=== PATIENT | female | born 1940 | race Caucasian/White ===

== ENCOUNTER → 2016-07-02 | Outpatient (CLI) | payer BC ==
[~2016-07-02] MED LIST: ACCL20 PO; ANT25 PO; ASPI81TA28 PO; CHOL100010 PO; CITA40TA12 PO; CLX20 PO; CYCL10TA6 PO; FLUT0.15 NAE; FLUT50SP14 NAE; FOLI400T41 PO; LEVO1TAB33 PO; MECL1TAB42 PO; METF1000 PO; METH2.5T PO; NAPR1TAB9 PO; PANT40TA PO; PHEN-876 PO; PRAV20TA PO; PRED10TA PO; RANI150T3 PO; SENN1TAB65 PO; TOPI100T20 PO; TRAM-453 PO; VSC/5 PO
--- NOTE | 2016-07-02 17:13 | MAMMOGRAPHY REPORT ---
BILATERAL DIGITAL SCREENING MAMMOGRAM WITH CAD: 07/02/2016 CLINICAL HISTORY: Routine screening. Patient has no complaints. TECHNIQUE: Bilateral CC and MLO views were obtained. Current study was also evaluated with a Comput er Aided Detection (CAD) system. COMPARISON: Comparison is made to exams dated: 06/28/2015 mammogram, 06/09/2013 mammogram, 06/08/2012 m ammogram, 06/03/2011 mammogram, 05/30/2010 mammogram - [facility], and 12/19/2008. BREAST COMPOSITION: There are scattered areas of fibroglandular density in both breasts. FINDINGS: There are scattered stable benign-appearing punctate microcalcifications in the breasts. No suspicious mass, architectural distortion or cluster of microcalcifications is seen. IMPRESSION: ACR BI-RADS CATEGORY 1: NEGATIVE There is no mammographic evidence of malignancy. A 1 year screening mammogram is recommended. The p atient will receive written notification of the results. Approximately 10% of breast cancers are not detected with mammography. A negative mammographic repor t should not delay biopsy if a clinically suggestive mass is present. Radha Hammond M.D. ay/:07/02/2016 12:30:45 Java Mobile Developer: Ilene TELLEZ(Leah)(M), [facility] letter sent: Normal 1/2 BI-RADS Code: ACR BI-RADS Category 1: Negative
== END | disposition home or self-care (01) ==
LOC: C.MAMM 10:56
PROVIDERS: ATTEND Internal Medicine
DX: Z12.31 Encounter for screening mammogram for malignant neoplasm of breast (principal)

== ENCOUNTER → 2016-07-23 | Outpatient (CLI) | payer BC ==
[2016-07-23 13:13] LABS: ESTIMATED AVERAGE GLUCOSE 123 mg/dl; HA1C FLAG Normal (Normal)
[2016-07-23 17:36] LABS: ALT/SGPT 18 U/L (12-78); AST/SGOT 13 U/L (15-37); BLOOD UREA NITROGEN 19 mg/dl (7-18); CALCIUM 8.8 mg/dl (8.5-10.1); CARBON DIOXIDE 21 mmol/L (21-32); CHLORIDE 113 mmol/L (98-107); CREATININE 0.76 mg/dl (0.60-1.20); GLUCOSE 92 mg/dl (70-99); POTASSIUM 3.8 mmol/L (3.5-5.1); SODIUM 145 mmol/L (136-145); TRIGLYCERIDES 107 mg/dl (0-150); VERY LOW DENSITY LIPOPROT CALC 21 mg/dl
[2016-07-23 17:38] LABS: ALB/GLOB RATIO 0.9 (0.9-2); ALKALINE PHOSPHATASE 65 U/L (45-117); CHOLESTEROL 195 mg/dl (0-200); CHOLESTEROL/HDL RATIO 3.8; HDL CHOLESTEROL 52 mg/dl; LDL CHOLESTEROL CALCULATED 122 mg/dl
== END | disposition home or self-care (01) ==
LOC: C.LABBFT 11:25
PROVIDERS: ATTEND Internal Medicine
DX: E11.9 Type 2 diabetes mellitus without complications (principal); E78.00 Pure hypercholesterolemia, unspecified; I10 Essential (primary) hypertension

== ENCOUNTER 2016-08-03 21:42 | Emergency (ER) | payer BC ==
[~2016-08-03] VITALS: Ht 157.5 cm; Wt 80.0 kg
[~2016-08-03 21:42] MED LIST changes: -CITA40TA12 PO; -CYCL10TA6 PO; -FLUT0.15 NAE; -LEVO1TAB33 PO; -MECL1TAB42 PO; -NAPR1TAB9 PO; -PHEN-876 PO; -PRED10TA PO; -VSC/5 PO
[2016-08-03 21:59] VITALS: TEMP 36.4; Ht 157.5 cm; Wt 80.0 kg
[2016-08-03 22:04] VITALS: O2SAT 94
[2016-08-03] MEDS ORDERED: ACCL20 PO (22:51)
[2016-08-03] MEDS ORDERED: DiphenhydrAMINE HCL 50 MG/ML VIAL IV STA (22:51)
[2016-08-03] MEDS ORDERED: MECL1TAB42 PO (22:51)
[2016-08-03] MEDS ORDERED: PROCHLORPERAZINE 5 MG/ML 2 ML VIAL IV STA (22:51)
[2016-08-03] MEDS ORDERED: FENTANYL CITRATE INJ 50 MCG/1 ML 2 ML VIAL IV STA (22:51)
[2016-08-03] MEDS ORDERED: CITA40TA12 PO (22:51)
[2016-08-03] MEDS ORDERED: SODIUM CHLORIDE 0.9% 1000ML 1,000 ML IV STA (22:51)
[2016-08-03] MEDS ORDERED: FLUT0.15 NAE (22:51)
[2016-08-03] MEDS ORDERED: SODIUM CHLORIDE 0.9% 250ML 250 ML IV STA (22:51)
[2016-08-03] MEDS ORDERED: VSC/5 PO (22:51)
[2016-08-03] MEDS ORDERED: CHOL100010 PO (22:51)
[2016-08-03] MEDS ORDERED: LEVO1TAB33 PO (22:51)
[2016-08-03] MEDS ORDERED: PHEN-876 PO (22:51)
[2016-08-03] MEDS ORDERED: PRED10TA PO (22:51)
--- NOTE | 2016-08-03 22:58 | EMERGENCY ROOM VISIT NOTE ---
History Report prepared by Earl: Rosalia Noel Under the Supervision of: Dr. Ida Macias M.D. 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 The patient states that she had a sudden onset of pain and she describes it as a pressure. She denies any radiation of the pain. The patient states that she had diaphoresis and then had nausea followed by several episodes of vomiting. She states she also has generalized weakness and dizziness. The patient states that upon arriving at the ED she states her chest pain resolved. She states that with her symptoms she also developed a headache spanning her forehead and states she suffers from chronic migraines and takes Topamax daily and it causes her to get migraines less frequently. She states this headache feels like it it turning into a migraine. The patient states that she has been having intermittent fevers due to a chest cold she has and has been taking Levaquin and steroids to treat her cough. The patient denies any shortness of breath or any blood in her vomit. The patient states that she has history of a cholecystectomy. 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 Review of Systems See HPI for pertinent positives & negatives. A total of 10 systems reviewed and were otherwise negative. Past Medical & Surgical Medical Problems: (1) Cholecystectomy (2) Diabetes mellitus type 2 (3) Intractable nausea and vomiting (4) LENS REPLACEMENT NEC (5) MIGRAINE UNSPECIFIED W/O INTRACT MGRN W/O STATUS MIGRAINOSUS (6) Sciatica Family History No pertient family history secondary to age. Social History Smoking Status: Never Smoker Alcohol Use: none Drug Use: none Marital Status: single Occupation Status: retired Current/Historical Medications Scheduled Aspirin (Aspirin Ec), 81 MG PO DAILY Cholecalciferol (Vitamin D), 1,000 UNITS PO DAILY Citalopram Hydrobromide (Celexa), 40 MG PO DAILY Fluticasone Propionate (Nasal) (Flonase Allergy Relief), 2 SPRAYS HECTOR DAILY Folic Acid (Folvite), 1,200 MCG PO DAILY Levofloxacin (Levaquin), 500 MG PO DAILY Metformin Hcl (Glucophage), 1,000 MG PO BID Methotrexate Sodium (Methotrexate), 15 MG PO WK Pantoprazole (Protonix), 40 MG PO DAILY Pravastatin (Pravachol ), 20 MG PO HS Prednisone Tab (Prednisone), 10 MG PO Q2D Ranitidine Hcl (Zantac), 150 MG PO BID Solifenacin (Vesicare), 5 MG PO DAILY Topiramate (Topamax), 100 MG PO BID Zafirlukast (Zafirlukast), 20 MG PO BID Scheduled PRN Meclizine Hcl (Meclizine Hcl), 1 TAB PO TID PRN for Dizziness or Vertigo Phenazopyridine HCl (Pyridium), 200 MG PO TID PRN for Bladder pain Ranitidine Hcl (Zantac), 150 MG PO BID PRN for REFLUX Sennosides-Docusate Sodium (Senna Plus), 1 TAB PO DAILY PRN for Constipation Tramadol Hcl (Ultram), 50 MG PO Q4-6H PRN Allergies Coded Allergies: Acetaminophen (Verified Allergy, Severe, SAME PERCODAN, 08/03/16) Aspirin (Verified Allergy, Severe, DROP IN VITAL SIGNS, TREMORS , VOMITING , 08/03/16) Morphine (Verified Allergy, Severe, DROP IN VITAL SIGNS, TREMORS, VOMITING , 08/03/16) Codeine (Verified Allergy, Unknown, 08/03/16) Oxycodone (Verified Allergy, Unknown, 08/03/16) PATIENT DENIES THIS ALLEGY Meperidine (Verified Adverse Reaction, Intermediate, VOMITING, 08/03/16) Adhesives (Verified Adverse Reaction, Unknown, "PULLS OFF SKIN", 08/03/16) Physical Exam Vital Signs Date Time Temp Pulse Resp B/P Pulse Ox O2 Delivery O2 Flow Rate FiO2 08/04/16 01:31 70 16 127/70 98 08/04/16 00:00 60 16 107/60 95 Room Air 08/03/16 22:04 94 Room Air 08/03/16 21:59 36.4 57 16 163/90 94 Room Air 08/03/16 21:57 61 Physical Exam Vital signs reviewed. General: Well-appearing elderly woman, in no significant distress. HEENT: No scleral icterus, PERRLA, neck supple. Atraumatic. No meningismus signs. Edentulous Cardiovascular: Regular rate and rhythm, no extra sounds. Pulmonary: Clear to auscultation bilaterally, normal work of breathing. Abdomen: Soft, nontender, nondistended, positive bowel sounds. Musculoskeletal: Atraumatic, no peripheral edema. Neurologic: Patient awake alert and oriented x 3, full strength in all 4 extremities. Cranial nerves 2 through 12 grossly intact. No meningeal signs Skin: Warm, dry, no rash Medical Decision & Procedures Laboratory Results 08/03/16 21:50 Red Blood Count 4.60, Mean Corpuscular Volume 89.8, Mean Corpuscular Hemoglobin 29.8, Mean Corpuscular Hemoglobin Concent 33.2, Mean Platelet Volume 10.3, Neutrophils (%) (Auto) 66.4, Lymphocytes (%) (Auto) 26.6, Monocytes (%) (Auto) 5.7, Eosinophils (%) (Auto) 0.3, Basophils (%) (Auto) 0.5, Neutrophils # (Auto) 4.19, Lymphocytes # (Auto) 1.68, Monocytes # (Auto) 0.36, Eosinophils # (Auto) 0.02, Basophils # (Auto) 0.03 08/03/16 21:50 Test 08/03/16 21:50 08/03/16 22:58 White Blood Count 6.31 K/uL (4.8-10.8) Red Blood Count 4.60 M/uL (4.2-5.4) Hemoglobin 13.7 g/dL (12.0-16.0) Hematocrit 41.3 % (37-47) Mean Corpuscular Volume 89.8 fL (80-100) Mean Corpuscular Hemoglobin 29.8 pg (25-34) Mean Corpuscular Hemoglobin Concent 33.2 g/dl (32-36) Platelet Count 350 K/uL (130-400) Mean Platelet Volume 10.3 fL (7.4-10.4) Neutrophils (%) (Auto) 66.4 % Lymphocytes (%) (Auto) 26.6 % Monocytes (%) (Auto) 5.7 % Eosinophils (%) (Auto) 0.3 % Basophils (%) (Auto) 0.5 % Neutrophils # (Auto) 4.19 K/uL (1.4-6.5) Lymphocytes # (Auto) 1.68 K/uL (1.2-3.4) Monocytes # (Auto) 0.36 K/uL (0.11-0.59) Eosinophils # (Auto) 0.02 K/uL (0-0.5) Basophils # (Auto) 0.03 K/uL (0-0.2) RDW Standard Deviation 49.9 fL (36.4-46.3) RDW Coefficient of Variation 15.4 % (11.5-14.5) Immature Granulocyte % (Auto) 0.5 % Immature Granulocyte # (Auto) 0.03 K/uL (0.00-0.02) Anion Gap 10.0 mmol/L (3-11) Est Creatinine Clear Calc Drug Dose 56.9 ml/min Estimated GFR () 78.2 Estimated GFR (Non- 67.5 BUN/Creatinine Ratio 27.6 (10-20) Calcium Level 9.0 mg/dl (8.5-10.1) Magnesium Level 2.4 mg/dl (1.8-2.4) Total Bilirubin 0.4 mg/dl (0.2-1) Direct Bilirubin < 0.1 mg/dl (0-0.2) Aspartate Amino Transf (AST/SGOT) 16 U/L (15-37) Alanine Aminotransferase (ALT/SGPT) 18 U/L (12-78) Alkaline Phosphatase 85 U/L (45-117) Total Creatine Kinase 60 U/L (26-192) Creatine Kinase MB 0.7 ng/ml (0.5-3.6) Creatine Kinase MB Ratio 1.2 (0-3.0) Total Protein 7.7 gm/dl (6.4-8.2) Albumin 3.8 gm/dl (3.4-5.0) Lipase 151 U/L (73-393) Chemistry Specimen Hemolysis Bedside Troponin I 0.000 ng/ml (0-0.045) Laboratory results per my review. Medications Administered Medications (Trade) Dose Ordered Sig/Carmen Route Start Time Stop Time Status Last Admin Dose Admin Sodium Chloride 250 ml @ 999 mls/hr Q16M STAT IV 08/03/16 22:51 08/03/16 23:06 DC 08/03/16 23:18 999 MLS/HR Sodium Chloride (Nss 1000ml) 1,000 ml @ 125 mls/hr Q8H STAT IV 08/03/16 22:51 08/04/16 02:09 DC 08/03/16 23:18 125 MLS/HR Fentanyl Citrate (Fentanyl Inj) 75 mcg NOW STAT IV 08/03/16 22:51 08/03/16 22:54 DC 08/03/16 23:19 75 MCG Prochlorperazine Edisylate (Compazine Inj) 5 mg NOW STAT IV 08/03/16 22:51 08/03/16 22:54 DC 08/03/16 23:18 5 MG Diphenhydramine HCl (Benadryl Inj) 25 mg NOW STAT IV 08/03/16 22:51 08/03/16 22:54 DC 08/03/16 23:18 25 MG ECG Indication: chest pain Rate (beats per minute): 55 Rhythm: sinus bradycardia Findings: no acute ischemic change, no ectopy ED Course 1: At this time the patient was evaluated by the medical student. The student s findings were discussed with me. We discussed a possible treatment plan and differential diagnoses for the patient. 2246: Past medical records reviewed. The patient was evaluated in room C6. A complete history and physical examination was performed. 2251: Ordered Benadryl Inj 25 mg IV, Compazine Inj 5 mg IV, Fentanyl 75 mcg IV, Sodium Chloride 1,000 ml @ 125 mls/hr IV, Sodium Chloride 250 ml @ 999 mls/hr IV. 0105: Upon reevaluation, the patient appeared to have improvement of her symptoms. I discussed findings with her. She verbalized agreement of the treatment plan. The patient was discharged home. Medical Decision DDx: Intracranial hemorrhage, intracranial mass, migraine headache, tension headache , sinusitis, meningitis and viral illness, gastritis, esophageal reflux, ACS. This patient was evaluated and appeared to be in no significant distress. IV access was obtained and laboratory work was drawn. Patient was medicated with IV Compazine 5 mg, IV Benadryl 25 mg and 75 g of IV fentanyl. She was hydrated with normal saline solution. No imaging was performed as the patient states this is similar to her previous and chronic migraine headaches. Patient' s laboratory work was a normal white blood cell count and a mild hyperglycemia. Patient was feeling much improved on reevaluation. She was discharged to the care of her daughter and will follow-up with her primary care physician for reevaluation this week. She will return to the ER for worsening of symptoms or any medical concerns. Impression Primary Impression: Migraine headache Additional Impression: Vomiting Scribe Attestation The scribe's documentation has been prepared under my direction and personally reviewed by me in its entirety. I confirm that the note above accurately reflects all work, treatment, procedures, and medical decision making performed by me. Departure Information Dispostion Home / Self-Care Prescriptions Ranitidine Hcl (ZANTAC) 150 Mg Tab 150 MG PO BID, #30 TAB Prov: Ida Macias M.D. 08/04/16 Referrals Royer Ring M.D. (PCP) Forms HOME CARE DOCUMENTATION FORM, IMPORTANT VISIT INFORMATION, WORK / SCHOOL INSTRUCTIONS Patient Instructions My [facility] Additional Instructions Diagnosis: Migraine headache, vomiting Drink plenty of clear fluids. Continue your medications as prescribed. Zantac 150 mg twice daily as needed. Follow-up with your physician this week for reevaluation. Return to the emergency department for worsening of symptoms or any medical concerns. Problem Qualifiers Primary Impression: Migraine headache Migraine type: periodic headache syndrome Intractability: intractable Qualified Codes: G43.C1 - Periodic headache syndromes in child or adult, intractable Additional Impression: Vomiting Vomiting type: unspecified Vomiting Intractability: non-intractable Nausea presence: with nausea Qualified Codes: R11.2 - Nausea with vomiting, unspecified
[2016-08-03 23:01] LABS: BASO % 0.5 %; BASO ABS # 0.03 K/uL (0-0.2); COMPLETE YES; EOS % 0.3 %; HEMATOCRIT 41.3 % (37-47); IG% 0.5 %; LYMPH % 26.6 %; LYMPH ABS # 1.68 K/uL (1.2-3.4); MEAN CELL VOLUME 89.8 fL (80-100); MEAN CORPUSCULAR HEMOGLOBIN 29.8 pg (25-34); MEAN CORPUSCULAR HGB CONC 33.2 g/dl (32-36); MEAN PLATELET VOLUME 10.3 fL (7.4-10.4); MONO % 5.7 %; NEUT % 66.4 %; PLATELET COUNT 350 K/uL (130-400); WHITE BLOOD COUNT 6.31 K/uL (4.8-10.8)
[2016-08-03 23:16] LABS: ALKALINE PHOSPHATASE 85 U/L (45-117); ALT/SGPT 18 U/L (12-78); AST/SGOT 16 U/L (15-37); BLOOD UREA NITROGEN 24 mg/dl (7-18); BUN/CREATININE RATIO 27.6 (10-20); CARBON DIOXIDE 24 mmol/L (21-32); CHLORIDE 106 mmol/L (98-107); CKMB/CK RATIO 1.2 (0-3.0); CREATININE 0.85 mg/dl (0.60-1.20); GLUCOSE 151 mg/dl (70-99); MAGNESIUM 2.4 mg/dl (1.8-2.4); POTASSIUM 3.8 mmol/L (3.5-5.1); SODIUM 140 mmol/L (136-145)
[2016-08-04] MEDS ORDERED: RANI150T3 PO (01:17)
[2016-08-04 01:31] VITALS: BP 127/70; PULSE 70; O2SAT 98
== END 2016-08-04 01:32 | disposition home or self-care (01) ==
LOC: EDBD 21:42 → C.EDC 21:43
DX: G43.C1 Periodic headache syndromes in child or adult, intractable (principal); R11.2 Nausea with vomiting, unspecified; E11.9 Type 2 diabetes mellitus without complications; M54.30 Sciatica, unspecified side; Z79.82 Long term (current) use of aspirin; Z79.2 Long term (current) use of antibiotics; Z79.899 Other long term (current) drug therapy

== ENCOUNTER → 2016-08-14 | Outpatient (CLI) | payer BC ==
[~2016-08-14] MED LIST changes: -ANT25 PO; +CITA40TA12 PO; -CLX20 PO; +CYCL10TA6 PO; +FLUT0.15 NAE; -FLUT50SP14 NAE; +LEVO1TAB33 PO; +MECL1TAB42 PO; +NAPR1TAB9 PO; +PHEN-876 PO; +PRED10TA PO; +VSC/5 PO
== END | disposition home or self-care (01) ==
LOC: C.MAMM 11:22
PROVIDERS: ATTEND Internal Medicine
DX: M81.0 Age-related osteoporosis without current pathological fracture (principal); M85.851 Other specified disorders of bone density and structure, right thigh; M85.852 Other specified disorders of bone density and structure, left thigh; E04.2 Nontoxic multinodular goiter

== ENCOUNTER → 2016-08-14 | Outpatient (CLI) | payer BC ==
--- NOTE | 2016-08-14 12:40 | DIAGNOSTIC IMAGING REPORT ---
THYROID ULTRASONOGRAPHY CLINICAL HISTORY: E04.2 Nontoxic multinodular [id number] COMPARISON STUDY: No previous studies for comparison. FINDINGS: The right of the thyroid measures 4.1 x 2.1 x 1.5 cm. The left lobe of thyroid measures 5.7 x 2 x 1.4 cm. There are multiple bilateral thyroid nodules. The largest nodules in the right include a 7 mm circumscribed upper pole nodule containing colloid artifact, as well as an 11 mm circumscribed hypoechoic lower pole nodule containing colloid artifact. On the left, the 2 largest nodules include an isoechoic 6 mm lower pole nodule, and 12 mm minimally hypoechoic mid pole nodule versus area of glandular heterogeneity. No single nodule demonstrate suspicious morphologic characteristics. IMPRESSION: Multinodular thyroid goiter. No dominant suspicious nodule is evident Electronically signed by: Bola Walsh M.D. 08/14/2016 12:38 PM Dictated Date/Time: 08/14/2016 12:36 PM
== END | disposition home or self-care (01) ==
LOC: C.ULTR 11:58
PROVIDERS: ATTEND Internal Medicine
DX: E04.2 Nontoxic multinodular goiter (principal)

== ENCOUNTER 2016-08-31 10:29 | Emergency (ER) | payer BC ==
[~2016-08-31] VITALS: Ht 160 cm; Wt 76.6 kg
[~2016-08-31 10:29] MED LIST changes: -CYCL10TA6 PO; -NAPR1TAB9 PO
[2016-08-31 10:52] VITALS: TEMP 36.7; Ht 160 cm; Wt 76.6 kg
[2016-08-31] MEDS ORDERED: KETOROLAC TROMETHAMINE 60 MG/2 ML VIAL IM STA (11:47)
[2016-08-31] MEDS ORDERED: NAPR1TAB9 PO (11:58)
--- NOTE | 2016-08-31 12:37 | DIAGNOSTIC IMAGING REPORT ---
RIGHT RIBS UNILATERAL WITH PA CHEST CLINICAL HISTORY: Right lower rib pain. No recent trauma. COMPARISON STUDY: Chest radiograph August 13, 2013. FINDINGS: Moderate elevation of the left hemidiaphragm is unchanged. There is no pneumothorax or pleural effusion. Cardiomediastinal silhouette is normal. There is no evidence of pulmonary edema. No acute right rib fractures are identified. The anterior right first rib is absent. This is unchanged. IMPRESSION: No pneumothorax. No acute right rib fractures. Electronically signed by: Seth Sandoval M.D. 08/31/2016 12:35 PM Dictated Date/Time: 08/31/2016 12:31 PM
[2016-08-31 13:28] LABS: INR 0.9 (0.9-1.1); PROTHROMBIN TIME (PATIENT) 10.1 SECONDS (9.0-12.0)
[2016-08-31] MEDS ORDERED: CYCL10TA6 PO (14:23)
--- NOTE | 2016-08-31 14:25 | EMERGENCY ROOM VISIT NOTE ---
History First contact with patient: 11:40 Chief Complaint: BACK PAIN Stated Complaint: SEVERE BACK PAIN History of Present Illness The patient is a 76 year old female who presents to the Emergency Room with complaints of right posterior rib pain which started Khalif night. The patient states that it hurts to take in a deep breath or to move in any direction. The patient denies any recent URI symptoms. The patient denies any chest pain or shortness of breath. The patient denies any injury. The patient denies any history of osteoporosis. The patient has been taking tramadol and Aleve without any relief of the pain. Review of Systems 10 system review was performed and was negative unless stated otherwise history of present illness. Past Medical/Surgical History Medical Problems: (1) Cholecystectomy (2) Diabetes mellitus type 2 (3) Intractable nausea and vomiting (4) LENS REPLACEMENT NEC (5) MIGRAINE UNSPECIFIED W/O INTRACT MGRN W/O STATUS MIGRAINOSUS (6) Sciatica Family History No pertient family history secondary to age. Social History Smoking Status: Never Smoker Alcohol Use: none Drug Use: none Marital Status: single Occupation Status: retired Current/Historical Medications Scheduled Aspirin (Aspirin Ec), 81 MG PO DAILY Cholecalciferol (Vitamin D), 1,000 UNITS PO DAILY Citalopram Hydrobromide (Celexa), 40 MG PO BID Fluticasone Propionate (Nasal) (Flonase Allergy Relief), 2 SPRAYS HECTOR DAILY Folic Acid (Folvite), 1,200 MCG PO DAILY Metformin Hcl (Glucophage), 1,000 MG PO BID Methotrexate Sodium (Methotrexate), 15 MG PO WK Pantoprazole (Protonix), 40 MG PO DAILY Pravastatin (Pravachol ), 20 MG PO Q2D Ranitidine Hcl (Zantac), 150 MG PO BID Solifenacin (Vesicare), 5 MG PO DAILY Topiramate (Topamax), 100 MG PO BID Zafirlukast (Zafirlukast), 20 MG PO BID Scheduled PRN Meclizine Hcl (Meclizine Hcl), 1 TAB PO TID PRN for Dizziness or Vertigo Naproxen (Aleve), 220 MG PO UD PRN for Pain Sennosides-Docusate Sodium (Senna Plus), 1 TAB PO DAILY PRN for Constipation Tramadol Hcl (Ultram), 50 MG PO Q4-6H PRN Allergies Coded Allergies: Morphine (Verified Allergy, Severe, DROP IN VITAL SIGNS, TREMORS, VOMITING , 08/31/16) Codeine (Verified Allergy, Unknown, 08/31/16) Oxycodone (Verified Allergy, Unknown, drop in vital signs,tremors,vomiting , 08/31/16) Meperidine (Verified Adverse Reaction, Intermediate, VOMITING, 08/31/16) Adhesives (Verified Adverse Reaction, Unknown, "PULLS OFF SKIN", 08/31/16) Physical Exam Vital Signs Date Time Temp Pulse Resp B/P Pulse Ox O2 Delivery O2 Flow Rate FiO2 08/31/16 13:40 60 15 122/69 94 Room Air 08/31/16 12:40 70 15 112/64 94 Room Air 08/31/16 11:58 75 122/69 94 Room Air 08/31/16 10:52 36.7 92 17 118/83 96 Room Air Physical Exam GENERAL: 76-year-old white female appears uncomfortable with any type of movement. MENTAL Status: Alert and oriented 3. NECK: Supple, no lymphadenopathy noted. No carotid bruits noted. LUNGS: Clear auscultation without wheezes rales or rhonchi. CARDIAC: Regular rate and rhythm without murmur. Pulses is full and equal throughout. CHEST WALL: No gross bony deformity noted. No erythema or edema noted. Tenderness palpation on the posterior mid to lower ribs. ABDOMEN: Positive bowel sounds all 4 quadrants. Soft, nontender to palpation without organomegaly or masses. THORACIC SPINE: Patient is nontender to palpation over the spinous processes. Medical Decision & Procedures ER Provider Diagnostic Interpretation: RIGHT RIBS UNILATERAL WITH PA CHEST CLINICAL HISTORY: Right lower rib pain. No recent trauma. COMPARISON STUDY: Chest radiograph August 13, 2013. FINDINGS: Moderate elevation of the left hemidiaphragm is unchanged. There is no pneumothorax or pleural effusion. Cardiomediastinal silhouette is normal. There is no evidence of pulmonary edema. No acute right rib fractures are identified. The anterior right first rib is absent. This is unchanged. IMPRESSION: No pneumothorax. No acute right rib fractures. Electronically signed by: Seht Sandoval M.D. 08/31/2016 12:35 PM Laboratory Results Test 08/31/16 13:07 08/31/16 13:14 08/31/16 13:44 Prothrombin Time 10.1 SECONDS (9.0-12.0) Prothromb Time International Ratio 0.9 (0.9-1.1) Activated Partial Thromboplast Time 26.1 SECONDS (21.0-31.0) Partial Thromboplastin Ratio 1.0 XX-Vty-J-Type Natriuretic Peptide 101 pg/ml (0-900) Bedside D-Dimer 248 ng/mlFEU (0-450) Medications Administered Medications (Trade) Dose Ordered Sig/Carmen Route Start Time Stop Time Status Last Admin Dose Admin Ketorolac Tromethamine (Toradol Inj) 60 mg NOW STAT IM 08/31/16 11:47 08/31/16 11:49 DC 08/31/16 12:01 60 MG ED Course The patient was evaluated. The patient was given Toradol 60 and independently evaluated by Dr. Macias who agree with treatment plan. Mg IM for pain since she drove herself to the emergency room plus she is allergic to all narcotics as per her history. Aspirin is listed as an allergy but the patient has been taking Aleve without any side effects or allergic reaction. X-ray of the right ribs to include chestwas ordered and interpreted by the radiologist and myself without any acute findings. D-dimer and coags were ordered and were normal. The patient was reevaluated and informed of the findings. The patient was discharged home in stable condition. The patient was independently evaluated by Dr. Macias who agreed with treatment plan. Medical Decision Differential diagnosis include rib fracture, costochondritis, pleuritic chest pain, pneumothorax Impression Primary Impression: Strain of thoracic paraspinal muscles excluding T1 and T2 levels Departure Information Dispostion Home / Self-Care Condition GOOD Prescriptions Cyclobenzaprine Hcl (FLEXERIL) 10 Mg Tab 10 MG PO TID for 7 Days, #21 TAB Prov: Concepcion Rowland PA-C 08/31/16 Referrals Royer Ring M.D. (PCP) Forms HOME CARE DOCUMENTATION FORM, IMPORTANT VISIT INFORMATION Patient Instructions [facility] Additional Instructions May try moist heat intermittently to the affected area to aid in pain relief. Continue Aleve and tramadol for pain. Take Flexeril as directed. Do not drive while taking the Flexeril. Follow-up with your family physician in 2-3 days for recheck.
[2016-08-31 14:35] VITALS: BP 123/73; PULSE 62; O2SAT 94
--- NOTE | 2016-09-02 22:31 | EMERGENCY ROOM VISIT NOTE ---
ED Visit Note First contact with patient: 11:40 I have personally seen and evaluated the patient with the PA. I agree with the diagnosis and management decisions and have been personally involved in the case. Please see Alondra Winston PA-C's notes for further details of the history, physical and visit.
== END 2016-08-31 14:37 | disposition home or self-care (01) ==
LOC: C.EDB 10:30 → C.EDC 14:37
DX: S29.012A Strain of muscle and tendon of back wall of thorax, initial encounter (principal); X58.XXXA Exposure to other specified factors, initial encounter; E11.9 Type 2 diabetes mellitus without complications; Z90.49 Acquired absence of other specified parts of digestive tract; Z98.49 Cataract extraction status, unspecified eye; Z79.82 Long term (current) use of aspirin; Z79.84 Long term (current) use of oral hypoglycemic drugs; Z88.5 Allergy status to narcotic agent; Z88.8 Allergy status to other drugs, medicaments and biological substances; Z91.09 Other allergy status, other than to drugs and biological substances

== ENCOUNTER → 2016-09-05 | Outpatient (CLI) | payer BC ==
[~2016-09-05] MED LIST changes: +CYCL10TA6 PO; -LEVO1TAB33 PO; +NAPR1TAB9 PO; -PHEN-876 PO; -PRED10TA PO
--- NOTE | 2016-09-05 12:10 | DIAGNOSTIC IMAGING REPORT ---
Study: Fusion CT sinuses. HISTORY: Chronic sinusitis. FINDINGS: Prior antral window placement. Antral windows are widely patent. Minimal hyperplastic change nasal turbinates. No significant nasal occlusive change. Frontal sinuses are clear. Minimal mucosal thickening dependent left maxillary sinus. Sphenoid sinuses are clear. Orbital margins are intact. Globes are symmetric. IMPRESSION: 1. Antral window placement bilaterally. These are widely patent. 2. Minimal mucosal thickening left maxillary sinus with sinuses otherwise clear. 3. Operative changes consistent with partial ethmoidectomy. 4. Mild hyperplastic changes the nasal turbinates. No significant nasal occlusive change. Electronically signed by: Lamine Rowland M.D. 09/05/2016 12:08 PM Dictated Date/Time: 09/05/2016 12:05 PM
== END | disposition home or self-care (01) ==
LOC: C.CTS 11:26
DX: J32.9 Chronic sinusitis, unspecified (principal)

== ENCOUNTER → 2017-01-29 | Outpatient (CLI) | payer BC ==
[~2017-01-29] MED LIST changes: -CYCL10TA6 PO
[2017-01-29 12:34] LABS: BASO % 0.7 %; BASO ABS # 0.04 K/uL (0-0.2); COMPLETE YES; EOS % 2.1 %; HEMATOCRIT 41.9 % (37-47); IG% 0.3 %; LYMPH % 20.8 %; LYMPH ABS # 1.28 K/uL (1.2-3.4); MEAN CELL VOLUME 93.3 fL (80-100); MEAN CORPUSCULAR HEMOGLOBIN 29.6 pg (25-34); MEAN CORPUSCULAR HGB CONC 31.7 g/dl (32-36); MEAN PLATELET VOLUME 10.2 fL (7.4-10.4); MONO % 8.6 %; NEUT % 67.5 %; PLATELET COUNT 276 K/uL (130-400); RED BLOOD COUNT 4.49 M/uL (4.2-5.4); WHITE BLOOD COUNT 6.14 K/uL (4.8-10.8)
[2017-01-29 12:42] LABS: URINE APPEARANCE CLEAR (CLEAR); URINE BILIRUBIN NEG (NEG); URINE COLOR YELLOW; URINE EPITHELIAL CELL AUTO 0-5 /lpf (0-5); URINE NITRITE NEG (NEG); URINE SPECIFIC GRAVITY 1.019 (1.000-1.030); UROBILINOGEN NEG (NEG); ZZUR CULT IF INDIC CLEAN CATCH NO
[2017-01-29 12:46] LABS: MANUAL MICROSCOPIC REQUIRED? NO; REVIEW REQ? NO
[2017-01-29 13:20] LABS: ALKALINE PHOSPHATASE 76 U/L (45-117); ALT/SGPT 16 U/L (12-78); BLOOD UREA NITROGEN 19 mg/dl (7-18); BUN/CREATININE RATIO 22.2 (10-20); CALCIUM 8.7 mg/dl (8.5-10.1); CARBON DIOXIDE 26 mmol/L (21-32); CHLORIDE 112 mmol/L (98-107); CHOLESTEROL 196 mg/dl (0-200); CREATININE 0.84 mg/dl (0.60-1.20); GLUCOSE 94 mg/dl (70-99); HDL CHOLESTEROL 65 mg/dl; POTASSIUM 4.3 mmol/L (3.5-5.1); SODIUM 143 mmol/L (136-145)
[2017-01-29 13:26] LABS: ESTIMATED AVERAGE GLUCOSE 123 mg/dl; HA1C FLAG Normal (Normal)
[2017-01-29 13:30] LABS: ALB/GLOB RATIO 1.1 (0.9-2); AST/SGOT 15 U/L (15-37); LDL CHOLESTEROL CALCULATED 113 mg/dl; TRIGLYCERIDES 89 mg/dl (0-150); VERY LOW DENSITY LIPOPROT CALC 18 mg/dl
[2017-01-29 13:38] LABS: RATIO 7.5 mcg/mg (0-30.0)
== END | disposition home or self-care (01) ==
LOC: C.LABBFT 09:57
PROVIDERS: ATTEND Internal Medicine
DX: E11.9 Type 2 diabetes mellitus without complications (principal); E78.00 Pure hypercholesterolemia, unspecified; M85.80 Other specified disorders of bone density and structure, unspecified site

== ENCOUNTER → 2017-03-02 | Outpatient (CLI) | payer BC ==
[~2017-03-02] MED LIST changes: -RANI150T3 PO
--- NOTE | 2017-03-02 12:27 | DIAGNOSTIC IMAGING REPORT ---
MODIFIED BARIUM SWALLOW CLINICAL HISTORY: Cough. COMPARISON STUDY: Modified swallow February 27, 2011. Fluoroscopy time: 1.8 minutes. FINDINGS: No tracheal aspiration was identified with thin liquids, nectar thick liquids, pudding or crackers with paste. Swallowing mechanism was intact. There was mild esophageal dysmotility. IMPRESSION: 1. No tracheal aspiration. Intact swallowing mechanism. 2. Mild esophageal dysmotility. 3. Full recommendations by speech pathology to follow. Electronically signed by: Seth Sandoval M.D. 03/02/2017 12:25 PM Dictated Date/Time: 03/02/2017 12:23 PM
--- NOTE | 2017-03-02 13:00 | SWALLOWING EVALUATION ---
HISTORY: This 76 year old woman was referred for a video swallow study at [facility] in order to rule out aspiration and identify the safest consistencies for optimal oral intake. The patient reports episodes where food will feel "stuck" in her throat and that she has some coughing associated with this. She feels this occurs more so with doughy foods. PMH is significant for DM II, migraines, sciatica, GERD, depression, HTN, arteries, vertigo. She reports that she has been managing her reflux with medications for many years. PROCEDURE: The patient was seen in the Radiology Department of [facility] for the VFSS. Cursory examination of the oral cavity revealed upper and lower dentures in fair condition. Movement of the articulators was wnl. The patient was seated on a stool and was viewed in both the Anterior-Posterior (A-P) and Lateral planes. Volitional phonation exercises completed in the A-P plane revealed bilateral vocal fold movement and vocal intensity within functional limits. In the lateral plane, the patient was given the following boluses: 1 tsp. thin liquid barium x 2, single swallow thin liquid barium self-presented from a cup, sequential swallows of thin liquid barium self-presented from a straw, 1 tsp. nectar-thick liquid barium, single swallow nectar-thick liquid barium self-presented from a cup, 1 tsp. barium pudding, and 1 club cracker coated in barium pudding. The patient was then repositioned into the A-P plane and given the following boluses: 1 tsp. nectar thick barium and 1 tsp. barium pudding. RESULTS: Oral Stage: Lip closure was adequate. The patient was able to maintain a cohesive liquid bolus upon command. Mastication was timely and efficient. Lingual motion for bolus transport was slowed. There was trace retention along the tongue and palate after the initial swallow. The initiation of the pharyngeal swallow was delayed and triggered when the bolus head reached pyriforms. Pharyngeal Stage: Soft palate elevation was complete. Laryngeal elevation revealed complete superior movement of the thyroid cartilage with complete approximation of the arytenoids to the epiglottic base. Anterior hyoid excursion was partially reduced. Epiglottic deflection was complete. Laryngeal vestibular closure was also complete. The pharyngeal stripping wave was present and complete. Pharyngeal contraction was complete. There was partial distention and duration to the opening of the pharyngoesophageal segment (PES). Tongue base retraction was reduced, with a trace column of contrast located between the tongue base and pharyngeal wall during the swallow. There was trace retention located in the valleculae after the swallow. There was no evidence of laryngeal penetration or aspiration for this study. The pharyngeal stage of the swallow was essentially wnl. Esophageal Stage: There was slowed motility of the bolus in the proximal esophagus that would clear independently with time. As the bolus traveled through the esophagus, there was also noted distal retention which also cleared with increased time. SUMMARY/RECOMMENDATIONS: The patient presents with mild sara-pharyngeal dysphagia. She also presents with signs and symptoms of esophageal dysfunction. The following is recommended: 1. Regular diet, "slippery", and thin liquids. Avoid foods that are dry, thick, doughy, and pasty. Use condiments to assist in making food slippery. 2. Aspiration and GERD precautions, Straws OK. Fully upright while eating and 30 minutes after meals. Do not lay flat, elevate head of the bed to at least 30 degrees at all time, to include while sleeping. 3. Safe swallow strategies: Alternate solids and liquids. Rest breaks as needed. 4. Follow up with PCP as needed. Results and recommendations were discussed with the patient immediately following the study with verbal understanding. Both verbal and written education was provided on a "slippery" diet for improved comfort while eating with verbal understanding as well. Thank you for referral of this patient. Please contact me at if any additional information is needed.
== END | disposition home or self-care (01) ==
LOC: C.RAD 11:04
PROVIDERS: ATTEND Internal Medicine
DX: R05 Cough (principal)

== ENCOUNTER → 2017-07-03 | Outpatient (CLI) | payer BC ==
[~2017-07-03] MED LIST changes: +CALC-51 PO; +COEN1CAP7 PO; +MISC1TAB34 PO; -PRAV20TA PO; +RANI150T85 PO; +ROSU5TAB PO; -VSC/5 PO
--- NOTE | 2017-07-03 15:27 | MAMMOGRAPHY REPORT ---
BILATERAL DIGITAL SCREENING MAMMOGRAM TOMOSYNTHESIS WITH CAD: 07/03/2017 CLINICAL HISTORY: Routine screening. Patient has no complaints. TECHNIQUE: Breast tomosynthesis in addition to standard 2D mammography was performed. Current study was also evaluated with a Computer Aided Detection (CAD) system. COMPARISON: Comparison is made to exams dated: 07/02/2016 mammogram, 06/28/2015 mammogram, 06/27/2014 mamm ogram, 06/09/2013 mammogram, 06/08/2012 mammogram, and 06/03/2011 mammogram - [facility]. BREAST COMPOSITION: There are scattered areas of fibroglandular density in both breasts. FINDINGS: No suspicious masses, calcifications, or areas of architectural distortion are noted in ei ther breast. There has been no significant interval change compared to prior exams. IMPRESSION: ACR BI-RADS CATEGORY 1: NEGATIVE There is no mammographic evidence of malignancy. A 1 year screening mammogram is recommended. The pa tient will receive written notification of the results. Approximately 10% of breast cancers are not detected with mammography. A negative mammographic report should not delay biopsy if a clinically suggestive mass is present. Poly Decker M.D. ah/:07/03/2017 12:22:42 Clinical Research Spec: Kelsey TELLEZ(Leah)(M), [facility] letter sent: Normal 1/2 BI-RADS Code: ACR BI-RADS Category 1: Negative
== END | disposition home or self-care (01) ==
LOC: C.MAMM 11:51
PROVIDERS: ATTEND Internal Medicine
DX: Z12.31 Encounter for screening mammogram for malignant neoplasm of breast (principal)

== ENCOUNTER 2017-07-27 16:05 | Observation (INO) | payer BC ==
[~2017-07-27] VITALS: Ht 160 cm; Wt 75.4 kg
[~2017-07-27 16:05] MED LIST changes: -ACCL20 PO; -ASPI81TA28 PO; -CITA40TA12 PO; -MECL1TAB42 PO; -SENN1TAB65 PO; -TRAM-453 PO
[2017-07-27] MEDS ORDERED: ONDANSETRON INJ 2 MG/ML 2 ML VIAL IV STA ×2 (16:17→18:12)
[2017-07-27] MEDS ORDERED: SODIUM CHLORIDE 0.9% 500ML 500 ML IV STA (16:17)
[2017-07-27] MEDS ORDERED: HYDROmorphone INJ 0.5 MG/0.5 ML SYR IV STA (16:17)
[2017-07-27 16:27] LABS: BASO % 0.2 %; BASO ABS # 0.02 K/uL (0-0.2); EOS % 0.1 %; EOS ABS # 0.01 K/uL (0-0.5); HEMATOCRIT 43.6 % (37-47); HEMOGLOBIN 14.3 g/dL (12.0-16.0); IG# 0.02 K/uL (0.00-0.02); LYMPH % 14.9 %; LYMPH ABS # 1.29 K/uL (1.2-3.4); MEAN CELL VOLUME 91.4 fL (80-100); MEAN CORPUSCULAR HGB CONC 32.8 g/dl (32-36); MEAN PLATELET VOLUME 10.2 fL (7.4-10.4); MONO % 4.3 %; MONO ABS # 0.37 K/uL (0.11-0.59); NEUT % 80.3 %; NEUT ABS # 6.93 K/uL (1.4-6.5); PLATELET COUNT 320 K/uL (130-400); RED CELL DISTRIBUTION WIDTH CV 14.6 % (11.5-14.5); RED CELL DISTRIBUTION WIDTH SD 48.6 fL (36.4-46.3); WHITE BLOOD COUNT 8.64 K/uL (4.8-10.8)
--- NOTE | 2017-07-27 16:33 | DIAGNOSTIC IMAGING REPORT ---
SINGLE VIEW CHEST CLINICAL HISTORY: Atypical chest pain. FINDINGS: An AP, portable, upright chest radiograph is compared to study dated 02/01/2015. The examination is degraded by portable technique and patient rotation. The cardiomediastinal silhouette is unremarkable. Chronic elevation of the left hemidiaphragm and interstitial thickening are similar to previous. No airspace consolidation or large pleural effusion is identified. No pneumothorax is seen. The skeletal structures are osteopenic. The bony thorax is grossly intact. IMPRESSION: No acute cardiopulmonary abnormality. Electronically signed by: Saji Kennedy M.D. 07/27/2017 4:32 PM Dictated Date/Time: 07/27/2017 4:31 PM
[2017-07-27 16:41] LABS: BLOOD UREA NITROGEN 15 mg/dl (7-18); CALCIUM 8.5 mg/dl (8.5-10.1); CARBON DIOXIDE 24 mmol/L (21-32); CREATININE 0.67 mg/dl (0.60-1.20); GLUCOSE 129 mg/dl (70-99); POTASSIUM 3.4 mmol/L (3.5-5.1); SODIUM 138 mmol/L (136-145)
[2017-07-27] MEDS ORDERED: OPTIRAY 320 IV PRN (16:45)
[2017-07-27 16:46] LABS: CKMB 1.6 ng/ml (0.5-3.6)
[2017-07-27] MEDS ORDERED: MTH25 PO (17:19)
[2017-07-27] MEDS ORDERED: PANT40TA2 PO (17:19)
[2017-07-27] MEDS ORDERED: TPM100 PO (17:19)
[2017-07-27] MEDS ORDERED: CHOL2000 PO (17:19)
--- NOTE | 2017-07-27 17:19 | DIAGNOSTIC IMAGING REPORT ---
HEAD WITHOUT CONTRAST (CT) CT DOSE: 1504.70 mGy.cm HISTORY: Mental status change RIGGS TECHNIQUE: Multiaxial CT images of the head were performed without the use of intravenous contrast. A dose lowering technique was utilized adhering to the principles of ALARA. Comparison: 05/29/2015 Findings: Mild chronic mucosal thickening of the sinuses. The mastoid air cells are clear. Chronic cerebellar as well as cerebral atrophy. Mild chronic small vessel change throughout both cerebral hemispheres. Impression: 1. Chronic mucosal thickening of the sinuses 2. Generalized cerebellar as well as cerebral atrophy. 3. No acute intracranial abnormality. The above report was generated using voice recognition software. It may contain grammatical, syntax or spelling errors. Electronically signed by: Lamien Rowland M.D. 07/27/2017 5:18 PM Dictated Date/Time: 07/27/2017 5:16 PM
[2017-07-27] MEDS ORDERED: CALC-393 PO (17:23)
[2017-07-27] MEDS ORDERED: MISCCAP52 PO (17:25)
[2017-07-27] MEDS ORDERED: CYCL10TA6 PO (17:25)
--- NOTE | 2017-07-27 17:29 | DIAGNOSTIC IMAGING REPORT ---
CT SCAN OF THE ABDOMEN AND PELVIS WITH IV CONTRAST CLINICAL HISTORY: Generalized abdominal pain. COMPARISON STUDY: Abdominal CT dated 11/28/2008. TECHNIQUE: Following the IV administration of 117 cc of Optiray 320, CT scan of the abdomen and pelvis is performed from the lung bases to the proximal femora. Images are reviewed in the axial, sagittal, and coronal planes. IV contrast was administered without complication. A dose lowering technique was utilized adhering to the principles of ALARA. FINDINGS: Lung bases: The heart is mildly enlarged and without pericardial effusion. There is elevation of the left hemidiaphragm and bibasilar atelectasis. No airspace consolidation or pleural effusion is seen. There is a small hiatal hernia. Liver: The contrast-enhanced liver is normal in size, contour, and attenuation. There is moderate intrahepatic biliary ductal dilatation, similar to the 2009 examination. The hepatic veins and portal veins are patent. Gallbladder: Surgically absent noting clips in the gallbladder fossa. Spleen: Normal in size and attenuation. Pancreas: Unremarkable. Adrenal glands: Unremarkable. Kidneys: The contrast enhanced kidneys demonstrate mild cortical atrophy and are without hydronephrosis. The kidneys enhance symmetrically. A 5.5 cm cyst arises from the upper pole of the left kidney. Additional subcentimeter cortical hypodensities also likely represent cysts but are too small for definitive characterization. There is a 5 mm nonobstructing left renal calculus. Abdominal vasculature: The abdominal aorta is normal in course and caliber noting mild to moderate atherosclerotic calcification. Bowel: There is moderate colonic fecal retention. No bowel obstruction is seen. There is moderate colonic diverticulosis without CT evidence of acute diverticulitis. The appendix is well-visualized and normal. Peritoneum: There is no intraperitoneal free air or abdominal ascites. Lymphadenopathy: None. Pelvic viscera: The bladder is normal as visualized. The uterus is surgically absent. No adnexal lesion is seen. Is trace free fluid in the pelvis. Skeletal structures: The skeletal structures are osteopenic. Mild to moderate lumbosacral spondylosis is observed. No lytic or blastic lesions are seen. IMPRESSION: 1. There is trace nonspecific free fluid in the pelvis, possibly on a reactive basis. 2. Constipation. No bowel obstruction is seen. 3. Moderate colonic diverticulosis without CT evidence of acute diverticulitis. 4. Nonobstructing left renal calculus. 5. Additional findings as above. Electronically signed by: Saji Kennedy M.D. 07/27/2017 5:27 PM Dictated Date/Time: 07/27/2017 5:19 PM
[2017-07-27] MEDS ORDERED: SENN1TAB65 PO (17:41)
[2017-07-27] MEDS ORDERED: ASPI81TA28 PO (17:41)
[2017-07-27] MEDS ORDERED: MECLIZINE HCL 12.5 MG TAB PO PRN (19:00)
[2017-07-27] MEDS ORDERED: RANITIDINE HCL 150 MG TAB PO PRN (19:00)
[2017-07-27] MEDS ORDERED: MAGNESIUM HYDROXIDE SUSP 30 ML UDC PO PRN (19:00)
[2017-07-27] MEDS ORDERED: DOCUSATE SODIUM/SENNA 50/8.6MG TAB PO PRN (19:00)
[2017-07-27] MEDS ORDERED: NITROGLYCERIN 0.4 MG SL PER TAB CHARGE SL PRN (19:00)
[2017-07-27] MEDS ORDERED: ALUMINUM/MAGNESIUM/SIMETH (MAALOX MAX) 30 ML UDC PO PRN (19:00)
[2017-07-27] MEDS ORDERED: ONDANSETRON INJ 2 MG/ML 2 ML VIAL IV PRN (19:00)
[2017-07-27] MEDS ORDERED: CYCLOBENZAPRINE HCL 10 MG TAB PO PRN (19:00)
[2017-07-27] MEDS ORDERED: ACETAMINOPHEN 325 MG TAB PO PRN (19:00)
[2017-07-27] MEDS: POLYETHYLENE (MIRALAX) 17 GM PACK PO SCH (19:00)
[2017-07-27] MEDS ORDERED: IV FLUIDS COMPLETED PRN (19:15)
--- NOTE | 2017-07-27 19:17 | History and Physical ---
History & Physical Date & Time of Service: Jul 27, 2017 at 19:06 Chief Complaint: Chest Heaviness Primary Care Physician: Royer Ring M.D. History of Present Illness Source: patient, clinic records, hospital records Patient is a pleasant 76 y/o female, with PMHx of T2DM, HLD, migraines, depression, RA, and GERD, who presented to the ED because of centralized chest pain. Patient was woken from her sleep around 0300 due to centralized chest pain. Pain does not radiate. She denies any alleviating/aggravating factors. She notes associated N/V and sweats. Currently, she denies any chest pain but complains of nausea and a headache. Patient denies any fever, chills, sweats, lightheadedness, dizziness, vision changes, palpitations, edema, SOB, wheezing, cough, abdominal pain, diarrhea, urinary symptoms, melena, numbness/tingling, weakness, muscle/joint pain, anxiety/depression, active bleeding, or new skin discoloration/changes. Past Medical/Surgical History T2DM HLD migraines RA GERD depression Family History No pertient family history secondary to age. Social History Smoking Status: Never Smoker Drug Use: none Marital Status: single Housing status: lives alone Occupational Status: retired Immunizations History of Influenza Vaccine: Yes History of Tetanus Vaccine?: Yes History of Pneumococcal: Yes History of Hepatitis B Vaccine: No Allergies Coded Allergies: Morphine (Verified Allergy, Severe, DROP IN VITAL SIGNS, TREMORS, VOMITING , 04/30/17) Codeine (Verified Allergy, Unknown, VOMITING DROP IN BP, 04/30/17) Oxycodone (Verified Allergy, Unknown, drop in vital signs,tremors,vomiting , 04/30/17) Meperidine (Verified Adverse Reaction, Intermediate, VOMITING, 04/30/17) Adhesives (Verified Adverse Reaction, Unknown, "PULLS OFF SKIN", 04/30/17) Home Medications Scheduled Aspirin (Aspirin Ec), 81 MG PO HS Calcium Carbonate (Calcium), 600 MG PO DAILY Cholecalciferol (Vitamin D3), 2,000 INTER.UNIT PO DAILY Citalopram Hydrobromide (Celexa), 40 MG PO DAILY Folic Acid (Folvite), 1,200 MCG PO QAM Metformin Hcl (Glucophage), 1,000 MG PO BID Methotrexate (Methotrexate), 15 MG PO WK Misc Natural Products (Turmeric Curcumin), 1 CAP PO DAILY Pantoprazole (Pantoprazole Sodium), 40 MG PO DAILY Rosuvastatin Calcium (Crestor), 5 MG PO HS Sennosides-Docusate Sodium (Senna Plus), 1 TAB PO DAILY Topiramate (Topiramate), 100 MG PO BID Zafirlukast (Zafirlukast), 20 MG PO BID Scheduled PRN Cyclobenzaprine Hcl (Flexeril), 10 MG PO TID PRN for Muscle Spasm Meclizine Hcl (Meclizine Hcl), 25 MG PO TID PRN for Dizziness or Vertigo Naproxen (Aleve), 220 MG PO UD PRN for Pain Ranitidine (Zantac), 150 MG PO BID PRN for Indigestion Tramadol Hcl (Ultram), 50-100 MG PO Q6H PRN for Pain Physical Exam Vital Signs Date Time Temp Pulse Resp B/P (MAP) Pulse Ox O2 Delivery O2 Flow Rate FiO2 07/27/17 17:39 67 131/79 95 Room Air 07/27/17 16:30 79 07/27/17 16:13 97 Room Air 07/27/17 16:13 36.5 79 140/94 97 Room Air 07/27/17 16:09 97 Room Air General Appearance: no apparent distress Head: normocephalic, atraumatic Eyes: normal inspection, PERRL ENT: hearing grossly normal Neck: supple Respiratory/Chest: lungs clear, no respiratory distress, no accessory muscle use Cardiovascular: regular rate, rhythm Abdomen/GI: normal bowel sounds, non tender, soft Back: normal inspection Extremities/Musculoskelatal: no calf tenderness, no pedal edema Neurologic/Psych: alert, normal mood/affect, oriented x 3 Skin: normal color, warm/dry, no rash Diagnostics Laboratory Results Results Past 24 Hours Test 07/27/17 15:48 Range/Units White Blood Count 8.64 4.8-10.8 K/uL Red Blood Count 4.77 4.2-5.4 M/uL Hemoglobin 14.3 12.0-16.0 g/dL Hematocrit 43.6 37-47 % Mean Corpuscular Volume 91.4 80-100 fL Mean Corpuscular Hemoglobin 30.0 25-34 pg Mean Corpuscular Hemoglobin Concent 32.8 32-36 g/dl Platelet Count 320 130-400 K/uL Mean Platelet Volume 10.2 7.4-10.4 fL Neutrophils (%) (Auto) 80.3 % Lymphocytes (%) (Auto) 14.9 % Monocytes (%) (Auto) 4.3 % Eosinophils (%) (Auto) 0.1 % Basophils (%) (Auto) 0.2 % Neutrophils # (Auto) 6.93 1.4-6.5 K/uL Lymphocytes # (Auto) 1.29 1.2-3.4 K/uL Monocytes # (Auto) 0.37 0.11-0.59 K/uL Eosinophils # (Auto) 0.01 0-0.5 K/uL Basophils # (Auto) 0.02 0-0.2 K/uL RDW Standard Deviation 48.6 36.4-46.3 fL RDW Coefficient of Variation 14.6 11.5-14.5 % Immature Granulocyte % (Auto) 0.2 % Immature Granulocyte # (Auto) 0.02 0.00-0.02 K/uL Sodium Level 138 136-145 mmol/L Potassium Level 3.4 3.5-5.1 mmol/L Chloride Level 106 98-107 mmol/L Carbon Dioxide Level 24 21-32 mmol/L Anion Gap 9.0 3-11 mmol/L Blood Urea Nitrogen 15 7-18 mg/dl Creatinine 0.67 0.60-1.20 mg/dl Est Creatinine Clear Calc Drug Dose 72.6 ml/min Estimated GFR () 99.7 Estimated GFR (Non- 86.0 BUN/Creatinine Ratio 23.0 10-20 Random Glucose 129 70-99 mg/dl Calcium Level 8.5 8.5-10.1 mg/dl Total Creatine Kinase 66 26-192 U/L Creatine Kinase MB 1.6 0.5-3.6 ng/ml Creatine Kinase MB Ratio 2.4 0-3.0 Troponin I < 0.015 0-0.045 ng/ml Diagnostic Radiology HEAD WITHOUT CONTRAST (CT) CT DOSE: 1504.70 mGy.cm HISTORY: Mental status change RIGGS TECHNIQUE: Multiaxial CT images of the head were performed without the use of intravenous contrast. A dose lowering technique was utilized adhering to the principles of ALARA. Comparison: 05/29/2015 Findings: Mild chronic mucosal thickening of the sinuses. The mastoid air cells are clear. Chronic cerebellar as well as cerebral atrophy. Mild chronic small vessel change throughout both cerebral hemispheres. Impression: 1. Chronic mucosal thickening of the sinuses 2. Generalized cerebellar as well as cerebral atrophy. 3. No acute intracranial abnormality. The above report was generated using voice recognition software. It may contain grammatical, syntax or spelling errors. Electronically signed by: Lamine Rowland M.D. 07/27/2017 5:18 PM Dictated Date/Time: 07/27/2017 5:16 PM The status of this report is Signed. Draft = Not yet reviewed or approved by Radiologist. Signed = Reviewed and approved by Radiologist. SINGLE VIEW CHEST CLINICAL HISTORY: Atypical chest pain. FINDINGS: An AP, portable, upright chest radiograph is compared to study dated 02/01/2015. The examination is degraded by portable technique and patient rotation. The cardiomediastinal silhouette is unremarkable. Chronic elevation of the left hemidiaphragm and interstitial thickening are similar to previous. No airspace consolidation or large pleural effusion is identified. No pneumothorax is seen. The skeletal structures are osteopenic. The bony thorax is grossly intact. IMPRESSION: No acute cardiopulmonary abnormality. Electronically signed by: Saji Kennedy M.D. 07/27/2017 4:32 PM Dictated Date/Time: 07/27/2017 4:31 PM The status of this report is Signed. Draft = Not yet reviewed or approved by Radiologist. Signed = Reviewed and approved by Radiologist. CT SCAN OF THE ABDOMEN AND PELVIS WITH IV CONTRAST CLINICAL HISTORY: Generalized abdominal pain. COMPARISON STUDY: Abdominal CT dated 11/28/2008. TECHNIQUE: Following the IV administration of 117 cc of Optiray 320, CT scan of the abdomen and pelvis is performed from the lung bases to the proximal femora. Images are reviewed in the axial, sagittal, and coronal planes. IV contrast was administered without complication. A dose lowering technique was utilized adhering to the principles of ALARA. FINDINGS: Lung bases: The heart is mildly enlarged and without pericardial effusion. There is elevation of the left hemidiaphragm and bibasilar atelectasis. No airspace consolidation or pleural effusion is seen. There is a small hiatal hernia. Liver: The contrast-enhanced liver is normal in size, contour, and attenuation. There is moderate intrahepatic biliary ductal dilatation, similar to the 2009 examination. The hepatic veins and portal veins are patent. Gallbladder: Surgically absent noting clips in the gallbladder fossa. Spleen: Normal in size and attenuation. Pancreas: Unremarkable. Adrenal glands: Unremarkable. Kidneys: The contrast enhanced kidneys demonstrate mild cortical atrophy and are without hydronephrosis. The kidneys enhance symmetrically. A 5.5 cm cyst arises from the upper pole of the left kidney. Additional subcentimeter cortical hypodensities also likely represent cysts but are too small for definitive characterization. There is a 5 mm nonobstructing left renal calculus. Abdominal vasculature: The abdominal aorta is normal in course and caliber noting mild to moderate atherosclerotic calcification. Bowel: There is moderate colonic fecal retention. No bowel obstruction is seen. There is moderate colonic diverticulosis without CT evidence of acute diverticulitis. The appendix is well-visualized and normal. Peritoneum: There is no intraperitoneal free air or abdominal ascites. Lymphadenopathy: None. Pelvic viscera: The bladder is normal as visualized. The uterus is surgically absent. No adnexal lesion is seen. Is trace free fluid in the pelvis. Skeletal structures: The skeletal structures are osteopenic. Mild to moderate lumbosacral spondylosis is observed. No lytic or blastic lesions are seen. IMPRESSION: 1. There is trace nonspecific free fluid in the pelvis, possibly on a reactive basis. 2. Constipation. No bowel obstruction is seen. 3. Moderate colonic diverticulosis without CT evidence of acute diverticulitis. 4. Nonobstructing left renal calculus. 5. Additional findings as above. Electronically signed by: Saji Kennedy M.D. 07/27/2017 5:27 PM Dictated Date/Time: 07/27/2017 5:19 PM The status of this report is Signed. Draft = Not yet reviewed or approved by Radiologist. Signed = Reviewed and approved by Radiologist. EKG DADA MCCRAY ID:[id number] 27-JUL-2017 16:14:41 [facility] Normal sinus rhythm Normal ECG When compared with ECG of 03-AUG-2016 21:49, No significant change was found Confirmed by SAGAR AYALA ([id number]) on 07/27/2017 4:22:46 PM 25mm/s 10mm/mV 150Hz 8.0 SP2 12SL 241 HD SARAH: 12 Referred by: MD GRANDE Confirmed By: SAGAR AYALA Vent. rate 70 BPM NJ interval 180 ms QRS duration 74 ms QT/QTc 424/457 ms P-R-T axes 56 31 51 1940 (76 yr) Female 1lb Room:[facility] Loc:15 [employer]ocational [employer] Director:GRACE Carmen ind: Impression Assessment and Plan Patient is a pleasant 76 y/o female, with PMHx of T2DM, HLD, migraines, depression, RA, and GERD, who presented to the ED because of centralized chest pain. Chest pain, N/V- ACS r/o vs GERD vs migraine: - Admit to tele for cardiac monitoring - Trend cardiac enzymes - EKG QAM and PRN for chest pain - IV Morphine + Nitro PRN - O2 protocol - Will make NPO after midnight, if cardiac enzymes negative can consider stress ECHO- negative stress ECHO in 2014 - Check hgbA1c and lipid panel - IV Zofran PRN for nausea GERD: Continue Zantac and Protonix Migraines: - Continue Topamax 100 mg BID, Tramadol PRN - Head CT unremarkable Hypokalemia: Replace w/ 20 mEq KCL x1 and follow PRP/replace PRN Constipation on CT: MiraLAX daily + Senna daily PRN T2DM: - Hold Metformin while inpatient - Chech hgbA1c - BSG ACHS and ISS HLD: - Continue Crestor - Check lipid panel RA: Continue Methotrexate weekly and Folate Depression: Continue Celexa DVT prophylaxis: Heparin SQ TID Code status: LEVEL I, FULL Dispo: From home- PT/OT and CM consulted Supervising Note Dr. Ely I performed a history and physical examination on the patient. I reviewed above note and agree with it. I discussed plan with APC and patient. During my face to face encounter with the patient, I answered all of the patient's questions. will trend troponin. may have stress test in AM. Resuscitation Status VTE Prophylaxis Will order VTE Prophylaxis: Yes
[2017-07-27] MEDS ORDERED: POTASSIUM CHLORIDE 10 MEQ TABCR PO ONE (19:30)
[2017-07-27 20:17] VITALS: BP 155/80; PULSE 73; TEMP 36.8; O2SAT 98; Ht 160 cm; Wt 75.4 kg
[2017-07-27] MEDS: TRAMADOL HCL 50 MG TAB PO PRN (20:47)
[2017-07-27] MEDS: INSULIN ASPART 100 UNITS/ML 3 ML PEN SC SCH (21:00)
[2017-07-27] MEDS ORDERED: ZAFIRLUKAST TAB 20 MG TAB PO SCH (21:00)
[2017-07-27] MEDS: HEPARIN SOD 5000 UNIT/0.5 ML CARP SQ SCH (22:00)
[2017-07-27] MEDS ORDERED: TRAM-453 PO (22:01)
--- NOTE | 2017-07-27 22:33 | EMERGENCY ROOM VISIT NOTE ---
History Report prepared by Earl: Barney Beltran Under the Supervision of: Dr. Juanito Smith D.O. First contact with patient: 16:06 Stated Complaint: CHEST HEAVINESS History of Present Illness The patient is a 76 year old female with a history of hyperlipidemia who presents to the Emergency Room via EMS with complaints of persistent chest heaviness that started around 0300 this morning. She states that she woke up with the heaviness, and has been nauseous with episodes of vomiting and dry heaves. The patient says that the vomiting started an hour after the chest heaviness. She notes that the chest heaviness is all the way across her chest. The patient says that she broke out into cold sweats as well, and got really weak with a headache. She notes abdominal pain from the vomiting and dry heaves. She adds that she had tingling down both arms as well. The patient says that she felt fine yesterday. She denies any shortness of breath. The patient states that currently her headache and nausea are what is bothering her the most. Per the nursing staff, the patient was given 324 mg Aspirin and 2 doses of Nitroglycerin. The patient says that they did not help with her chest heaviness, and it is still unchanged. She notes that she takes a baby Aspirin daily but no other blood thinners. The patient notes no previous heart disease or aorta issues. She is a non-smoker. The patient says that she still has her appendix. She notes that she has a history of migraines, and her headache feels like a typical migraine that came on gradually and worsened. Source of History: patient, EMS, nursing staff Onset: 0300 this morning Position: chest Quality: other (heaviness) Timing: other (persistent) Associated Symptoms: + headache, + diaphoresis, + nausea, + vomiting, + abdominal pain, + weakness, No SOB Note: Associated symptoms: Tingling down both arms. Review of Systems See HPI for pertinent positives & negatives. A total of 10 systems reviewed and were otherwise negative. Past Medical & Surgical Medical Problems: (1) Cholecystectomy (2) Diabetes mellitus type 2 (3) Intractable nausea and vomiting (4) LENS REPLACEMENT NEC (5) MIGRAINE UNSPECIFIED W/O INTRACT MGRN W/O STATUS MIGRAINOSUS (6) Sciatica Family History No pertient family history secondary to age. Social History Smoking Status: Never Smoker Alcohol Use: none Drug Use: none Marital Status: single Occupation Status: retired Current/Historical Medications Scheduled Aspirin (Aspirin Ec), 81 MG PO HS Calcium Carbonate (Calcium), 600 MG PO DAILY Cholecalciferol (Vitamin D3), 2,000 INTER.UNIT PO DAILY Citalopram Hydrobromide (Celexa), 40 MG PO DAILY Folic Acid (Folvite), 1,200 MCG PO QAM Metformin Hcl (Glucophage), 1,000 MG PO BID Methotrexate (Methotrexate), 15 MG PO WK Misc Natural Products (Turmeric Curcumin), 1 CAP PO DAILY Pantoprazole (Pantoprazole Sodium), 40 MG PO DAILY Rosuvastatin Calcium (Crestor), 5 MG PO HS Topiramate (Topiramate), 100 MG PO BID Zafirlukast (Zafirlukast), 20 MG PO BID Scheduled PRN Cyclobenzaprine Hcl (Flexeril), 10 MG PO TID PRN for Muscle Spasm Meclizine Hcl (Meclizine Hcl), 25 MG PO TID PRN for Dizziness or Vertigo Naproxen (Aleve), 220 MG PO UD PRN for Pain Ranitidine (Zantac), 150 MG PO BID PRN for Indigestion Sennosides-Docusate Sodium (Senna Plus), 1 TAB PO DAILY PRN for Constipation Tramadol Hcl (Ultram), 50-100 MG PO Q6H PRN for Pain Allergies Coded Allergies: Morphine (Verified Allergy, Severe, DROP IN VITAL SIGNS, TREMORS, VOMITING , 04/30/17) Codeine (Verified Allergy, Unknown, VOMITING DROP IN BP, 04/30/17) Oxycodone (Verified Allergy, Unknown, drop in vital signs,tremors,vomiting , 04/30/17) Meperidine (Verified Adverse Reaction, Intermediate, VOMITING, 04/30/17) Adhesives (Verified Adverse Reaction, Unknown, "PULLS OFF SKIN", 04/30/17) Physical Exam Vital Signs Date Time Temp Pulse Resp B/P (MAP) Pulse Ox O2 Delivery O2 Flow Rate FiO2 07/27/17 17:39 67 131/79 95 Room Air 07/27/17 16:30 79 07/27/17 16:13 97 Room Air 07/27/17 16:13 36.5 79 140/94 97 Room Air 07/27/17 16:09 97 Room Air Physical Exam GENERAL: Sitting up in bed, diaphoretic, nontoxic, talking in full sentences. EYE EXAM: normal conjunctiva. PERRL and EOM's intact. OROPHARYNX: no exudate, no erythema, lips, buccal mucosa, and tongue normal and mucous membranes are moist NECK: supple, no nuchal rigidity, no adenopathy, non-tender LUNGS: Clear to auscultation. Normal chest wall mechanics HEART: no murmurs, S1 normal and S2 normal ABDOMEN: RUQ scar, abdomen soft, non-tender, normo-active bowel sounds, no masses, no rebound or guarding. BACK: Back is symmetrical on inspection and there is no deformity, no midline tenderness, no CVA tenderness. SKIN: no rashes and no bruising UPPER EXTREMITIES: upper extremities are grossly normal. LOWER EXTREMITIES: No pitting edema. NEURO EXAM: Normal sensorium, cranial nerves II-XII intact, normal speech, no weakness of arms, no weakness of legs. No drift. Finger to nose intact. Gross sensation intact. Medical Decision & Procedures ER Provider Diagnostic Interpretation: Radiology results as stated below per my review and the radiologist's interpretation: HEAD WITHOUT CONTRAST (CT) CT DOSE: 1504.70 mGy.cm HISTORY: Mental status change RIGGS TECHNIQUE: Multiaxial CT images of the head were performed without the use of intravenous contrast. A dose lowering technique was utilized adhering to the principles of ALARA. Comparison: 05/29/2015 Findings: Mild chronic mucosal thickening of the sinuses. The mastoid air cells are clear. Chronic cerebellar as well as cerebral atrophy. Mild chronic small vessel change throughout both cerebral hemispheres. Impression: 1. Chronic mucosal thickening of the sinuses 2. Generalized cerebellar as well as cerebral atrophy. 3. No acute intracranial abnormality. The above report was generated using voice recognition software. It may contain grammatical, syntax or spelling errors. Electronically signed by: Lamine Rowland M.D. 07/27/2017 5:18 PM Dictated Date/Time: 07/27/2017 5:16 PM SINGLE VIEW CHEST CLINICAL HISTORY: Atypical chest pain. FINDINGS: An AP, portable, upright chest radiograph is compared to study dated 02/01/2015. The examination is degraded by portable technique and patient rotation. The cardiomediastinal silhouette is unremarkable. Chronic elevation of the left hemidiaphragm and interstitial thickening are similar to previous. No airspace consolidation or large pleural effusion is identified. No pneumothorax is seen. The skeletal structures are osteopenic. The bony thorax is grossly intact. IMPRESSION: No acute cardiopulmonary abnormality. Electronically signed by: Saji Kennedy M.D. 07/27/2017 4:32 PM Dictated Date/Time: 07/27/2017 4:[address] SCAN OF THE ABDOMEN AND PELVIS WITH IV CONTRAST CLINICAL HISTORY: Generalized abdominal pain. COMPARISON STUDY: Abdominal CT dated 11/28/2008. TECHNIQUE: Following the IV administration of 117 cc of Optiray 320, CT scan of the abdomen and pelvis is performed from the lung bases to the proximal femora. Images are reviewed in the axial, sagittal, and coronal planes. IV contrast was administered without complication. A dose lowering technique was utilized adhering to the principles of ALARA. FINDINGS: Lung bases: The heart is mildly enlarged and without pericardial effusion. There is elevation of the left hemidiaphragm and bibasilar atelectasis. No airspace consolidation or pleural effusion is seen. There is a small hiatal hernia. Liver: The contrast-enhanced liver is normal in size, contour, and attenuation. There is moderate intrahepatic biliary ductal dilatation, similar to the 2009 examination. The hepatic veins and portal veins are patent. Gallbladder: Surgically absent noting clips in the gallbladder fossa. Spleen: Normal in size and attenuation. Pancreas: Unremarkable. Adrenal glands: Unremarkable. Kidneys: The contrast enhanced kidneys demonstrate mild cortical atrophy and are without hydronephrosis. The kidneys enhance symmetrically. A 5.5 cm cyst arises from the upper pole of the left kidney. Additional subcentimeter cortical hypodensities also likely represent cysts but are too small for definitive characterization. There is a 5 mm nonobstructing left renal calculus. Abdominal vasculature: The abdominal aorta is normal in course and caliber noting mild to moderate atherosclerotic calcification. Bowel: There is moderate colonic fecal retention. No bowel obstruction is seen. There is moderate colonic diverticulosis without CT evidence of acute diverticulitis. The appendix is well-visualized and normal. Peritoneum: There is no intraperitoneal free air or abdominal ascites. Lymphadenopathy: None. Pelvic viscera: The bladder is normal as visualized. The uterus is surgically absent. No adnexal lesion is seen. Is trace free fluid in the pelvis. Skeletal structures: The skeletal structures are osteopenic. Mild to moderate lumbosacral spondylosis is observed. No lytic or blastic lesions are seen. IMPRESSION: 1. There is trace nonspecific free fluid in the pelvis, possibly on a reactive basis. 2. Constipation. No bowel obstruction is seen. 3. Moderate colonic diverticulosis without CT evidence of acute diverticulitis. 4. Nonobstructing left renal calculus. 5. Additional findings as above. Electronically signed by: Saji Kennedy M.D. 07/27/2017 5:27 PM Dictated Date/Time: 07/27/2017 5:19 PM Laboratory Results 07/27/17 15:48 Red Blood Count 4.77, Mean Corpuscular Volume 91.4, Mean Corpuscular Hemoglobin 30.0, Mean Corpuscular Hemoglobin Concent 32.8, Mean Platelet Volume 10.2, Neutrophils (%) (Auto) 80.3, Lymphocytes (%) (Auto) 14.9, Monocytes (%) (Auto) 4.3, Eosinophils (%) (Auto) 0.1, Basophils (%) (Auto) 0.2, Neutrophils # (Auto) 6.93, Lymphocytes # (Auto) 1.29, Monocytes # (Auto) 0.37, Eosinophils # (Auto) 0.01, Basophils # (Auto) 0.02 07/27/17 15:48 Test 07/27/17 15:48 White Blood Count 8.64 K/uL (4.8-10.8) Red Blood Count 4.77 M/uL (4.2-5.4) Hemoglobin 14.3 g/dL (12.0-16.0) Hematocrit 43.6 % (37-47) Mean Corpuscular Volume 91.4 fL (80-100) Mean Corpuscular Hemoglobin 30.0 pg (25-34) Mean Corpuscular Hemoglobin Concent 32.8 g/dl (32-36) Platelet Count 320 K/uL (130-400) Mean Platelet Volume 10.2 fL (7.4-10.4) Neutrophils (%) (Auto) 80.3 % Lymphocytes (%) (Auto) 14.9 % Monocytes (%) (Auto) 4.3 % Eosinophils (%) (Auto) 0.1 % Basophils (%) (Auto) 0.2 % Neutrophils # (Auto) 6.93 K/uL (1.4-6.5) Lymphocytes # (Auto) 1.29 K/uL (1.2-3.4) Monocytes # (Auto) 0.37 K/uL (0.11-0.59) Eosinophils # (Auto) 0.01 K/uL (0-0.5) Basophils # (Auto) 0.02 K/uL (0-0.2) RDW Standard Deviation 48.6 fL (36.4-46.3) RDW Coefficient of Variation 14.6 % (11.5-14.5) Immature Granulocyte % (Auto) 0.2 % Immature Granulocyte # (Auto) 0.02 K/uL (0.00-0.02) Prothrombin Time 10.1 SECONDS (9.0-12.0) Prothromb Time International Ratio 1.0 (0.9-1.1) Anion Gap 9.0 mmol/L (3-11) Est Creatinine Clear Calc Drug Dose 72.6 ml/min Estimated GFR () 99.7 Estimated GFR (Non- 86.0 BUN/Creatinine Ratio 23.0 (10-20) Calcium Level 8.5 mg/dl (8.5-10.1) Total Bilirubin 0.7 mg/dl (0.2-1) Direct Bilirubin 0.2 mg/dl (0-0.2) Aspartate Amino Transf (AST/SGOT) 20 U/L (15-37) Alanine Aminotransferase (ALT/SGPT) 18 U/L (12-78) Alkaline Phosphatase 74 U/L (45-117) Total Creatine Kinase 66 U/L (26-192) Creatine Kinase MB 1.6 ng/ml (0.5-3.6) Creatine Kinase MB Ratio 2.4 (0-3.0) Troponin I < 0.015 ng/ml (0-0.045) Total Protein 7.3 gm/dl (6.4-8.2) Albumin 3.8 gm/dl (3.4-5.0) Lipase 192 U/L (73-393) Laboratory results per my review. Medications Administered Medications (Trade) Dose Ordered Sig/Carmen Route Start Time Stop Time Status Last Admin Dose Admin Hydromorphone HCl (Dilaudid Inj) 0.5 mg NOW STAT IV 07/27/17 16:17 07/27/17 16:19 DC 07/27/17 16:36 0.5 MG Sodium Chloride 500 ml @ 999 mls/hr Q31M STAT IV 07/27/17 16:17 07/27/17 16:47 DC 07/27/17 16:17 999 MLS/HR Ondansetron HCl (Zofran Inj) 4 mg NOW STAT IV 07/27/17 16:17 07/27/17 16:19 DC 07/27/17 16:35 4 MG Ondansetron HCl (Zofran Inj) 4 mg NOW STAT IV 07/27/17 18:12 07/27/17 18:13 DC 07/27/17 18:18 4 MG Tramadol HCl (Ultram Tab) 50 mg Q6H PRN PO 07/27/17 19:00 08/26/17 18:59 07/27/17 20:47 50 MG ECG Per My Interpretation Indication: chest pain Rate (beats per minute): 70 Rhythm: normal sinus Findings: other (nonspecific ST T-wave changes in anterior leads, normal axis, no PVCs) Change: no significant change (from August 03 2016) ED Course ED COURSE: Vital signs were reviewed and showed hypertensive situational vitals. The patients medical record was reviewed The above diagnostic studies were performed and reviewed. ED treatments and interventions as stated above. 1606: The patient was evaluated in room B12B. A complete history and physical examination was performed. 1617: Ordered Zofran Inj 4 mg IV, NSS 500 ml @ 999 mls/hr IV, Dilaudid Inj 0.5 mg IV. 1800: Upon reevaluation, the patient is resting comfortably.I discussed my findings with the patient and she understands and agrees with the treatment plan. Based on the patients age, coexisting illnesses, exam and lab findings the decision to treat as an inpatient was made. The patient remained stable while under my care. The patient will be evaluated for further management. 1801: I reviewed the patient's case with Dr. Solis ARMIJO manager beauty. He will evaluate the patient for further management. Medical Decision Differential diagnoses includes but is not limited to acute coronary syndrome, myocardial infarction, pericarditis, pulmonary embolus, aortic dissection, pneumonia, pneumothorax, musculoskeletal, shingles, esophageal, headache, tension headache, cluster headache, migraine, subarachnoid hemorrhage, meningitis, mass, central venous thrombus, concussion, trauma and epidural/ subdural hemorrhage. Patient is a 76-year-old female who presents the ER for chest pain, headache and nausea vomiting. She notes that she woke up this morning was having a chest heaviness. Does have a history of hypertension and notes she is a questionable diabetic. She did receive aspirin nitro. She has tingling in both arms. Headache feels like her typical migraine. No fevers. Abdominal exam is benign. CBC along with BMP was unremarkable. Troponin was neg and EKG was unremarkable. INR was normal. LFTs and lipase were were unremarkable along with bilirubin. CT abdomen pelvis was unremarkable. I did not CT her chest as based on her HPI this was not consistent with a dissection or PE. Patient was given IV morphine. Her chest pain completely resolved. Discussed with internal medicine. She will be observed overnight for possible cardiac rule out. There is no signs of meningitis or encephalitis on my exam. Medication Reconcilliation Current Medication List: was personally reviewed by me Blood Pressure Screening Patient's blood pressure: Elevated blood pressure Blood pressure disposition: Elevated BP felt to be situational Consults Time Called: 1758 Consulting Physician: Dr. Solis ARMIJO manager beauty Returned Call: 1801 I reviewed the patient's case with Dr. Solis ARMIJO manager beauty. He will evaluate the patient for further management. Impression Primary Impression: Precordial chest pain Additional Impression: Hypokalemia Scribe Attestation The scribe's documentation has been prepared under my direction and personally reviewed by me in its entirety. I confirm that the note above accurately reflects all work, treatment, procedures, and medical decision making performed by me. Departure Information Dispostion Being Evaluated By Hospitalist Referrals Royer Ring M.D. (PCP) Problem Qualifiers
[2017-07-27] MEDS: ROSUVASTATIN CALCIUM 5 MG TAB PO SCH (22:36)
[2017-07-27] MEDS: TOPIRAMATE 100 MG TAB PO SCH (22:36)
[2017-07-27] MEDS ORDERED: MECL1TAB42 PO (22:51)
[2017-07-27] MEDS ORDERED: ACCL20 PO (22:51)
[2017-07-27] MEDS ORDERED: CITA40TA12 PO (22:51)
[2017-07-27 23:21] LABS: ALBUMIN 3.8 gm/dl (3.4-5.0); ALKALINE PHOSPHATASE 74 U/L (45-117); ALT/SGPT 18 U/L (12-78); AST/SGOT 20 U/L (15-37); LIPASE 192 U/L (73-393); TOTAL PROTEIN 7.3 gm/dl (6.4-8.2)
[2017-07-27 23:53] VITALS: BP 116/69; PULSE 70; TEMP 36.8; O2SAT 96
[2017-07-28] VITALS (11 sets, daily range): BP systolic 114–134; BP diastolic 70–78; PULSE 57–72; TEMP 36.8–37.3; O2SAT 92–96
[2017-07-28 03:40] LABS: HEMOGLOBIN 13.4 g/dL (12.0-16.0); MEAN CELL VOLUME 91.7 fL (80-100); MEAN CORPUSCULAR HEMOGLOBIN 30.7 pg (25-34); MEAN CORPUSCULAR HGB CONC 33.5 g/dl (32-36); MEAN PLATELET VOLUME 9.9 fL (7.4-10.4); PLATELET COUNT 273 K/uL (130-400); RED CELL DISTRIBUTION WIDTH CV 14.7 % (11.5-14.5); RED CELL DISTRIBUTION WIDTH SD 48.7 fL (36.4-46.3); WHITE BLOOD COUNT 7.42 K/uL (4.8-10.8)
[2017-07-28 04:11] LABS: BLOOD UREA NITROGEN 12 mg/dl (7-18); CALCIUM 8.3 mg/dl (8.5-10.1); CARBON DIOXIDE 24 mmol/L (21-32); CHOLESTEROL 143 mg/dl (0-200); CKMB 1.6 ng/ml (0.5-3.6); GLUCOSE 113 mg/dl (70-99); LDL CHOLESTEROL CALCULATED 55 mg/dl; SODIUM 141 mmol/L (136-145)
[2017-07-28] MEDS: HEPARIN SOD 5000 UNIT/0.5 ML CARP SQ SCH ×3 (05:57→21:16)
[2017-07-28] MEDS: INSULIN ASPART 100 UNITS/ML 3 ML PEN SC SCH ×4 (08:24→21:00)
--- NOTE | 2017-07-28 08:31 | Progress Note ---
Subjective Date of Service: Jul 28, 2017. Subjective Patient is mildly nauseated but did tolerate lunch. He has no has no further chest pain. She does have persistent headache. After reviewing her initial evaluation of her abdomen noted that she is marked constipation. May be the source of her mild nausea does not feel comfortable to go home due to nausea Problem List Medical Problems: (1) Headache Status: Acute (2) Hypokalemia Status: Acute (3) Migraine headache Status: Acute (4) Nausea, vomiting and diarrhea Status: Acute (5) Precordial chest pain Status: Acute (6) Strain of thoracic paraspinal muscles excluding T1 and T2 levels Status: Acute (7) Viral illness Status: Acute Review of Systems Constitutional: + weakness, No fever, No chills, No fatigue Respiratory: No cough, No shortness of breath Cardiac: No chest pain, No edema Abdomen: + nausea, + constipation, No pain, No vomiting, No diarrhea Musculoskeletal: No joint pain, No muscle pain Neurologic: No memory loss, No weakness Psychiatric: No depression symptoms, No anhedonism Objective Vital Signs Date Time Temp Pulse Resp B/P (MAP) Pulse Ox O2 Delivery O2 Flow Rate FiO2 07/28/17 04:00 Room Air 07/28/17 04:00 36.8 66 20 119/73 (88) 96 Room Air 07/28/17 00:00 Room Air 07/27/17 23:53 36.8 70 18 116/69 (85) 96 Room Air 07/27/17 20:17 36.8 73 16 155/80 98 Room Air 07/27/17 20:01 70 133/88 93 07/27/17 19:22 77 128/84 96 Room Air 07/27/17 17:39 67 131/79 95 Room Air 07/27/17 16:30 79 07/27/17 16:13 97 Room Air 07/27/17 16:13 36.5 79 140/94 97 Room Air 07/27/17 16:09 97 Room Air Physical Exam General Appearance: + mild distress, + thin Eyes: normal inspection, sclerae normal Neck: supple, no JVD Respiratory/Chest: chest non-tender, lungs clear, normal breath sounds Cardiovascular: regular rate, rhythm, no murmur Abdomen: normal bowel sounds, soft, + tenderness (Mild tenderness in the lower quadrants) Extremities: no pedal edema, no calf tenderness Laboratory Results Last 24 Hours Test 07/27/17 15:48 07/27/17 20:41 07/28/17 03:00 07/28/17 03:26 White Blood Count 8.64 K/uL 7.42 K/uL Red Blood Count 4.77 M/uL 4.36 M/uL Hemoglobin 14.3 g/dL 13.4 g/dL Hematocrit 43.6 % 40.0 % Mean Corpuscular Volume 91.4 fL 91.7 fL Mean Corpuscular Hemoglobin 30.0 pg 30.7 pg Mean Corpuscular Hemoglobin Concent 32.8 g/dl 33.5 g/dl Platelet Count 320 K/uL 273 K/uL Mean Platelet Volume 10.2 fL 9.9 fL Neutrophils (%) (Auto) 80.3 % Lymphocytes (%) (Auto) 14.9 % Monocytes (%) (Auto) 4.3 % Eosinophils (%) (Auto) 0.1 % Basophils (%) (Auto) 0.2 % Neutrophils # (Auto) 6.93 K/uL Lymphocytes # (Auto) 1.29 K/uL Monocytes # (Auto) 0.37 K/uL Eosinophils # (Auto) 0.01 K/uL Basophils # (Auto) 0.02 K/uL RDW Standard Deviation 48.6 fL 48.7 fL RDW Coefficient of Variation 14.6 % 14.7 % Immature Granulocyte % (Auto) 0.2 % Immature Granulocyte # (Auto) 0.02 K/uL Prothrombin Time 10.1 SECONDS Prothromb Time International Ratio 1.0 Sodium Level 138 mmol/L 141 mmol/L Potassium Level 3.4 mmol/L 4.0 mmol/L Chloride Level 106 mmol/L 110 mmol/L Carbon Dioxide Level 24 mmol/L 24 mmol/L Anion Gap 9.0 mmol/L 7.0 mmol/L Blood Urea Nitrogen 15 mg/dl 12 mg/dl Creatinine 0.67 mg/dl 0.60 mg/dl Est Creatinine Clear Calc Drug Dose 72.6 ml/min 79.2 ml/min Estimated GFR () 99.7 103.3 Estimated GFR (Non- 86.0 89.2 BUN/Creatinine Ratio 23.0 19.7 Random Glucose 129 mg/dl 113 mg/dl Calcium Level 8.5 mg/dl 8.3 mg/dl Total Bilirubin 0.7 mg/dl Direct Bilirubin 0.2 mg/dl Aspartate Amino Transf (AST/SGOT) 20 U/L Alanine Aminotransferase (ALT/SGPT) 18 U/L Alkaline Phosphatase 74 U/L Total Creatine Kinase 66 U/L Creatine Kinase MB 1.6 ng/ml 1.6 ng/ml Creatine Kinase MB Ratio 2.4 Troponin I < 0.015 ng/ml < 0.015 ng/ml Total Protein 7.3 gm/dl Albumin 3.8 gm/dl Lipase 192 U/L Bedside Glucose 110 mg/dl Estimated Average Glucose 126 mg/dl Hemoglobin A1c 6.0 % Triglycerides Level 86 mg/dl Cholesterol Level 143 mg/dl HDL Cholesterol 71 mg/dl LDL Cholesterol, Calculated 55 mg/dl VLDL Cholesterol, Calculated 17 mg/dl Cholesterol/HDL Ratio 2.0 Assessment and Plan 76 y/o female presented with chest pain, nausea and diaphoresis, with PMHx of T2DM, HLD, migraines, depression, RA, and GERD Chest pain, patient's stress echo negative enzyme trends, her discomfort is likely not related to cardiac issues 6.0 hgbA1c Constipation use a suppository and magnesium citrate continuing IV Zofran PRN for nausea GERD: Continue Zantac and Protonix Migraines: -Current headache seems to be more caffeine withdrawal. Using Toradol and will continue Topamax 100 mg BID, Tramadol PRN - Head CT unremarkable Hypokalemia: replete and follow T2DM: -Continue to hold Metformin while inpatient Acceptable hgbA1c -basal bolus insulin with frequent Bsg checks HLD: - Crestor RA: Currently without clinical symptoms so we will continue Methotrexate weekly and Folate Depression: Seems to be controlled on Celexa DVT prophylaxis: Heparin SQ TID Code status: LEVEL I, FULL Dispo: From home- PT/OT and CM consulted no initial needs identified for home support
[2017-07-28] MEDS ORDERED: KETOROLAC TROMETHAMINE 15 MG/ML VIAL IV. STA (08:56)
[2017-07-28] MEDS: POLYETHYLENE (MIRALAX) 17 GM PACK PO SCH (09:00)
[2017-07-28] MEDS ORDERED: DOBUTamine HCL 12.5 MG/ML 20 ML VIAL ONE (10:11)
[2017-07-28] MEDS ORDERED: METOPROLOL TARTRATE 1 MG/ML VIAL ONE ×2 (10:11→10:12)
[2017-07-28] MEDS ORDERED: ATROPINE SULFATE 0.1 MG/ML 5ML SYR ONE ×2 (10:12)
[2017-07-28] MEDS ORDERED: PERFLUTREN LIPID MICROSPHERE (DEFINITY) IV ONE (11:01)
[2017-07-28] MEDS: ASPIRIN 81 MG ECTAB PO SCH (13:38)
[2017-07-28] MEDS: FoLIC ACID TAB 400 MCG TAB PO SCH (13:39)
[2017-07-28] MEDS: TOPIRAMATE 100 MG TAB PO SCH ×2 (13:39→21:15)
[2017-07-28] MEDS: CITALOPRAM 40 MG TAB PO SCH (13:40)
[2017-07-28] MEDS: PANTOprazole SOD 40 MG TAB PO SCH (13:41)
[2017-07-28] MEDS ORDERED: BISACODYL 10 MG SUPP PR STA (14:50)
[2017-07-28] MEDS ORDERED: MAGNESIUM CITRATE 296 ML/BTL PO ONE (15:00)
--- NOTE | 2017-07-28 15:22 | DOBUTAMINE ECHO ---
*NOTICE TO RECEIVING [employer] This information is strictly Confidential and protected under [place] law. [place] law prohibits you from making any further disclosure of this information unless further disclosure is expressly permitted by the written consent of the person to whom it pertains or is authorized by law. A general authorization for the release of medical or other information is not sufficient for this purpose. Hospital accepts no responsibility if the information is made available to any other person, INCLUDING THE PATIENT. Interpretation Summary * Name: DADA MCCRAY Study Date: 07/28/2017 09:29 AM BP: 132/49 mmHg * Patient Location: [facility]\S\N281\S\2 HR: 70 * : 1940 (M/d/yyyy) Gender: Female Height: 63 in * Age: 76 yrs Ethnicity: [place] Weight: 167 lb * Ordering Physician: Mamadou Gaitan * Referring Physician: Self, Referred * Performed By: Quinn Salgado RCS * * Reason For Study: Chest Pain * BSA: 1.8 m2 * -- Conclusions -- * 1. Negative dobutamine stress echocardiogram at 97% maximum predicted heart rate. * 2. No dobutamine induced chest pain. * 3. No EKG changes. * 4. Baseline echocardiogram notes normal left ventricular systolic function with mild left ventricular hypertrophy. Procedure Details * DOBUTAMINE ECHO, CPT#50363 * ECHO COLOR FLOW, CPT #32509 * ECHO DOPPLER, CPT #81566 * A contrast injection of Definity was performed to improve assessment of LV function. * Contrast was injected into an intravenous site in the right arm. * One vial of Definity ultrasound contrast was diluted in normal saline to a total volume of 10 ml. A total of '4' ml of solution was administered during imaging. * Lot # [id number] of Definity utilized for procedure. * Expiration date . * The attending nurse who injected the contrast agent was Keisha Lopez RN. Left Ventricle * The left ventricle is normal in size. * There is mild concentric left ventricular hypertrophy. * Left ventricular systolic function is normal. * Resting wall motion: Normal. Stress wall motion: Appropriate increase in Left ventricular systolic function and decrease in cavity size. No stress induced segmental wall motion abnormalities. Right Ventricle * The right ventricle is grossly normal size. * The right ventricular systolic function is normal. Atria * Borderline left atrial enlargement. * Right atrial size is normal. * No ASD detected; PFO is not assessed. Mitral Valve * The mitral valve anatomy is normal. * There is no mitral valve stenosis. * There is trace mitral regurgitation. Tricuspid Valve * The tricuspid valve anatomy is normal. * There is no tricuspid stenosis. * Significant tricuspid regurgitation is absent. Aortic Valve * The aortic valve is trileaflet. * The aortic valve opens well. * No hemodynamically significant valvular aortic stenosis. * No aortic regurgitation is present. Pulmonic Valve * The pulmonary valve is not well seen, but the Doppler examination is normal without significant regurgitation or stenosis. Great Vessels * The aortic root is normal size. * The pulmonary is not well visualized. Pericardium * There is no pericardial effusion. Stress Parameters * Normal baseline electrocardiogram. * Stress ECG: No ST changes. No arrhythmias. * The stress portion of this study was personally supervised by the undersigned interpreting physician. * Rest heart rate was '70' BPM. * Rest blood pressure was '132/49' * Maximum heart rate achieved was 142 bpm. * Maximum heart rate was 97 % of maximum age-predicted heart rate. * Maximum blood pressure was '146/58' * Maximum Dobutamine infusion rate was '30' mcg/kg/min. * A total of .5 mg of intravenous Atropine was used to supplement Dobutamine for heart rate response. * Dobutamine infusion was terminated due to achieving target heart rate * A total of 5 mg of IV Metoprolol was administered to reverse Dobutamine-induced tachycardia. * The patient did not exhibit any symptoms during drug infusion. * Normal blood pressure response to exercise. MMode 2D Measurements and Calculations IVSd 0.90 cm IVSs 1.2 cm LVIDd 4.4 cm LVIDs 3.0 cm LVPWd 0.96 cm LVPWs 1.2 cm IVS/LVPW 0.93 FS 31.8 % EDV(Teich) 88.9 ml ESV(Teich) 35.5 ml EF(Teich) 60.1 % EDV(cubed) 86.7 ml ESV(cubed) 27.5 ml EF(cubed) 68.3 % % IVS thick 38.9 % % LVPW thick 24.0 % LV mass(C)d 135.0 grams LV mass(C)dI 75.3 grams/m\S\2 LV mass(C)s 112.9 grams LV mass(C)sI 63.0 grams/m\S\2 CO(Teich) 3.8 l/min CI(Teich) 2.1 l/min/m\S\2 SV(Teich) 53.4 ml SI(Teich) 29.8 ml/m\S\2 CO(cubed) 4.3 l/min CI(cubed) 2.4 l/min/m\S\2 SV(cubed) 59.2 ml SI(cubed) 33.1 ml/m\S\2 Ao root diam 3.5 cm Ao root area 9.5 cm\S\2 ACS 1.9 cm LA dimension 3.6 cm asc Aorta Diam 2.9 cm LA/Ao 1.0 LVAd ap4 29.8 cm\S\2 LVLd ap4 8.3 cm EDV(MOD-sp4) 89.7 ml LVAs ap4 17.0 cm\S\2 LVLs ap4 7.0 cm ESV(MOD-sp4) 34.9 ml EF(MOD-sp4) 61.1 % LVAd ap2 29.8 cm\S\2 LVLd ap2 8.3 cm EDV(MOD-sp2) 88.9 ml LVAs ap2 15.9 cm\S\2 LVLs ap2 7.0 cm ESV(MOD-sp2) 32.0 ml EF(MOD-sp2) 64.0 % CO(MOD-sp4) 3.9 l/min CI(MOD-sp4) 2.2 l/min/m\S\2 SV(MOD-sp4) 54.8 ml SI(MOD-sp4) 30.6 ml/m\S\2 CO(MOD-sp2) 4.1 l/min CI(MOD-sp2) 2.3 l/min/m\S\2 SV(MOD-sp2) 56.9 ml SI(MOD-sp2) 31.8 ml/m\S\2 Doppler Measurements and Calculations MV E max josse 76.4 cm/sec MV A max josse 77.1 cm/sec MV E/A 0.99 MV P1/2t max josse 79.4 cm/sec MV P1/2t 77.6 msec MVA(P1/2t) 2.8 cm\S\2 MV dec slope 299.5 cm/sec\S\2 MV dec time 0.18 sec Ao V2 max 134.7 cm/sec Ao max PG 7.3 mmHg Ao max PG (full) 4.0 mmHg LV V1 max PG 3.3 mmHg LV V1 max 90.7 cm/sec PA V2 max 94.5 cm/sec PA max PG 3.6 mmHg PI max josse 200.9 cm/sec PI max PG 16.1 mmHg PI dec slope 131.5 cm/sec\S\2 PI P1/2t 447.4 msec TR max josse 236.5 cm/sec
[2017-07-28] MEDS ORDERED: KETOROLAC TROMETHAMINE 15 MG/ML VIAL IV ONE (15:30)
[2017-07-28] MEDS: ROSUVASTATIN CALCIUM 5 MG TAB PO SCH (21:15)
[2017-07-29 04:48] VITALS: BP 105/70; PULSE 66; TEMP 36.8; O2SAT 95
[2017-07-29] MEDS: HEPARIN SOD 5000 UNIT/0.5 ML CARP SQ SCH ×2 (05:43→13:16)
[2017-07-29 05:48] LABS: HEMATOCRIT 39.3 % (37-47); MEAN CELL VOLUME 92.5 fL (80-100); MEAN CORPUSCULAR HEMOGLOBIN 30.6 pg (25-34); MEAN CORPUSCULAR HGB CONC 33.1 g/dl (32-36); MEAN PLATELET VOLUME 9.8 fL (7.4-10.4); PLATELET COUNT 263 K/uL (130-400); RED CELL DISTRIBUTION WIDTH SD 50.9 fL (36.4-46.3); WHITE BLOOD COUNT 6.24 K/uL (4.8-10.8)
[2017-07-29] MEDS: INSULIN ASPART 100 UNITS/ML 3 ML PEN SC SCH ×2 (06:30→13:16)
[2017-07-29 06:54] LABS: CALCIUM 8.5 mg/dl (8.5-10.1); POTASSIUM 3.8 mmol/L (3.5-5.1)
[2017-07-29 08:00] VITALS: O2SAT 95
[2017-07-29 08:09] VITALS: BP 110/73; PULSE 76; TEMP 36.8; O2SAT 92
[2017-07-29] MEDS ORDERED: SENN1TAB65 PO (08:16)
--- NOTE | 2017-07-29 08:17 | Discharge Instructions ---
Discharge Instructions Date of Service Jul 29, 2017. Admission Reason for Admission: Chest Pain Discharge Discharge Diagnosis / Problem: non cardiac chest pain, consitpation , headache Discharge Goals Goal(s): Diagnostic testing, Therapeutic intervention Activity Recommendations Activity Limitations: as noted below Lifting Limitations: gradually increase as tolerated . Current Hospital Diet Patient's current hospital diet: Diabetes Type 2 Diet Discharge Diet Recommended Diet: Diabetes Type 2 Diet Pending Studies Studies pending at discharge: yes List of pending studies: urine culture, if abnormal will call and Rx antibiotic Laboratory Results Hemoglobin A1c Test 07/28/17 03:26 Range/Units Estimated Average Glucose 126 mg/dl Hemoglobin A1c 6.0 H 4.5-5.6 % Lipid Panel Test 07/28/17 03:26 Range/Units Triglycerides Level 86 0-150 mg/dl Cholesterol Level 143 0-200 mg/dl HDL Cholesterol 71 mg/dl Cholesterol/HDL Ratio 2.0 LDL Cholesterol, Calculated 55 mg/dl Medical Emergencies . Who to Call and When: Medical Emergencies: If at any time you feel your situation is an emergency, please call 911 immediately. . Non-Emergent Contact Non-Emergency issues call your: Primary Care Provider Call Non-Emergent contact if: temperature is above 101, your pain is unusual for you . . "Provider Documentation" section prepared by Mamadou Gaitan. .
[2017-07-29] MEDS: POLYETHYLENE (MIRALAX) 17 GM PACK PO SCH (09:00)
[2017-07-29] MEDS: ASPIRIN 81 MG ECTAB PO SCH (09:07)
[2017-07-29] MEDS: FoLIC ACID TAB 400 MCG TAB PO SCH (09:07)
[2017-07-29] MEDS: CITALOPRAM 40 MG TAB PO SCH (09:07)
[2017-07-29] MEDS: PANTOprazole SOD 40 MG TAB PO SCH (09:08)
[2017-07-29] MEDS: TOPIRAMATE 100 MG TAB PO SCH (09:08)
[2017-07-29 11:10] VITALS: BP 104/67; PULSE 72; TEMP 36.7; O2SAT 92
[2017-07-29] MEDS: TRAMADOL HCL 50 MG TAB PO PRN (11:16)
[2017-07-29 11:35] VITALS: BP 104/67; PULSE 72; TEMP 36.7; O2SAT 92
[2017-07-29 12:00] VITALS: O2SAT 92
--- NOTE | 2017-07-29 12:53 | Discharge Summary ---
Discharge Summary Date of Service Jul 29, 2017. Discharge Summary Admission Date: Jul 27, 2017 at 19:08 Discharge Date: Jul 29, 2017 Discharge Disposition: Home Principal Diagnosis: non cardiac chest pain, constipation resolved Immunizations: Have You Had Influenza Vaccine: Yes History of Tetanus Vaccine?: Yes History of Pneumococcal: Yes History of Hepatitis B Vaccine: No Consultations: Cardiac stress test negative Medication Reconciliation Continued Medications: Aspirin (Aspirin Ec) 81 Mg Tab 81 MG PO HS Calcium Carbonate (Calcium) 600 Mg Tab 600 MG PO DAILY Cholecalciferol (Vitamin D3) 2,000 Unit Cap 2000 INTER.UNIT PO DAILY, CAP Citalopram Hydrobromide (Celexa) 40 Mg Tab 40 MG PO DAILY, TAB Cyclobenzaprine Hcl (Flexeril) 10 Mg Tab 10 MG PO TID PRN for Muscle Spasm, TAB Folic Acid (Folvite) 400 Mcg Tab 1200 MCG PO QAM, TAB Meclizine Hcl (Meclizine Hcl) 25 Mg Tab 25 MG PO TID PRN for Dizziness or Vertigo, TAB Metformin Hcl (Glucophage) 1,000 Mg Tab 1000 MG PO BID, TAB Methotrexate (Methotrexate) 2.5 Mg Tab 15 MG PO WK TAKE 6 TABLETS (15 MG) EVERY THURSDAY Misc Natural Products (Turmeric Curcumin) 1 Cap Cap 1 CAP PO DAILY Naproxen (Aleve) 220 Mg Tab 220 MG PO UD PRN for Pain, TAB TAKE PER PACKAGE DIRECTIONS Pantoprazole (Pantoprazole Sodium) 40 Mg Tab 40 MG PO DAILY Ranitidine (Zantac) 150 Mg Tab 150 MG PO BID PRN for Indigestion, TAB Rosuvastatin Calcium (Crestor) 5 Mg Tab 5 MG PO HS, TAB Sennosides-Docusate Sodium (Senna Plus) 1 Tab Tab 1 TAB PO DAILY, #30 DOSE (This prescription has been renewed) Topiramate (Topiramate) 100 Mg Tab 100 MG PO BID Tramadol Hcl (Ultram) 50 Mg Tab 50-100 MG PO Q6H PRN for Pain, TAB Zafirlukast (Zafirlukast) 20 Mg Tab 20 MG PO BID Discharge Exam Review of Systems: Constitutional: No fever, No chills Cardiovascular: No chest pain, No edema Abdomen: No pain, No nausea Psychiatric: No depression symptoms, No anhedonism Physical Exam: General Appearance: WD/WN, no apparent distress Respiratory/Chest: chest non-tender, lungs clear, normal breath sounds Cardiovascular: regular rate, rhythm, no murmur Abdomen / GI: normal bowel sounds, non tender, soft Hospital Course 76 y/o female presented with chest pain, nausea and diaphoresis, with PMHx of T2DM, HLD, migraines, depression, RA, and GERD Chest pain, patient's stress echo negative, her discomfort is not cardiac issues 6.0 hgbA1c Constipation did have good success with suppository and mag citrate GERD: Continue Zantac and Protonix Migraines: -IMproved, Current headache seemed to be more caffeine withdrawal. continue Toradol and Topamax 100 mg BID, Tramadol PRN - Head CT unremarkable Hypokalemia: replete and follow T2DM: -Corsume Metformin HLD: - Crestor RA: continue Methotrexate weekly and Folate Depression: Celexa Code status: LEVEL I, FULL Total Time Spent: Greater than 30 minutes This includes examination of the patient, discharge planning, medication reconciliation, and communication with other providers. Discharge Instructions Please refer to the electronic Patient Visit Report (Discharge Instructions) for additional information.
[2017-07-30] MEDS ORDERED: METHOTREXATE 2.5 MG TAB PO SCH (09:00)
== END 2017-07-29 16:53 | disposition home or self-care (01) ==
LOC: C.EDB 16:05 → C.MED 19:08 → ENRESERV 19:23
PROVIDERS: ADMIT Internal Medicine Sports Medicine; ATTEND Internal Medicine Sports Medicine
DX: R07.2 Precordial pain (principal); K59.00 Constipation, unspecified; K21.9 Gastro-esophageal reflux disease without esophagitis; G43.909 Migraine, unspecified, not intractable, without status migrainosus; E87.6 Hypokalemia; E11.9 Type 2 diabetes mellitus without complications; E78.00 Pure hypercholesterolemia, unspecified; M06.9 Rheumatoid arthritis, unspecified; F32.9 Major depressive disorder, single episode, unspecified; Z90.49 Acquired absence of other specified parts of digestive tract; Z79.82 Long term (current) use of aspirin; Z79.84 Long term (current) use of oral hypoglycemic drugs; Z88.5 Allergy status to narcotic agent

== ENCOUNTER → 2017-07-30 | Outpatient (CLI) | payer BC ==
[~2017-07-30] MED LIST changes: +ACCL20 PO; +ASPI81TA28 PO; +CALC-393 PO; -CALC-51 PO; -CHOL100010 PO; +CHOL2000 PO; +CITA40TA12 PO; -COEN1CAP7 PO; +CYCL10TA6 PO; -FLUT0.15 NAE; +MECL1TAB42 PO; -METH2.5T PO; -MISC1TAB34 PO; +MISCCAP52 PO; +MTH25 PO; -PANT40TA PO; +PANT40TA2 PO; +SENN1TAB65 PO; -TOPI100T20 PO; +TPM100 PO; +TRAM-453 PO
[2017-07-30 14:24] LABS: HEMOGLOBIN A1C 5.9 % (4.5-5.6)
[2017-07-30 15:32] LABS: ALBUMIN 3.9 gm/dl (3.4-5.0); ALT/SGPT 19 U/L (12-78); AST/SGOT 13 U/L (15-37); BLOOD UREA NITROGEN 19 mg/dl (7-18); CALCIUM 8.7 mg/dl (8.5-10.1); CARBON DIOXIDE 28 mmol/L (21-32); CHOLESTEROL 136 mg/dl (0-200); CREATININE 1.04 mg/dl (0.60-1.20); GLUCOSE 108 mg/dl (70-99); POTASSIUM 3.7 mmol/L (3.5-5.1); SODIUM 141 mmol/L (136-145)
[2017-07-30 15:35] LABS: ALKALINE PHOSPHATASE 66 U/L (45-117); LDL CHOLESTEROL CALCULATED 51 mg/dl
== END | disposition home or self-care (01) ==
LOC: C.LABPBG 11:06
PROVIDERS: ATTEND Internal Medicine
DX: E11.9 Type 2 diabetes mellitus without complications (principal); E78.00 Pure hypercholesterolemia, unspecified

== ENCOUNTER → 2018-01-04 | Day surgery (SDC) | payer BC ==
[~2018-01-04] VITALS: Ht 160 cm; Wt 77.3 kg
[~2018-01-04] MED LIST changes: -ACCL20 PO; +COEN100C7 PO; +CYAN100020 PO; -CYCL10TA6 PO; +LIDOCAINE HCL 2% 2 ML VIAL (20MG/ML) ONE; +PROPOFOL IV EMULSION 10 MG/ML 20 ML VIAL ONE; -SENN1TAB65 PO; +SENN8.6C PO; +SODIUM CHLORIDE 0.9% 500ML 500 ML IV ONE; +ZAFI1TAB11 PO
[2018-01-04 10:55] VITALS: Ht 160 cm; Wt 77.3 kg
--- NOTE | 2018-01-04 11:03 | Endo History and Physical ---
History & Physical Date of Service: Jan 04, 2018. Chief Complaint: SCREENING Referring Physician: DR. HUNTER History of Present Illness 77 yo CF who presents for screening colonoscopy. Past Medical History Diabetes, Arthritis, Hypertension, Depression Past Surgical History Hx Cardiac Surgery: No Hx Internal Defibrillator: No Hx Pacemaker: No Hx Abdominal Surgery: Yes (HYSTERECTOMY,GB SURG) Hx of Implantable Prosthesis: No Hx Post-Op Nausea and Vomiting: No Hx Cancer Surgery: No Hx Thoracic Surgery: Yes (RIB REMOVAL TO IMPROVE CIRC TO ARMS) Hx Orthopedic: Yes (R CTR, L CTR, L ACHILLES TENDON,L ELBOW LUMP REMOVAL,L HAMMERTOES) Hx Urinary Tract Surgery: No Family History None Social History Smoking Status: Never Smoker Hx Substance Use: No Hx Alcohol Use: No Allergies Coded Allergies: Morphine (Verified Allergy, Severe, DROP IN VITAL SIGNS, TREMORS, VOMITING , 01/04/18) Codeine (Verified Allergy, Unknown, VOMITING DROP IN BP, 01/04/18) Oxycodone (Verified Allergy, Unknown, drop in vital signs,tremors,vomiting , 01/04/18) Meperidine (Verified Adverse Reaction, Intermediate, VOMITING, 01/04/18) Adhesives (Verified Adverse Reaction, Unknown, "PULLS OFF SKIN", 01/04/18) Current Medications Reported Home Medications Medications Dose Route/Sig Max Daily Dose Days Date Category Dose Instructions Coq10 (Coenzyme Q10 (Ubidecarenone)) 100 Mg Cap 100 Mg PO HS 12/28/17 Reported Vitamin B12 (Cyanocobalamin) 1,000 Mcg Tab 1,000 Mcg PO QAM 12/28/17 Reported Senna (Sennosides) 8.6 Mg Cap 1 Tab PO Q2D 12/28/17 Reported S Turmeric Curcumin ([employer] Natural Products) 1 Cap Cap 1 Cap PO QAM 07/27/17 Reported Calcium (Calcium Carbonate) 600 Mg Tab 600 Mg PO QAM 07/27/17 Reported Topiramate 100 Mg Tab 100 Mg PO QPM 07/27/17 Reported Pantoprazole Sodium (Pantoprazole) 40 Mg Tab 40 Mg PO QAM 07/27/17 Reported Methotrexate 2.5 Mg Tab 15 Mg PO WK 07/27/17 Reported TAKE 6 TABLETS (15 MG) EVERY THURSDAY Vitamin D3 (Cholecalciferol) 2,000 Unit Cap 1,000 Inter.unit PO QAM 07/27/17 Reported Crestor (Rosuvastatin Calcium) 5 Mg Tab 5 Mg PO HS 04/30/17 Reported Zantac (Ranitidine HCl) 150 Mg Tab 150 Mg PO BID 04/30/17 Reported Aleve (Naproxen) 220 Mg Tab 220 Mg PO UD PRN 08/31/16 Reported TAKE PER PACKAGE DIRECTIONS Zafirlukast 20 Mg Tab 20 Mg PO BID 08/03/16 Reported Meclizine Hcl 25 Mg Tab 25 Mg PO TID PRN 08/03/16 Reported Celexa (Citalopram Hydrobromide) 40 Mg Tab 40 Mg PO BID 08/03/16 Reported Aspirin Ec (Aspirin) 81 Mg Tab 81 Mg PO HS 05/29/15 Reported Folvite (Folic Acid) 400 Mcg Tab 1,200 Mcg PO QAM 08/14/13 Reported Ultram (Tramadol Hcl) 50 Mg Tab 50-100 Mg PO Q6H PRN 11/28/12 Reported Glucophage (Metformin Hcl) 1,000 Mg Tab 1,000 Mg PO BID 01/19/12 Reported Vital Signs Weight (Kilograms): 77.27 Height (Feet): 5 Height (Inches): 3 Physical Exam General Appearance: WD/WN, no apparent distress Respiratory/Chest: Auscultation: breath sounds normal Cardiovascular: Heart Auscultation: RRR Abdomen: Bowel Sounds: normal Inspection & Palpation: soft, non-distended, no tenderness, guarding & rebound Assessment and Plan Assessment: 77 yo CF who presents for screening colonoscopy. Plan: Proceed with colonoscopy.
--- NOTE | 2018-01-04 11:40 | Anesthesiology Progress Note ---
Anesthesia Post Op Note Date & Time Jan 04, 2018 at 11:40 Vital Signs Pain Intensity: 0 Vital Signs Past 12 Hours Date Time Temp Pulse Resp B/P (MAP) Pulse Ox O2 Delivery O2 Flow Rate FiO2 01/04/18 11:01 36.7 76 18 137/73 (94) 94 Room Air Notes Mental Status: alert / awake / arousable, participated in evaluation Pt Amnestic to Procedure: Yes Nausea / Vomiting: adequately controlled Pain: adequately controlled Airway Patency, RR, SpO2: stable & adequate BP & HR: stable & adequate Hydration State: stable & adequate Anesthetic Complications: no major complications apparent
--- NOTE | 2018-01-04 11:51 | GI REPORT ---
Patient Name: Pam Mai Procedure Date: 01/04/2018 11:29 AM Date of : 1940 Admit Type: Outpatient Age: 77 Gender: Female Attending MD: Richard Johnson DO Procedure: Colonoscopy Providers: Richard Johnson DO Referring MD: Royer Ring Indications: Screening for colorectal malignant neoplasm Medicines: Monitored Anesthesia Care Complications: No immediate complications. Estimated Blood Loss: Estimated blood loss: none. Procedure: Pre-Anesthesia Assessment: - Prior to the procedure, a History and Physical was performed, and patient medications and allergies were reviewed. The patient's tolerance of previous anesthesia was also reviewed. The risks and benefits of the procedure and the sedation options and risks were discussed with the patient. All questions were answered, and informed consent was obtained. Prior Anticoagulants: The patient has taken aspirin, last dose was 3 days prior to procedure. ASA Grade Assessment: III - A patient with severe systemic disease. After reviewing the risks and benefits, the patient was deemed in satisfactory condition to undergo the procedure. After I obtained informed consent, the scope was passed under direct vision. Throughout the procedure, the patient's blood pressure, pulse, and oxygen saturations were monitored continuously. The scope was introduced through the anus and advanced to the terminal ileum. The colonoscopy was performed without difficulty. The patient tolerated the procedure well. The quality of the bowel preparation was good. The terminal ileum, ileocecal valve, appendiceal orifice, and rectum were photographed. Findings: The perianal and digital rectal examinations were normal. Multiple small-mouthed diverticula were found in the sigmoid colon. Non-bleeding internal hemorrhoids were found during retroflexion. The hemorrhoids were small. Impression: - Diverticulosis in the sigmoid colon. - Non-bleeding internal hemorrhoids. - No specimens collected. Recommendation: - Resume previous diet. - Continue present medications. - Repeat colonoscopy for surveillance based on pathology results. - Return to primary care physician as previously scheduled. Richard Johnson DO 01/04/2018 11:50:35 AM This report has been signed electronically. Note Initiated On: 01/04/2018 11:29 AM Number of Addenda: 0 I attest to the content of the Intraoperative Record and orders documented therein, exceptions below {[id number]}
--- NOTE | 2018-01-04 11:52 | Discharge Instructions ---
Endoscopy Patient Instructions Date / Procedure(s) Performed Jan 04, 2018. Colonoscopy Allergy Information Coded Allergies: Morphine (Verified Allergy, Severe, DROP IN VITAL SIGNS, TREMORS, VOMITING , 01/04/18) Codeine (Verified Allergy, Unknown, VOMITING DROP IN BP, 01/04/18) Oxycodone (Verified Allergy, Unknown, drop in vital signs,tremors,vomiting , 01/04/18) Meperidine (Verified Adverse Reaction, Intermediate, VOMITING, 01/04/18) Adhesives (Verified Adverse Reaction, Unknown, "PULLS OFF SKIN", 01/04/18) Discharge Date / Findings Jan 04, 2018. Diverticulosis Internal hemorrhoids Medication Instructions OK to resume all medications today as prescribed Reported Home Medications Medications Dose Route/Sig Max Daily Dose Days Date Category Dose Instructions Coq10 (Coenzyme Q10 (Ubidecarenone)) 100 Mg Cap 100 Mg PO HS 12/28/17 Reported Vitamin B12 (Cyanocobalamin) 1,000 Mcg Tab 1,000 Mcg PO QAM 12/28/17 Reported Senna (Sennosides) 8.6 Mg Cap 1 Tab PO Q2D 12/28/17 Reported S Turmeric Curcumin ([employer] Products) 1 Cap Cap 1 Cap PO QAM 07/27/17 Reported Calcium (Calcium Carbonate) 600 Mg Tab 600 Mg PO QAM 07/27/17 Reported Topiramate 100 Mg Tab 100 Mg PO QPM 07/27/17 Reported Pantoprazole Sodium (Pantoprazole) 40 Mg Tab 40 Mg PO QAM 07/27/17 Reported Methotrexate 2.5 Mg Tab 15 Mg PO WK 07/27/17 Reported TAKE 6 TABLETS (15 MG) EVERY THURSDAY Vitamin D3 (Cholecalciferol) 2,000 Unit Cap 1,000 Inter.unit PO QAM 07/27/17 Reported Crestor (Rosuvastatin Calcium) 5 Mg Tab 5 Mg PO HS 04/30/17 Reported Zantac (Ranitidine HCl) 150 Mg Tab 150 Mg PO BID 04/30/17 Reported Aleve (Naproxen) 220 Mg Tab 220 Mg PO UD PRN 08/31/16 Reported TAKE PER PACKAGE DIRECTIONS Zafirlukast 20 Mg Tab 20 Mg PO BID 08/03/16 Reported Meclizine Hcl 25 Mg Tab 25 Mg PO TID PRN 08/03/16 Reported Celexa (Citalopram Hydrobromide) 40 Mg Tab 40 Mg PO BID 08/03/16 Reported Aspirin Ec (Aspirin) 81 Mg Tab 81 Mg PO HS 05/29/15 Reported Folvite (Folic Acid) 400 Mcg Tab 1,200 Mcg PO QAM 08/14/13 Reported Ultram (Tramadol Hcl) 50 Mg Tab 50-100 Mg PO Q6H PRN 11/28/12 Reported Glucophage (Metformin Hcl) 1,000 Mg Tab 1,000 Mg PO BID 01/19/12 Reported Provider Instructions Activity Restrictions - No exercising or heavy lifting for 24 hours. - Do not drink alcohol the day of the procedure. - Do not drive a car or operate machinery until the day after the procedure. - Do not make any important decisions or sign important papers in 24 hours after the procedure. Following Day: - Return to full activity which may include returning to work/school. Diet Start your diet with liquids and light foods (jello, soup, juice, toast). Then eat your usual diet if not nauseated. Treatment For Common After Affects For mild abdominal pain, bloating, or excessive gas: - Rest - Eat lightly - Lie on right side Follow-Up Information Follow-up with DR. HUNTER as scheduled Anesthesia Information What You Should Know You have had a procedure that required some medicine to reduce anxiety and discomfort. This treatment is called moderate sedation. After receiving the treatment, you may be sleepy, but you will be able to breathe on your own. The effects of the treatment may last for several hours. Follow these instructions along with Activity/Diet recommendations noted above: * Do NOT do anything where dizziness or clumsiness would be dangerous. * Rest quietly at home today, then you can be up and about tomorrow. * Have a responsible person stay with you the rest of today. * You may have had an I.V. today. If so, you may take the dressing off later today. Recommendations Call your doctor if: * Trouble breathing * Continuous vomiting for more than 24 hours * Temperature above 101 degrees * Severe abdominal pain or bloating * Pain not relieved by pain medicine ordered * There is increased drainage or redness from any incision * A large amount of rectal bleeding greater than 2-3 tablespoons. (If you had a polyp/s removed or have hemorrhoids, a small amount of blood - from the rectum is to be expected.) * You have any unanswered questions or concerns. IN THE EVENT OF A SERIOUS EMERGENCY, GO TO THE NEAREST EMERGENCY ROOM Your discharge instructions were prepared by provider Richard Johnson. Patient Instructions Signature Page Pam Mai Patient (or Guardian) Signature/Date: I have read and understand the instructions given to me by my caregivers. Caregiver/RN/Doctor Signature/Date: The above-named patient and/or guardian has received patient instructions on this date. + Original Patient Signature Page (only) stays with chart. Please make copy for patient.
[2018-01-04 12:24] VITALS: BP 130/80; PULSE 63; O2SAT 98
== END | disposition home or self-care (01) ==
LOC: C.GI 09:11
PROVIDERS: ATTEND Internal Medicine
DX: Z12.11 Encounter for screening for malignant neoplasm of colon (principal); K57.30 Diverticulosis of large intestine without perforation or abscess without bleeding; K64.8 Other hemorrhoids; E11.9 Type 2 diabetes mellitus without complications; J45.909 Unspecified asthma, uncomplicated; F32.9 Major depressive disorder, single episode, unspecified; Z88.5 Allergy status to narcotic agent; Z90.710 Acquired absence of both cervix and uterus; Z90.49 Acquired absence of other specified parts of digestive tract

== ENCOUNTER 2020-09-13 20:06 | Observation (INO) ==
--- NOTE | 2020-09-13 20:59 | Emergency Department Note ---
Impression & Plan Headache, Vomiting, Neck discomfort, Dizziness ED Provider Note INFORMANT: Patient ED PROVIDER(S): Kg Thacker MD CHIEF COMPLAINT: Headache and dizziness PLAN: Disposition: Admitted Condition: Good Outpatient prescription management: none Referral: None MEDICAL DECISION MAKING: Patient presented back to emergency department noting recurrent headache but also having neck pain, dizziness and vomiting. She had a nonfocal neurologic examination. She was afebrile. She reported no fevers at home when she was taking her temperature. She had reproducible dizziness with neck movement. The patient had an IV established. She was hydrated. She was given IV Reglan, Benadryl, and Toradol. She was also given IV Valium. On reassessment she was feeling better. She still had discomfort in her neck. Her vertigo-like symptoms were improved but not completely resolved. The patient had resolution of her nausea and vomiting. Her CBC, chemistry panel and other blood work tests were negative. Patient's ECG shows a sinus bradycardia 59 bpm without ischemia. Her neuroimaging which included CT scans of the head and neck with angiographic phases did not reveal any evidence of stroke, tumor, dissection or hemorrhage. She was given additional dose of IV Valium and a dose of IV Tylenol. The patient was reassessed. She was feeling better however she was very fatigued from that medication. She was unable to get up and ambulate because she still had recurrent dizziness. I did take to nurses to get her up to the bathroom. At this point she is not safe going home. I discussed conservative management and treatment inside the hospital. Patient and daughter were in agreement. Consultation was made with Dr. Burt. The patient was evaluated and admitted. Triage Nursing notes reviewed and agree them. Vital Signs: reviewed and remarkable for no significant abnormalities Differential diagnosis: Migraine headache, vertigo, meningitis, ICH, SAH, infection, tumor, headache, sinus thrombosis, arterial dissection, as well as other pathologies. Diagnostics interpreted by me: ECG: Twelve-lead ECG reveals sinus bradycardia [address] elevation or depression. No PACs or PVCs. Normal axis and QRS. Cardiac Monitoring: Cardiac monitoring ordered by me: The patient was placed on continuous cardiac monitoring and observed. It revealed a normal sinus rhythm at 62 beats per minute without ectopy or evidence of dysrhythmia. Imaging studies: CT angiography of the head and neck performed. No acute findings. Nodule in the thyroid noted and patient informed. I refer you to the EMR for further det ails. HPI: The patient is a 80 year old female who presents to the Emergency Room with complaints of headache. This started 3 days ago and is worsening. The patient also notes the following associated symptoms, nausea, vomiting, neck discomfort, dizziness, diaphoresis. Pt has history of migraines which is similar but never the neck and dizziness in combination. Neck issues started today. The patient has found no relieving factors. Current pain is rated as 8/10. Pt was in ER day it started. Treated with migraine cocktail and felt much better. Declined imaging at the time. Blood work was negative. Has been taking temperature and it was normal. Pt denies LOC, fevers, chills, visual changes, chest pain, breathing difficulties, abdominal pain, back pain, melena, hematochezia, urinary symptoms, numbness, weakness, lymphadenopathy, rash, or other complaints. ROS: See above HPI for pertinent positives & negatives. A total of 10 systems reviewed and were otherwise negative. PAST MEDICAL HISTORY:See Below , Migraines, Dm PAST SURGICAL HISTORY:See Below, gallbladder, LUCIANO FAMILY HISTORY:See Below SOCIAL HISTORY:See Below, no tobacco, no etoh HOME MEDICATIONS:See Below ALLERGIES:See Below VITALS:See Below PHYSICAL EXAMINATION: GENERAL: Awake, alert, uncomfortable-appearing, in no distress HENT: Normocephalic, atraumatic. Oropharynx unremarkable. EYES: Normal conjunctiva. Sclera non-icteric. PERRL, EOMI NECK: Inspection normal. Non-tender. Supple. No nuchal rigidity. FROM. No masses. RESPIRATORY: Clear to auscultation. No wheezes. No rales. Normal respiratory effort. CARDIAC: Normal rate. Normal rhythm. No murmurs. No rubs. Extremities warm and well perfused. Pulses equal. No JVD. GI: Soft, non-distended. No tenderness to palpation. No rebound or guarding. No masses. RECTAL: Deferred. MUSCULOSKELETAL: Atraumatic. Chest examination reveals no tenderness. The back is symmetrical on inspection without obvious abnormality. There is no CVA tenderness to palpation. No joint edema. LOWER EXTREMITIES: Calves are equal size bilaterally and non-tender. No edema. No discoloration. NEURO: Normal sensorium. No sensory or motor deficits noted. SKIN: No rash or jaundice noted. Kg Thacker MD Past Med/Surg History Medical History Allergic rhinitis Anxiety and depression Asthma Chronic sinusitis Diabetes Dyslipidemia Fibula fracture GERD (gastroesophageal reflux disease) Hypertension Insomnia Migraine Migraine headache Nontoxic multinodular goiter Osteopenia Rheumatoid arthritis Sensorineural hearing loss (SNHL) of both ears Urge and stress incontinence Vitamin D deficiency Surgical History S/P adenoidectomy S/P carpal tunnel release S/P cataract extraction S/P cholecystectomy S/P foot surgery S/P hysterectomy S/P medial meniscal repair S/P tonsillectomy S/P trigger finger release Family History Brother Myocardial infarction Heart disease Hypertension Father Arthritis Heart disease Mother , age 41 Leukemia Breast cancer Ovarian cancer Sister , age 64 Diabetes Brother Throat cancer Liver cirrhosis Denies family history of Prostate cancer Colorectal cancer Social History Smoking Status: Never smoker Second Hand Exposure: No; Hx Alcohol Use: No Hx Substance Use: No Preferred Language: Venezuelan Communication Ability: Effective Visual Impairment: No Limitations Hearing Ability: Normal Cardroom Attendant Required: No marital status: / Current Living Situation: Alone 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 Feels Safe at Home: Yes Childhood Exposure to Second-Hand Smoke: Yes caffeine: Yes (6 -8 cups coffee a day half caffeine ) during the past year weight has: remained stable Dental Care, Regularly: No Physical Activity Frequency: 1-2 Times per Week Physical Activity Frequency Comment: walking Seatbelt Use: always Sunscreen Use: Yes Allergies Allergies Allergy/AdvReac Type Severity Reaction Status Date / Time codeine Allergy Severe VOMITING Verified 09/13/20 20:46 DROP IN BP morphine Allergy Severe DROP IN Verified 09/13/20 20:46 VITAL SIGNS, TREMORS, VOMITING oxycodone Allergy Severe drop in Verified 09/13/20 20:46 vital signs,tremors,vomiting acetaminophen [From Vicodin] AdvReac Intermediate vomiting Verified 09/13/20 20:46 and tremors adhesive AdvReac Intermediate "PULLS OFF Verified 09/13/20 20:46 SKIN" hydrocodone [From Vicodin] AdvReac Intermediate vomiting Verified 09/13/20 20:46 and tremors meperidine AdvReac Intermediate VOMITING Verified 09/13/20 20:46 pravastatin AdvReac Intermediate pains in Verified 09/13/20 20:46 arms and legs simvastatin AdvReac Intermediate pains in Verified 09/13/20 20:46 legs and arms cephalexin [From Keflex] AdvReac Mild Nausea Verified 09/13/20 20:46 aspirin [From Percodan] AdvReac Unknown unknown Verified 09/13/20 20:46 montelukast [From Singulair] AdvReac Unknown unknown Verified 09/13/20 20:46 Home Meds Home Medications Medication Instructions Recorded Confirmed cholecalciferol (vitamin D3) 1,000 unit PO QAM 05/19/18 09/13/20 [Vitamin D3] naproxen sodium [Aleve] 220 mg PO DIRECTED PRN 05/19/18 09/13/20 albuterol sulfate 90 mcg/actuation 1 - 2 puffs INH Q6H PRN gm 01/17/19 09/13/20 aerosol inhaler methotrexate sodium 20 mg PO WK 10/18/19 09/13/20 sennosides 8.6 mg tablet 8.6 mg PO Q2D PRN 06/21/20 09/13/20 aspirin [Aspir-Low] 81 mg PO DAILY 09/11/20 09/13/20 Previous Rx's Medication Instructions Recorded blood sugar diagnostic #100 ea 01/12/19 cyanocobalamin (vitamin B-12) 1,000 mcg PO QAM #30 tab 01/12/19 1,000 mcg tablet lancets 28 gauge #100 ea 01/12/19 folic acid 400 mcg tablet 1,200 mcg PO QAM #270 tab 03/23/19 meclizine 25 mg tablet 25 mg PO TID PRN #90 tab 03/25/19 pantoprazole 40 mg tablet,delayed 40 mg PO QAM #180 tab 11/07/19 release blood-glucose meter #1 ea 02/01/20 metformin 1,000 mg tablet 1,000 mg PO BID #180 tab 02/15/20 citalopram 40 mg tablet 40 mg PO DAILY #90 tab 04/25/20 topiramate 100 mg tablet 100 mg PO BID #180 tab 04/25/20 zafirlukast 20 mg tablet 20 mg PO Q12H #180 tab 04/25/20 Results & Data (ED) Vital Signs Vital Signs - 24 hr 09/13/20 20:09 09/13/20 20:25 09/13/20 20:32 Temperature 36.7 C Temperature Source Temporal Artery Scan Pulse Rate 45 L 73 76 Pulse Rate from SpO2 Sensor 74 Respiratory Rate 18 20 16 Respiratory Effort / Characteristics Non-Labored Spontaneous Respiratory Depth Normal Blood Pressure 139/90 150/96 H Blood Pressure Mean 106 114 Pulse Oximetry 94 94 Oxygen Delivery Method Room Air Sepsis Recent Fever Within 48 Hours No Sepsis New/Unexplained Change in Mental Status N/A Sepsis Action Taken by Nursing No Action Required 09/13/20 20:40 09/13/20 20:50 09/13/20 21:00 Temperature Temperature Source Pulse Rate 85 79 72 Pulse Rate from SpO2 Sensor 75 77 72 Respiratory Rate 23 19 17 Respiratory Effort / Characteristics Respiratory Depth Blood Pressure Blood Pressure Mean Pulse Oximetry 94 94 95 Oxygen Delivery Method Sepsis Recent Fever Within 48 Hours Sepsis New/Unexplained Change in Mental Status Sepsis Action Taken by Nursing 09/13/20 21:10 09/13/20 21:20 09/13/20 21:30 Temperature Temperature Source Pulse Rate 73 61 65 Pulse Rate from SpO2 Sensor 72 60 60 Respiratory Rate 15 14 23 Respiratory Effort / Characteristics Respiratory Depth Blood Pressure Blood Pressure Mean Pulse Oximetry 95 96 97 Oxygen Delivery Method Sepsis Recent Fever Within 48 Hours Sepsis New/Unexplained Change in Mental Status Sepsis Action Taken by Nursing 09/13/20 21:40 09/13/20 21:50 09/13/20 22:00 Temperature Temperature Source Pulse Rate 75 82 79 Pulse Rate from SpO2 Sensor 73 82 75 Respiratory Rate 17 19 17 Respiratory Effort / Characteristics Respiratory Depth Blood Pressure Blood Pressure Mean Pulse Oximetry 96 93 94 Oxygen Delivery Method Sepsis Recent Fever Within 48 Hours Sepsis New/Unexplained Change in Mental Status Sepsis Action Taken by Nursing 09/13/20 22:10 09/13/20 22:20 09/13/20 22:49 Temperature Temperature Source Pulse Rate 74 82 81 Pulse Rate from SpO2 Sensor 75 82 81 Respiratory Rate 16 17 16 Respiratory Effort / Characteristics Respiratory Depth Blood Pressure 158/80 H Blood Pressure Mean 106 Pulse Oximetry 96 95 96 Oxygen Delivery Method Sepsis Recent Fever Within 48 Hours Sepsis New/Unexplained Change in Mental Status Sepsis Action Taken by Nursing 09/13/20 22:50 09/13/20 23:00 09/13/20 23:01 Temperature Temperature Source Pulse Rate 73 70 68 Pulse Rate from SpO2 Sensor 73 63 64 Respiratory Rate 18 16 16 Respiratory Effort / Characteristics Respiratory Depth Blood Pressure 147/82 H Blood Pressure Mean 103 Pulse Oximetry 97 94 94 Oxygen Delivery Method Sepsis Recent Fever Within 48 Hours Sepsis New/Unexplained Change in Mental Status Sepsis Action Taken by Nursing 09/13/20 23:30 09/13/20 23:31 Temperature Temperature Source Pulse Rate 86 77 Pulse Rate from SpO2 Sensor 81 78 Respiratory Rate 20 17 Respiratory Effort / Characteristics Respiratory Depth Blood Pressure 128/77 Blood Pressure Mean 94 Pulse Oximetry 94 90 Oxygen Delivery Method Sepsis Recent Fever Within 48 Hours Sepsis New/Unexplained Change in Mental Status Sepsis Action Taken by Nursing Laboratory Data Result diagrams: 09/13/20 20:37 09/13/20 20:37 Lab Results 09/13/20 09/13/20 09/13/20 Range/Units 20:37 20:37 20:37 WBC 5.85 (4.8-10.8) K/uL RBC 4.60 (4.2-5.4) M/uL Hgb 13.9 (12.0-16.0) g/dL Hct 42.9 (37-47) % MCV 93.3 (80-100) fL MCH 30.2 (25-34) pg MCHC 32.4 (32-36) g/dL RDW Std Deviation 57.5 H (36.4-46.3) fL RDW Coeff of [place] 17.1 H (11.5-14.5) % Plt Count 345 (130-400) K/uL MPV 9.8 (7.4-10.4) fL Immature Gran % (Auto) 0.0 % Neut % (Auto) 64.8 % Lymph % (Auto) 24.4 % [place] % (Auto) 8.2 % Eos % (Auto) 2.1 % Baso % (Auto) 0.5 % Neut # (Auto) 3.79 (1.4-6.5) K/uL Lymph # (Auto) 1.43 (1.2-3.4) K/uL [place] # (Auto) 0.48 (0.11-0.59) K/uL Eos # (Auto) 0.12 (0-0.5) K/uL Baso # (Auto) 0.03 (0-0.2) K/uL Immature Gran # (Auto) 0.00 (0.00-0.02) K/uL PT 10.2 (9.0-12.0) Seconds INR 1.0 (0.9-1.1) APTT 25.6 (21.0-31.0) Seconds PTT Ratio 1.0 Sodium 143 (136-145) mmol/L Potassium 3.5 (3.5-5.1) mmol/L Chloride 112 H (98-107) mmol/L Carbon Dioxide 25 (21-32) mmol/L Anion Gap 6.0 (3-11) BUN 14 (7-18) mg/dl Creatinine 0.85 (0.6-1.2) mg/dl Est Cr Clr Drug Dosing 53.0 ml/min Est GFR ( Amer) 75.5 Est GFR (Non-Af Amer) 65.2 BUN/Creatinine Ratio 16.9 (10-20) Glucose 112 H (70-99) mg/dl POC Glucose (70-99) mg/dl Calcium 9.3 (8.5-10.1) mg/dl Magnesium 2.1 (1.8-2.4) mg/dl Total Bilirubin 0.6 (0.2-1) mg/dl AST 24 (15-37) U/L ALT 32 (12-78) U/L Alkaline Phosphatase 73 (45-117) U/L Troponin I < 0.015 (0-0.045) ng/ml Total Protein 7.4 (6.4-8.2) gm/dl Albumin 3.8 (3.4-5.0) gm/dl Globulin 3.6 (2.5-4.0) gm/dl Albumin/Globulin Ratio 1.0 (0.9-2) COVID-19 Eval Order 09/13/20 09/13/20 Range/Units 21:33 23:51 WBC (4.8-10.8) K/uL RBC (4.2-5.4) M/uL Hgb (12.0-16.0) g/dL Hct (37-47) % MCV (80-100) fL MCH (25-34) pg MCHC (32-36) g/dL RDW Std Deviation (36.4-46.3) fL RDW Coeff of [place] (11.5-14.5) % Plt Count (130-400) K/uL MPV (7.4-10.4) fL Immature Gran % (Auto) % Neut % (Auto) % Lymph % (Auto) % [place] % (Auto) % Eos % (Auto) % Baso % (Auto) % Neut # (Auto) (1.4-6.5) K/uL Lymph # (Auto) (1.2-3.4) K/uL [place] # (Auto) (0.11-0.59) K/uL Eos # (Auto) (0-0.5) K/uL Baso # (Auto) (0-0.2) K/uL Immature Gran # (Auto) (0.00-0.02) K/uL PT (9.0-12.0) Seconds INR (0.9-1.1) APTT (21.0-31.0) Seconds PTT Ratio Sodium (136-145) mmol/L Potassium (3.5-5.1) mmol/L Chloride (98-107) mmol/L Carbon Dioxide (21-32) mmol/L Anion Gap (3-11) BUN (7-18) mg/dl Creatinine (0.6-1.2) mg/dl Est Cr Clr Drug Dosing ml/min Est GFR ( Amer) Est GFR (Non-Af Amer) BUN/Creatinine Ratio (10-20) Glucose (70-99) mg/dl POC Glucose 104 H (70-99) mg/dl Calcium (8.5-10.1) mg/dl Magnesium (1.8-2.4) mg/dl Total Bilirubin (0.2-1) mg/dl AST (15-37) U/L ALT (12-78) U/L Alkaline Phosphatase (45-117) U/L Troponin I (0-0.045) ng/ml Total Protein (6.4-8.2) gm/dl Albumin (3.4-5.0) gm/dl Globulin (2.5-4.0) gm/dl Albumin/Globulin Ratio (0.9-2) COVID-19 Eval Order CovFluRsv at [facility] Administered Medications Sodium Chloride (Nss 1000ml) 1,000 mls @ 50 mls/hr IV .Q20H AUDELIA Stop: 10/13/20 21:14 Last Admin: 09/13/20 21:38 Dose: 50 mls/hr Documented by: [id number] Discontinued Medications Diazepam (Diazepam 5 Mg/Ml Inj 10ml Vial) 2.5 mg IV NOW STA Stop: 09/13/20 21:09 Last Admin: 09/13/20 21:46 Dose: 2.5 mg Documented by: [id number] Diazepam (Diazepam 5 Mg/Ml Inj 10ml Vial) 2.5 mg IV NOW STA Stop: 09/13/20 23:13 Last Admin: 09/13/20 23:22 Dose: 2.5 mg Documented by: [id number] Diphenhydramine HCl (Diphenhydramine 50 Mg/Ml Vial) Confirm Administered Dose 50 mg .ROUTE .STK-MED ONE Stop: 09/13/20 21:18 Last Admin: 09/13/20 22:56 Dose: Not Given Documented by: [id number] Diphenhydramine HCl (Diphenhydramine 50 Mg/Ml Vial) Confirm Administered Dose 50 mg .ROUTE .STK-MED ONE Stop: 09/13/20 21:36 Last Admin: 09/13/20 22:56 Dose: Not Given Documented by: [id number] Diphenhydramine HCl 12.5 mg/ (Syringe) 0.25 mls @ 1 mls/hr IV NOW STA Stop: 09/13/20 21:22 Last Admin: 09/13/20 21:39 Dose: 1 mls/hr Documented by: [id number] Acetaminophen (Ofirmev) 1,000 mg in 100 mls @ 400 mls/hr IV NOW STA Stop: 09/13/20 23:26 Last Infusion: 09/13/20 23:46 Dose: 0 mls/hr Documented by: [id number] Admin: 09/13/20 23:22 Dose: 400 mls/hr Documented by: [id number] Sodium Chloride (Nss 1000ml) 500 mls @ 999 mls/hr IV .Q31M ONE Stop: 09/13/20 23:43 Last Admin: 09/13/20 23:22 Dose: 999 mls/hr Documented by: [id number] Ioversol (Optiray 350 500ml) 112 ml IV ONCE ONE Stop: 09/13/20 22:34 Last Admin: 09/13/20 22:34 Dose: 112 ml Documented by: [id number] Ketorolac Tromethamine (Ketorolac Tromethamine 15 Mg/Ml Vial) 10 mg IV NOW ONE Stop: 09/13/20 21:09 Last Admin: 09/13/20 21:38 Dose: 10 mg Documented by: [id number] Metoclopramide HCl (Metoclopramide Hcl Inj 5 Mg/Ml 2 Ml Vial) 10 mg IV NOW STA Stop: 09/13/20 21:09 Last Admin: 09/13/20 21:39 Dose: 10 mg Documented by: [id number] Discharge Plan Visit Data Chief Complaint: Illness Stated Complaint: VOMITING, MIGRANE, SORE NECK ED Provider: Kg Thacker Discharge Problem: Headache, Vomiting, Neck discomfort, Dizziness Forms Stand Alone Forms: [facility] [place] Prescriptions Prescriptions: No Action folic acid 400 mcg tablet 1,200 mcg PO QAM Qty: 270 RF: 0 meclizine 25 mg tablet 25 mg PO TID PRN (Reason: Dizziness) Qty: 90 RF: 1 pantoprazole 40 mg tablet,delayed release (DR/EC) 40 mg PO QAM Qty: 180 RF: 2 metformin 1,000 mg tablet 1,000 mg PO BID Qty: 180 RF: 3 citalopram [Celexa] 40 mg tablet 40 mg PO DAILY Qty: 90 RF: 3 topiramate 100 mg tablet 100 mg PO BID Qty: 180 RF: 1 zafirlukast 20 mg tablet 20 mg PO Q12H Qty: 180 RF: 1 (DME) FreeStyle Lite Strips strip See Dose Instructions .ROUTE .MEDSUPPLY Qty: 100 RF: 0 cyanocobalamin (vitamin B-12) [Vitamin B-12] 1,000 mcg tablet 1,000 mcg PO QAM Qty: 30 RF: 0 (DME) lancets [FreeStyle Lancets] 28 gauge misc See Dose Instructions .ROUTE .MEDSUPPLY Qty: 100 RF: 0 albuterol sulfate [Ventolin HFA] 90 mcg/actuation HFA aerosol inhaler 1 - 2 puffs INH Q6H PRN (Reason: shortness of breath or wheezing) RF: 0 (DME) blood-glucose meter [FreeStyle Lite Meter] Kit See Rx Instructions .ROUTE .MEDSUPPLY Qty: 1 RF: 0 cholecalciferol (vitamin D3) [Vitamin D3] 1,000 unit Capsule 1,000 unit PO QAM RF: 0 naproxen sodium [Aleve] 220 mg Capsule 220 mg PO DIRECTED PRN (Reason: Pain) RF: 0 sennosides [senna] 8.6 mg tablet 8.6 mg PO Q2D PRN (Reason: constipation) RF: 0 methotrexate sodium 2.5 mg tablet 20 mg PO WK RF: 0 aspirin [Aspir-Low] 81 mg Tablet,Delayed Release (Dr/Ec) 81 mg PO DAILY RF: 0
[2020-09-13] MEDS ORDERED: KETOROLAC TROMETHAMINE 15 MG/ML VIAL IV ONE (21:08)
[2020-09-13] MEDS ORDERED: METOCLOPRAMIDE HCL INJ 5 MG/ML 2 ML VIAL IV STA (21:08)
[2020-09-13] MEDS ORDERED: diphenhydrAMINE 50 MG/ML VIAL ONE ×2 (21:17→21:35)
[2020-09-13 21:35] LABS: Basophils # (auto) 0.03 K/uL (0-0.2); Basophils % (auto) 0.5 %; Eosinophils # (auto) 0.12 K/uL (0-0.5); Eosinophils % (auto) 2.1 %; Hematocrit (blood only) 42.9 % (37-47); Hemoglobin 13.9 g/dL (12.0-16.0); Lymphocytes # (auto) 1.43 K/uL (1.2-3.4); Lymphocytes % (auto) 24.4 %; Mean Corpuscular Hemoglobin 30.2 pg (25-34); Mean Corpuscular Hgb Conc 32.4 g/dL (32-36); Mean Corpuscular Volume 93.3 fL (80-100); Mean Platelet Volume 9.8 fL (7.4-10.4); Monocytes # (auto) 0.48 K/uL (0.11-0.59); Monocytes % (auto) 8.2 %; Neutrophils # (auto) 3.79 K/uL (1.4-6.5); Neutrophils % (auto) 64.8 %; Platelet Count 345 K/uL (130-400); RDW Coefficient of Variation 17.1 % (11.5-14.5); RDW Standard Deviation 57.5 fL (36.4-46.3); White Blood Count 5.85 K/uL (4.8-10.8)
[2020-09-13] MEDS: SODIUM CHLORIDE 0.9% 1000ML 1,000 ML IV SCH (21:38)
[2020-09-13 21:47] LABS: Alanine Aminotransferase 32 U/L (12-78); Albumin Level 3.8 gm/dl (3.4-5.0); Aspartate Aminotransferase 24 U/L (15-37); BUN Creatinine Ratio 16.9 (10-20); Blood Urea Nitrogen 14 mg/dl (7-18); Calcium 9.3 mg/dl (8.5-10.1); Carbon Dioxide 25 mmol/L (21-32); Chloride 112 mmol/L (98-107); Est GFR (African American) 75.5; Est GFR (Non-African American) 65.2; Glucose 112 mg/dl (70-99); Magnesium 2.1 mg/dl (1.8-2.4); Partial Thromboplastin Time 25.6 Seconds (21.0-31.0); Potassium 3.5 mmol/L (3.5-5.1); Prothrombin Time 10.2 Seconds (9.0-12.0); Sodium 143 mmol/L (136-145)
[2020-09-13 21:52] LABS: Alkaline Phosphatase 73 U/L (45-117); Bilirubin,Total 0.6 mg/dl (0.2-1); Globulin 3.6 gm/dl (2.5-4.0); Total Protein 7.4 gm/dl (6.4-8.2); Troponin I < 0.015 ng/ml (0-0.045)
[2020-09-13] MEDS ORDERED: OPTIRAY 350 500ml IV ONE (22:33)
[2020-09-13] MEDS ORDERED: ACETAMINOPHEN 1,000 MG/100 ML VIAL IV STA (23:12)
[2020-09-13] MEDS ORDERED: SODIUM CHLORIDE 0.9% 1000ML 500 ML IV ONE (23:13)
[2020-09-14 00:38] LABS: Influenza A virus by PCR Negative (Neg); Influenza B virus by PCR Negative (Neg); RSV by PCR Negative (Neg); SARS CoV2 RNA(COVID-19) InHosp NEGATIVE (Negative)
--- NOTE | 2020-09-14 01:42 | History & Physical Report ---
Date of Service September 14, 2020 Assessment & Plan Admission and Anticipated Discharge Date Admission Date: 80 yo F w/ pMHx. of DM, Asthma, RA, and migraine history presents with headache, nausea, vomiting, diarrhea, urinary incontinence, and blurry vision that has progressively worsened along with development of pain and tingling of the neck. Concern for stroke Dizziness along with vision changes in the setting of vomiting and diarrhea fits with BPPV exacerbated by dehydration from GI losses given horizontal nystagmus on exam although patient unable to tolerate HINTS exam to rule out a central process and this may also represent migraine or a mixed picture CT head with no ICH, mass, edema, evidence of acute cortical stroke CTA Neck: no occlusion or high grade stenosis - stroke protocol initiated - neurology consulted - MRI brain ordered - TTE ordered - monitor on tele - Meclizine available for dizziness - continue with hydration Right neck stiffness, with palpable paraspinal muscle tenderness Kernig and Brudzinksi negative WBC 5.85, nl HR, afebrile CTA neck as above - XR cervical spine ordered - Tylenol and K-pad ordered Urinary incontinence, concern for retention - bladder scan - UA ordered - if symptoms continue and are not better explained otherwise consider spinal imaging Migraine - continue home medication with Topiramate Vision changes, potentially presbyopia although could represent central process - stroke workup as above DM - held oral agents - started sliding scale Asthma - continue home medication with Albuterol - holding Zafirlukast as we do not have this formulary, unable to give montelukast as patient has allergy Reflux - continue pantoprazole Code: full Diet: NPO until speech eval DVT: SCD's History of Present Illness Chief Complaint: dizzy, nausea, and neck pain Primary Care Provider: Agueda Fowler DO Pam Mai is here for headache, nausea, vomiting, diarrhea along with severe dizziness and lightheadedness. She came to the ER on Monday 09/11 for what she thought was a severe migraine. She was given medication in the ER and subsequently felt better. That evening she felt worse and vomited throughout Thursday, and every time that she ate. She then developed dizziness when she would look up and then developed neck pain. She has never had neck pain in the past and noted that it was on the right side of her neck along with a numbness and tingling in this area, she denies neck stiffness. She denies any trauma to the head, neck or spine along with no recent falls. She has had 1 week of incontinence that is new for her and involves urination without any urge to go. She has also noted that she has some blurring of her vision without any double vision. She describes it at "when I am looking at my phone and look at the TV the faces are blurry". Allergies Allergy/AdvReac Type Severity Reaction Status Date / Time codeine Allergy Severe VOMITING Verified 09/13/20 20:46 DROP IN BP morphine Allergy Severe DROP IN Verified 09/13/20 20:46 VITAL SIGNS, TREMORS, VOMITING oxycodone Allergy Severe drop in Verified 09/13/20 20:46 vital signs,tremors,vomiting acetaminophen [From Vicodin] AdvReac Intermediate vomiting Verified 09/13/20 20:46 and tremors adhesive AdvReac Intermediate "PULLS OFF Verified 09/13/20 20:46 SKIN" hydrocodone [From Vicodin] AdvReac Intermediate vomiting Verified 09/13/20 20:46 and tremors meperidine AdvReac Intermediate VOMITING Verified 09/13/20 20:46 pravastatin AdvReac Intermediate pains in Verified 09/13/20 20:46 arms and legs simvastatin AdvReac Intermediate pains in Verified 09/13/20 20:46 legs and arms cephalexin [From Keflex] AdvReac Mild Nausea Verified 09/13/20 20:46 aspirin [From Percodan] AdvReac Unknown unknown Verified 09/13/20 20:46 montelukast [From Singulair] AdvReac Unknown unknown Verified 09/13/20 20:46 Home Medications Medication Instructions Recorded Confirmed Type cholecalciferol (vitamin D3) 1,000 unit PO QAM 05/19/18 09/13/20 History [Vitamin D3] naproxen sodium [Aleve] 220 mg PO DIRECTED PRN 05/19/18 09/13/20 History blood sugar diagnostic #100 ea 01/12/19 06/21/20 Rx cyanocobalamin (vitamin B-12) 1,000 mcg PO QAM #30 tab 01/12/19 09/13/20 Rx 1,000 mcg tablet lancets 28 gauge #100 ea 01/12/19 09/11/20 Rx albuterol sulfate 90 mcg/actuation 1 - 2 puffs INH Q6H PRN gm 01/17/19 09/13/20 History aerosol inhaler folic acid 400 mcg tablet 1,200 mcg PO QAM #270 tab 03/23/19 09/13/20 Rx meclizine 25 mg tablet 25 mg PO TID PRN #90 tab 03/25/19 09/13/20 Rx methotrexate sodium 20 mg PO WK 10/18/19 09/13/20 History pantoprazole 40 mg tablet,delayed 40 mg PO QAM #180 tab 11/07/19 09/13/20 Rx release blood-glucose meter #1 ea 02/01/20 06/21/20 Rx metformin 1,000 mg tablet 1,000 mg PO BID #180 tab 02/15/20 09/13/20 Rx citalopram 40 mg tablet 40 mg PO DAILY #90 tab 04/25/20 09/13/20 Rx topiramate 100 mg tablet 100 mg PO BID #180 tab 04/25/20 09/13/20 Rx zafirlukast 20 mg tablet 20 mg PO Q12H #180 tab 04/25/20 09/13/20 Rx sennosides 8.6 mg tablet 8.6 mg PO Q2D PRN 06/21/20 09/13/20 History aspirin [Aspir-Low] 81 mg PO DAILY 09/11/20 09/13/20 History Past Med/Surg History Medical History Allergic rhinitis Anxiety and depression Asthma Chronic sinusitis Diabetes Dyslipidemia Fibula fracture GERD (gastroesophageal reflux disease) Hypertension Insomnia Migraine Migraine headache Nontoxic multinodular goiter Osteopenia Rheumatoid arthritis Sensorineural hearing loss (SNHL) of both ears Urge and stress incontinence Vitamin D deficiency Surgical History S/P adenoidectomy S/P carpal tunnel release S/P cataract extraction S/P cholecystectomy S/P foot surgery S/P hysterectomy S/P medial meniscal repair S/P tonsillectomy S/P trigger finger release Family History Brother Myocardial infarction Heart disease Hypertension Father Arthritis Heart disease Mother , age 41 Leukemia Breast cancer Ovarian cancer Sister , age 64 Diabetes Brother Throat cancer Liver cirrhosis Denies family history of Prostate cancer Colorectal cancer Social History Smoking Status: Never smoker Second Hand Exposure: No; Do You Dip or Chew Tobacco: No; Hx Alcohol Use: No Hx Substance Use: No Preferred Language: Bulgarian Communication Ability: Effective Visual Impairment: No Limitations Hearing Ability: Normal Mobile Service Rv Technician Required: No Beliefs That Will Affect Care: None marital status: / Current Living Situation: Alone 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 [employer] Other Information That Helps Us Care for You: No Feels Safe at Home: Yes Safety Concerns: Feels Safe At This Time Childhood Exposure to Second-Hand Smoke: Yes caffeine: Yes (6 -8 cups coffee a day half caffeine ) during the past year weight has: remained stable Dental Care, Regularly: No Physical Activity Frequency: 1-2 Times per Week Physical Activity Frequency Comment: walking Seatbelt Use: always Sunscreen Use: Yes Assistive Devices: Glasses Review of Systems Review of Systems: Constitutional: denies fever admits chills, nausea and vomiting X 8 Head: denies trauma admits headache, lightheadedness, vision changes Neuro: denies dysphagia, slurring of speech, focal weakness, neck stiffness admits presyncope and numbness and tingling (of neck) ENT: admits seasonal post nasal drip with cough Cardiac: denies chest pain, palpitations, leg edema Pulm.: denies shortness of breath GI: admits diarrhea, abdominal pain : denies polyuria, urgency, frequency Physical Exam Constitutional: WD/WN, vitals as above Eyes: EOM intact bilaterally, + nystagmus (when she looks left she has horizontal nystagmus) and + photophobia ENMT: external ear and nose normal, oropharynx normal Neck: normal visual inspection Respiratory: normal respiratory effort, lungs clear to auscultation Cardiovascular: RRR, no murmur, no edema Gastrointestinal (Abdomen): Inspection/Auscultation: abdomen normal to inspection - slight tenderness to palpation on the R>L - soft Musculoskeletal: no cyanosis or clubbing, extremities motor strength 5/5 (tenderness over the right paraspinous muscles with tight muscle group) Skin: no rashes, warm and dry Neurologic: CN's II-XI intact bilaterally (with the exception of nystagmus noted on EOM exam); no focal motor deficits - Kernig and Brudzinski negative Results & Data Results & Data ([facility]) Vital Signs (Past 12 Hours) Vital Signs Temp Pulse Resp BP Pulse Ox 09/14/20 00:30 61 15 156/79 H 95 09/14/20 00:01 61 15 96 09/14/20 00:00 73 12 132/81 95 09/13/20 23:31 77 17 90 09/13/20 23:30 86 20 128/77 94 09/13/20 23:01 68 16 94 09/13/20 23:00 70 16 147/82 H 94 09/13/20 22:50 73 18 97 09/13/20 22:49 81 16 158/80 H 96 09/13/20 22:20 82 17 95 09/13/20 22:10 74 16 96 09/13/20 22:00 79 17 94 09/13/20 21:50 82 19 93 09/13/20 21:40 75 17 96 09/13/20 21:30 65 23 97 09/13/20 21:20 61 14 96 09/13/20 21:10 73 15 95 09/13/20 21:00 72 17 95 09/13/20 20:50 79 19 94 09/13/20 20:40 85 23 94 09/13/20 20:32 76 16 09/13/20 20:25 73 20 150/96 H 94 09/13/20 20:09 36.7 C 45 L 18 139/90 94 CBC Results Results Complete Blood Count Results: RBC 4.60 M/uL (4.2-5.4) 09/13/20 WBC 5.85 K/uL (4.8-10.8) 09/13/20 Hgb 13.9 g/dL (12.0-16.0) 09/13/20 Hct 42.9 % (37-47) 09/13/20 Plt Count 345 K/uL (130-400) 09/13/20 Chemistry (BMP) Results BMP Results: Sodium 143 mmol/L (136-145) 09/13/20 Potassium 3.5 mmol/L (3.5-5.1) 09/13/20 Chloride 112 mmol/L (98-107) H 09/13/20 BUN 14 mg/dl (7-18) 09/13/20 Creatinine 0.85 mg/dl (0.6-1.2) 09/13/20 Glucose 112 mg/dl (70-99) H 09/13/20 Code Status & VTE Plan VTE Prophylaxis Plan VTE Prophylaxis will be ordered: Yes Supervising Physician Co-Signing Physician Notes Patient seen and examined, chart reviewed, case discussed with Dr. Cleary and I agree with his assessment and plan as documented above. Patient with dizziness/vertigo as well as neck pain and incontinence. Patient afebrile, HD stable, NAD +Nystagmus - horizontal Heart - +S1/S2, regular Lungs - CTA Abd - +BS, soft, NT/ND Ext - No edema Labs and images reviewed Suspect BPPV. Some concern over complaint of diplopia and urinary incontinence -Check MRI, Echo, PT/OT and Neuro evaluation Resident Activity Tracking Resident Involvement: Resident Care Provided Care Provided: Adult [facility]
[2020-09-14] MEDS ORDERED: MECLIZINE HCL 25 MG TAB PO PRN (02:13)
[2020-09-14] MEDS ORDERED: ALBUTEROL HFA 8 GM INHALER INH PRN (02:13)
[2020-09-14] MEDS ORDERED: PHARMACIST DISCHARGE MED REC CONSULT PRN (02:13)
[2020-09-14] MEDS ORDERED: DEXTROSE 50% 50 ML SYRINGE IV PRN (02:13)
[2020-09-14] MEDS ORDERED: SENNA 8.6 MG TAB PO PRN (02:13)
[2020-09-14] MEDS ORDERED: POLYETHYLENE (MIRALAX) 17 GM PACK PO PRN (02:13)
[2020-09-14] MEDS ORDERED: GLUCOSE 40% GEL 15 GM TUBE PO PRN (02:13)
[2020-09-14] MEDS ORDERED: CARBOHYDRATES FOR HYPOGLYCEMIA PO PRN (02:13)
[2020-09-14] MEDS ORDERED: GLUCAGON FOR INJ 1 MG VIAL SQ PRN (02:13)
[2020-09-14] MEDS ORDERED: GLUCOSE 10 TABS/TUBE PO PRN (02:13)
--- NOTE | 2020-09-14 03:58 | Billing Data ---
Date of Service September 14, 2020 Coding Level of Care Code 55762 OBS Care - Level 3
[2020-09-14] MEDS: SODIUM CHLORIDE 0.9% 1000ML 1,000 ML IV SCH (06:48)
--- NOTE | 2020-09-14 07:11 | CT Scan Report ---
HEAD CT NONCONTRAST CT DOSE: HISTORY: headache, dizziness, neck pain TECHNIQUE: Multiaxial CT images of the head were performed without the use of intravenous contrast. A utomated exposure control was utilized for this study. A dose lowering technique was utilized adheri ng to the principles of ALARA. Comparison: Head CT 10/18/2019. Findings: Mild mucosal thickening within the left maxillary sinus. The mastoid air cells are clear. T he calvarium and skull base are intact. There is no mass, hematoma, midline shift, acute infarct. Whi te matter hypodensity is nonspecific but suggestive of microvascular ischemic change. The ventricles and sulci demonstrate mild age-related involutional changes. Impression: No acute intracranial abnormality. ACT 112: Negative or not required by law. Electronically signed by: Solomon Hector M.D. 09/14/2020 7:10 AM
--- NOTE | 2020-09-14 07:17 | CT Scan Report ---
HEAD & NECK CTA HISTORY: headache, dizziness, neck pain TECHNIQUE: Multiaxial CT images of the head were performed following the intravenous administration o f contrast to evaluate the major cerebral vessels. Multiaxial CT images of the neck were also perform ed following the intravenous administration of contrast to evaluate the major cervical vessels. Maxim um intensity projection images were also obtained. A dose lowering technique was utilized adhering to the principles of ALARA. COMPARISON: Head CT 8 03/24/2019. Neck CTA 05/19/2018. FINDINGS: There is no mass, hematoma, midline shift, or acute infarct. Visualized intracranial internal carotid arteries, distal vertebral arteries, and basilar artery are widely patent. There is no significant s tenosis, occlusion, or aneurysm seen within the bilateral ACAs, MCAs, or baby nurse. The major dural venous sinuses are patent. The aortic arch and proximal great vessels are widely patent. There is no significant stenosis, occ lusion, or dissection identified within the bilateral common carotid, internal carotid, or vertebral arteries. IMPRESSION: 1. No significant stenosis, occlusion, or aneurysm within the [place]. 2. No significant stenosis, occlusion, or dissection identified within the carotid or vertebral arter ies. ACT 112: Negative or not required by law. Electronically signed by: Solomon Hector M.D. 09/14/2020 7:16 AM
--- NOTE | 2020-09-14 07:17 | CT Scan Report ---
HEAD & NECK CTA HISTORY: headache, dizziness, neck pain TECHNIQUE: Multiaxial CT images of the head were performed following the intravenous administration o f contrast to evaluate the major cerebral vessels. Multiaxial CT images of the neck were also perform ed following the intravenous administration of contrast to evaluate the major cervical vessels. Maxim um intensity projection images were also obtained. A dose lowering technique was utilized adhering to the principles of ALARA. COMPARISON: Head CT 8 03/24/2019. Neck CTA 05/19/2018. FINDINGS: There is no mass, hematoma, midline shift, or acute infarct. Visualized intracranial internal carotid arteries, distal vertebral arteries, and basilar artery are widely patent. There is no significant s tenosis, occlusion, or aneurysm seen within the bilateral ACAs, MCAs, or reconnaissance man. The major dural venous sinuses are patent. The aortic arch and proximal great vessels are widely patent. There is no significant stenosis, occ lusion, or dissection identified within the bilateral common carotid, internal carotid, or vertebral arteries. IMPRESSION: 1. No significant stenosis, occlusion, or aneurysm within the [place]. 2. No significant stenosis, occlusion, or dissection identified within the carotid or vertebral arter ies. ACT 112: Negative or not required by law. Electronically signed by: Solomon Hector M.D. 09/14/2020 7:16 AM
--- NOTE | 2020-09-14 07:31 | Magnetic Resonance Report ---
Brain MRI WITHOUT CONTRAST HISTORY: Migraine. TECHNIQUE: Multiplanar multisequence MRI of the brain was performed without the use of contrast. COMPARISON STUDY: Head CT 09/13/2020. Brain MRI 02/21/2015. FINDINGS: There is no mass, hematoma, midline shift, or acute infarct. The paranasal sinuses are pay[place] r. The mastoid air cells are clear. The ventricles and sulci demonstrate mild age-related involutiona l changes. Scattered foci of T2 hyperintensity seen within the periventricular and subcortical white matter are nonspecific but suggestive of mild microvascular ischemic changes. The major vascular flow voids at the skull base are well-maintained. IMPRESSION: No acute intracranial abnormality. Scattered foci of T2 hyperintensity seen within the periventricula r and subcortical white matter are nonspecific but favor microvascular ischemic change. ACT 112: Negative or not required by law. Electronically signed by: Solomon Hector M.D. 09/14/2020 7:30 AM
[2020-09-14] MEDS: INSULIN ASPART 100 UNITS/ML 3 ML PEN SC SCH ×4 (07:51→20:56)
[2020-09-14 08:25] LABS: Basophils # (auto) 0.04 K/uL (0-0.2); Basophils % (auto) 0.8 %; Eosinophils # (auto) 0.13 K/uL (0-0.5); Eosinophils % (auto) 2.5 %; Hematocrit (blood only) 39.5 % (37-47); Hemoglobin 12.8 g/dL (12.0-16.0); Immature Granulocytes # (auto) 0.01 K/uL (0.00-0.02); Immature Granulocytes % (auto) 0.2 %; Lymphocytes # (auto) 1.25 K/uL (1.2-3.4); Lymphocytes % (auto) 24.1 %; Mean Corpuscular Hemoglobin 30.3 pg (25-34); Mean Corpuscular Hgb Conc 32.4 g/dL (32-36); Mean Corpuscular Volume 93.4 fL (80-100); Mean Platelet Volume 9.4 fL (7.4-10.4); Monocytes # (auto) 0.42 K/uL (0.11-0.59); Monocytes % (auto) 8.1 %; Neutrophils # (auto) 3.33 K/uL (1.4-6.5); Neutrophils % (auto) 64.3 %; Platelet Count 330 K/uL (130-400); RDW Coefficient of Variation 17.1 % (11.5-14.5); RDW Standard Deviation 57.1 fL (36.4-46.3); Red Blood Count 4.23 M/uL (4.2-5.4); White Blood Count 5.18 K/uL (4.8-10.8)
[2020-09-14 08:55] LABS: BUN Creatinine Ratio 18.7 (10-20); Calcium 9.2 mg/dl (8.5-10.1); Creatinine Clr Calc Pharmacy 61.7 ml/min; Est GFR (African American) 90.8; Est GFR (Non-African American) 78.3; Potassium 3.5 mmol/L (3.5-5.1)
[2020-09-14] MEDS: TOPIRAMATE 100 MG TAB PO SCH ×2 (09:00→20:56)
[2020-09-14] MEDS: CYANOCOBALAMIN 500 MCG TABLET (VITAMIN B-12) PO SCH (09:00)
[2020-09-14] MEDS: CITALOPRAM 40 MG TAB PO SCH (09:00)
[2020-09-14] MEDS: PANTOprazole 40 MG TAB PO SCH (09:00)
[2020-09-14] MEDS: ASPIRIN 81 MG ECTAB PO SCH (09:01)
[2020-09-14 09:52] LABS: Estimated Average Glucose 126 mg/dl
[2020-09-14] MEDS: ACETAMINOPHEN 325 MG TAB PO PRN (10:07)
[2020-09-14 10:42] LABS: Appearance Urine Clear (Clear); Bilirubin Urine Negative (Negative); Blood Urine Negative (Negative); Color Urine Yellow; Glucose Urine UA Negative (Negative); Ketones Urine Negative (Negative); Leukocyte Esterase Urine Negative (Negative); Nitrite Urine Negative (Negative); Protein Urine Negative (Negative); Specific Gravity Urine 1.043 (1.000-1.030); Urobilinogen Urine Negative (Negative)
--- NOTE | 2020-09-14 11:09 | Neurology Consultation ---
Date of Consultation September 14, 2020 Assessment & Plan (1) Migraine headache: (2) Vertigo: Migraine and migraine associated vertigo. BPPV and/or Mnire's disease not completely excluded. Intact neurological examination. No significant abnormalities on extensive neuroimaging. Patient has longstanding history of migraine and vertigo for which she is prescribed topiramate and meclizine. Would recommend a trial of IV Toradol, Benadryl, and Compazine to address her current symptoms. Would also recommend an IV corticosteroid, methylprednisolone 250 mg IV x1, follow with oral steroid taper. If patient's headache does not respond to Toradol would consider a trial of subcutaneous sumatriptan, 6 mg x 1. Patient may continue with topiramate 100 mg twice daily. Consider a trial of Zofran to address her nausea if Compazine is not helpful. Would also consider adding verapamil ER 120 mg/day as an adjunctive medication for prevention of migraine and migraine associated vertigo. Consider obtaining outpatient ENT evaluation as well including up-to-date audiogram. Mnire's disease? A trial of physical therapy for vertigo may be helpful. History of Present Illness Reason for Consultation: Concern for stroke Requesting Physician: Billy Cleary MD Attending Physician: Thiago Roger History of Present Illness The patient is a 80-year-old female with a chief complaint of headache and neck pain with associated dizziness and vomiting. Her symptoms have been present for the past few days and are similar to her typical migraines. Patient has a past medical history of migraine and vertigo. She has had migraine for many years and typically experiences several episodes per month, has been taking topiramate for migraine prevention and mzvz-ziq-lwarivi medication for acute migraine treatment. She has been taking meclizine to address her vertigo which is typically worse when moving her head from side to side or up or down. Past medical history is notable for rheumatoid arthritis, follows with rheumatology, diabetes mellitus, asthma, sensorineural hearing loss, dyslipidemia, hypertension, as well as anxiety with depression. She has had an unremarkable CT of the head and CT angiogram of the head and neck. A follow-up brain MRI is negative for acute or subacute infarct. The study did reveal scattered microvascular ischemic change. These findings were observed by the interpreting radiologist. I reviewed the images as well and agree. This morning, the patient continues to report a low-grade headache with associated neck discomfort and dizziness which is triggered by excessive head and neck motion. Allergies Allergy/AdvReac Type Severity Reaction Status Date / Time codeine Allergy Severe VOMITING Verified 09/13/20 20:46 DROP IN BP morphine Allergy Severe DROP IN Verified 09/13/20 20:46 VITAL SIGNS, TREMORS, VOMITING oxycodone Allergy Severe drop in Verified 09/13/20 20:46 vital signs,tremors,vomiting acetaminophen [From Vicodin] AdvReac Intermediate vomiting Verified 09/13/20 20:46 and tremors adhesive AdvReac Intermediate "PULLS OFF Verified 09/13/20 20:46 SKIN" hydrocodone [From Vicodin] AdvReac Intermediate vomiting Verified 09/13/20 20:46 and tremors meperidine AdvReac Intermediate VOMITING Verified 09/13/20 20:46 pravastatin AdvReac Intermediate pains in Verified 09/13/20 20:46 arms and legs simvastatin AdvReac Intermediate pains in Verified 09/13/20 20:46 legs and arms cephalexin [From Keflex] AdvReac Mild Nausea Verified 09/13/20 20:46 aspirin [From Percodan] AdvReac Unknown unknown Verified 09/13/20 20:46 montelukast [From Singulair] AdvReac Unknown unknown Verified 09/13/20 20:46 Home Medications Medication Instructions Recorded Confirmed Type cholecalciferol (vitamin D3) 1,000 unit PO QAM 05/19/18 09/13/20 History [Vitamin D3] naproxen sodium [Aleve] 220 mg PO DIRECTED PRN 05/19/18 09/13/20 History blood sugar diagnostic #100 ea 01/12/19 06/21/20 Rx cyanocobalamin (vitamin B-12) 1,000 mcg PO QAM #30 tab 01/12/19 09/13/20 Rx 1,000 mcg tablet lancets 28 gauge #100 ea 01/12/19 09/11/20 Rx albuterol sulfate 90 mcg/actuation 1 - 2 puffs INH Q6H PRN gm 01/17/19 09/13/20 History aerosol inhaler folic acid 400 mcg tablet 1,200 mcg PO QAM #270 tab 03/23/19 09/13/20 Rx meclizine 25 mg tablet 25 mg PO TID PRN #90 tab 03/25/19 09/13/20 Rx methotrexate sodium 20 mg PO WK 10/18/19 09/13/20 History pantoprazole 40 mg tablet,delayed 40 mg PO QAM #180 tab 11/07/19 09/13/20 Rx release blood-glucose meter #1 ea 02/01/20 06/21/20 Rx metformin 1,000 mg tablet 1,000 mg PO BID #180 tab 02/15/20 09/13/20 Rx citalopram 40 mg tablet 40 mg PO DAILY #90 tab 04/25/20 09/13/20 Rx topiramate 100 mg tablet 100 mg PO BID #180 tab 04/25/20 09/13/20 Rx zafirlukast 20 mg tablet 20 mg PO Q12H #180 tab 04/25/20 09/13/20 Rx sennosides 8.6 mg tablet 8.6 mg PO Q2D PRN 06/21/20 09/13/20 History aspirin [Aspir-Low] 81 mg PO DAILY 09/11/20 09/13/20 History Patient History Medical History Allergic rhinitis Anxiety and depression Asthma Chronic sinusitis Diabetes Dyslipidemia Fibula fracture GERD (gastroesophageal reflux disease) Hypertension Insomnia Migraine Migraine headache Nontoxic multinodular goiter Osteopenia Rheumatoid arthritis Sensorineural hearing loss (SNHL) of both ears Urge and stress incontinence Vitamin D deficiency Surgical History S/P adenoidectomy S/P carpal tunnel release b/l wrists S/P cataract extraction b/l eyes S/P cholecystectomy S/P foot surgery L foot hammertoe repair S/P hysterectomy S/P medial meniscal repair L knee S/P tonsillectomy S/P trigger finger release R hand Family History Brother Myocardial infarction Heart disease Hypertension Father Arthritis Heart disease Mother , age 41 Leukemia Breast cancer Ovarian cancer Sister , age 64 Diabetes Brother Throat cancer Liver cirrhosis Denies family history of Prostate cancer Colorectal cancer Social History Smoking Status: Never smoker Second Hand Exposure: No; Do You Dip or Chew Tobacco: No; Hx Alcohol Use: No Hx Substance Use: No Preferred Language: Amharic Communication Ability: Effective Visual Impairment: No Limitations Hearing Ability: Normal Algologist Required: No Beliefs That Will Affect Care: None marital status: / Current Living Situation: Alone 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 [employer] Other Information That Helps Us Care for You: No Feels Safe at Home: Yes Safety Concerns: Feels Safe At This Time Childhood Exposure to Second-Hand Smoke: Yes caffeine: Yes (6 -8 cups coffee a day half caffeine ) during the past year weight has: remained stable Dental Care, Regularly: No Physical Activity Frequency: 1-2 Times per Week Physical Activity Frequency Comment: walking Seatbelt Use: always Sunscreen Use: Yes Assistive Devices: Denture - Upper, Denture - Lower and Glasses Review of Systems Constitutional: no fever and no chills Eyes: no blind spots and no diplopia Ear, Nose, Mouth, Throat: no hearing loss Respiratory: no cough and no dyspnea Cardiovascular: no chest pain and no palpitations Gastrointestinal: + nausea and + vomiting Genitourinary: no dysuria Musculoskeletal: + neck pain; no myalgia Integumentary: no rash and no lesions Neurologic: as per Subjective / HPI and + headache(s); no localized weakness and no loss of sensation Psychiatric: no depression and no anxiety Hematologic / Lymphatic: no easy bleeding and no easy bruising Exam (Neuro) Constitutional: well developed and well nourished; no acute distress Eyes: normal visual tinoco by confrontation, PERRL, normal accommodation and EOM intact bilaterally; no fundoscopic abnormality, no nystagmus and no papilledema Cardiovascular: Vessels: normal carotid upstroke; no carotid bruit Neurologic: Oriented to:: Person, Place and Time Memory: Short Term Intact and Remote Intact Attention: Span Intact and Concentration Intact Language: Naming Objects and Repeating Phrases Speech Fluency: negative Dysarthria Speech Aphasia: negative Aphasia Fund of Knowledge: Current Events, Past History and Vocabulary Cranial Nerves: Normal II (Visual tinoco full to confrontation, visual acuity normal), III, IV, (Pupils equal round reactive to light and accommodation, eye movements normal), V (Facial sensation intact), VII (There is no facial droop or weakness), VIII (Hearing intact), IX, X (Palate elevates to midline), XI (Shoulder shrug intact) and XII (Tongue protrudes to midline) Motor Strength: Normal Lower Extremities and Normal Upper Extremities; negative Pronator Drift Motor Tone: Normal Lower Extremities and Normal Upper Extremities Muscle Bulk/Involuntary Movements: No Involuntary Movements; negative Muscle Atrophy Sensation: Light Touch Intact, Pain/Temperature Intact, Vibration Intact and Proprioception Intact Coordination: Normal; negative Limited Balance, Dysdiadochokinesia, Finger-Nose Abnormal and Heel-Carbone Abnormal Deep Tendon Reflexes: Rt Triceps: 2+, Lt Triceps: 2+, Rt Biceps: 2+, Lt Biceps: 2+, Rt Brachioradialis: 2+, Lt Brachioradialis: 2+, Rt Patellar: 2+, Lt Patellar: 2+, Rt Ankle: 2+ and Lt Ankle: 2+ Special Tests: negative Babinski Present Gait: Normal Station and Gait Results & Data ([facility]) Vital Signs (Past 12 Hours) Vital Signs Temp Pulse Pulse Resp BP BP Pulse Ox 09/14/20 07:48 36.7 C 77 16 137/84 95 09/14/20 04:51 36.5 C 67 18 128/74 93 09/14/20 03:36 72 09/14/20 02:13 36.7 C 71 16 137/85 98 09/14/20 01:30 66 18 146/89 H 96 09/14/20 01:00 67 14 136/77 95 09/14/20 00:30 61 15 156/79 H 95 09/14/20 00:01 61 15 96 09/14/20 00:00 73 12 132/81 95 09/13/20 23:31 77 17 90 09/13/20 23:30 86 20 128/77 94 09/13/20 23:01 68 16 94 09/13/20 23:00 70 16 147/82 H 94 09/13/20 22:50 73 18 97 09/13/20 22:49 81 16 158/80 H 96 Pulse Ox 09/14/20 07:48 09/14/20 04:51 09/14/20 03:36 09/14/20 02:13 98 09/14/20 01:30 09/14/20 01:00 09/14/20 00:30 09/14/20 00:01 09/14/20 00:00 09/13/20 23:31 09/13/20 23:30 09/13/20 23:01 09/13/20 23:00 09/13/20 22:50 09/13/20 22:49 Laboratory Results WBC 5.18, hemoglobin 12.8, hematocrit 39.5, platelet count 330, sodium 144, potassium 3.5, BUN 14, creatinine 0.73, glucose 92, hemoglobin A1c 6.0, triglycerides 161, cholesterol 241, LDL 144, VLDL 32, HDL 65 Diagnostic Findings Imaging including CT of the head, CT angiography of the head and neck, and brain MRI are as described in the history of present illness. An electrocardiogram reveals sinus bradycardia, 59 bpm. PG Care Time/CCT Total # of Minutes Spent Total Time Spent with Patient: Total time spent is greater than 50% in coordination of care (as documented) at patient's floor/unit and/or counseling patient: Coding Level of Care Code 59383 Initial Inpt Care Lvl 3 Diagnoses Migraine headache G43.909 Vertigo R42
[2020-09-14] MEDS ORDERED: ONDANSETRON INJ 2 MG/ML 2 ML VIAL IV STA (11:47)
[2020-09-14] MEDS ORDERED: KETOROLAC TROMETHAMINE 15 MG/ML VIAL IV ONE (12:00)
[2020-09-14] MEDS ORDERED: methylPREDNISolone 80 MG in SYRINGE 0 ML IV ONE (12:15)
[2020-09-14] MEDS ORDERED: FAMOTIDINE 20 MG in SYRINGE 3 ML IV ONE (12:15)
--- NOTE | 2020-09-14 12:20 | XCELERA ---
[id number]
--- NOTE | 2020-09-14 14:06 | XRay Report ---
CERVICAL SPINE 5 VIEWS CLINICAL HISTORY: Cervicalgia. FINDINGS: AP, lateral, bilateral oblique, and odontoid views of the cervical [facility] The skeletal structures are osteopenic. There is no radiographic evidence of fra cture or subluxation. The odontoid process and lateral masses appear intact on the open mouth view. P roductive degenerative changes noted at the atlantodental articulation. The spinolaminar line is pres erved. Vertebral body height and alignment are maintained. Anterior osteophytes are noted in the lowe r cervical region. There is mild hyperlordosis. The spinous processes appear intact. There is mild to moderate disc space narrowing at C5-C6 with endplate sclerosis. Small posterior disc osteophyte comp lexes are noted at C4-C5 and C5-C6. The remaining disc spaces appear maintained. There is mild to mod erate bilateral neural foraminal stenosis in the mid to lower cervical region seen on the oblique vie ws. The prevertebral soft tissues are within normal limits. Visualized apical lung parenchyma appears clear. IMPRESSION: 1. No acute bony abnormality is seen involving the cervical spine. 2. Osteopenia and mild spondylotic change as above. This is greatest at C5-C6. ACT 112: Negative or not required by law. Electronically signed by: Saji Kennedy M.D. 09/14/2020 2:05 PM
[2020-09-14] MEDS: MECLIZINE HCL 25 MG TAB PO SCH ×2 (14:28→20:55)
--- NOTE | 2020-09-14 16:16 | Electrocardiogram Report ---
Test Reason : Blood Pressure : / mmHG Vent. Rate : 059 BPM Atrial Rate : 059 BPM P-R Int : 176 ms QRS Dur : 078 ms QT Int : 432 ms P-R-T Axes : 055 003 074 degrees QTc Int : 427 ms Sinus bradycardia Otherwise normal ECG When compared with ECG of 18-OCT-2019 13:45, QT has shortened Confirmed by Royer Cottrell ([id number]) on 09/14/2020 4:16:25 PM Referred By: REFERRED SELF Confirmed By:Lawrence Cottrell
[2020-09-14] MEDS ORDERED: SUMAtriptan succinate 6 MG/0.5 ML VIAL SQ STA (17:51)
--- NOTE | 2020-09-14 21:22 | Hospitalist Progress Note ---
Date of Service September 14, 2020 Assessment & Plan (1) Migraine headache: long-standing history of such. on chronic topamax prophylaxis. migraine has been intractable since earlier this week. MRI brain NEGATIVE for acute findings. minimal relief thus far despite multiple meds tried since ER presentation. appreciate neuro consultation and recs. plan - 1. toradol 15mg IV x 1 along with zofran 4mg IV x 1 given this am 2. solumedrol 80mg IV x 1 3. since there was incomplete relief with #1 and #2 I ordered imitrex SC 6mg x 1 late this afternoon for additional abortive Rx 4. check esr and crp in am; doubt temporal arteritis but will check to be complete 5. re-eval in am (2) Vertigo: this could be a "basilar" migraine with resulting vertigo. OR, the vertigo is from BPV, left ear. alternatively she may have Meniere's given the tinnitus and h/o hearing loss. either way -- treat the migraine. SCHEDULE the antivert 25mg TID. if the vertigo doesn't improve w/ antivert consider scopalamine patch, valium, etc. (3) Vomitinnd to migraine and/or vertigo. Improving. Anti-emetics as needed. Clears today, full liquids tomorrow am. (4) Rheumatoid arthritis: no flare at this time methotrexate weekly (5) Hypertension: this dx is present on her chart but she is on no meds for such and BPs are minimally elevated while here, even despite her headache pain. I feel comfortable with a minimal amount of imitrex use for her headache. (6) GERD (gastroesophageal reflux disease): PPI daily gave additional pepcid IV due to high-dose steroids and NSAIDs (7) Dyslipidemia: not on meds for such (8) Asthma: no flare at this time (9) Prediabetes: hold metformin a1c 6% DM diet novolog correction/carb coverage as needed daughter updated by phone this evening if headache/vertigo improved tomorrow consider d/c home with medrol dose pack Admission and Anticipated Discharge Date Admission Date: September 14, 2020 Subjective saw patient twice today. first visit was on AM rounds. patient laying very still in bed with eyes closed - c/o photophobia. headache - severe, "all over" - but worse over the right eye/right frontal region. no further nausea/emesis. still with severe vertigo/dizziness with any head movement. confirms long h/o migraines. tele overnight wnl. following first visit ordered solumedrol, toradol, and zofran. 2nd visit - afternoon. patient gained relief from her headache for about 1 hour with the above. able to tolerate clear liquids for lunch. headache did return - wasn't "all over" but mainly focused over right eye now. reports never using triptans. PT note reviewed -- positive bonifacio-hallpike maneuver (left ear). Leny x 2 performed. She states vertigo is not as severe as previous. Is c/o tinnitus ("thumping") from the left ear. No hearing changes. Review of Systems Constitutional: no fever and no chills Ear, Nose, Mouth, Throat: no loss of taste or smell Respiratory: no cough and no dyspnea Cardiovascular: no chest pain Gastrointestinal: no abdominal pain Physical Exam Constitutional: + acute distress (looks uncomfortable); no altered mental status Eyes: PERRL and + nystagmus (scant, leftward gaze) ENMT: Mouth: + dry oral mucous membranes Respiratory: normal respiratory effort, lungs clear to auscultation Cardiovascular: Rate/Rhythm: regular rate and regular rhythm Heart Sounds: normal S1 and normal S2; no murmur Vessels: posterior tibial pulses present and dorsalis pedis pulses present; no JVD Extremities: no edema Gastrointestinal (Abdomen): normal bowel sounds, soft, nontender, no hepatosplenomegaly Psychiatric: Orientation: alert and oriented x 3 Results & Data Results & Data ([facility]) Vital Signs (Past 12 Hours) Vital Signs Temp Pulse Resp BP Pulse Ox 09/14/20 19:51 36.7 C 73 18 135/80 94 09/14/20 15:36 36.9 C 71 16 114/72 90 09/14/20 12:02 36.7 C 69 16 149/78 H 92 Laboratory Results Laboratory Results - last 24 hr 09/13/20 09/13/20 09/13/20 20:37 20:37 20:37 WBC 5.85 RBC 4.60 Hgb 13.9 Hct 42.9 MCV 93.3 MCH 30.2 MCHC 32.4 RDW Std Deviation 57.5 H RDW Coeff of [place] 17.1 H Plt Count 345 MPV 9.8 Immature Gran % (Auto) 0.0 Neut % (Auto) 64.8 Lymph % (Auto) 24.4 [place] % (Auto) 8.2 Eos % (Auto) 2.1 Baso % (Auto) 0.5 Neut # (Auto) 3.79 Lymph # (Auto) 1.43 [place] # (Auto) 0.48 Eos # (Auto) 0.12 Baso # (Auto) 0.03 Immature Gran # (Auto) 0.00 PT 10.2 INR 1.0 APTT 25.6 PTT Ratio 1.0 Sodium 143 Potassium 3.5 Chloride 112 H Carbon Dioxide 25 Anion Gap 6.0 BUN 14 Creatinine 0.85 Est Cr Clr Drug Dosing 53.0 Est GFR ( Amer) 75.5 Est GFR (Non-Af Amer) 65.2 BUN/Creatinine Ratio 16.9 Glucose 112 H POC Glucose Estimat Average Glucose Hemoglobin A1c Calcium 9.3 Magnesium 2.1 Total Bilirubin 0.6 AST 24 ALT 32 Alkaline Phosphatase 73 Troponin I < 0.015 Total Protein 7.4 Albumin 3.8 Globulin 3.6 Albumin/Globulin Ratio 1.0 Triglycerides Cholesterol LDL Cholesterol, Calc VLDL Cholesterol, Calc HDL Cholesterol Cholesterol/HDL Ratio Urine Color Urine Appearance Urine pH Ur Specific [place] Urine Protein Urine Glucose (UA) Urine Ketones Urine Blood Urine Nitrite Urine Bilirubin Urine Urobilinogen Ur Leukocyte Esterase COVID-19 Eval Order SARS-CoV-2 (PCR) Influenza Type A (PCR) Influenza Type B (PCR) RSV (RT-PCR) 09/13/20 09/13/20 09/13/20 21:33 23:51 23:51 WBC RBC Hgb Hct MCV MCH MCHC RDW Std Deviation RDW Coeff of [place] Plt Count MPV Immature Gran % (Auto) Neut % (Auto) Lymph % (Auto) [place] % (Auto) Eos % (Auto) Baso % (Auto) Neut # (Auto) Lymph # (Auto) [place] # (Auto) Eos # (Auto) Baso # (Auto) Immature Gran # (Auto) PT INR APTT PTT Ratio Sodium Potassium Chloride Carbon Dioxide Anion Gap BUN Creatinine Est Cr Clr Drug Dosing Est GFR ( Amer) Est GFR (Non-Af Amer) BUN/Creatinine Ratio Glucose POC Glucose 104 H Estimat Average Glucose Hemoglobin A1c Calcium Magnesium Total Bilirubin AST ALT Alkaline Phosphatase Troponin I Total Protein Albumin Globulin Albumin/Globulin Ratio Triglycerides Cholesterol LDL Cholesterol, Calc VLDL Cholesterol, Calc HDL Cholesterol Cholesterol/HDL Ratio Urine Color Urine Appearance Urine pH Ur Specific [place] Urine Protein Urine Glucose (UA) Urine Ketones Urine Blood Urine Nitrite Urine Bilirubin Urine Urobilinogen Ur Leukocyte Esterase COVID-19 Eval Order CovFluRsv at [facility] SARS-CoV-2 (PCR) NEGATIVE Influenza Type A (PCR) Negative Influenza Type B (PCR) Negative RSV (RT-PCR) Negative 09/14/20 09/14/20 09/14/20 07:18 08:10 08:10 WBC 5.18 RBC 4.23 Hgb 12.8 Hct 39.5 MCV 93.4 MCH 30.3 MCHC 32.4 RDW Std Deviation 57.1 H RDW Coeff of [place] 17.1 H Plt Count 330 MPV 9.4 Immature Gran % (Auto) 0.2 Neut % (Auto) 64.3 Lymph % (Auto) 24.1 [place] % (Auto) 8.1 Eos % (Auto) 2.5 Baso % (Auto) 0.8 Neut # (Auto) 3.33 Lymph # (Auto) 1.25 [place] # (Auto) 0.42 Eos # (Auto) 0.13 Baso # (Auto) 0.04 Immature Gran # (Auto) 0.01 PT INR APTT PTT Ratio Sodium 144 Potassium 3.5 Chloride 115 H Carbon Dioxide 22 Anion Gap 7.0 BUN 14 Creatinine 0.73 Est Cr Clr Drug Dosing 61.7 Est GFR ( Amer) 90.8 Est GFR (Non-Af Amer) 78.3 BUN/Creatinine Ratio 18.7 Glucose 92 POC Glucose 96 Estimat Average Glucose Hemoglobin A1c Calcium 9.2 Magnesium Total Bilirubin AST ALT Alkaline Phosphatase Troponin I Total Protein Albumin Globulin Albumin/Globulin Ratio Triglycerides 161 H Cholesterol 241 H LDL Cholesterol, Calc 144 VLDL Cholesterol, Calc 32 HDL Cholesterol 65 Cholesterol/HDL Ratio 4 Urine Color Urine Appearance Urine pH Ur Specific [place] Urine Protein Urine Glucose (UA) Urine Ketones Urine Blood Urine Nitrite Urine Bilirubin Urine Urobilinogen Ur Leukocyte Esterase COVID-19 Eval Order SARS-CoV-2 (PCR) Influenza Type A (PCR) Influenza Type B (PCR) RSV (RT-PCR) 09/14/20 09/14/20 09/14/20 08:10 10:15 11:54 WBC RBC Hgb Hct MCV MCH MCHC RDW Std Deviation RDW Coeff of [place] Plt Count MPV Immature Gran % (Auto) Neut % (Auto) Lymph % (Auto) [place] % (Auto) Eos % (Auto) Baso % (Auto) Neut # (Auto) Lymph # (Auto) [place] # (Auto) Eos # (Auto) Baso # (Auto) Immature Gran # (Auto) PT INR APTT PTT Ratio Sodium Potassium Chloride Carbon Dioxide Anion Gap BUN Creatinine Est Cr Clr Drug Dosing Est GFR ( Amer) Est GFR (Non-Af Amer) BUN/Creatinine Ratio Glucose POC Glucose 102 H Estimat Average Glucose 126 Hemoglobin A1c 6.0 H Calcium Magnesium Total Bilirubin AST ALT Alkaline Phosphatase Troponin I Total Protein Albumin Globulin Albumin/Globulin Ratio Triglycerides Cholesterol LDL Cholesterol, Calc VLDL Cholesterol, Calc HDL Cholesterol Cholesterol/HDL Ratio Urine Color Yellow Urine Appearance Clear Urine pH 7.0 Ur Specific [place] 1.043 H Urine Protein Negative Urine Glucose (UA) Negative Urine Ketones Negative Urine Blood Negative Urine Nitrite Negative Urine Bilirubin Negative Urine Urobilinogen Negative Ur Leukocyte Esterase Negative COVID-19 Eval Order SARS-CoV-2 (PCR) Influenza Type A (PCR) Influenza Type B (PCR) RSV (RT-PCR) 09/14/20 09/14/20 16:43 20:22 WBC RBC Hgb Hct MCV MCH MCHC RDW Std Deviation RDW Coeff of [place] Plt Count MPV Immature Gran % (Auto) Neut % (Auto) Lymph % (Auto) [place] % (Auto) Eos % (Auto) Baso % (Auto) Neut # (Auto) Lymph # (Auto) [place] # (Auto) Eos # (Auto) Baso # (Auto) Immature Gran # (Auto) PT INR APTT PTT Ratio Sodium Potassium Chloride Carbon Dioxide Anion Gap BUN Creatinine Est Cr Clr Drug Dosing Est GFR ( Amer) Est GFR (Non-Af Amer) BUN/Creatinine Ratio Glucose POC Glucose 134 H 159 H Estimat Average Glucose Hemoglobin A1c Calcium Magnesium Total Bilirubin AST ALT Alkaline Phosphatase Troponin I Total Protein Albumin Globulin Albumin/Globulin Ratio Triglycerides Cholesterol LDL Cholesterol, Calc VLDL Cholesterol, Calc HDL Cholesterol Cholesterol/HDL Ratio Urine Color Urine Appearance Urine pH Ur Specific [place] Urine Protein Urine Glucose (UA) Urine Ketones Urine Blood Urine Nitrite Urine Bilirubin Urine Urobilinogen Ur Leukocyte Esterase COVID-19 Eval Order SARS-CoV-2 (PCR) Influenza Type A (PCR) Influenza Type B (PCR) RSV (RT-PCR) Diagnostic Findings Head CT 09/13/20 21:[address] DOSE: HISTORY: headache, dizziness, neck pain TECHNIQUE: Multiaxial CT images of the head were performed without the use of intravenous contrast. Automated exposure control was utilized for this study. A dose lowering technique was utilized adhering to the principles of ALARA. Comparison: Head CT 10/18/2019. Findings: Mild mucosal thickening within the left maxillary sinus. The mastoid air cells are clear. The calvarium and skull base are intact. There is no mass, hematoma, midline shift, acute infarct. White matter hypodensity is nonspecific but suggestive of microvascular ischemic change. The ventricles and sulci demonstrate mild age-related involutional changes. Impression: No acute intracranial abnormality. ACT 112: Negative or not required by law. Electronically signed by: Solomon Hector M.D. 09/14/2020 7:10 AM Head CTA 09/13/20 21:08 HEAD & NECK CTA HISTORY: headache, dizziness, neck pain TECHNIQUE: Multiaxial CT images of the head were performed following the intravenous administration of contrast to evaluate the major cerebral vessels. Multiaxial CT images of the neck were also performed following the intravenous administration of contrast to evaluate the major cervical vessels. Maximum intensity projection images were also obtained. A dose lowering technique was utilized adhering to the principles of ALARA. COMPARISON: Head CT 8 03/24/2019. Neck CTA 05/19/2018. FINDINGS: There is no mass, hematoma, midline shift, or acute infarct. Visualized intracranial internal carotid arteries, distal vertebral arteries, and basilar artery are widely patent. There is no significant stenosis, occlusion, or aneurysm seen within the bilateral ACAs, MCAs, or hypo splasher. The major dural venous sinuses are patent. The aortic arch and proximal great vessels are widely patent. There is no significant stenosis, occlusion, or dissection identified within the bilateral common carotid, internal carotid, or vertebral arteries. IMPRESSION: 1. No significant stenosis, occlusion, or aneurysm within the [place]. 2. No significant stenosis, occlusion, or dissection identified within the carotid or vertebral arteries. ACT 112: Negative or not required by law. Electronically signed by: Solomon Hector M.D. 09/14/2020 7:16 AM Neck CTA 09/13/20 21:08 HEAD & NECK CTA HISTORY: headache, dizziness, neck pain TECHNIQUE: Multiaxial CT images of the head were performed following the intravenous administration of contrast to evaluate the major cerebral vessels. Multiaxial CT images of the neck were also performed following the intravenous administration of contrast to evaluate the major cervical vessels. Maximum intensity projection images were also obtained. A dose lowering technique was utilized adhering to the principles of ALARA. COMPARISON: Head CT 8 03/24/2019. Neck CTA 05/19/2018. FINDINGS: There is no mass, hematoma, midline shift, or acute infarct. Visualized intracranial internal carotid arteries, distal vertebral arteries, and basilar artery are widely patent. There is no significant stenosis, occlusion, or aneurysm seen within the bilateral ACAs, MCAs, or hypo splasher. The major dural venous sinuses are patent. The aortic arch and proximal great vessels are widely patent. There is no significant stenosis, occlusion, or dissection identified within the bilateral common carotid, internal carotid, or vertebral arteries. IMPRESSION: 1. No significant stenosis, occlusion, or aneurysm within the [place]. 2. No significant stenosis, occlusion, or dissection identified within the carotid or vertebral arteries. ACT 112: Negative or not required by law. Electronically signed by: Solomon Hector M.D. 09/14/2020 7:16 AM Brain MRI 09/14/20 02:13 Brain MRI WITHOUT CONTRAST HISTORY: Migraine. TECHNIQUE: Multiplanar multisequence MRI of the brain was performed without the use of contrast. COMPARISON STUDY: Head CT 09/13/2020. Brain MRI 02/21/2015. FINDINGS: There is no mass, hematoma, midline shift, or acute infarct. The paranasal sinuses are clear. The mastoid air cells are clear. The ventricles and sulci demonstrate mild age-related involutional changes. Scattered foci of T2 hyperintensity seen within the periventricular and subcortical white matter are nonspecific but suggestive of mild microvascular ischemic changes. The major vascular flow voids at the skull base are well-maintained. IMPRESSION: No acute intracranial abnormality. Scattered foci of T2 hyperintensity seen within the periventricular and subcortical white matter are nonspecific but favor microvascular ischemic change. ACT 112: Negative or not required by law. Electronically signed by: Solomon Hector M.D. 09/14/2020 7:30 AM Cervical Spine X-Ray 09/14/20 02:41 CERVICAL SPINE 5 VIEWS CLINICAL HISTORY: Cervicalgia. FINDINGS: AP, lateral, bilateral oblique, and odontoid views of the cervical spine are compared to study dated 09/17/2010. The skeletal structures are osteopenic. There is no radiographic evidence of fracture or subluxation. The odontoid process and lateral masses appear intact on the open mouth view. Productive degenerative changes noted at the atlantodental articulation. The spinolaminar line is preserved. Vertebral body height and alignment are maintained. Anterior osteophytes are noted in the lower cervical region. There is mild hyperlordosis. The spinous processes appear intact. There is mild to moderate disc space narrowing at C5-C6 with endplate sclerosis. Small posterior disc osteophyte complexes are noted at C4-C5 and C5-C6. The remaining disc spaces appear maintained. There is mild to moderate bilateral neural foraminal stenosis in the mid to lower cervical region seen on the oblique views. The prevertebral soft tissues are within normal limits. Visualized apical lung parenchyma appears clear. IMPRESSION: 1. No acute bony abnormality is seen involving the cervical spine. 2. Osteopenia and mild spondylotic change as above. This is greatest at C5-C6. ACT 112: Negative or not required by law. Electronically signed by: Saji Kennedy M.D. 09/14/2020 2:05 PM echocardiogram -- nl EF, mild LVH, no PFO, normal valves PG Care Time/CCT Total # of Minutes Spent Total Time Spent with Patient: Total time spent is greater than 50% in coordination of care (as documented) at patient's floor/unit and/or counseling patient: Coding Level of Care Code 87280 Subseq Obs Care Lvl 3 Diagnoses Migraine headache G43.911 Migraine type: unspecified Status migrainosus presence: with status migrainosus Intractability: intractable Vertigo R42 Vomiting R11.2 Nausea presence: with nausea Vomiting Intractability: unspecified Vomiting type: unspecified Rheumatoid arthritis M06.9 Hypertension I10 GERD (gastroesophageal reflux disease) K21.9 Dyslipidemia E78.5 Asthma J45.909 Prediabetes R73.03 (1) Migraine headache Migraine type: unspecified Status migrainosus presence: with status migrainosus Intractability: intractable Qualified Code(s): G43.911 - Migraine, unspecified, intractable, with status migrainosus (2) Vomiting Nausea presence: with nausea Vomiting Intractability: unspecified Vomiting type: unspecified Qualified Code(s): R11.2 - Nausea with vomiting, unspecified
[2020-09-15] MEDS: SODIUM CHLORIDE 0.9% 1000ML 1,000 ML IV SCH (02:33)
[2020-09-15 06:09] LABS: Basophils # (auto) 0.01 K/uL (0-0.2); Basophils % (auto) 0.2 %; Eosinophils # (auto) 0.03 K/uL (0-0.5); Eosinophils % (auto) 0.6 %; Hematocrit (blood only) 36.1 % (37-47); Hemoglobin 11.5 g/dL (12.0-16.0); Immature Granulocytes # (auto) 0.01 K/uL (0.00-0.02); Immature Granulocytes % (auto) 0.2 %; Lymphocytes # (auto) 1.26 K/uL (1.2-3.4); Lymphocytes % (auto) 24.7 %; Mean Corpuscular Hemoglobin 29.8 pg (25-34); Mean Corpuscular Hgb Conc 31.9 g/dL (32-36); Mean Corpuscular Volume 93.5 fL (80-100); Mean Platelet Volume 9.4 fL (7.4-10.4); Monocytes # (auto) 0.37 K/uL (0.11-0.59); Monocytes % (auto) 7.3 %; Neutrophils # (auto) 3.42 K/uL (1.4-6.5); Platelet Count 309 K/uL (130-400); RDW Coefficient of Variation 16.5 % (11.5-14.5); RDW Standard Deviation 55.8 fL (36.4-46.3); Red Blood Count 3.86 M/uL (4.2-5.4)
[2020-09-15 06:46] LABS: Blood Urea Nitrogen 10 mg/dl (7-18); C Reactive Protein < 0.29 mg/dl (0-0.29); Calcium 8.5 mg/dl (8.5-10.1); Carbon Dioxide 24 mmol/L (21-32); Chloride 116 mmol/L (98-107); Creatinine Clr Calc Pharmacy 67.1 ml/min; Est GFR (African American) 96.9; Est GFR (Non-African American) 83.6; Glucose 96 mg/dl (70-99); Potassium 3.7 mmol/L (3.5-5.1); Sodium 144 mmol/L (136-145)
[2020-09-15] MEDS ORDERED: predniSONE 20 MG TAB PO ONE (09:00)
[2020-09-15] MEDS: INSULIN ASPART 100 UNITS/ML 3 ML PEN SC SCH ×4 (09:02→20:49)
[2020-09-15] MEDS: ASPIRIN 81 MG ECTAB PO SCH (09:03)
[2020-09-15] MEDS: MECLIZINE HCL 25 MG TAB PO SCH ×3 (09:04→20:41)
[2020-09-15] MEDS: PANTOprazole 40 MG TAB PO SCH (09:04)
[2020-09-15] MEDS: TOPIRAMATE 100 MG TAB PO SCH ×2 (09:04→20:41)
[2020-09-15] MEDS: CYANOCOBALAMIN 500 MCG TABLET (VITAMIN B-12) PO SCH (09:04)
[2020-09-15] MEDS: CITALOPRAM 40 MG TAB PO SCH (09:04)
--- NOTE | 2020-09-15 13:28 | Hospitalist Progress Note ---
Date of Service September 15, 2020 Assessment & Plan (1) Migraine headache: acute status migraine - improving. on chronic topamax prophylaxis. MRI brain NEGATIVE for acute findings. give another dose of prednisone today - 60mg x 1 give another dose of imitrex SC 6mg x 1 anti-emetics heating pad for neck check cervical spine CT to r/o acute pathology contributing to neck pain SED RATE and CRP WNL - temporal arteritis HIGHLY unlikely (2) Vertigo: this could be a "basilar" migraine with resulting vertigo. OR, the vertigo is from BPV, left ear. alternatively she may have Meniere's given the tinnitus and h/o hearing loss. tinnitus is gone today from L ear. slowly improving. continue antivert 25mg TID. if the vertigo doesn't resolve w/ antivert consider scopalamine patch, valium, etc. (3) Vomitinnd to migraine and/or vertigo. Improving/resolved. Anti-emetics as needed. advance diet to regular. (4) Rheumatoid arthritis: no flare at this time methotrexate weekly (5) Hypertension: this dx is present on her chart but she is on no meds for such and BPs are minimally elevated while here, even despite her headache pain. I still feel comfortable with a minimal amount of imitrex use for her headache. (6) GERD (gastroesophageal reflux disease): PPI daily (7) Dyslipidemia: not on meds for such (8) Asthma: no flare at this time recent cough - likely viral induced - resolved (9) Prediabetes: hold metformin a1c 6% DM diet novolog correction/carb coverage as needed daughter updated by phone yesterday evening change obs to full admission status due to ongoing vertigo/migraine Admission and Anticipated Discharge Date Admission Date: September 14, 2020 Subjective pt's main complaint is that of soreness over right posterior neck still with "nagging" - but tolerable - headache over right eye/right forehead but much improved from previous vertigo improved but still a little unsteady on feet tolerating diet no nausea/emesis no abd pain tele normal overnight Review of Systems Constitutional: no fever and no chills Respiratory: + cough (but improved; present 2+ weeks prior to admission ); no dyspnea Cardiovascular: no chest pain Physical Exam Constitutional: no acute distress and no altered mental status looks better today Eyes: PERRL; no nystagmus ENMT: external ear and nose normal, oropharynx normal Neck: paraspinal tenderness right posterior neck; no spinous process pain; muscle spasm also noted Respiratory: normal respiratory effort, lungs clear to auscultation Cardiovascular: Rate/Rhythm: regular rate and regular rhythm Heart Sounds: normal S1 and normal S2; no murmur Vessels: posterior tibial pulses present and dorsalis pedis pulses present; no JVD Extremities: no edema Gastrointestinal (Abdomen): normal bowel sounds, soft, nontender, no hepatosplenomegaly Neurologic: moves all extremities; no focal motor deficits Psychiatric: Orientation: alert and oriented x 3 Results & Data Results & Data ([facility]) Vital Signs (Past 12 Hours) Vital Signs Temp Pulse Pulse Resp BP BP Pulse Ox 09/15/20 12:00 36.8 C 68 18 137/75 93 09/15/20 06:59 36.9 C 60 20 118/77 94 09/15/20 04:02 36.8 C 67 18 123/77 94 09/15/20 01:30 68 Laboratory Results Laboratory Results - last 24 hr 09/14/20 09/14/20 09/15/20 16:43 20:22 05:40 WBC RBC Hgb Hct MCV MCH MCHC RDW Std Deviation RDW Coeff of [place] Plt Count MPV Immature Gran % (Auto) Neut % (Auto) Lymph % (Auto) [place] % (Auto) Eos % (Auto) Baso % (Auto) Neut # (Auto) Lymph # (Auto) [place] # (Auto) Eos # (Auto) Baso # (Auto) Immature Gran # (Auto) ESR 2 Sodium Potassium Chloride Carbon Dioxide Anion Gap BUN Creatinine Est Cr Clr Drug Dosing Est GFR ( Amer) Est GFR (Non-Af Amer) BUN/Creatinine Ratio Glucose POC Glucose 134 H 159 H Calcium C-Reactive Protein 09/15/20 09/15/20 09/15/20 05:40 05:40 07:29 WBC 5.10 RBC 3.86 L Hgb 11.5 L Hct 36.1 L MCV 93.5 MCH 29.8 MCHC 31.9 L RDW Std Deviation 55.8 H RDW Coeff of [place] 16.5 H Plt Count 309 MPV 9.4 Immature Gran % (Auto) 0.2 Neut % (Auto) 67.0 Lymph % (Auto) 24.7 [place] % (Auto) 7.3 Eos % (Auto) 0.6 Baso % (Auto) 0.2 Neut # (Auto) 3.42 Lymph # (Auto) 1.26 [place] # (Auto) 0.37 Eos # (Auto) 0.03 Baso # (Auto) 0.01 Immature Gran # (Auto) 0.01 ESR Sodium 144 Potassium 3.7 Chloride 116 H Carbon Dioxide 24 Anion Gap 4.0 BUN 10 Creatinine 0.67 Est Cr Clr Drug Dosing 67.1 Est GFR ( Amer) 96.9 Est GFR (Non-Af Amer) 83.6 BUN/Creatinine Ratio 15.0 Glucose 96 POC Glucose 102 H Calcium 8.5 C-Reactive Protein < 0.29 09/15/20 11:38 WBC RBC Hgb Hct MCV MCH MCHC RDW Std Deviation RDW Coeff of [place] Plt Count MPV Immature Gran % (Auto) Neut % (Auto) Lymph % (Auto) [place] % (Auto) Eos % (Auto) Baso % (Auto) Neut # (Auto) Lymph # (Auto) [place] # (Auto) Eos # (Auto) Baso # (Auto) Immature Gran # (Auto) ESR Sodium Potassium Chloride Carbon Dioxide Anion Gap BUN Creatinine Est Cr Clr Drug Dosing Est GFR ( Amer) Est GFR (Non-Af Amer) BUN/Creatinine Ratio Glucose POC Glucose 93 Calcium C-Reactive Protein PG Care Time/CCT Total # of Minutes Spent Total Time Spent with Patient: Total time spent is greater than 50% in coordination of care (as documented) at patient's floor/unit and/or counseling patient: Coding Level of Care Code 70370 Subseq Hosp Care Lvl 3 Diagnoses Migraine headache G43.911 Intractability: intractable Migraine type: unspecified Status migrainosus presence: with status migrainosus Vertigo R42 Vomiting R11.2 Nausea presence: with nausea Vomiting Intractability: unspecified Vomiting type: unspecified Rheumatoid arthritis M06.9 Hypertension I10 GERD (gastroesophageal reflux disease) K21.9 Dyslipidemia E78.5 Asthma J45.909 Prediabetes R73.03 (1) Migraine headache Intractability: intractable Migraine type: unspecified Status migrainosus presence: with status migrainosus Qualified Code(s): G43.911 - Migraine, unspecified, intractable, with status migrainosus (2) Vomiting Nausea presence: with nausea Vomiting Intractability: unspecified Vomiting type: unspecified Qualified Code(s): R11.2 - Nausea with vomiting, unspecified
[2020-09-15] MEDS ORDERED: SUMAtriptan succinate 6 MG/0.5 ML VIAL SQ ONE (13:35)
[2020-09-15] MEDS: ENOXAPARIN INJ 40 MG/0.4 ML SYR SQ SCH (13:38)
[2020-09-15] MEDS: DICLOFENAC SOD 1% GEL 100 GM TUBE EXT SCH ×2 (19:45→20:38)
--- NOTE | 2020-09-15 22:06 | CT Scan Report ---
CT SCAN OF THE CERVICAL SPINE CLINICAL HISTORY: Right-sided neck pain. COMPARISON STUDY: CT angiogram of the neck dated 09/13/2020. Radiographs of the cervical spine dated 09/14/2020. CT of the cervical spine dated 04/28/2008. TECHNIQUE: CT scan of the cervical spine is performed from the skull base to the upper thoracic spine . Images are reviewed in the axial, sagittal, and coronal planes. IV contrast was not administered fo r this examination. A dose lowering technique was utilized adhering to the principles of ALARA. CT DOSE: 241.83 mGy.cm FINDINGS: Skeletal structures: The skeletal structures are osteopenic. There is no evidence of fracture or subl uxation involving the cervical spine. Vertebral body height and alignment are maintained. There is st raightening of the cervical lordosis with reversal centered at C4-C5. Small anterior osteophytes are noted in the lower cervical region. The odontoid process and lateral masses are intact. The atlantoax ial articulation is preserved noting productive degenerative change. The spinous processes appear int act. There is mild multilevel facet arthropathy. Intervertebral discs: There is mild disc space narrowing at C5-C6. The remaining disc spaces appear m aintained. Central canal: Widely patent. Soft tissues: The prevertebral and paraspinous soft tissues are within normal limits. Calvarium: The visualized calvarium at the skull base appears intact. Brain parenchyma: Partially visualized brain parenchyma at the skull base is within normal limits. Sinuses and mastoids: There is trace mucosal thickening in maxillary antra. The mastoid air cells are well pneumatized. Lung apices: Anterior pulmonary herniation is suggested at the right apex, with postoperative change noted in the right upper ribs. IMPRESSION: 1. No acute bony abnormality seen involving the cervical spine. 2. Osteopenia and mild spondylotic change as above. ACT 112: Negative or not required by law. Electronically signed by: Saji Kennedy M.D. 09/15/2020 10:05 PM
[2020-09-16 06:26] LABS: Basophils # (auto) 0.02 K/uL (0-0.2); Basophils % (auto) 0.3 %; Eosinophils # (auto) 0.07 K/uL (0-0.5); Eosinophils % (auto) 1.2 %; Hematocrit (blood only) 35.6 % (37-47); Hemoglobin 11.6 g/dL (12.0-16.0); Lymphocytes % (auto) 38.7 %; Mean Corpuscular Hemoglobin 30.1 pg (25-34); Mean Corpuscular Hgb Conc 32.6 g/dL (32-36); Mean Corpuscular Volume 92.5 fL (80-100); Mean Platelet Volume 9.8 fL (7.4-10.4); Monocytes # (auto) 0.47 K/uL (0.11-0.59); Monocytes % (auto) 7.9 %; Neutrophils # (auto) 3.09 K/uL (1.4-6.5); Neutrophils % (auto) 51.9 %; Platelet Count 340 K/uL (130-400); RDW Coefficient of Variation 16.6 % (11.5-14.5); RDW Standard Deviation 55.2 fL (36.4-46.3); Red Blood Count 3.85 M/uL (4.2-5.4); White Blood Count 5.95 K/uL (4.8-10.8)
[2020-09-16 06:56] LABS: Calcium 8.7 mg/dl (8.5-10.1); Creatinine Clr Calc Pharmacy 63.4 ml/min; Est GFR (African American) 93.9; Potassium 3.2 mmol/L (3.5-5.1)
[2020-09-16] MEDS ORDERED: POTASSIUM CHLORIDE CRTAB 20 MEQ TABCR PO ONE (09:00)
[2020-09-16] MEDS ORDERED: predniSONE 50 MG TAB PO ONE (09:15)
[2020-09-16] MEDS: ACETAMINOPHEN 325 MG TAB PO PRN ×2 (09:19→13:19)
[2020-09-16] MEDS: DICLOFENAC SOD 1% GEL 100 GM TUBE EXT SCH ×4 (09:20→20:54)
[2020-09-16] MEDS: CYANOCOBALAMIN 500 MCG TABLET (VITAMIN B-12) PO SCH (09:20)
[2020-09-16] MEDS: TOPIRAMATE 100 MG TAB PO SCH ×2 (09:20→20:55)
[2020-09-16] MEDS: ENOXAPARIN INJ 40 MG/0.4 ML SYR SQ SCH (09:20)
[2020-09-16] MEDS: CITALOPRAM 40 MG TAB PO SCH (09:20)
[2020-09-16] MEDS: PANTOprazole 40 MG TAB PO SCH (09:20)
[2020-09-16] MEDS: ASPIRIN 81 MG ECTAB PO SCH (09:20)
[2020-09-16] MEDS: MECLIZINE HCL 25 MG TAB PO SCH ×3 (09:20→20:54)
[2020-09-16] MEDS: INSULIN ASPART 100 UNITS/ML 3 ML PEN SC SCH ×4 (09:21→21:01)
--- NOTE | 2020-09-16 09:39 | Neurology Progress Note ---
Date of Service September 16, 2020 Assessment & Plan (1) Migraine headache: Migraine and migraine associated vertigo. BPPV or Mnire's disease not completely excluded. Intact neurological examination. No significant abnormalities on MRI of the brain or CT angiography of the head and neck. L ongstanding history of migraine and vertigo. Patient will continue with topiramate for migraine prevention. May use sumatriptan for acute migraine treatment if necessary going forward. Consider adding verapamil ER 120 mg/day as an adjunctive medication for migraine prevention which may also be useful for basilar/vertiginous migraine. Patient may follow-up with me or our advanced practice advisor in outpatient neurology clinic in the next 3 to 4 weeks. Admission and Anticipated Discharge Date Admission Date: September 15, 2020 Subjective Follow-up for migraine/vertigo The patient reports that her headache and dizziness are considerably improved this morning. History notable for high-frequency migraine and vertigo, have been taking topiramate for migraine prevention at time of presentation. Patient has had unremarkable neuro imaging including MRI of the brain and CT angiography of the head and neck. She has an intact neurological examination. She has received corticosteroids, subcutaneous sumatriptan, and antiemetics. She was evaluated by sitting up in a bedside chair this morning. Patient in no acute distress. She is pleasant and cooperative, intact mental status, cranial nerves, motor evaluation. Does report a mild frontal headache this morning, no other associated neurologic symptoms, however, such as vision loss, diplopia, numbness, change in speech, or weakness. Complains of mild dizziness, no vertigo at this time. Review of Systems Eyes: no blind spots and no diplopia Neurologic: + headache(s); no localized weakness Results & Data ([facility]) Vital Signs (Past 12 Hours) Vital Signs Temp Pulse Pulse Resp BP BP Pulse Ox 09/16/20 08:00 36.5 C 58 L 18 130/70 96 09/16/20 04:21 36.6 C 62 18 126/73 94 09/16/20 03:22 73 09/15/20 23:42 36.7 C 74 20 124/64 92 Exam (Neuro) Neurologic: Oriented to:: Person, Place and Time Memory: Short Term Intact and Remote Intact Attention: Span Intact and Concentration Intact Speech Fluency: negative Dysarthria Speech Aphasia: negative Aphasia Fund of Knowledge: Current Events, Past History and Vocabulary Cranial Nerves: Normal II, III, IV, and VII Motor Strength: Normal Lower Extremities and Normal U pper Extremities Muscle Bulk/Involuntary Movements: No Involuntary Movements Coordination: Normal Coding Level of Care Code 72065 Subseq Hosp Care Lvl 2 Diagnoses Migraine headache G43.911 Migraine type: unspecified Status migrainosus presence: with status migrainosus Intractability: intractable (1) Migraine headache Migraine type: unspecified Status migrainosus presence: with status migrainosus Intractability: intractable Qualified Code(s): G43.911 - Migraine, unspecified, intractable, with status migrainosus
[2020-09-16] MEDS ORDERED: SUMAtriptan succinate 6 MG/0.5 ML VIAL SQ ONE (12:10)
[2020-09-16] MEDS ORDERED: ONDANSETRON INJ 2 MG/ML 2 ML VIAL IV STA (12:10)
--- NOTE | 2020-09-16 14:57 | Hospitalist Progress Note ---
Date of Service September 16, 2020 Assessment & Plan (1) Migraine headache: acute status migraine - improving albeit slowly. on chronic topamax prophylaxis. MRI brain NEGATIVE for acute findings. give another dose of prednisone today - 50mg x 1, then 40mg tomorrow, and so forth give another dose of imitrex SC 6mg x 1 today as she has had efficacy with this anti-emetics heating pad for neck cervical spine CT w/o significant acute pathology contributing to neck pain add voltaren gel for posterior neck pain SED RATE and CRP WNL - temporal arteritis HIGHLY unlikely if migraine persists could consider depakote IV load for abortive treatment (2) Vertigo: this could be a "basilar" migraine with resulting vertigo. OR, the vertigo is from BPV, left ear. alternatively she may have Meniere's given the tinnitus and h/o hearing loss. tinnitus continues to be resolved fortunately from L ear. overall improving. continue antivert 25mg TID. if the vertigo doesn't resolve w/ antivert consider scopalamine patch, valium, etc. (3) Vomitinnd to migraine and/or vertigo. resolved. Anti-emetics as needed. tolerating regular diet. (4) Rheumatoid arthritis: no flare at this time methotrexate weekly (5) Hypertension: this dx is present on her chart but she is on no meds for such and BPs are minimally elevated while here, even despite her headache pain. I still feel comfortable with a minimal amount of imitrex use for her headache. (6) GERD (gastroesophageal reflux disease): PPI daily (7) Dyslipidemia: not on meds for such (8) Asthma: no flare at this time recent cough - likely viral induced - resolved (9) Rash: contact rash on left arm and left upper back mainly; also on right upper back prednisone for status migraine should help the rash follow for now (10) Prediabetes: hold metformin a1c 6% DM diet novolog correction/carb coverage as needed (11) DVT prophylaxis: lovenox daughter updated by phone today d/c tele move to med/surg hopefully home tomorrow if improved refer to neuro at d/c for chronic migraines refer to ENT at d/c -- rule out Meniere's disease Admission and Anticipated Discharge Date Admission Date: September 15, 2020 Subjective tele overnight wnl this am she had been feeling well then by late am her headache was back with photophobia I saw her when the headache had returned I offered her additional imitrex - she accepted, as prior doses of this have helped vertigo improved - still "wobbly" but able to independently walk to bathroom and back to bed on her own "thumping" sound left ear now resolved orthostatic BPs negative neck pain continues but not as severe Review of Systems Constitutional: no fever, no chills and no anorexia eating well without any GI symptoms Respiratory: no cough, no dyspnea and no wheezing Cardiovascular: no chest pain Gastrointestinal: no abdominal pain Physical Exam Constitutional: no acute distress and no altered mental status Eyes: PERRL; no nystagmus ENMT: external ear and nose normal, oropharynx normal Respiratory: normal respiratory effort, lungs clear to auscultation Cardiovascular: Rate/Rhythm: regular rate and regular rhythm Heart Sounds: normal S1 and normal S2; no murmur Vessels: posterior tibial pulses present and dorsalis pedis pulses present; no JVD Extremities: no edema Gastrointestinal (Abdomen): normal bowel sounds, soft, nontender, no hepatosplenomegaly Skin: scattered erythematous papules, some with ulcer, on left arm and upper back (crosses the midline) Neurologic: moves all extremities; no focal motor deficits Psychiatric: Orientation: alert and oriented x 3 Results & Data Results & Data ([facility]) Vital Signs (Past 12 Hours) Vital Signs Temp Pulse Pulse Resp BP BP Pulse Ox 09/16/20 12:09 36.7 C 81 18 132/78 93 09/16/20 08:00 36.5 C 53 L 58 L 18 130/70 96 09/16/20 04: 36.6 C 62 18 126/73 94 09/16/20 03:22 73 Laboratory Results Laboratory Results - last 24 hr 09/15/20 09/15/20 09/16/20 16:58 20:25 05:52 WBC 5.95 RBC 3.85 L Hgb 11.6 L Hct 35.6 L MCV 92.5 MCH 30.1 MCHC 32.6 RDW Std Deviation 55.2 H RDW Coeff of [place] 16.6 H Plt Count 340 MPV 9.8 Immature Gran % (Auto) 0.0 Neut % (Auto) 51.9 Lymph % (Auto) 38.7 [place] % (Auto) 7.9 Eos % (Auto) 1.2 Baso % (Auto) 0.3 Neut # (Auto) 3.09 Lymph # (Auto) 2.30 [place] # (Auto) 0.47 Eos # (Auto) 0.07 Baso # (Auto) 0.02 Immature Gran # (Auto) 0.00 Sodium Potassium Chloride Carbon Dioxide Anion Gap BUN Creatinine Est Cr Clr Drug Dosing Est GFR ( Amer) Est GFR (Non-Af Amer) BUN/Creatinine Ratio Glucose POC Glucose 170 H 131 H Calcium 09/16/20 09/16/20 09/16/20 05:52 07:49 11:46 WBC RBC Hgb Hct MCV MCH MCHC RDW Std Deviation RDW Coeff of [place] Plt Count MPV Immature Gran % (Auto) Neut % (Auto) Lymph % (Auto) [place] % (Auto) Eos % (Auto) Baso % (Auto) Neut # (Auto) Lymph # (Auto) [place] # (Auto) Eos # (Auto) Baso # (Auto) Immature Gran # (Auto) Sodium 144 Potassium 3.2 L Chloride 115 H Carbon Dioxide 24 Anion Gap 5.0 BUN 16 D Creatinine 0.71 Est Cr Clr Drug Dosing 63.4 Est GFR ( Amer) 93.9 Est GFR (Non-Af Amer) 81.0 BUN/Creatinine Ratio 22.0 H Glucose 87 POC Glucose 81 102 H Calcium 8.7 PG Care Time/CCT Total # of Minutes Spent Total Time Spent with Patient: Total time spent is greater than 50% in coordination of care (as documented) at patient's floor/unit and/or counseling patient: Coding Level of Care Code 69390 Subseq Hosp Care Lvl 3 Diagnoses Migraine headache G43.911 Intractability: intractable Migraine type: unspecified Status migrainosus presence: with status migrainosus Vertigo R42 Vomiting R11.2 Nausea presence: with nausea Vomiting Intractability: unspecified Vomiting type: unspecified Rheumatoid arthritis M06.9 Hypertension I10 GERD (gastroesophageal reflux disease) K21.9 Dyslipidemia E78.5 Asthma J45.909 Rash R21 Prediabetes R73.03 DVT prophylaxis Z29.9 (1) Migraine headache Intractability: intractable Migraine type: unspecified Status migrainosus presence: with status migrainosus Qualified Code(s): G43.911 - Migraine, unspecified, intractable, with status migrainosus (2) Vomiting Nausea presence: with nausea Vomiting Intractability: unspecified Vomiting type: unspecified Qualified Code(s): R11.2 - Nausea with vomiting, unspecified
[2020-09-17 08:24] LABS: BUN Creatinine Ratio 22.4 (10-20); Calcium 8.7 mg/dl (8.5-10.1); Creatinine Clr Calc Pharmacy 53.9 ml/min; Est GFR (African American) 77.7; Est GFR (Non-African American) 67.1; Magnesium 2.2 mg/dl (1.8-2.4); Potassium 3.6 mmol/L (3.5-5.1)
[2020-09-17] MEDS: INSULIN ASPART 100 UNITS/ML 3 ML PEN SC SCH (08:54)
[2020-09-17] MEDS: ENOXAPARIN INJ 40 MG/0.4 ML SYR SQ SCH (08:56)
[2020-09-17] MEDS: CYANOCOBALAMIN 500 MCG TABLET (VITAMIN B-12) PO SCH (08:57)
[2020-09-17] MEDS: ASPIRIN 81 MG ECTAB PO SCH (08:57)
[2020-09-17] MEDS: CITALOPRAM 40 MG TAB PO SCH (08:57)
[2020-09-17] MEDS: MECLIZINE HCL 25 MG TAB PO SCH (08:57)
[2020-09-17] MEDS: TOPIRAMATE 100 MG TAB PO SCH (08:57)
[2020-09-17] MEDS: PANTOprazole 40 MG TAB PO SCH (08:57)
[2020-09-17] MEDS: DICLOFENAC SOD 1% GEL 100 GM TUBE EXT SCH ×2 (08:58→12:44)
--- NOTE | 2020-09-24 20:22 | Discharge Summary ---
Date of Service September 17, 2020 Admission HPI Per Admitting Provider Pam Mai is here for headache, nausea, vomiting, diarrhea along with severe dizziness and lightheadedness. She came to the ER on Monday 09/11 for what she thought was a severe migraine. She was given medication in the ER and subsequently felt better. That evening she felt worse and vomited throughout Thursday, and every time that she ate. She then developed dizziness when she would look up and then developed neck pain. She has never had neck pain in the past and noted that it was on the right side of her neck along with a numbness and tingling in this area, she denies neck stiffness. She denies any trauma to the head, neck or spine along with no recent falls. She has had 1 week of incontinence that is new for her and involves urination without any urge to go. She has also noted that she has some blurring of her vision without any double vision. She describes it at "when I am looking at my phone and look at the TV the faces are blurry". Principal Diagnosis Migraine headache Discharge Exam Constitutional: no acute distress and no altered mental status Eyes: PERRL; no nystagmus ENMT: external ear and nose normal, oropharynx normal Respiratory: normal respiratory effort, lungs clear to auscultation Cardiovascular: Rate/Rhythm: regular rate and regular rhythm Heart Sounds: normal S1 and normal S2; no murmur Vessels: posterior tibial pulses present and dorsalis pedis pulses present; no JVD Extremities: no edema Gastrointestinal (Abdomen): normal bowel sounds, soft, nontender, no hepatosplenomegaly Skin: scattered erythematous papules, some with ulcer, on left arm and upper back (crosses the midline) Neurologic: moves all extremities; no focal motor deficits Psychiatric: Orientation: alert and oriented x 3 Discharge Data Allergies Allergy/AdvReac Type Severity Reaction Status Date / Time codeine Allergy Severe VOMITING Verified 09/19/20 12:54 DROP IN BP morphine Allergy Severe DROP IN Verified 09/19/20 12:54 VITAL SIGNS, TREMORS, VOMITING oxycodone Allergy Severe drop in Verified 09/19/20 12:54 vital signs,tremors,vomiting acetaminophen [From Vicodin] AdvReac Intermediate vomiting Verified 09/19/20 12:54 and tremors adhesive AdvReac Intermediate "PULLS OFF Verified 09/19/20 12:54 SKIN" hydrocodone [From Vicodin] AdvReac Intermediate vomiting Verified 09/19/20 12:54 and tremors meperidine AdvReac Intermediate VOMITING Verified 09/19/20 12:54 pravastatin AdvReac Intermediate pains in Verified 09/19/20 12:54 arms and legs simvastatin AdvReac Intermediate pains in Verified 09/19/20 12:54 legs and arms cephalexin [From Keflex] AdvReac Mild Nausea Verified 09/19/20 12:54 aspirin [From Percodan] AdvReac Unknown unknown Verified 09/19/20 12:54 montelukast [From Singulair] AdvReac Unknown unknown Verified 09/19/20 12:54 Consultations 09/13/20 23:55 ED Decision to Admit Stat 09/14/20 02:13 Consult Neurology Routine Ordered Studies 09/13/20 21:08 CT angio head w con Urgent CT angio neck with con Urgent CT head/brain wo con Urgent 09/14/20 02:13 MR brain wo con Routine 09/15/20 18:42 CT cervical spine wo con Routine Hospital Course (1) Migraine headache: acute status migraine - improving albeit slowly. on chronic topamax prophylaxis. MRI brain NEGATIVE for acute findings. Patient was treated with prednisone. No tapering. Was given imitrex. will recommend imitrex at discharge for severe headaches, education given for medication recommend adding verapmil for migraine prevention and improvement of her bP. anti-emetics heating pad and voltaren gel use inhousefor neck cervical spine CT w/o significant acute pathology contributing to neck pain SED RATE and CRP WNL - temporal arteritis HIGHLY unlikely if migraine persists could consider depakote IV load for abortive treatment (2) Vertigo: this could be a "basilar" migraine with resulting vertigo. OR, the vertigo is from BPV, left ear. alternatively she may have Meniere's given the tinnitus and h/o hearing loss. tinnitus continues to be resolved fortunately from L ear. overall improving. continue antivert 25mg TID. if the vertigo doesn't resolve w/ antivert consider scopalamine patch, valium, etc. (3) Vomitinnd to migraine and/or vertigo. resolved. Anti-emetics as needed. tolerating regular diet. (4) Rheumatoid arthritis: no flare at this time methotrexate weekly (5) Hypertension: this dx is present on her chart but she is on no meds for such and BPs are minimally elevated while here, even despite her headache pain. I still feel comfortable with a minimal amount of imitrex use for her headache. (6) GERD (gastroesophageal reflux disease): PPI daily (7) Dyslipidemia: not on meds for such (8) Asthma: no flare at this time recent cough - likely viral induced - resolved (9) Rash: contact rash on left arm and left upper back mainly; also on right upper back improved. (10) Prediabetes: hold metformin a1c 6% DM diet novolog correction/carb coverage as needed (11) DVT prophylaxis: lovenox refer to neuro at d/c for chronic migraines refer to ENT at d/c -- rule out Meniere's disease Total Time Total Time Spent Total Time Spent (In Minutes): 35 Total Time Includes: Examination of the Patient, Discharge Planning and Medication Reconciliation Discharge Plan Discharge Items Patient Disposition: Home - Home Health Services Reason For Visit: DIZZY, VOMITING, NECK PAIN Discharge Diagnosis: neck pain Activity: Resume your previous activity Non-emergency contact: Primary Care Provider Call non-emergency contact if: you have any medication questions Follow-up/Referrals: Srinivas Dunaway MD [Physician] - (Office will call patient with appointment date and time) Agueda Fowler DO [Primary Care Provider] - 09/19/20 1:00 pm Catarina Momin MD [Physician] - 10/05/20 11:00 am (patient will see at 11:00 to do an audio, then appointment with at 11:30 to follow) Diet: Carb Consistent or DM2 Addtl Attending Provider Instructions: Will recommend that you follow-up with Dr. Dunaway or his advanced dietetic tech in outpatient neurology clinic in the next 3 to 4 weeks. Will continue with topiramate for migraine prevention. Will add verapamil ER 120 mg a day for additional migraine prevention. This should also help with blood pressure. Will recommend also followup with ENT doctor as an outpatient. refer to neuro at d/c for chronic migraines refer to ENT at d/c -- rule out Meniere's disease May use sumatriptan for acute migraine treatment if necessary going forward. Pending Studies at Discharge: No Stand-Alone Forms: My [facility], Smoking Cessation Medications and DC Order Prescriptions: New acetaminophen 325 mg Tablet 650 mg PO Q6H PRN (Reason: headache) Qty: 30 RF: 0 verapamil 120 mg capsule,ext rel. pellets 24 hr 120 mg PO QPM Qty: 30 RF: 0 sumatriptan 5 mg/actuation spray,non-aerosol 10 mg intranasal Q2H PRN (Reason: migraine headache) Qty: 6 RF: 0 Continued folic acid 400 mcg tablet 1,200 mcg PO QAM Qty: 270 RF: 0 meclizine 25 mg tablet 25 mg PO TID PRN (Reason: Dizziness) Qty: 90 RF: 1 pantoprazole 40 mg tablet,delayed release (DR/EC) 40 mg PO QAM Qty: 180 RF: 2 metformin 1,000 mg tablet 1,000 mg PO BID Qty: 180 RF: 3 citalopram [Celexa] 40 mg tablet 40 mg PO DAILY Qty: 90 RF: 3 topiramate 100 mg tablet 100 mg PO BID Qty: 180 RF: 1 zafirlukast 20 mg tablet 20 mg PO Q12H Qty: 180 RF: 1 cyanocobalamin (vitamin B-12) [Vitamin B-12] 1,000 mcg tablet 1,000 mcg PO QAM Qty: 30 RF: 0 albuterol sulfate [Ventolin HFA] 90 mcg/actuation HFA aerosol inhaler 1 - 2 puffs INH Q6H PRN (Reason: shortness of breath or wheezing) RF: 0 cholecalciferol (vitamin D3) [Vitamin D3] 1,000 unit Capsule 1,000 unit PO QAM RF: 0 naproxen sodium [Aleve] 220 mg Capsule 220 mg PO DIRECTED PRN (Reason: Pain) RF: 0 sennosides [senna] 8.6 mg tablet 8.6 mg PO Q2D PRN (Reason: constipation) RF: 0 methotrexate sodium 2.5 mg tablet 20 mg PO WK RF: 0 aspirin 81 mg Tablet,Delayed Release (Dr/Ec) 81 mg PO DAILY RF: 0 No Action (DME) blood-glucose meter [FreeStyle Lite Meter] Kit See Rx Instructions .ROUTE .MEDSUPPLY Qty: 1 RF: 0 (DME) FreeStyle Lite Strips Strip See Dose Instructions .ROUTE .MEDSUPPLY Qty: 100 RF: 0 (DME) lancets [FreeStyle Lancets] 28 gauge misc See Dose Instructions .ROUTE .MEDSUPPLY Qty: 100 RF: 0 Discharge Orders: Discharge Order (Routine); Ordered 09/17/20 Ordered By: Bal Carter/Other Patient Handouts: High Blood Sugar (Hyperglycemia), Managing Type 2 Diabetes, Managing Diabetes: The A1C Test Admission Data Admit Date/Time: 09/14/20 01:12 Attending Provider: Bal Ely Admit Provider: Billy Cleary Primary Care Provider: Agueda oFwler Other Providers: Srinivas Dunaway Other Interventions: Discharge Summary Assessment (RN) Last Done: 09/17/20 12:01 Coding Level of Care Code 39140 OBS Care - Discharge Diagnoses Migraine headache G43.911 Migraine type: unspecified Status migrainosus presence: with status migrainosus Intractability: intractable Vertigo R42 Vomiting R11.2 Nausea presence: with nausea Vomiting Intractability: unspecified Vomiting type: unspecified Rheumatoid arthritis M06.9 Hypertension I10 GERD (gastroesophageal reflux disease) K21.9 Dyslipidemia E78.5 Asthma J45.909 Rash R21 Prediabetes R73.03 DVT prophylaxis Z29.9
--- NOTE | 2020-09-25 13:09 | Coding Query ---
A supporting diagnosis is required for the test/procedure performed on this patient in order for us to be reimbursed by the patient's insurance. Please provide a supporting diagnosis for the following test/procedure listed below next to the test name along with your signature. *If there is no additional diagnosis for this patient that would support the following test/procedure please document that below next to the test/procedure. Test(s)/Procedure(s) that require a supporting diagnosis: Canalith repositioning proc DIAGNOSIS: benign positional vertigo, acute vertigo Provider Signature: Date: Thank you Loulou Dior Health Information Management Once completed, please kindly fax back to [phone] For questions please call [phone] [facility] SYSTEMConstance
== END 2020-09-17 14:24 | disposition home health service (06) ==
LOC: 2N 20:06 → ED 20:06 → SUATTDRO 09-14 01:12 → 2N 09-14 01:47 → SUATTDRO 09-15 13:25 → 3W 09-16 14:55

== ENCOUNTER 2022-06-08 15:57 | Observation (INO) ==
[2022-06-08] MEDS ORDERED: ONDANSETRON INJ 2 MG/ML 2 ML VIAL IV STA (16:27)
[2022-06-08] MEDS ORDERED: SODIUM CHLORIDE 0.9% 1000ML 1,000 ML IV SCH (16:30)
--- NOTE | 2022-06-08 16:38 | XRay Report ---
SINGLE VIEW CHEST CLINICAL HISTORY: Generalized weakness. Vomiting and dizziness. FINDINGS: An AP, portable, upright chest radiograph is compared to study dated 08/26/2021 and correlate d with chest CT dated 04/14/2022. The cardiomediastinal silhouette is top normal for projection notin g atherosclerotic calcification of the thoracic aorta. Chronic interstitial thickening is similar to previous. There is chronic elevation of the left hemidiaphragm with bibasilar scarring/atelectasis. T he lungs and pleural spaces are otherwise clear. No pneumothorax is seen. The skeletal structures are osteopenic. The bony thorax is grossly intact. Arthritic change is seen in the shoulders. IMPRESSION: No active disease in the chest. ACT 112: Negative or not required by law. Electronically signed by: Saji Kennedy M.D. 06/08/2022 4:36 PM
--- NOTE | 2022-06-08 16:43 | Emergency Department Note ---
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 States she is feeling very fatigued and having hot and cold flashes. States she has been vomiting just today developed bloody diarrhea. Denies chest pain or shortness of breath. Denies runny nose or sore throat. Denies significant leg swelling or muscle aches. Decreased oral intake reported although she states she is been trying to hydrate with water. Follows with the cancer center locally here is unsure of her exact medications. Just finished a round of chemotherapy this past Thursday with daily infusions at the [facility]. No sick contacts reported. Mild headache at this time. PAST MEDICAL HISTORY: As noted above MEDICATIONS: Reviewed patient's listed home medications in addition has been taking posaconazole prescribed for [facility] in April SOCIAL HISTORY: Smoker, retired PHYSICAL EXAM: GENERAL: alert and oriented in no acute distress on stretcher fatigued in appearance but afebrile Head: normocephalic and atraumatic EYES: No injection, discharge or icterus. PERRL, EOMI. NECK: Trachea midline. Supple. ENT: Mucous membranes pink and slightly dry. LUNGS: Airway patent. No retractions or tachypnea. HEART: Regular rate and rhythm. No chest wall tenderness ABDOMEN: Soft and non-tender, without guarding or rebound. SKIN: Acyanotic, warm, dry, without rashes EXTREMITIES: Without swelling, tenderness or deformity NEUROLOGICAL: No focal deficits. No aphasia. No facial droop or slurred speech. Normal strength and tone in the extremities. Sensation to gross touch normal. Ambulatory. EK bpm sinus rhythm with PVC. No acute ST segment elevation or depression noted with a QTC of 425. CONTINUOUS CARDIAC MONITORING: was ordered and showed a heart rate of bpm in Patient's laboratory studies and imaging reviewed. Differential includes Infection, gastrointestinal, dehydration, metabolic abnormality, hypo/hyperglycemia, electrolyte disturbance, anemia, cardiac sources, intracerebral event, medication/chemotherapy related, neurologic, as well as other pathologies. IMPRESSION/MEDICAL DECISION MAKING: Patient fatigued appearing. Recent diagnosis of AML on chemotherapy. Hot and cold for 4 days with nausea and vomiting evolving into diarrhea today. Mild headache but no severe headache. No trauma. Denies significant abdominal pain and no abdominal tenderness on exam. Patient is fatigued in appearance. Given some IV fluids. Basic labs and viral testing sent. Cultures to be sent given her oncology history as well as a lactate and procalcitonin obtained. We will complete a CT of the head given the report of some dizziness although is no trauma history or other focal deficit. Patient does have a history of vestibular migraines that may be contributing. Also be related to decreased hydration given her upper GI symptoms. Patient will also have a CT of the abdomen pelvis to evaluate for intra-abdominal pathology such as possible colitis or other abnormality in light of her chemotherapy low suspicion for perforation or appendicitis given her lack of significant tenderness. Chest x- ray completed given her weakness and dizziness complaint without significant abnormality per my review and radiology report. In reviewing the patient's medication history in the computer, appears the patient has been maintained/prescribed on acyclovir as well as Venclexta for chemotherapy. The chemotherapy agent does have a side effect of nausea listed may contribute. Blood work obtained here without significant anemia or leukocytosis. No severe electrolyte abnormality or renal dysfunction noted today. Magnesium mildly low and given IV supplementation. Patient lactate is significantly with 3.7. Believe this is likely more dehydration all. Procalcitonin undetectably low. No evidence of hepatitis or pancreatitis. No troponin elevation and doubt a cardiac injury. COVID test has returned positive very well could explain her symptomatologies. Flu and RSV negative. CT report of the head without acute findings noted. CT abdomen pelvis radiology without any significant acute inflammatory infectious findings. Patient still quite fatigued and very weak. On reevaluation and still nauseous. Later tells me she is been taking Zofran at home. Given a small amount of IV Reglan here to see if this would help with her nausea. Given her age, acute leukemia on chemotherapy, and weakness/symptoms with COVID discussed with her further care here at the hospital. Patient is vaccinated for COVID and boosted. DIAGNOSIS: Gastroenteritis, COVID-19, elevated lactate, AML, weakness DISPOSITION: Hospitalist will evaluate Patient was agreeable with this plan. Past Med/Surg History Medical History Allergic rhinitis AML (acute myeloblastic leukemia) (03/2022) Anxiety and depression Asthma Chronic sinusitis Diabetes Dyslipidemia Fibula fracture GERD (gastroesophageal reflux disease) Hypertension Insomnia Migraine Migraine headache Nontoxic multinodular goiter Osteopenia Rheumatoid arthritis Sensorineural hearing loss (SNHL) of both ears Urge and stress incontinence Vitamin D deficiency Surgical History S/P adenoidectomy S/P carpal tunnel release S/P cataract extraction S/P cholecystectomy S/P foot surgery S/P hysterectomy S/P medial meniscal repair S/P tonsillectomy S/P trigger finger release Family History Brother Myocardial infarction Heart disease Hypertension Father Arthritis Heart disease Mother , age 41 Leukemia Breast cancer Ovarian cancer Sister , age 64 Diabetes Brother Throat cancer Liver cirrhosis Denies family history of Prostate cancer Colorectal cancer Social History Smoking Status: Never smoker Second Hand Exposure: No; Hx Alcohol Use: No Hx Substance Use: No Preferred Language: Romansh Communication Ability: Effective Visual Impairment: No Limitations Hearing Ability: Normal Carton Folder Required: No Beliefs That Will Affect Care: None marital status: / Current Living Situation: Alone 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 [employer] Feels Safe at Home: Yes Childhood Exposure to Second-Hand Smoke: Yes Diet Comment: regular caffeine: Yes (6 -8 cups coffee a day half caffeine ) during the past year weight has: remained stable Dental Care, Regularly: No Physical Activity Frequency: Daily Seatbelt Use: always Sunscreen Use: Yes Assistive Devices: None Allergies Allergies Allergy/AdvReac Type Severity Reaction Status Date / Time codeine Allergy Severe VOMITING Verified 05/28/22 10:51 DROP IN BP morphine Allergy Severe DROP IN Verified 05/28/22 10:51 VITAL SIGNS, TREMORS, VOMITING oxycodone Allergy Severe drop in Verified 05/28/22 10:51 vital signs,tremors,vomiting adhesive AdvReac Intermediate "PULLS OFF Verified 05/28/22 10:51 SKIN" hydrocodone [From Vicodin] AdvReac Intermediate vomiting Verified 05/28/22 10:51 and tremors meperidine AdvReac Intermediate VOMITING Verified 05/28/22 10:51 pravastatin AdvReac Intermediate pains in Verified 05/28/22 10:51 arms and legs simvastatin AdvReac Intermediate pains in Verified 05/28/22 10:51 legs and arms cephalexin [From Keflex] AdvReac Mild Nausea Verified 05/28/22 10:51 aspirin [From Percodan] AdvReac Unknown unknown Verified 05/28/22 10:51 montelukast [From Singulair] AdvReac Unknown unknown Verified 05/28/22 10:51 Home Meds Home Medications Medication Instructions Recorded Confirmed cholecalciferol (vitamin D3) 25 1,000 unit PO QAM 05/19/18 04/14/22 mcg (1,000 unit) capsule (Vitamin D3) naproxen sodium 220 mg capsule 220 mg PO DIRECTED PRN Pain 05/19/18 05/28/22 (Aleve) acetaminophen 325 mg tablet 325 mg PO Q4H PRN headache 05/28/22 acyclovir 400 mg tablet 400 mg PO BID 05/28/22 05/28/22 albuterol sulfate 2.5 mg/3 mL 5 mg inhalation Q6H 05/28/22 05/28/22 (0.083 %) solution for nebulization aspirin 81 mg tablet,delayed 81 mg PO DAILY 05/28/22 05/28/22 release dexamethasone 4 mg tablet 8 mg PO .COMPLEX 05/28/22 folic acid 1 mg tablet 1 mg PO DAILY 05/28/22 05/28/22 lansoprazole 30 mg capsule,delayed 30 mg PO DAILY 05/28/22 05/28/22 release methotrexate sodium 5 mg tablet 10 mg PO DAILY 05/28/22 05/28/22 venetoclax 50 mg tablet (Venclexta) 50 mg PO DAILY 05/28/22 05/28/22 Previous Rx's Medication Instructions Recorded meclizine 25 mg tablet 25 mg PO TID PRN Dizziness #90 tabs 07/11/21 sertraline 50 mg tablet 50 mg PO DAILY #90 tabs 11/06/21 topiramate 100 mg tablet 100 mg PO BID #180 tabs 12/13/21 zafirlukast 20 mg tablet 20 mg PO Q12H #180 tabs 04/02/22 mirabegron 50 mg tablet,extended 50 mg PO DAILY #90 tabs 04/08/22 release 24 hr alendronate 70 mg tablet (Fosamax) 70 mg PO WEEKLY #12 tabs 04/24/22 metformin 1,000 mg tablet 1,000 mg PO BID #180 tabs 04/24/22 benzonatate 100 mg capsule 100 mg PO TID PRN cough #30 caps 05/19/22 doxycycline hyclate 100 mg capsule 100 mg PO BID #20 caps 05/19/22 allopurinol 300 mg tablet 300 mg PO DAILY #30 tabs 05/28/22 levofloxacin 500 mg tablet 500 mg PO DAILY #30 tabs 05/28/22 posaconazole 100 mg tablet,delayed 300 mg PO DAILY #90 tabs 05/28/22 release venetoclax 10 mg tablet 20 mg PO DAILY #60 tabs 05/28/22 pantoprazole 40 mg tablet,delayed 40 mg PO QAM #180 tabs 06/06/22 release Results & Data (ED) Vital Signs Vital Signs - 24 hr 06/08/22 16:05 06/08/22 16:26 06/08/22 17:58 Temperature 36.4 C L Temperature Source Oral Pulse Rate 93 H Pulse Rate [Right Finger] 71 Respiratory Rate 18 18 Respiratory Effort / Characteristics Non-Labored Respiratory Depth Normal Respiratory Pattern Regular Blood Pressure 118/75 Blood Pressure [Left Arm] 151/85 H Blood Pressure Mean 89 Blood Pressure Mean [Left Arm] 107 Pulse Oximetry 99 92 Oxygen Delivery Method Room Air Room Air Room Air Sepsis Recent Fever Within 48 Hours No Sepsis New/Unexplained Change in Mental Status No Sepsis Action Taken by Nursing No Action Required Laboratory Data 06/08/22 16:44 06/08/22 16:44 Lab Results 06/08/22 06/08/22 06/08/22 Range/Units 16:44 16:44 16:44 WBC (4.8-10.8) K/ul RBC (3.93-5.22) M/uL Hgb (12.0-16.0) g/dl POC Hgb (12.0-16.0) g/dl Hct (34.1-44.9) % POC Hct (37-47) % MCV (80.0-100.0) fL MCH (25.0-34.0) pg MCHC (32.0-36.0) g/dL RDW Std Deviation (36.4-46.3) fL RDW Coeff of Cheyenne (11.5-14.5) % Plt Count (130-400) K/uL MPV (9.4-12.3) fL Immature Gran % (Auto) % Neut % (Auto) % Lymph % (Auto) % Baxter % (Auto) % Eos % (Auto) % Baso % (Auto) % Neut # (Auto) (1.4-6.5) K/uL Lymph # (Auto) (1.2-3.4) K/uL Baxter # (Auto) (0.24-0.82) K/uL Eos # (Auto) (0-0.50) K/uL Baso # (Auto) (0-0.2) K/uL Immature Gran # (Auto) (0.00-0.02) K/uL PT Cancelled INR Cancelled POC Sodium (135-144) mmol/L Sodium 137 (136-145) mmol/L POC Potassium (3.3-5.0) mmol/L Potassium 3.9 (3.5-5.1) mmol/L POC Chloride (101-112) mmol/L Chloride 105 (98-107) mmol/L Carbon Dioxide 25 (21-32) mmol/L POC Total CO2 (24-31) mmol/L Anion Gap 7 (3-11) POC Anion Gap (16-25) mmol/L POC BUN (7-18) mg/dl BUN 15 (6-23) mg/dl Creatinine 0.69 (0.6-1.2) mg/dl POC Creatinine (0.6-1.3) mg/dl Est Cr Clr Drug Dosing 57.9 ml/min Est GFR ( Amer) 95.3 ml/min Est GFR (Non-Af Amer) 82.2 ml/min BUN/Creatinine Ratio 21.7 H (10-20) Glucose 118 H (70-99(Fasting)) mg/dl POC Glucose (other) (70-99) mg/dl Lactate 3.7 H* (0.4-2.0) mmol/L Calcium 9.1 (8.5-10.1) mg/dl POC Ioniz Calcium Elana (1.12-1.32) mmol/l Magnesium 1.7 (1.7-2.4) mg/dl Total Bilirubin 1.0 (0.2-1.0) mg/dl AST 17 (13-39) U/L ALT 14 (7-52) U/L Alkaline Phosphatase 44 (34-104) U/L Troponin I High Sens 5.6 (0-14) pg/ml Total Protein 5.7 L (6.0-8.3) gm/dl Albumin 3.7 (3.4-5.0) gm/dl Globulin 2.0 L (2.5-4.0) gm/dl Albumin/Globulin Ratio 1.9 (0.9-2) Lipase 31 (11-82) U/L Procalcitonin (0-0.5) ng/ml TSH (0.300-4.500) uIu/ml SARS-CoV-2 (PCR) (Negative) Influenza Type A (PCR) (Neg) Influenza Type B (PCR) (Neg) RSV (RT-PCR) (Neg) 06/08/22 06/08/22 06/08/22 Range/Units 16:44 16:44 16:44 WBC 7.83 (4.8-10.8) K/ul RBC 3.91 L (3.93-5.22) M/uL Hgb 13.8 (12.0-16.0) g/dl POC Hgb (12.0-16.0) g/dl Hct 41.3 (34.1-44.9) % POC Hct (37-47) % MCV 105.6 H (80.0-100.0) fL MCH 35.3 H (25.0-34.0) pg MCHC 33.4 (32.0-36.0) g/dL RDW Std Deviation 58.8 H (36.4-46.3) fL RDW Coeff of [place]yenne 15.2 H (11.5-14.5) % Plt Count 267 (130-400) K/uL MPV 10.5 (9.4-12.3) fL Immature Gran % (Auto) 0.8 % Neut % (Auto) 83.9 % Lymph % (Auto) 7.8 % Baxter % (Auto) 7.3 % Eos % (Auto) 0.1 % Baso % (Auto) 0.1 % Neut # (Auto) 6.57 H (1.4-6.5) K/uL Lymph # (Auto) 0.61 L (1.2-3.4) K/uL Baxter # (Auto) 0.57 (0.24-0.82) K/uL Eos # (Auto) 0.01 (0-0.50) K/uL Baso # (Auto) 0.01 (0-0.2) K/uL Immature Gran # (Auto) 0.06 H (0.00-0.02) K/uL PT INR POC Sodium (135-144) mmol/L Sodium (136-145) mmol/L POC Potassium (3.3-5.0) mmol/L Potassium (3.5-5.1) mmol/L POC Chloride (101-112) mmol/L Chloride (98-107) mmol/L Carbon Dioxide (21-32) mmol/L POC Total CO2 (24-31) mmol/L Anion Gap (3-11) POC Anion Gap (16-25) mmol/L POC BUN (7-18) mg/dl BUN (6-23) mg/dl Creatinine (0.6-1.2) mg/dl POC Creatinine (0.6-1.3) mg/dl Est Cr Clr Drug Dosing ml/min Est GFR ( Amer) ml/min Est GFR (Non-Af Amer) ml/min BUN/Creatinine Ratio (10-20) Glucose (70-99(Fasting)) mg/dl POC Glucose (other) (70-99) mg/dl Lactate (0.4-2.0) mmol/L Calcium (8.5-10.1) mg/dl POC Ioniz Calcium Elana (1.12-1.32) mmol/l Magnesium (1.7-2.4) mg/dl Total Bilirubin (0.2-1.0) mg/dl AST (13-39) U/L ALT (7-52) U/L Alkaline Phosphatase (34-104) U/L Troponin I High Sens (0-14) pg/ml Total Protein (6.0-8.3) gm/dl Albumin (3.4-5.0) gm/dl Globulin (2.5-4.0) gm/dl Albumin/Globulin Ratio (0.9-2) Lipase (11-82) U/L Procalcitonin < 0.05 (0-0.5) ng/ml TSH 0.621 (0.300-4.500) uIu/ml SARS-CoV-2 (PCR) (Negative) Influenza Type A (PCR) (Neg) Influenza Type B (PCR) (Neg) RSV (RT-PCR) (Neg) 06/08/22 06/08/22 Range/Units 16:49 16:52 WBC (4.8-10.8) K/ul RBC (3.93-5.22) M/uL Hgb (12.0-16.0) g/dl POC Hgb 14.3 (12.0-16.0) g/dl Hct (34.1-44.9) % POC Hct 42 (37-47) % MCV (80.0-100.0) fL MCH (25.0-34.0) pg MCHC (32.0-36.0) g/dL RDW Std Deviation (36.4-46.3) fL RDW Coeff of [place] (11.5-14.5) % Plt Count (130-400) K/uL MPV (9.4-12.3) fL Immature Gran % (Auto) % Neut % (Auto) % Lymph % (Auto) % Baxter % (Auto) % Eos % (Auto) % Baso % (Auto) % Neut # (Auto) (1.4-6.5) K/uL Lymph # (Auto) (1.2-3.4) K/uL Baxter # (Auto) (0.24-0.82) K/uL Eos # (Auto) (0-0.50) K/uL Baso # (Auto) (0-0.2) K/uL Immature Gran # (Auto) (0.00-0.02) K/uL PT INR POC Sodium 137 (135-144) mmol/L Sodium (136-145) mmol/L POC Potassium 3.9 (3.3-5.0) mmol/L Potassium (3.5-5.1) mmol/L POC Chloride 103 (101-112) mmol/L Chloride (98-107) mmol/L Carbon Dioxide (21-32) mmol/L POC Total CO2 22 L (24-31) mmol/L Anion Gap (3-11) POC Anion Gap 16.0 (16-25) mmol/L POC BUN 14 (7-18) mg/dl BUN (6-23) mg/dl Creatinine (0.6-1.2) mg/dl POC Creatinine 0.6 (0.6-1.3) mg/dl Est Cr Clr Drug Dosing ml/min Est GFR ( Amer) ml/min Est GFR (Non-Af Amer) ml/min BUN/Creatinine Ratio (10-20) Glucose (70-99(Fasting)) mg/dl POC Glucose (other) 116 H (70-99) mg/dl Lactate (0.4-2.0) mmol/L Calcium (8.5-10.1) mg/dl POC Ioniz Calcium Elana 1.22 (1.12-1.32) mmol/l Magnesium (1.7-2.4) mg/dl Total Bilirubin (0.2-1.0) mg/dl AST (13-39) U/L ALT (7-52) U/L Alkaline Phosphatase (34-104) U/L Troponin I High Sens (0-14) pg/ml Total Protein (6.0-8.3) gm/dl Albumin (3.4-5.0) gm/dl Globulin (2.5-4.0) gm/dl Albumin/Globulin Ratio (0.9-2) Lipase (11-82) U/L Procalcitonin (0-0.5) ng/ml TSH (0.300-4.500) uIu/ml SARS-CoV-2 (PCR) POSITIVE A* (Negative) Influenza Type A (PCR) Negative (Neg) Influenza Type B (PCR) Negative (Neg) RSV (RT-PCR) Negative (Neg) Administered Medications Discontinued Medications Sodium Chloride (Nss 1000ml) 1,000 mls @ 999 mls/hr IV .Q1H1M AUDELIA Stop: 06/08/22 17:30 Last Infusion: 06/08/22 18:27 Dose: 0 mls/hr Documented By: Admin: 06/08/22 16:59 Dose: 999 mls/hr Documented By: SUSHIL Magnesium Sulfate/Dextrose (Magnesium Sulfate / D5w) 1 gm in 100 mls @ 200 mls/hr IV Q30M AUDELIA Stop: 06/08/22 18:44 Last Infusion: 06/08/22 19:00 Dose: 0 mls/hr Documented By: Admin: 06/08/22 18:25 Dose: 200 mls/hr Documented By: Infusion: 06/08/22 18:25 Dose: 200 mls/hr Documented By: Admin: 06/08/22 17:57 Dose: 200 mls/hr Documented By: SUSHIL Ioversol (Optiray 350 100ml) 83 ml IV ONCE ONE Stop: 06/08/22 17:19 Last Admin: 06/08/22 17:18 Dose: 83 ml Documented By: EMMETT Metoclopramide HCl (Metoclopramide Hcl Inj 5 Mg/Ml 2 Ml Vial) 5 mg IV ONE ONE Stop: 06/08/22 19:06 Last Admin: 06/08/22 19:14 Dose: 5 mg Documented By: TIKA Ondansetron HCl (Ondansetron Inj 2 Mg/Ml 2 Ml Vial) 4 mg IV NOW STA Stop: 06/08/22 16:28 Last Admin: 06/08/22 16:59 Dose: 4 mg Documented By: SUSHIL Imaging Data Radiologist's Impression: Head CT 06/08/22 16:22 CT SCAN OF THE BRAIN WITHOUT IV CONTRAST CLINICAL HISTORY: Headaches and dizziness. COMPARISON STUDY: CT of the brain dated 09/13/2020. TECHNIQUE: Unenhanced axial CT scan of the brain is performed from the vertex to the skull base. A dose lowering technique was utilized adhering to the principles of ALARA. CT DOSE: 537.48 mGy.cm FINDINGS: Brain parenchyma: There is age-related involutional change noting mild subcortical and periventricular microangiopathic disease. There is no hemorrhage, mass effect, or evidence of acute territorial ischemia by CT criteria. Toro-white matter differentiation is preserved. No extra-axial fluid collection is seen. Ventricles, sulci, cisterns: Prominent secondary to involutional change. Intracranial vasculature: There is atherosclerotic calcification of the cavernous carotid arteries. Calvarium: Unremarkable. Sinuses and mastoids: There is evidence of previous paranasal sinus surgery. The visualized paranasal sinuses are clear. The mastoid air cells are well pneumatized. Orbits: The bony orbits are grossly intact. IMPRESSION: There is no hemorrhage, mass effect, or evidence of acute territorial ischemia by CT criteria. ACT 112: Negative or not required by law. Electronically signed by: Saji Kennedy M.D. 06/08/2022 5:42 PM Chest X-Ray 06/08/22 16:23 SINGLE VIEW CHEST CLINICAL HISTORY: Generalized weakness. Vomiting and dizziness. FINDINGS: An AP, portable, upright chest radiograph is compared to study dated 08/26/2021 and correlated with chest CT dated 04/14/2022. The cardiomediastinal silhouette is top normal for projection noting atherosclerotic calcification of the thoracic aorta. Chronic interstitial thickening is similar to previous. There is chronic elevation of the left hemidiaphragm with bibasilar scarring/atelectasis. The lungs and pleural spaces are otherwise clear. No pneumothorax is seen. The skeletal structures are osteopenic. The bony thorax is grossly intact. Arthritic change is seen in the shoulders. IMPRESSION: No active disease in the chest. ACT 112: Negative or not required by law. Electronically signed by: Saji Kennedy M.D. 06/08/2022 4:36 PM Abdomen/Pelvis CT 06/08/22 16:26 CT SCAN OF THE ABDOMEN AND PELVIS WITH IV CONTRAST CLINICAL HISTORY: Vomiting. Dizziness. Diarrhea. Leukemia. COMPARISON STUDY: Abdominal CT dated 04/14/2022. TECHNIQUE: Following the IV administration of 83 cc of Optiray 350, CT scan of the abdomen and pelvis is performed from the lung bases to the proximal femora. Images are reviewed in the axial, sagittal, and coronal planes. IV contrast was administered without complication. A dose lowering technique was utilized adhering to the principles of ALARA. CT DOSE: 395.86 mGy.cm FINDINGS: Lung bases: The heart is normal in size and without pericardial effusion. There is elevation of the left hemidiaphragm with associated basilar atelectasis. No airspace consolidation or pleural effusion is identified. A fat-containing [place]dalek hernia is seen on the right. There is a tiny hiatal hernia. Liver: The contrast-enhanced liver is normal in size, contour, and attenuation. There is mild intrahepatic biliary ductal dilatation. The hepatic veins and portal veins are patent. Gallbladder: Surgically absent noting clips in the gallbladder fossa. Spleen: Normal in size and attenuation, measuring 11.3 cm in length. Pancreas: Unremarkable. Adrenal glands: Unremarkable. Kidneys: The contrast enhanced kidneys demonstrate cortical atrophy and are without hydronephrosis. The kidneys enhance symmetrically. There are bilateral renal cysts. The largest arises from the left upper pole and measures 6.2 cm. Additional subcentimeter cortical hypodensities also likely represent cysts but are too small for definitive characterization. A 4 mm nonobstructing calculus is noted in the left kidney. Abdominal vasculature: The abdominal aorta is normal in course and caliber noting moderate atherosclerotic calcification. Bowel: There is rectosigmoid fecal retention and moderate constipation. No bowel obstruction is seen. There is moderate colonic diverticulosis without CT evid ence of acute diverticulitis. The appendix is well-visualized and normal. Peritoneum: There is no intraperitoneal free air or abdominal ascites. Lymphadenopathy: None. Pelvic viscera: A punctate bladder calculus is noted on image #[id number]. The bladder is otherwise normal as visualized. The uterus is surgically absent. No adnexal lesion is seen. Skeletal structures: The skeletal structures are heterogeneously osteopenic. There is moderate lumbosacral spondylosis and scoliosis. No lytic or blastic lesions are seen. IMPRESSION: 1. No acute infectious or inflammatory findings are identified in the abdomen or pelvis. 2. Colonic diverticulosis without CT evidence of acute diverticulosis. 3. Left-sided nephrolithiasis. 4. Punctate bladder calculus. 5. Additional findings as above. ACT 112: Negative or not required by law. Electronically signed by: Saji Kennedy M.D. 06/08/2022 7:17 PM Discharge Plan Visit Data Chief Complaint: Illness Stated Complaint: NAUSEA, DIZZINESS ED Provider: Efren Dougherty Discharge Problem: COVID-19, AML (acute myeloblastic leukemia), Gastroenteritis, Elevated lactic acid level Patient Disposition: Being Evaluated by Hospitalist Forms Stand Alone Forms: My [facility] Prescriptions Prescriptions: No Action meclizine 25 mg tablet 25 mg PO TID PRN (Reason: Dizziness) Qty: 90 1RF sertraline 50 mg tablet 50 mg PO DAILY Qty: 90 1RF topiramate 100 mg tablet 100 mg PO BID Qty: 180 1RF zafirlukast 20 mg tablet 20 mg PO Q12H Qty: 180 1RF mirabegron 50 mg tablet extended release 24 hr 50 mg PO DAILY Qty: 90 3RF metformin 1,000 mg tablet 1,000 mg PO BID Qty: 180 3RF alendronate [Fosamax] 70 mg tablet 70 mg PO WEEKLY Qty: 12 3RF doxycycline hyclate 100 mg capsule 100 mg PO BID Qty: 20 0RF benzonatate 100 mg capsule 100 mg PO TID PRN (Reason: cough) Qty: 30 0RF pantoprazole 40 mg tablet,delayed release (DR/EC) 40 mg PO QAM Qty: 180 2RF acyclovir 400 mg tablet 400 mg PO BID dexamethasone 4 mg tablet 8 mg PO .COMPLEX Rx Instructions: 8 mg orally prior to injection at oncology office; Venclexta 50 mg tablet 50 mg PO DAILY allopurinol 300 mg tablet 300 mg PO DAILY Qty: 30 2RF levofloxacin 500 mg tablet 500 mg PO DAILY Qty: 30 0RF posaconazole 100 mg tablet,delayed release (DR/EC) 300 mg PO DAILY Qty: 90 0RF venetoclax 10 mg tablet 20 mg PO DAILY Qty: 60 5RF Rx Instructions: take along with 50mg to equal 70mg folic acid 1 mg tablet 1 mg PO DAILY acetaminophen 325 mg tablet 325 mg PO Q4H PRN (Reason: headache) albuterol sulfate 2.5 mg /3 mL (0.083 %) solution for nebulization 5 mg inhalation Q6H aspirin 81 mg tablet,delayed release (DR/EC) 81 mg PO DAILY lansoprazole 30 mg capsule,delayed release(DR/EC) 30 mg PO DAILY methotrexate sodium 5 mg tablet 10 mg PO DAILY cholecalciferol (vitamin D3) [Vitamin D3] 1,000 unit Capsule 1,000 unit PO QAM naproxen sodium [Aleve] 220 mg Capsule 220 mg PO DIRECTED PRN (Reason: Pain) Referrals Referrals: Agueda Fowler DO [Primary Care Provider] -
[2022-06-08 17:04] LABS: iSTAT Creatinine 0.6 mg/dl (0.6-1.3); iSTAT Hemoglobin 14.3 g/dl (12.0-16.0); iSTAT Ionized Calcium 1.22 mmol/l (1.12-1.32); iSTAT Potassium 3.9 mmol/L (3.3-5.0)
[2022-06-08 17:04] LABS: Basophils # (auto) 0.01 K/uL (0-0.2); Basophils % (auto) 0.1 %; Eosinophils # (auto) 0.01 K/uL (0-0.50); Eosinophils % (auto) 0.1 %; Hematocrit (blood only) 41.3 % (34.1-44.9); Hemoglobin 13.8 g/dl (12.0-16.0); Immature Granulocytes # (auto) 0.06 K/uL (0.00-0.02); Immature Granulocytes % (auto) 0.8 %; Lymphocytes # (auto) 0.61 K/uL (1.2-3.4); Lymphocytes % (auto) 7.8 %; Mean Corpuscular Hemoglobin 35.3 pg (25.0-34.0); Mean Corpuscular Hgb Conc 33.4 g/dL (32.0-36.0); Mean Corpuscular Volume 105.6 fL (80.0-100.0); Mean Platelet Volume 10.5 fL (9.4-12.3); Monocytes # (auto) 0.57 K/uL (0.24-0.82); Monocytes % (auto) 7.3 %; Neutrophils # (auto) 6.57 K/uL (1.4-6.5); Neutrophils % (auto) 83.9 %; Platelet Count 267 K/uL (130-400); RDW Coefficient of Variation 15.2 % (11.5-14.5); RDW Standard Deviation 58.8 fL (36.4-46.3); Red Blood Count 3.91 M/uL (3.93-5.22); White Blood Count 7.83 K/ul (4.8-10.8)
[2022-06-08] MEDS ORDERED: OPTIRAY 350 100ml IV ONE (17:18)
[2022-06-08 17:27] LABS: Albumin Globulin Ratio 1.9 (0.9-2); Albumin Level 3.7 gm/dl (3.4-5.0); BUN Creatinine Ratio 21.7 (10-20); Calcium 9.1 mg/dl (8.5-10.1); Creatinine Clr Calc Pharmacy 57.9 ml/min; Est GFR (African American) 95.3 ml/min; Est GFR (Non-African American) 82.2 ml/min; Magnesium 1.7 mg/dl (1.7-2.4); Potassium 3.9 mmol/L (3.5-5.1); Total Protein 5.7 gm/dl (6.0-8.3)
[2022-06-08 17:31] LABS: Troponin I High Sensitivity 5.6 pg/ml (0-14)
[2022-06-08 17:41] LABS: Influenza A virus by PCR Negative (Neg); Influenza B virus by PCR Negative (Neg); RSV by PCR Negative (Neg)
[2022-06-08 17:44] LABS: SARS CoV2 RNA(COVID-19) Ceph POSITIVE (Negative)
--- NOTE | 2022-06-08 17:44 | CT Scan Report ---
CT SCAN OF THE BRAIN WITHOUT IV CONTRAST CLINICAL HISTORY: Headaches and dizziness. COMPARISON STUDY: CT of the brain dated 09/13/2020. TECHNIQUE: Unenhanced axial CT scan of the brain is performed from the vertex to the skull base. A do se lowering technique was utilized adhering to the principles of ALARA. CT DOSE: 537.48 mGy.cm FINDINGS: Brain parenchyma: There is age-related involutional change noting mild subcortical and periventricula r microangiopathic disease. There is no hemorrhage, mass effect, or evidence of acute territorial isc hemia by CT criteria. Toro-white matter differentiation is preserved. No extra-axial fluid collection is seen. Ventricles, sulci, cisterns: Prominent secondary to involutional change. Intracranial vasculature: There is atherosclerotic calcification of the cavernous carotid arteries. Calvarium: Unremarkable. Sinuses and mastoids: There is evidence of previous paranasal sinus surgery. The visualized paranasal sinuses are clear. The mastoid air cells are well pneumatized. Orbits: The bony orbits are grossly intact. IMPRESSION: There is no hemorrhage, mass effect, or evidence of acute territorial ischemia by CT harvey ash. ACT 112: Negative or not required by law. Electronically signed by: Saji Kennedy M.D. 06/08/2022 5:42 PM
[2022-06-08] MEDS: MAGNESIUM SULFATE / D5W 1 GM/100 ML BAG IV SCH ×2 (17:57→18:25)
[2022-06-08] MEDS ORDERED: METOCLOPRAMIDE HCL INJ 5 MG/ML 2 ML VIAL IV ONE (19:05)
--- NOTE | 2022-06-08 19:10 | History & Physical Report ---
Date of Service June 08, 2022 Assessment & Plan (1) Migraine with vertigo: Plan: Multiple episodes of similar presentations: previously resolved in the ER with Compazine/Benadryl/NSS bolus Did not take any medications for her migraine - generally confused about her medications but reportedly does have Imitrex nasal spray at home which she did not use Possibly exacerbated by chemo +/- COVID-19 Follow up UA to assess for infection although no specific urinary symptoms Give now Benadryl 25mg IV, LR 1L bolus, Sumatriptan 6mg SQ LR @ 100ml/hr overnight, ondansetron 8mg IV q6h PRN for nausea 1st line, Compazine 2nd line, diphenhydramine 3rd line Consider neurology consult if not improved by tomorrow Continue Topamax for prophylaxis. Previously on verapamil - unclear why this was discontinued but does not appear to have been prescribed in the last year there fore doubtful she is taking it. (2) COVID-19: Plan: Asymptomatic COVID vs. presymptomatic COVID vs false positive test COVID isolation precautions (3) Diarrhea: Plan: Started today Previous episodes also occurred with migraine however given patient on chemotherapy will take stool and c. diff PCR - given lack of colitis on CT (4) Generalized weakness: Plan: Multifactorial - migraine, vomiting, chemo, COVID PT/OT (5) AML (acute myeloblastic leukemia): Plan: Unclear if she should be taking allopurinol Continue Venetoclax 70mg PO daily Consult oncology to help with correct medications Levaquin discontinued due to ANC > 500 per oncology note Continue posaconazole 300mg PO daily Continue acyclovir 400mg PO BID (6) Rheumatoid arthritis: Plan: Patient no longer on methotrexate per last oncology note - will discontinue this on med rec (7) Diabetes: Plan: T2DM HbA1C 6.6 Hold metformin Defer basal dosing given unclear how much she will be eating Novolog: --Goal BSG Range: Low 110 mg/dL, High 140 mg/dL --Correction Factor: 45 mg/dL/unit --Carbohydrate ratio = 15 g/unit --BSGs ACHS if eating, q6h if npo (8) Urge and stress incontinence: Plan: Mirabegron 50mg PO daily Plan VTE Prophylaxis - SCDs, consider chemical prophylaxis if stay prolonged Diet - T2DM Disposition - observation status to med/surg Admission and Anticipated Discharge Date Admission Date: June 08, 2022 History of Present Illness Chief Complaint: Weakness, nausea, diarrhea and dizziness Primary Care Provider: Agueda Fowler DO Pam Mai is an 81 year old female who presents to the ER feeling of headache, weakness, nausea, diarrhea and dizziness. She reports symptoms have been ongoing for the last 4 days but getting progressively worse. Main concern is her nausea. She reports similar episodes with ER visits for migraines although they have not been as bad as this one. Also now having diarrhea (non- bloody) that started today, somewhat watery, this has also occurred with her previous migraines. Associated headache - milder than her usual migraines and not as pounding. Bilateral but right much worse than left. Severity 6-7/10. Very light sensitive and keeping her eyes closed. She did not take any of her usual migraine treatment as she is confused about her medications and just felt nauseous. Very dizzy which is similar to her previous vertigo (room spinning). Worse lying down and while turning her head. No lightheadedness. She gets similar occurrences "quite often" which occur with her migraines but also while bending over. Usually her symptoms resolve in the ER with migraine treatment. On review of [facility] she has been given combination of Compazine, diphenhydramine, fluid bolus and ondansetron in the past. Unfortunately the patient is unsure what medications she should be taking. She has a list printed out from her recent PCP visit although reports no longer being on medications on that list such as methotrexate. List on [facility] is also different than recent PCP visit. List from last oncology appointment is also different. In the ER she was given ondansetron and subsequently metoclopramide to good effect. She tested postiivie for SARS-COV-2 PCR but reports no URI symptoms or loss of taste or smell but her daughter reports she had a bad cold which she tested negative on a home test for over . Allergies Allergy/AdvReac Type Severity Reaction Status Date / Time codeine Allergy Severe VOMITING Verified 05/28/22 10:51 DROP IN BP morphine Allergy Severe DROP IN Verified 05/28/22 10:51 VITAL SIGNS, TREMORS, VOMITING oxycodone Allergy Severe drop in Verified 05/28/22 10:51 vital signs,tremors,vomiting adhesive AdvReac Intermediate "PULLS OFF Verified 05/28/22 10:51 SKIN" hydrocodone [From Vicodin] AdvReac Intermediate vomiting Verified 05/28/22 10:51 and tremors meperidine AdvReac Intermediate VOMITING Verified 05/28/22 10:51 pravastatin AdvReac Intermediate pains in Verified 05/28/22 10:51 arms and legs simvastatin AdvReac Intermediate pains in Verified 05/28/22 10:51 legs and arms cephalexin [From Keflex] AdvReac Mild Nausea Verified 05/28/22 10:51 aspirin [From Percodan] AdvReac Unknown unknown Verified 05/28/22 10:51 montelukast [From Singulair] AdvReac Unknown unknown Verified 05/28/22 10:51 Home Medications Medication Instructions Recorded Confirmed Type cholecalciferol (vitamin D3) 25 1,000 unit PO QAM 05/19/18 06/08/22 History mcg (1,000 unit) capsule (Vitamin D3) naproxen sodium 220 mg capsule 220 mg PO DIRECTED PRN Pain 05/19/18 06/08/22 History (Aleve) meclizine 25 mg tablet 25 mg PO TID PRN Dizziness #90 tabs 07/11/21 06/08/22 Rx sertraline 50 mg tablet 50 mg PO DAILY #90 tabs 11/06/21 06/08/22 Rx topiramate 100 mg tablet 100 mg PO BID #180 tabs 12/13/21 06/08/22 Rx zafirlukast 20 mg tablet 20 mg PO Q12H #180 tabs 04/02/22 06/08/22 Rx mirabegron 50 mg tablet,extended 50 mg PO DAILY #90 tabs 04/08/22 06/08/22 Rx release 24 hr alendronate 70 mg tablet (Fosamax) 70 mg PO WEEKLY #12 tabs 04/24/22 06/08/22 Rx metformin 1,000 mg tablet 1,000 mg PO BID #180 tabs 04/24/22 06/08/22 Rx acetaminophen 325 mg tablet 325 mg PO Q4H PRN headache 05/28/22 06/08/22 History acyclovir 400 mg tablet 400 mg PO BID 05/28/22 06/08/22 History albuterol sulfate 2.5 mg/3 mL 5 mg inhalation Q6H 05/28/22 06/08/22 History (0.083 %) solution for nebulization allopurinol 300 mg tablet 300 mg PO DAILY #30 tabs 05/28/22 05/28/22 Rx dexamethasone 4 mg tablet 8 mg PO .COMPLEX 05/28/22 06/08/22 History lansoprazole 30 mg capsule,delayed 30 mg PO DAILY 05/28/22 05/28/22 History release posaconazole 100 mg tablet,delayed 300 mg PO DAILY #90 tabs 05/28/22 06/08/22 Rx release venetoclax 10 mg tablet 20 mg PO DAILY #60 tabs 05/28/22 06/08/22 Rx venetoclax 50 mg tablet (Venclexta) 50 mg PO DAILY 05/28/22 06/08/22 History pantoprazole 40 mg tablet,delayed 40 mg PO QAM #180 tabs 06/06/22 06/08/22 Rx release Past Med/Surg History Medical History Allergic rhinitis AML (acute myeloblastic leukemia) (03/2022) Anxiety and depression Asthma Chronic sinusitis Diabetes Dyslipidemia Fibula fracture GERD (gastroesophageal reflux disease) Hypertension Insomnia Migraine Migraine headache Nontoxic multinodular goiter Osteopenia Rheumatoid arthritis Sensorineural hearing loss (SNHL) of both ears Urge and stress incontinence Vitamin D deficiency Surgical History S/P adenoidectomy S/P carpal tunnel release S/P cataract extraction S/P cholecystectomy S/P foot surgery S/P hysterectomy S/P medial meniscal repair S/P tonsillectomy S/P trigger finger release Family History Brother Myocardial infarction Heart disease Hypertension Father Arthritis Heart disease Mother , age 41 Leukemia Breast cancer Ovarian cancer Sister , age 64 Diabetes Brother Throat cancer Liver cirrhosis Denies family history of Prostate cancer Colorectal cancer Social History Smoking Status: Never smoker Second Hand Exposure: No; Do You Dip or Chew Tobacco: No; Tobacco Cessation Education Requested by Patient: No Hx Alcohol Use: No Hx Substance Use: No Preferred Language: Swedish Communication Ability: Effective Visual Impairment: No Limitations Hearing Ability: Normal Checkerer Hand Required: No Beliefs That Will Affect Care: None marital status: / Current Living Situation: Family Current Living Situation Comment: Lives with Granddaughter. 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 [employer] Other Information That Helps Us Care for You: No Feels Safe at Home: Yes Safety Concerns: Feels Safe At This Time Childhood Exposure to Second-Hand Smoke: Yes Diet Comment: regular caffeine: Yes (6 -8 cups coffee a day half caffeine ) during the past year weight has: remained stable Dental Care, Regularly: No Physical Activity Frequency: Daily Seatbelt Use: always Sunscreen Use: Yes Assistive Devices: Denture - Upper, Denture - Lower and Glasses Review of Systems Review of Systems: All systems reviewed & are unremarkable except as noted in HPI & below Physical Exam Constitutional: well developed, well nourished and + acute distress (nauseous) Eyes: PERRL, conjunctivae normal, anicteric sclerae EOM intact bilaterally; no nystagmus ENMT: external ear and nose normal, oropharynx normal Respiratory: normal respiratory effort, lungs clear to auscultation Cardiovascular: RRR, no murmur, no edema Gastrointestinal (Abdomen): normal bowel sounds, soft, nontender, no hepatosplenomegaly Musculoskeletal: no cyanosis or clubbing, extremities motor strength 5/5 Skin: no rashes, warm and dry Neurologic: moves all extremities and awake; not confused Psychiatric: A+Ox3, euthymic affect Results & Data Results & Data ([facility]) Vital Signs (Past 12 Hours) Vital Signs Temp Pulse Pulse Resp BP BP Pulse Ox 06/08/22 17:58 71 18 151/85 H 92 06/08/22 16:26 06/08/22 16:05 36.4 C L 93 H 18 118/75 99 O2 Del Method 06/08/22 17:58 Room Air 06/08/22 16:26 Room Air 06/08/22 16:05 Room Air Laboratory Results Abnormal lab results 06/08/22 06/08/22 06/08/22 Range/Units 16:44 16:44 16:44 RBC 3.91 L (3.93-5.22) M/uL MCV 105.6 H (80.0-100.0) fL MCH 35.3 H (25.0-34.0) pg RDW Std Deviation 58.8 H (36.4-46.3) fL RDW Coeff of [place] 15.2 H (11.5-14.5) % Neut # (Auto) 6.57 H (1.4-6.5) K/uL Lymph # (Auto) 0.61 L (1.2-3.4) K/uL Immature Gran # (Auto) 0.06 H (0.00-0.02) K/uL POC Total CO2 (24-31) mmol/L BUN/Creatinine Ratio 21.7 H (10-20) Glucose 118 H (70-99(Fasting)) mg/dl POC Glucose (other) (70-99) mg/dl Lactate 3.7 H* (0.4-2.0) mmol/L Total Protein 5.7 L (6.0-8.3) gm/dl Globulin 2.0 L (2.5-4.0) gm/dl SARS-CoV-2 (PCR) (Negative) 06/08/22 06/08/22 Range/Units 16:49 16:52 RBC (3.93-5.22) M/uL MCV (80.0-100.0) fL MCH (25.0-34.0) pg RDW Std Deviation (36.4-46.3) fL RDW Coeff of [place] (11.5-14.5) % Neut # (Auto) (1.4-6.5) K/uL Lymph # (Auto) (1.2-3.4) K/uL Immature Gran # (Auto) (0.00-0.02) K/uL POC Total CO2 22 L (24-31) mmol/L BUN/Creatinine Ratio (10-20) Glucose (70-99(Fasting)) mg/dl POC Glucose (other) 116 H (70-99) mg/dl Lactate (0.4-2.0) mmol/L Total Protein (6.0-8.3) gm/dl Globulin (2.5-4.0) gm/dl SARS-CoV-2 (PCR) POSITIVE A* (Negative) Diagnostic Findings SINGLE VIEW CHEST CLINICAL HISTORY: Generalized weakness. Vomiting and dizziness. FINDINGS: An AP, portable, upright chest radiograph is compared to study dated 08/26/2021 and correlated with chest CT dated 04/14/2022. The cardiomediastinal silhouette is top normal for projection noting atherosclerotic calcification of the thoracic aorta. Chronic interstitial thickening is similar to previous. There is chronic elevation of the left hemidiaphragm with bibasilar scarring/atelectasis. The lungs and pleural spaces are otherwise clear. No pneumothorax is seen. The skeletal structures are osteopenic. The bony thorax is grossly intact. Arthritic change is seen in the shoulders. IMPRESSION: No active disease in the chest. CT SCAN OF THE BRAIN WITHOUT IV CONTRAST CLINICAL HISTORY: Headaches and dizziness. COMPARISON STUDY: CT of the brain dated 09/13/2020. TECHNIQUE: Unenhanced axial CT scan of the brain is performed from the vertex to the skull base. A dose lowering technique was utilized adhering to the principles of ALARA. CT DOSE: 537.48 mGy.cm FINDINGS: Brain parenchyma: There is age-related involutional change noting mild subcortical and periventricular microangiopathic disease. There is no hemorrhage, mass effect, or evidence of acute territorial ischemia by CT criteria. Toro-white matter differentiation is preserved. No extra-axial fluid collection is seen. Ventricles, sulci, cisterns: Prominent secondary to involutional change. Intracranial vasculature: There is atherosclerotic calcification of the cavernous carotid arteries. Calvarium: Unremarkable. Sinuses and mastoids: There is evidence of previous paranasal sinus surgery. The visualized paranasal sinuses are clear. The mastoid air cells are well pneumatized. Orbits: The bony orbits are grossly intact. IMPRESSION: There is no hemorrhage, mass effect, or evidence of acute territorial ischemia by CT criteria. CT SCAN OF THE ABDOMEN AND PELVIS WITH IV CONTRAST CLINICAL HISTORY: Vomiting. Dizziness. Diarrhea. Leukemia. COMPARISON STUDY: Abdominal CT dated 04/14/2022. TECHNIQUE: Following the IV administration of 83 cc of Optiray 350, CT scan of the abdomen and pelvis is performed from the lung bases to the proximal femora. Images are reviewed in the axial, sagittal, and coronal planes. IV contrast was administered without complication. A dose lowering technique was utilized adhering to the principles of ALARA. CT DOSE: 395.86 mGy.cm FINDINGS: Lung bases: The heart is normal in size and without pericardial effusion. There is elevation of the left hemidiaphragm with associated basilar atelectasis. No airspace consolidation or pleural effusion is identified. A fat-containing B ochdalek hernia is seen on the right. There is a tiny hiatal hernia. Liver: The contrast-enhanced liver is normal in size, contour, and attenuation. There is mild intrahepatic biliary ductal dilatation. The hepatic veins and portal veins are patent. Gallbladder: Surgically absent noting clips in the gallbladder fossa. Spleen: Normal in size and attenuation, measuring 11.3 cm in length. Pancreas: Unremarkable. Adrenal glands: Unremarkable. Kidneys: The contrast enhanced kidneys demonstrate cortical atrophy and are without hydronephrosis. The kidneys enhance symmetrically. There are bilateral renal cysts. The largest arises from the left upper pole and measures 6.2 cm. Additional subcentimeter cortical hypodensities also likely represent cysts but are too small for definitive characterization. A 4 mm nonobstructing calculus is noted in the left kidney. Abdominal vasculature: The abdominal aorta is normal in course and caliber noting moderate atherosclerotic calcification. Bowel: There is rectosigmoid fecal retention and moderate constipation. No bowel obstruction is seen. There is moderate colonic diverticulosis without CT evidence of acute diverticulitis. The appendix is well-visualized and normal. Peritoneum: There is no intraperitoneal free air or abdominal ascites. Lymphadenopathy: None. Pelvic viscera: A punctate bladder calculus is noted on image #395. The bladder is otherwise normal as visualized. The uterus is surgically absent. No adnexal lesion is seen. Skeletal structures: The skeletal structures are heterogeneously osteopenic. There is moderate lumbosacral spondylosis and scoliosis. No lytic or blastic lesions are seen. IMPRESSION: 1. No acute infectious or inflammatory findings are identified in the abdomen or pelvis. 2. Colonic diverticulosis without CT evidence of acute diverticulosis. 3. Left-sided nephrolithiasis. 4. Punctate bladder calculus. 5. Additional findings as above. Medications Administered ER medications given: NSS 1 hour bolus Ondansetron 4 mg IV Mag sulfate 1 g IV Metoclopramide 5 mg IV ECG Rate (beats per minute): 81 Rhythm: normal sinus Findings: + PVC; no acute ischemic change Comparison ECG Date: from (May 04, 2022) Change: the following changes noted (PVCs now present, PACs no longer present) Code Status & VTE Plan Code Status Full VTE Prophylaxis Plan VTE Prophylaxis will be ordered: Yes PG Care Time/CCT Total # of Minutes Spent Total Time Spent with Patient: Total time spent is greater than 50% in coordination of care (as documented) at patient's floor/unit and/or counseling patient: Coding Level of Care Code 57188 INT INP/OBS CARE 3/75MIN Diagnoses Migraine with vertigo G43.109 COVID-19 U07.1 Diarrhea R19.7 Generalized weakness R53.1 AML (acute myeloblastic leukemia) C92.00 Rheumatoid arthritis M06.9 Diabetes E11.9 Urge and stress incontinence N39.46
--- NOTE | 2022-06-08 19:20 | CT Scan Report ---
CT SCAN OF THE ABDOMEN AND PELVIS WITH IV CONTRAST CLINICAL HISTORY: Vomiting. Dizziness. Diarrhea. Leukemia. COMPARISON STUDY: Abdominal CT dated 04/14/2022. TECHNIQUE: Following the IV administration of 83 cc of Optiray 350, CT scan of the abdomen and pelvi s is performed from the lung bases to the proximal femora. Images are reviewed in the axial, sagittal , and coronal planes. IV contrast was administered without complication. A dose lowering technique wa s utilized adhering to the principles of ALARA. CT DOSE: 395.86 mGy.cm FINDINGS: Lung bases: The heart is normal in size and without pericardial effusion. There is elevation of the l eft hemidiaphragm with associated basilar atelectasis. No airspace consolidation or pleural effusion is identified. A fat-containing [place]dalek hernia is seen on the right. There is a tiny hiatal hernia. Liver: The contrast-enhanced liver is normal in size, contour, and attenuation. There is mild intrahe patic biliary ductal dilatation. The hepatic veins and portal veins are patent. Gallbladder: Surgically absent noting clips in the gallbladder fossa. Spleen: Normal in size and attenuation, measuring 11.3 cm in length. Pancreas: Unremarkable. Adrenal glands: Unremarkable. Kidneys: The contrast enhanced kidneys demonstrate cortical atrophy and are without hydronephrosis. T he kidneys enhance symmetrically. There are bilateral renal cysts. The largest arises from the left u pper pole and measures 6.2 cm. Additional subcentimeter cortical hypodensities also likely represent cysts but are too small for definitive characterization. A 4 mm nonobstructing calculus is noted in t he left kidney. Abdominal vasculature: The abdominal aorta is normal in course and caliber noting moderate atheroscle rotic calcification. Bowel: There is rectosigmoid fecal retention and moderate constipation. No bowel obstruction is seen. There is moderate colonic diverticulosis without CT evidence of acute diverticulitis. The appendix i s well-visualized and normal. Peritoneum: There is no intraperitoneal free air or abdominal ascites. Lymphadenopathy: None. Pelvic viscera: A punctate bladder calculus is noted on image #395. The bladder is otherwise normal a s visualized. The uterus is surgically absent. No adnexal lesion is seen. Skeletal structures: The skeletal structures are heterogeneously osteopenic. There is moderate lumbos acral spondylosis and scoliosis. No lytic or blastic lesions are seen. IMPRESSION: 1. No acute infectious or inflammatory findings are identified in the abdomen or pelvis. 2. Colonic diverticulosis without CT evidence of acute diverticulosis. 3. Left-sided nephrolithiasis. 4. Punctate bladder calculus. 5. Additional findings as above. ACT 112: Negative or not required by law. Electronically signed by: Saji Kennedy M.D. 06/08/2022 7:17 PM
[2022-06-08 19:29] LABS: Prothrombin Time 10.7 Seconds (9.0-12.0)
[2022-06-08] MEDS ORDERED: diphenhydrAMINE 50 MG/ML VIAL IV STA (19:58)
[2022-06-08] MEDS ORDERED: FAMOTIDINE 20 MG in SYRINGE 3 ML IV STA (20:21)
[2022-06-08] MEDS ORDERED: PANTOprazole 40 MG in SYRINGE 0 ML IV ONE (20:21)
[2022-06-08] MEDS ORDERED: LACTATED RINGER'S 1,000 ML IV ONE (20:32)
[2022-06-08] MEDS ORDERED: SUMAtriptan succinate 6 MG/0.5 ML VIAL SQ STA (20:57)
[2022-06-08] MEDS ORDERED: ONDANSETRON INJ 2 MG/ML 2 ML VIAL IV PRN ×2 (20:57→22:18)
[2022-06-08] MEDS ORDERED: GLUCAGON FOR INJ 1 MG VIAL SQ PRN (21:45)
[2022-06-08] MEDS ORDERED: GLUCOSE 40% GEL 15 GM TUBE PO PRN (21:45)
[2022-06-08] MEDS ORDERED: DEXTROSE 50% 50 ML SYRINGE IV PRN (21:45)
[2022-06-08] MEDS ORDERED: GLUCOSE 10 TAB/TUBE PO PRN (21:45)
[2022-06-08] MEDS ORDERED: CARBOHYDRATES FOR HYPOGLYCEMIA PO PRN (21:45)
[2022-06-08] MEDS ORDERED: PROCHLORPERAZINE 10 MG in SYRINGE 8 ML IV PRN (22:15)
[2022-06-08] MEDS: ACYCLOVIR 400 MG TAB PO SCH (22:36)
[2022-06-08] MEDS: TOPIRAMATE 100 MG TAB PO SCH (22:37)
[2022-06-08] MEDS ORDERED: diphenhydrAMINE 50 MG/ML VIAL IV PRN (22:39)
[2022-06-08] MEDS: POSACONAZOLE~ORDER AWAITING ACTION SCH (22:46)
[2022-06-08] MEDS: LACTATED RINGER'S 1,000 ML IV SCH (23:44)
[2022-06-08 23:45] LABS: Appearance Urine Clear (Clear); Bilirubin Urine Negative (Negative); Blood Urine Negative (Negative); Color Urine Yellow; Glucose Urine UA Negative (Negative); Ketones Urine Negative (Negative); Leukocyte Esterase Urine Negative (Negative); Nitrite Urine Negative (Negative); Protein Urine Negative (Negative); Specific Gravity Urine 1.013 (1.000-1.030); Urobilinogen Urine Negative (Negative); pH Urine 6.5 (4.5-7.5)
[2022-06-09 06:56] LABS: Hematocrit (blood only) 37.4 % (34.1-44.9); Hemoglobin 12.5 g/dl (12.0-16.0); Immature Granulocytes # (auto) 0.04 K/uL (0.00-0.02); Immature Granulocytes % (auto) 0.7 %; Lymphocytes # (auto) 0.61 K/uL (1.2-3.4); Lymphocytes % (auto) 10.4 %; Mean Corpuscular Hemoglobin 34.9 pg (25.0-34.0); Mean Corpuscular Hgb Conc 33.4 g/dL (32.0-36.0); Mean Corpuscular Volume 104.5 fL (80.0-100.0); Mean Platelet Volume 10.5 fL (9.4-12.3); Monocytes # (auto) 0.46 K/uL (0.24-0.82); Monocytes % (auto) 7.9 %; Neutrophils # (auto) 4.74 K/uL (1.4-6.5); Platelet Count 244 K/uL (130-400); RDW Standard Deviation 58.1 fL (36.4-46.3); Red Blood Count 3.58 M/uL (3.93-5.22); White Blood Count 5.85 K/ul (4.8-10.8)
[2022-06-09 07:20] LABS: Albumin Globulin Ratio 1.8 (0.9-2); Albumin Level 3.2 gm/dl (3.4-5.0); BUN Creatinine Ratio 15.4 (10-20); Bilirubin,Total 1.1 mg/dl (0.2-1.0); Calcium 8.2 mg/dl (8.5-10.1); Creatinine Clr Calc Pharmacy 60.9 ml/min; Est GFR (African American) 97.2 ml/min; Est GFR (Non-African American) 83.9 ml/min; Globulin 1.8 gm/dl (2.5-4.0); Potassium 3.9 mmol/L (3.5-5.1)
[2022-06-09] MEDS: INSULIN ASPART PER UNIT SC SCH ×4 (08:58→20:42)
[2022-06-09] MEDS: POSACONAZOLE~ORDER AWAITING ACTION SCH ×3 (09:11→22:52)
[2022-06-09] MEDS: MIRABEGRON ER 25 MG TAB PO SCH (09:13)
[2022-06-09] MEDS: ACYCLOVIR 400 MG TAB PO SCH ×2 (09:13→20:29)
[2022-06-09] MEDS: CHOLECALCIFEROL 1,000 UNITS 25 MCG TAB PO SCH (09:13)
[2022-06-09] MEDS: TOPIRAMATE 100 MG TAB PO SCH ×2 (09:13→20:29)
[2022-06-09] MEDS: SERTRALINE HCL 50 MG TABLET PO SCH (09:14)
[2022-06-09] MEDS: ondansetron HCL 8 MG in DEXTROSE 5% 50 ML IV PRN ×2 (09:29→16:43)
[2022-06-09] MEDS: LACTATED RINGER'S 1,000 ML IV SCH (09:29)
--- NOTE | 2022-06-09 14:28 | Electrocardiogram Report ---
Test Reason : Blood Pressure : / mmHG Vent. Rate : 081 BPM Atrial Rate : 081 BPM P-R Int : 178 ms QRS Dur : 072 ms QT Int : 366 ms P-R-T Axes : 051 042 071 degrees QTc Int : 425 ms Sinus rhythm with occasional Premature ventricular complexes Otherwise normal ECG When compared with ECG of 04-MAY-2022 05:37, Premature ventricular complexes are now Present Premature atrial complexes are no longer Present Confirmed by Jaime Mackenzie ([id number]) on 06/09/2022 2:28:00 PM Referred By: REFERRED SELF Confirmed By:Jaime Mackenzie
[2022-06-09] MEDS ORDERED: GADOBUTROL 65ML VIAL IV ONE (19:08)
--- NOTE | 2022-06-09 20:29 | Magnetic Resonance Report ---
Brain MRI WITH AND WITHOUT CONTRAST HISTORY: dizziness/ brain mets TECHNIQUE: Multiplanar multisequence MRI of the brain was performed both before and after the intrave nous administration of contrast. COMPARISON STUDY: Head CT 06/08/2022. Brain MRI 09/14/2020. FINDINGS: There is no mass, hematoma, midline shift, or acute infarct. The paranasal sinuses are payton r. The mastoid air cells are clear. The ventricles and sulci demonstrate moderate age-related involut ional changes. Scattered foci of T2 hyperintensity seen within the periventricular and subcortical wh ite matter are nonspecific but suggestive of moderate microvascular ischemic changes. The major vascu lar flow voids at the skull base are well-maintained. Prior bilateral lens replacement. No abnormal e nhancement within the brain. Specifically, no evidence for intracranial metastatic disease. The 7th and 8th cranial nerves are normal and course and caliber. No abnormal enhancement or masses w ithin the internal auditory canals. IMPRESSION: 1. No acute intracranial abnormality. 2. No evidence for intracranial metastatic disease. 3. Normal bilateral internal auditory canals. ACT 112: Negative or not required by law. Electronically signed by: Solomon Hector M.D. 06/09/2022 8:27 PM
--- NOTE | 2022-06-09 22:14 | Hospitalist Progress Note ---
Date of Service June 09, 2022 Assessment & Plan (1) Migraine with vertigo: Plan: Multiple episodes of similar presentations: previously resolved in the ER with Compazine/Benadryl/NSS bolus Did not take any medications for her migraine - generally confused about her medications but reportedly does have Imitrex nasal spray at home which she did not use Possibly exacerbated by chemo +/- COVID-19 Follow up UA to assess for infection although no specific urinary symptoms Give now Benadryl 25mg IV, LR 1L bolus, Sumatriptan 6mg SQ LR @ 100ml/hr overnight, ondansetron 8mg IV q6h PRN for nausea 1st line, Compazine 2nd line, diphenhydramine 3rd line On 06/09 patient had dizziness. ounds peripheral, will obtain MR brain. will consult neurology. Continue Topamax for prophylaxis. Previously on verapamil - unclear why this was discontinued but does not appear to have been prescribed in the last year therefore doubtful she is taking it. (2) COVID-19: Plan: Asymptomatic COVID vs. presymptomatic COVID vs false positive test COVID isolation precautions (3) Diarrhea: Plan: Started today Previous episodes also occurred with migraine however given patient on chemotherapy will take stool and c. diff PCR - given lack of colitis on CT appears to be improving. (4) Generalized weakness: Plan: Multifactorial - migraine, vomiting, chemo, COVID PT/OT (5) AML (acute myeloblastic leukemia): Plan: Unclear if she should be taking allopurinol Continue Venetoclax 70mg PO daily Consult oncology to help with correct medications Levaquin discontinued due to ANC > 500 per oncology note Continue posaconazole 300mg PO daily Continue acyclovir 400mg PO BID (6) Rheumatoid arthritis: Plan: Patient no longer on methotrexate per last oncology note - will discontinue this on med rec (7) Diabetes: Plan: T2DM HbA1C 6.6 Hold metformin Defer basal dosing given unclear how much she will be eating Novolog: --Goal BSG Range: Low 110 mg/dL, High 140 mg/dL --Correction Factor: 45 mg/dL/unit --Carbohydrate ratio = 15 g/unit --BSGs ACHS if eating, q6h if npo (8) Urge and stress incontinence: Plan: Mirabegron 50mg PO daily Plan VTE Prophylaxis - SCDs, consider chemical prophylaxis if stay prolonged Diet - T2DM Admission and Anticipated Discharge Date Admission Date: June 09, 2022 Subjective Patient reports she contiues to have dizziness today. Review of Systems Review of Systems: All systems reviewed & are unremarkable except as noted in HPI & below Physical Exam Physical Exam: Constitutional: well developed, well nourished and + acute distress (nauseous) Eyes: PERRL, conjunctivae normal, anicteric sclerae EOM intact bilaterally; no nystagmus ENMT: external ear and nose normal, oropharynx normal Respiratory: normal respiratory effort, lungs clear to auscultation Cardiovascular: RRR, no murmur, no edema Gastrointestinal (Abdomen): normal bowel sounds, soft, nontender, no hepatosplenomegaly Musculoskeletal: no cyanosis or clubbing, extremities motor strength 5/5 Skin: no rashes, warm and dry Neurologic: moves all extremities and awake; not confused Psychiatric: A+Ox3, euthymic affect Results & Data Results & Data ([facility]) Vital Signs (Past 12 Hours) Vital Signs Temp Pulse Resp BP Pulse Ox O2 Del Method 06/09/22 20:25 36.5 C 65 14 116/76 95 Room Air 06/09/22 17:38 36.5 C 83 16 134/85 96 Room Air PG Care Time/CCT Total # of Minutes Spent Total Time Spent with Patient: Total time spent is greater than 50% in coordination of care (as documented) at patient's floor/unit and/or counseling patient: Coding Level of Care Code 75844 SUB INP/OBS CARE 2/35MIN Diagnoses Migraine with vertigo G43.109 COVID-19 U07.1 Diarrhea R19.7 Generalized weakness R53.1 AML (acute myeloblastic leukemia) C92.00 Rheumatoid arthritis M06.9 Diabetes E11.9 Urge and stress incontinence N39.46
[2022-06-09] MEDS: ZAFIRLUKAST 20 MG PO SCH (22:29)
[2022-06-10 06:39] LABS: Hematocrit (blood only) 35.8 % (34.1-44.9); Hemoglobin 11.9 g/dl (12.0-16.0); Mean Corpuscular Hemoglobin 34.9 pg (25.0-34.0); Mean Corpuscular Hgb Conc 33.2 g/dL (32.0-36.0); Mean Platelet Volume 10.1 fL (9.4-12.3); Platelet Count 218 K/uL (130-400); RDW Coefficient of Variation 14.9 % (11.5-14.5); RDW Standard Deviation 58.9 fL (36.4-46.3); Red Blood Count 3.41 M/uL (3.93-5.22); White Blood Count 5.11 K/ul (4.8-10.8)
[2022-06-10] MEDS: ZAFIRLUKAST 20 MG PO SCH (06:51)
[2022-06-10 07:17] LABS: Albumin Globulin Ratio 1.7 (0.9-2); Albumin Level 3.2 gm/dl (3.4-5.0); BUN Creatinine Ratio 16.9 (10-20); Bilirubin,Total 0.8 mg/dl (0.2-1.0); Creatinine Clr Calc Pharmacy 51.4 ml/min; Est GFR (African American) 84.5 ml/min; Est GFR (Non-African American) 72.9 ml/min; Globulin 1.9 gm/dl (2.5-4.0); Potassium 3.8 mmol/L (3.5-5.1); Total Protein 5.1 gm/dl (6.0-8.3)
[2022-06-10] MEDS: POSACONAZOLE~ORDER AWAITING ACTION SCH ×2 (07:28→16:08)
--- NOTE | 2022-06-10 07:53 | Consultation ---
Date of Consultation June 10, 2022 Assessment & Plan (1) AML (acute myeloblastic leukemia): AML was intermediate risk by its genetic profile but presented with a somewhat "smoldering" picture and in particular relatively stable neutrophil, hemoglobin, and platelet counts which have further improved to essentially normal range through 2 cycles of induction chemotherapy. Current automated differential does not suggest the presence of blasts but I will ask for formal pathologist review to confirm that For the moment the immediate issue is to optimize her recovery from COVID19. Venetoclax may contribute to her diarrhea so we will suggest that we suspend that for now. She does not need immediate levofloxacin with normal neutrophil count and I would not horta to myeloid growth factor support in the absence of more severe neutropenia. At discharge would suggest that she continue to hold her venetoclax and we will see her in short order in outpatient follow-up with in the office and decide if/when we can restart that perhaps with initial dose reduction. I would keep her on her acyclovir and posaconazole prophylaxis at discharge. We are rechecking her uric acid but she is well out from initial induction so she should no longer need allopurinol and that has been discontinued Plan 1. She does not need allopurinol unless the pending uric acid is unexpectedly elevated 2. Will hold her venetoclax for now until her GI symptoms stabilize and we can discuss as an outpatient a potential reduction in dose and resumption 3. Would continue her posaconazole and acyclovir at discharge 4. She should be instructed to contact us immediately or come to the ED for any fevers of 100.5 or greater or any unusual bruising or bleeding 5. We will make arrangements for continued blood work follow-up as an outpatient when she is discharged and I will plan to see her early next week History of Present Illness Reason for Consultation: Patient with recently diagnosed smoldering acute myeloid leukemia initiated on azacitidine/venetoclax induction which started 04/14/2022 now admitted with headaches, diarrhea, and conversion of COVID19 serology positive. Attending Physician: Bal Ely History of Present Illness Patient had presented at the end of March with a peripheral smear showing blasts and 04/14/[address] [facility] showing 42% blasts. There was no FLT3 mutation detected, FISH probes for characteristic t (8/;21) and inversion 16 rearrangement were negative, there was no rearrangement of the MLL locus, no TP 53 deletion/mutation and no evidence of a t's (15;17) rearrangement. She was felt to have intermediate risk and re latively smoldering presentation with reasonably stable baseline blood count. She was started on azacitidine/venetoclax receiving her first cycle at [place] 04/17- and then cycle 2 started on 05/27/2022 here. She continues on supportive therapy with posaconazole 300 mg daily, allopurinol has continued to 300 mg daily, acyclovir 400 mg twice daily, and initial levofloxacin note that had been dropped with the stabilization of her ANC. She has required no transfusions to date. She is now admitted with headache and diarrhea has a seroconversion of COVID19 positive. Seen today 48 hours after admission she already feels much improved. Allergies Allergy/AdvReac Type Severity Reaction Status Date / Time codeine Allergy Severe VOMITING Verified 05/28/22 10:51 DROP IN BP morphine Allergy Severe DROP IN Verified 05/28/22 10:51 VITAL SIGNS, TREMORS, VOMITING oxycodone Allergy Severe drop in Verified 05/28/22 10:51 vital signs,tremors,vomiting adhesive AdvReac Intermediate "PULLS OFF Verified 05/28/22 10:51 SKIN" hydrocodone [From Vicodin] AdvReac Intermediate vomiting Verified 05/28/22 10:51 and tremors meperidine AdvReac Intermediate VOMITING Verified 05/28/22 10:51 pravastatin AdvReac Intermediate pains in Verified 05/28/22 10:51 arms and legs simvastatin AdvReac Intermediate pains in Verified 05/28/22 10:51 legs and arms cephalexin [From Keflex] AdvReac Mild Nausea Verified 05/28/22 10:51 aspirin [From Percodan] AdvReac Unknown unknown Verified 05/28/22 10:51 montelukast [From Singulair] AdvReac Unknown unknown Verified 05/28/22 10:51 Home Medications Medication Instructions Recorded Confirmed Type cholecalciferol (vitamin D3) 25 1,000 unit PO QAM 05/19/18 06/08/22 History mcg (1,000 unit) capsule (Vitamin D3) naproxen sodium 220 mg capsule 220 mg PO DIRECTED PRN Pain 05/19/18 06/08/22 History (Aleve) meclizine 25 mg tablet 25 mg PO TID PRN Dizziness #90 tabs 07/11/21 06/08/22 Rx sertraline 50 mg tablet 50 mg PO DAILY #90 tabs 11/06/21 06/08/22 Rx topiramate 100 mg tablet 100 mg PO BID #180 tabs 12/13/21 06/08/22 Rx zafirlukast 20 mg tablet 20 mg PO Q12H #180 tabs 04/02/22 06/08/22 Rx mirabegron 50 mg tablet,extended 50 mg PO DAILY #90 tabs 04/08/22 06/08/22 Rx release 24 hr alendronate 70 mg tablet (Fosamax) 70 mg PO WEEKLY #12 tabs 04/24/22 06/08/22 Rx metformin 1,000 mg tablet 1,000 mg PO BID #180 tabs 04/24/22 06/08/22 Rx acetaminophen 325 mg tablet 325 mg PO Q4H PRN headache 05/28/22 06/08/22 History acyclovir 400 mg tablet 400 mg PO BID 05/28/22 06/08/22 History albuterol sulfate 2.5 mg/3 mL 5 mg inhalation Q6H 05/28/22 06/08/22 History (0.083 %) solution for nebulization allopurinol 300 mg tablet 300 mg PO DAILY #30 tabs 05/28/22 05/28/22 Rx dexamethasone 4 mg tablet 8 mg PO .COMPLEX 05/28/22 06/08/22 History lansoprazole 30 mg capsule,delayed 30 mg PO DAILY 05/28/22 05/28/22 History release posaconazole 100 mg tablet,delayed 300 mg PO DAILY #90 tabs 05/28/22 06/08/22 Rx release venetoclax 10 mg tablet 20 mg PO DAILY #60 tabs 05/28/22 06/08/22 Rx venetoclax 50 mg tablet (Venclexta) 50 mg PO DAILY 05/28/22 06/08/22 History pantoprazole 40 mg tablet,delayed 40 mg PO QAM #180 tabs 06/06/22 06/08/22 Rx release Patient History Medical History Allergic rhinitis AML (acute myeloblastic leukemia) (03/2022) Anxiety and depression Asthma Chronic sinusitis Diabetes Dyslipidemia Fibula fracture GERD (gastroesophageal reflux disease) Hypertension Insomnia Migraine Migraine headache Nontoxic multinodular goiter Osteopenia Rheumatoid arthritis Sensorineural hearing loss (SNHL) of both ears Urge and stress incontinence Vitamin D deficiency Surgical History S/P adenoidectomy S/P carpal tunnel release S/P cataract extraction S/P cholecystectomy S/P foot surgery S/P hysterectomy S/P medial meniscal repair S/P tonsillectomy S/P trigger finger release Family History Brother Myocardial infarction Heart disease Hypertension Father Arthritis Heart disease Mother , age 41 Leukemia Breast cancer Ovarian cancer Sister , age 64 Diabetes Brother Throat cancer Liver cirrhosis Denies family history of Prostate cancer Colorectal cancer Social History Smoking Status: Never smoker Second Hand Exposure: No; Do You Dip or Chew Tobacco: No; Tobacco Cessation Education Requested by Patient: No Hx Alcohol Use: No Hx Substance Use: No Preferred Language: Croatian Communication Ability: Effective Visual Impairment: No Limitations Hearing Ability: Normal Wheel Fitter Required: No Beliefs That Will Affect Care: None marital status: / Current Living Situation: Family Current Living Situation Comment: Lives with Granddaughter. 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 [employer] Other Information That Helps Us Care for You: No Feels Safe at Home: Yes Safety Concerns: Feels Safe At This Time Childhood Exposure to Second-Hand Smoke: Yes Diet Comment: regular caffeine: Yes (6 -8 cups coffee a day half caffeine ) during the past year weight has: remained stable Dental Care, Regularly: No Physical Activity Frequency: Daily Seatbelt Use: always Sunscreen Use: Yes Assistive Devices: Cane and Walker Physical Exam Physical Exam: Vital signs are stable, she is afebrile, not tachycardic, respirations are nonlabored and pulse ox is 96% on room air Lung cardiac and abdominal exam seems stable Neurologically she seems stable with completely intact cognitive function and no meningismus Results & Data ([facility]) Vital Signs (Past 12 Hours) Vital Signs Temp Pulse Resp BP Pulse Ox O2 Del Method 06/09/22 20:30 Room Air 06/09/22 20:25 36.5 C 65 14 116/76 95 Room Air Laboratory Results Laboratory Results - last 24 hr 06/09/22 06/09/22 06/09/22 08:12 12:04 17:00 WBC RBC Hgb Hct MCV MCH MCHC RDW Std Deviation RDW Coeff of [place] Plt Count MPV Sodium Potassium Chloride Carbon Dioxide Anion Gap BUN Creatinine Est Cr Clr Drug Dosing Est GFR ( Amer) Est GFR (Non-Af Amer) BUN/Creatinine Ratio Glucose POC Glucose 88 86 119 H Uric Acid Calcium Total Bilirubin AST ALT Alkaline Phosphatase B-Natriuretic Peptide Total Protein Albumin Globulin Albumin/Globulin Ratio 06/09/22 06/10/22 06/10/22 20:33 06:22 06:22 WBC 5.11 RBC 3.41 L Hgb 11.9 L Hct 35.8 MCV 105.0 H MCH 34.9 H MCHC 33.2 RDW Std Deviation 58.9 H RDW Coeff of [place] 14.9 H Plt Count 218 MPV 10.1 Sodium 141 Potassium 3.8 Chloride 113 H Carbon Dioxide 24 Anion Gap 4 BUN 13 Creatinine 0.77 Est Cr Clr Drug Dosing 51.4 Est GFR ( Amer) 84.5 Est GFR (Non-Af Amer) 72.9 BUN/Creatinine Ratio 16.9 Glucose 98 POC Glucose 103 H Uric Acid Calcium 8.0 L Total Bilirubin 0.8 AST 13 ALT 10 Alkaline Phosphatase 38 B-Natriuretic Peptide Total Protein 5.1 L Albumin 3.2 L Globulin 1.9 L Albumin/Globulin Ratio 1.7 06/10/22 06/10/22 06:22 06:22 WBC RBC Hgb Hct MCV MCH MCHC RDW Std Deviation RDW Coeff of [place] Plt Count MPV Sodium Potassium Chloride Carbon Dioxide Anion Gap BUN Creatinine Est Cr Clr Drug Dosing Est GFR ( Amer) Est GFR (Non-Af Amer) BUN/Creatinine Ratio Glucose POC Glucose Uric Acid 4.8 Calcium Total Bilirubin AST ALT Alkaline Phosphatase B-Natriuretic Peptide 41 Total Protein Albumin Globulin Albumin/Globulin Ratio Diagnostic Findings Head CT 06/08/22 16:22 CT SCAN OF THE BRAIN WITHOUT IV CONTRAST CLINICAL HISTORY: Headaches and dizziness. COMPARISON STUDY: CT of the brain dated 09/13/2020. TECHNIQUE: Unenhanced axial CT scan of the brain is performed from the vertex to the skull base. A dose lowering technique was utilized adhering to the principles of ALARA. CT DOSE: 537.48 mGy.cm FINDINGS: Brain parenchyma: There is age-related involutional change noting mild subcortical and periventricular microangiopathic disease. There is no hemorrhage, mass effect, or evidence of acute territorial ischemia by CT criteria. Toro-white matter differentiation is preserved. No extra-axial fluid collection is seen. Ventricles, sulci, cisterns: Prominent secondary to involutional change. Intracranial vasculature: There is atherosclerotic calcification of the cavernous carotid arteries. Calvarium: Unremarkable. Sinuses and mastoids: There is evidence of previous paranasal sinus surgery. The visualized paranasal sinuses are clear. The mastoid air cells are well pneumatized. Orbits: The bony orbits are grossly intact. IMPRESSION: There is no hemorrhage, mass effect, or evidence of acute territorial ischemia by CT criteria. ACT 112: Negative or not required by law. Electronically signed by: Saji Kennedy M.D. 06/08/2022 5:42 PM Chest X-Ray 06/08/22 16:23 SINGLE VIEW CHEST CLINICAL HISTORY: Generalized weakness. Vomiting and dizziness. FINDINGS: An AP, portable, upright chest radiograph is compared to study dated 08/26/2021 and correlated with chest CT dated 04/14/2022. The cardiomediastinal silhouette is top normal for projection noting atherosclerotic calcification of the thoracic aorta. Chronic interstitial thickening is similar to previous. There is chronic elevation of the left hemidiaphragm with bibasilar scarring/atelectasis. The lungs and pleural spaces are otherwise clear. No pneumothorax is seen. The skeletal structures are osteopenic. The bony thorax is grossly intact. Arthritic change is seen in the shoulders. IMPRESSION: No active disease in the chest. ACT 112: Negative or not required by law. Electronically signed by: Saji Kennedy M.D. 06/08/2022 4:36 PM Abdomen/Pelvis CT 06/08/22 16:26 CT SCAN OF THE ABDOMEN AND PELVIS WITH IV CONTRAST CLINICAL HISTORY: Vomiting. Dizziness. Diarrhea. Leukemia. COMPARISON STUDY: Abdominal CT dated 04/14/2022. TECHNIQUE: Following the IV administration of 83 cc of Optiray 350, CT scan of the abdomen and pelvis is performed from the lung bases to the proximal femora. Images are reviewed in the axial, sagittal, and coronal planes. IV contrast was administered without complication. A dose lowering technique was utilized adhering to the principles of ALARA. CT DOSE: 395.86 mGy.cm FINDINGS: Lung bases: The heart is normal in size and without pericardial effusion. There is elevation of the left hemidiaphragm with associated basilar atelectasis. No airspace consolidation or pleural effusion is identified. A fat-containing [place]dalek hernia is seen on the right. There is a tiny hiatal hernia. Liver: The contrast-enhanced liver is normal in size, contour, and attenuation. There is mild intrahepatic biliary ductal dilatation. The hepatic veins and portal veins are patent. Gallbladder: Surgically absent noting clips in the gallbladder fossa. Spleen: Normal in size and attenuation, measuring 11.3 cm in length. Pancreas: Unremarkable. Adrenal glands: Unremarkable. Kidneys: The contrast enhanced kidneys demonstrate cortical atrophy and are without hydronephrosis. The kidneys enhance symmetrically. There are bilateral renal cysts. The largest arises from the left upper pole and measures 6.2 cm. Additional subcentimeter cortical hypodensities also likely represent cysts but are too small for definitive characterization. A 4 mm nonobstructing calculus is noted in the left kidney. Abdominal vasculature: The abdominal aorta is normal in course and caliber noting moderate atherosclerotic calcification. Bowel: There is rectosigmoid fecal retention and moderate constipation. No bowel obstruction is seen. There is moderate colonic diverticulosis without CT evidence of acute diverticulitis. The appendix is well-visualized and normal. Peritoneum: There is no intraperitoneal free air or abdominal ascites. Lymphadenopathy: None. Pelvic viscera: A punctate bladder calculus is noted on image #[id number]. The bladder is otherwise normal as visualized. The uterus is surgically absent. No adnexal lesion is seen. Skeletal structures: The skeletal structures are heterogeneously osteopenic. There is moderate lumbosacral spondylosis and scoliosis. No lytic or blastic lesions are seen. IMPRESSION: 1. No acute infectious or inflammatory findings are identified in the abdomen or pelvis. 2. Colonic diverticulosis without CT evidence of acute diverticulosis. 3. Left-sided nephrolithiasis. 4. Punctate bladder calculus. 5. Additional findings as above. ACT 112: Negative or not required by law. Electronically signed by: Saji Kennedy M.D. 06/08/2022 7:17 PM Internal Auditory Canal MRI 06/09/22 15:55 Brain MRI WITH AND WITHOUT CONTRAST HISTORY: dizziness/ brain mets TECHNIQUE: Multiplanar multisequence MRI of the brain was performed both before and after the intravenous administration of contrast. COMPARISON STUDY: Head CT 06/08/2022. Brain MRI 09/14/2020. FINDINGS: There is no mass, hematoma, midline shift, or acute infarct. The paranasal sinuses are clear. The mastoid air cells are clear. The ventricles and sulci demonstrate moderate age-related involutional changes. Scattered foci of T2 hyperintensity seen within the periventricular and subcortical white matter are nonspecific but suggestive of moderate microvascular ischemic changes. The major vascular flow voids at the skull base are well-maintained. Prior bilateral lens replacement. No abnormal enhancement within the brain. Specifically, no evidence for intracranial metastatic disease. The 7th and 8th cranial nerves are normal and course and caliber. No abnormal enhancement or masses within the internal auditory canals. IMPRESSION: 1. No acute intracranial abnormality. 2. No evidence for intracranial metastatic disease. 3. Normal bilateral internal auditory canals. ACT 112: Negative or not required by law. Electronically signed by: Solomon Hector M.D. 06/09/2022 8:27 PM PG Care Time/CCT Total # of Minutes Spent Total Time Spent with Patient: Total time spent is greater than 50% in coordination of care (as documented) at patient's floor/unit and/or counseling patient: Coding Level of Care Code New Pt INP/OBS CONSULT LVL 3, 45 MIN Patient Type New History Expanded Problem Focused Exam Problem Focused Medical Decision Making Moderate Complexity Diagnoses AML (acute myeloblastic leukemia) C92.00
[2022-06-10] MEDS ORDERED: VENCLEXTA PO SCH (09:00)
[2022-06-10] MEDS: INSULIN ASPART PER UNIT SC SCH ×2 (09:04→12:58)
--- NOTE | 2022-06-10 09:10 | Neurology Consultation ---
Date of Consultation June 10, 2022 Assessment & Plan (1) Migraine with vertigo: (2) Generalized weakness: (3) AML (acute myeloblastic leukemia): (4) COVID-19: Plan this patient has a longstanding history of migraine headaches associated with nausea, vomiting, photophobia, phonophobia, and vertigo. They have been reasonably well controlled on topiramate this past year. The patient believe she has been taking verapamil each day in addition to the topiramate, but this is not listed in her chart. This morning she is markedly improved and the MRI of the brain shows no stroke or other abnormalities. 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 Patient has Covid-19 and AML on chemotherapy. These could easily exacerbate her headaches and associated symptoms. Otherwise, currently, she has no focal findings, meningeal signs, or encephalopathy. Her headache and vertigo are minimal this morning. Recommendations: 1. continue topiramate as ordered for now. 2. As an outpatient, consider discontinuing topiramate and initiating a CGRP inhibitor for headache prevention. CGRP inhibitors will have less interaction with other medications including her chemotherapy and have less side effects. I am concerned that she has renal stones and is still on topiramate. 3. If she needs an antihypertensive medication, then verapamil is reasonable and it might help prevent migraines. She was on too low of a dose at 120 mg daily however. For now, keep off verapamil but this could be considered in future. 4. I do not have any additional neurologic testing or treatment recommendations to make at this time otherwise. Please contact me if I can be of further assistance on this case. 5. Follow-up with Neurology as an outpatient. She could see Viv Johnson PA-C in 2 weeks or so Overall, I spent a total of 90 minutes on this case including review of records, review of MRI films, direct evaluation of the patient at bedside, and discussion of the case with the patient and RN at bedside, and Dr. Ely including differential diagnosis and treatment options. History of Present Illness Reason for Consultation: patient is an 81-year-old, who I was asked to see the request of Dr. Ely, for neurologic consultation regarding acute headache and vertigo. Requesting Physician: Dr. Ely Attending Physician: Bal Ely History of Present Illness this patient has a longstanding history of migraine headaches stemming from her 20s. With these migraines she gets nausea, vomiting, photophobia, phonophobia, and vertigo. she saw Dr. Dunaway for 1 such episode in August of 2020. at that time CT angiography of the head and neck and MRI of the brain were unremarkable. She last saw Neurology in January of 2021. She was on topiramate (but had a history of renal stones) and verapamil. At that time, she was changed from topiramate 100 mg twice a day to 100 mg once a day ( because of the renal stone history ). The verapamil was 120 mg once daily. This was unchanged. She was lost to neurological follow-up after that. The patient tells me that she gets a migraine headache is much is once a week. Triggers would be stress, bright lights, or straining her eyes by reading. Most of the time they are fairly well controlled and she will sleep them off. She will start with nausea, vertigo, and a bifrontal pressure sensation around her eyes. Meclizine typically is of no help. They can be vomiting photophobia and phonophobia. Headaches last several hours to a day or so. Most of them have been under fairly good control recently. She tells me she continues to take verapamil and topiramate once daily. The patient has a history of rheumatoid arthritis and was on methotrexate and Plaquenil but these have been discontinued recently. She has a diagnosis of hypertension, diabetes, and depression. The patient was diagnosed with acute myelogenous leukemia at [facility] in March of 2022. She received azacitidine and venetoclax in the end of March for her 1st round of chemotherapy. Her 2nd round was given starting May 27. The patient had been fatigued for several weeks and feeling weak in general. She came to the emergency room and was admitted on June 08 with nausea, vomiting, bifrontal headache, hot and cold flashes, vertigo, weakness and fatigue, and some bloody diarrhea.Neurologic examination was unremarkable for any focal neurologic deficits, meningeal signs, or encephalopathy. CBC showed normal white count, low red count, and normal platelet count. MCV is high. Chem profile was largely unremarkable although BUN was elevated on admission (it is currently). Liver profile was unremarkable. TSH lipase and procalcitonin was. Urinalysis was unremarkable and influenza was negative. Patient had a positive Covid-[address] scan of the head was unremarkable. Chest x-ray was unremarkable. CT scan of the abdomen and pelvis revealed some left-sided nephrolithiasis without any acute changes. MRI of the brain and internal auditory canals revealed no acute stroke. There were no tumors or abnormalities in the internal auditory canals. There was moderate old small vessel ischemic disease and generalized atrophy. This morning, the patient has a very mild bifrontal headache only. She is not having vertigo live she really moves her head around. She has no nausea currently and no weakness or numbness in her limbs. She has no vision issues, confusion, speech problems, or lightheadedness. Allergies Allergy/AdvReac Type Severity Reaction Status Date / Time codeine Allergy Severe VOMITING Verified 05/28/22 10:51 DROP IN BP morphine Allergy Severe DROP IN Verified 05/28/22 10:51 VITAL SIGNS, TREMORS, VOMITING oxycodone Allergy Severe drop in Verified 05/28/22 10:51 vital signs,tremors,vomiting adhesive AdvReac Intermediate "PULLS OFF Verified 05/28/22 10:51 SKIN" hydrocodone [From Vicodin] AdvReac Intermediate vomiting Verified 05/28/22 10:51 and tremors meperidine AdvReac Intermediate VOMITING Verified 05/28/22 10:51 pravastatin AdvReac Intermediate pains in Verified 05/28/22 10:51 arms and legs simvastatin AdvReac Intermediate pains in Verified 05/28/22 10:51 legs and arms cephalexin [From Keflex] AdvReac Mild Nausea Verified 05/28/22 10:51 aspirin [From Percodan] AdvReac Unknown unknown Verified 05/28/22 10:51 montelukast [From Singulair] AdvReac Unknown unknown Verified 05/28/22 10:51 Home Medications Medication Instructions Recorded Confirmed Type cholecalciferol (vitamin D3) 25 1,000 unit PO QAM 05/19/18 06/08/22 History mcg (1,000 unit) capsule (Vitamin D3) naproxen sodium 220 mg capsule 220 mg PO DIRECTED PRN Pain 05/19/18 06/08/22 History (Aleve) meclizine 25 mg tablet 25 mg PO TID PRN Dizziness #90 tabs 07/11/21 06/08/22 Rx sertraline 50 mg tablet 50 mg PO DAILY #90 tabs 11/06/21 06/08/22 Rx topiramate 100 mg tablet 100 mg PO BID #180 tabs 12/13/21 06/08/22 Rx zafirlukast 20 mg tablet 20 mg PO Q12H #180 tabs 04/02/22 06/08/22 Rx mirabegron 50 mg tablet,extended 50 mg PO DAILY #90 tabs 04/08/22 06/08/22 Rx release 24 hr alendronate 70 mg tablet (Fosamax) 70 mg PO WEEKLY #12 tabs 04/24/22 06/08/22 Rx metformin 1,000 mg tablet 1,000 mg PO BID #180 tabs 04/24/22 06/08/22 Rx acetaminophen 325 mg tablet 325 mg PO Q4H PRN headache 05/28/22 06/08/22 History acyclovir 400 mg tablet 400 mg PO BID 05/28/22 06/08/22 History albuterol sulfate 2.5 mg/3 mL 5 mg inhalation Q6H 05/28/22 06/08/22 History (0.083 %) solution for nebulization allopurinol 300 mg tablet 300 mg PO DAILY #30 tabs 05/28/22 05/28/22 Rx dexamethasone 4 mg tablet 8 mg PO .COMPLEX 05/28/22 06/08/22 History lansoprazole 30 mg capsule,delayed 30 mg PO DAILY 05/28/22 05/28/22 History release posaconazole 100 mg tablet,delayed 300 mg PO DAILY #90 tabs 05/28/22 06/08/22 Rx release venetoclax 10 mg tablet 20 mg PO DAILY #60 tabs 05/28/22 06/08/22 Rx venetoclax 50 mg tablet (Venclexta) 50 mg PO DAILY 05/28/22 06/08/22 History pantoprazole 40 mg tablet,delayed 40 mg PO QAM #180 tabs 06/06/22 06/08/22 Rx release Patient History Medical History Allergic rhinitis AML (acute myeloblastic leukemia) (03/2022) Anxiety and depression Asthma Chronic sinusitis Diabetes Dyslipidemia Fibula fracture GERD (gastroesophageal reflux disease) Hypertension Insomnia Migraine Migraine headache Nontoxic multinodular goiter Osteopenia Rheumatoid arthritis Sensorineural hearing loss (SNHL) of both ears Urge and stress incontinence Vitamin D deficiency Surgical History S/P adenoidectomy S/P carpal tunnel release b/l wrists S/P cataract extraction b/l eyes S/P cholecystectomy S/P foot surgery L foot hammertoe repair S/P hysterectomy S/P medial meniscal repair L knee S/P tonsillectomy S/P trigger finger release R hand Family History Brother Myocardial infarction Heart disease Hypertension Father , age 81 of heart disease Arthritis Heart disease Mother , age 41 Of leukemia Leukemia Breast cancer Ovarian cancer Sister , age 64 Diabetes Brother Throat cancer Liver cirrhosis Denies family history of Prostate cancer Colorectal cancer Social History Smoking Status: Former smoker Age Started Using Tobacco: 21; Age Quit Using Tobacco: 31; Cigarettes Per Day: light smoker only; Smoking End Date: by age 31; Second Hand Exposure: No; Do You Dip or Chew Tobacco: No; Tobacco Cessation Education Requested by Patient: No Hx Alcohol Use: No Hx Substance Use: No Preferred Language: Romanian Communication Ability: Effective Visual Impairment: No Limitations Hearing Ability: Normal Development Spec Required: No Beliefs That Will Affect Care: None marital status: / Current Living Situation: Family Current Living Situation Comment: Lives with Granddaughter. 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63, [employer] Other Information That Helps Us Care for You: No Feels Safe at Home: Yes Safety Concerns: Feels Safe At This Time Childhood Exposure to Second-Hand Smoke: Yes Diet Comment: regular caffeine: Yes (6 -8 cups coffee a day half caffeine ) during the past year weight has: remained stable Dental Care, Regularly: No Physical Activity Frequency: Daily Seatbelt Use: always Sunscreen Use: Yes Assistive Devices: Cane and Walker Review of Systems Constitutional: no fever, no fatigue and no weakness Eyes: no diplopia, no eye pain and no worsening vision Ear, Nose, Mouth, Throat: + dizziness; no ear pain, no tinnitus, no hearing loss, no snoring, no hoarseness and no dysphagia Respiratory: no cough and no dyspnea Cardiovascular: no chest pain, no palpitations and no lightheadedness Gastrointestinal: no abdominal pain, no nausea and no vomiting Genitourinary: no dysuria, no urinary frequency and no urinary incontinence Musculoskeletal: no back pain, no neck pain, no radicular pain, no joint pain and no myalgia Integumentary: no rash and no lesions Neurologic: + headache(s); no gait abnormality, no localized weakness, no generalized weakness, no tingling, no numbness, no tremor(s), no abnormal movements, no abnormal speech, no confusion and no memory loss Psychiatric: no depression, no irritability, no anxiety, no difficulty concentrating, no confusion and no hallucinations Endocrine: no fatigue and no flushing Hematologic / Lymphatic: no easy bleeding and no easy bruising Allergy / Immunological: no urticaria and no problem reported Exam (Neuro) Physical Exam: The patient is right-handed. The patient is awake, alert, and attentive. Speech is normal without any aphasia or dysarthria. The patient can name objects, repeat phrases, and has normal spontaneous speech. Mentation and thought processes are intact, with orientation to person, place and time, and normal fund of knowledge. Attention and concentration are normal. Mood and affect are normal and appropriate. General appearance and grooming are normal. Short and long-term memory are intact to conversation. Pupils are 3 mm bilaterally and reactive to light. Extraocular eye muscles are intact without nystagmus. Visual acuity and visual tinoco seem normal grossly to confrontation. There are no deficits to sensation in the face in all 3 distributions of the fifth cranial nerve bilaterally. Corneal reflexes are positive bilaterally. Facial strength and symmetry was normal bilaterally. Hearing seems normal bilaterally. Palate moves well without asymmetry. There is normal sternocleidomastoid and trapezius (shoulder shrug) strength bilaterally. Tongue is midline with good strength bilaterally. Neck has a full range of motion without discomfort. There are no cervical bruits bilaterally. There are no cranial or ocular bruits. Heart is without murmur. There is a regular rhythm and rate. Cervical, thoracic, and lumbar spine are nontender to palpation. Gait was not tested but stance sitting up in bed is quite normal With outstretched arms there is no drift. There are no resting, postural, or action tremors. There is no ataxia with finger to nose testing. There is good facility in the hands. No other abnormal involuntary movements are noted. Motor strength is 5/5 diffusely in the arms bilaterally including deltoids, biceps, triceps, brachioradialis, wrist flexors and extensors, director field services, and intrinsic hand muscles. Motor strength is 5/5 diffusely in the legs bilaterally including hip flexors, quadriceps, hamstrings, gastrocnemius, tibialis anterior, tibialis posterior, and Peroneii muscles. Toe extensors are normal and there is good bulk in the extensor digitorum brevis muscles bilaterally. The limbs have good tone without rigidity or spasticity. There is no atrophy noted in the muscles. Muscle bulk is normal, there is no tenderness to palpation, no myotonia to percussion, and no fasciculations seen. Sensory examination is intact to touch and pin throughout all 4 limbs diffusely. Reflexes are 1/4 in the biceps, triceps, brachioradialis, quadriceps, and Achilles tendons bilaterally. There is no clonus bilaterally. Toes are downgoing with plantar stimulation bilaterally. Peripheral pulses are present and of normal quality distally in all 4 limbs. There is no peripheral edema noted in the limbs. Results & Data ([facility]) Vital Signs (Past 12 Hours) Vital Signs Temp Pulse Resp BP Pulse Ox O2 Del Method 06/10/22 07:53 36.7 C 67 16 117/78 96 Room Air PG Care Time/CCT Total # of Minutes Spent Total Time Spent with Patient: Total time spent is greater than 50% in coordination of care (as documented) at patient's floor/unit and/or counseling patient: Coding Level of Care Code 72124 INT INP/OBS CARE 3/75MIN Diagnoses Migraine with vertigo G43.109 Generalized weakness R53.1 AML (acute myeloblastic leukemia) C92.00 COVID-19 U07.1 Time Spent (min) 90
[2022-06-10] MEDS: ACYCLOVIR 400 MG TAB PO SCH (09:20)
[2022-06-10] MEDS: MIRABEGRON ER 25 MG TAB PO SCH (09:21)
[2022-06-10] MEDS: SERTRALINE HCL 50 MG TABLET PO SCH (09:21)
[2022-06-10] MEDS: CHOLECALCIFEROL 1,000 UNITS 25 MCG TAB PO SCH (09:21)
[2022-06-10] MEDS: TOPIRAMATE 100 MG TAB PO SCH (09:22)
--- NOTE | 2022-06-15 16:05 | Discharge Summary ---
Date of Service June 10, 2022 Admission HPI Per Admitting Provider Pam Mai is an 81 year old female who presents to the ER feeling of headache, weakness, nausea, diarrhea and dizziness. She reports symptoms have been ongoing for the last 4 days but getting progressively worse. Main concern is her nausea. She reports similar episodes with ER visits for migraines although they have not been as bad as this one. Also now having diarrhea (non- bloody) that started today, somewhat watery, this has also occurred with her previous migraines. Associated headache - milder than her usual migraines and not as pounding. Bilateral but right much worse than left. Severity 6-7/10. Very light sensitive and keeping her eyes closed. She did not take any of her usual migraine treatment as she is confused about her medications and just felt nauseous. Very dizzy which is similar to her previous vertigo (room spinning). Worse lying down and while turning her head. No lightheadedness. She gets similar occurrences "quite often" which occur with her migraines but also while bending over. Usually her symptoms resolve in the ER with migraine treatment. On review of [facility] she has been given combination of Compazine, diphenhydramine, fluid bolus and ondansetron in the past. Unfortunately the patient is unsure what medications she should be taking. She has a list printed out from her recent PCP visit although reports no longer being on medications on that list such as methotrexate. List on [facility] is also different than recent PCP visit. List from last oncology appointment is also different. In the ER she was given ondansetron and subsequently metoclopramide to good effect. She tested postiivie for SARS-COV-2 PCR but reports no URI symptoms or loss of taste or smell but her daughter reports she had a bad cold which she tested negative on a home test for over . Principal Diagnosis Migraine with vertigo Discharge Exam Constitutional: well developed, well nourished and + acute distress (nauseous) Eyes: PERRL, conjunctivae normal, anicteric sclerae EOM intact bilaterally; no nystagmus ENMT: external ear and nose normal, oropharynx normal Respiratory: normal respiratory effort, lungs clear to auscultation Cardiovascular: RRR, no murmur, no edema Gastrointestinal (Abdomen): normal bowel sounds, soft, nontender, no hepatosplenomegaly Musculoskeletal: no cyanosis or clubbing, extremities motor strength 5/5 Skin: no rashes, warm and dry Neurologic: moves all extremities and awake; not confused Psychiatric: A+Ox3, euthymic affect Discharge Data Allergies Allergy/AdvReac Type Severity Reaction Status Date / Time codeine Allergy Severe VOMITING Verified 05/28/22 10:51 DROP IN BP morphine Allergy Severe DROP IN Verified 05/28/22 10:51 VITAL SIGNS, TREMORS, VOMITING oxycodone Allergy Severe drop in Verified 05/28/22 10:51 vital signs,tremors,vomiting adhesive AdvReac Intermediate "PULLS OFF Verified 05/28/22 10:51 SKIN" hydrocodone [From Vicodin] AdvReac Intermediate vomiting Verified 05/28/22 10:51 and tremors meperidine AdvReac Intermediate VOMITING Verified 05/28/22 10:51 pravastatin AdvReac Intermediate pains in Verified 05/28/22 10:51 arms and legs simvastatin AdvReac Intermediate pains in Verified 05/28/22 10:51 legs and arms cephalexin [From Keflex] AdvReac Mild Nausea Verified 05/28/22 10:51 aspirin [From Percodan] AdvReac Unknown unknown Verified 05/28/22 10:51 montelukast [From Singulair] AdvReac Unknown unknown Verified 05/28/22 10:51 Consultations 06/08/22 19:39 ED Decision to Admit Stat 06/09/22 06:56 Consult Oncology Routine 06/09/22 14:17 Consult Neurology Routine Ordered Studies 06/08/22 16:22 CT head/brain wo con Stat 06/08/22 16:26 CT abd pelvis IV con only Stat 06/09/22 15:55 MR brain IAC wo/w con Routine Hospital Course (1) Migraine with vertigo: Multiple episodes of similar presentations: previously resolved in the ER with Compazine/Benadryl/NSS bolus Did not take any medications for her migraine - generally confused about her medications but reportedly does have Imitrex nasal spray at home which she did not use Possibly exacerbated by chemo +/- COVID-19 Follow up UA to assess for infection although no specific urinary symptoms Give now Benadryl 25mg IV, LR 1L bolus, Sumatriptan 6mg SQ LR @ 100ml/hr overnight, ondansetron 8mg IV q6h PRN for nausea 1st line, Compazine 2nd line, diphenhydramine 3rd line On 06/09 patient had dizziness. sounds peripheral, will obtain MR brain. will consult neurology. On 06/10 Symptoms subsided. MRI was negative. Patient no longer requires MR of Brain on 06/13 as this was already completed here. Appreciate input from Neurology 1. continue topiramate as ordered for now. 2. As an outpatient, consider discontinuing topiramate and initiating a CGRP inhibitor for headache prevention. CGRP inhibitors will have less interaction with other medications including her chemotherapy and have less side effects. I am concerned that she has renal stones and is still on topiramate. 3. If she needs an antihypertensive medication, then verapamil is reasonable and it might help prevent migraines. She was on too low of a dose at 120 mg daily however. For now, keep off verapamil but this could be considered in future. 4. I do not have any additional neurologic testing or treatment recommendations to make at this time otherwise. Please contact me if I can be of further assistance on this case. 5. Follow-up with Neurology as an outpatient. She could see Viv Johnson PA-C in 2 weeks or so (2) COVID-19: Asymptomatic COVID vs. presymptomatic COVID vs false positive test COVID isolation precautions (3) Diarrhea: Started today Previous episodes also occurred with migraine however given patient on chemotherapy will take stool and c. diff PCR - given lack of colitis on CT appears to be improved att discharge. (4) Generalized weakness: Multifactorial - migraine, vomiting, chemo, COVID PT/OT (5) AML (acute myeloblastic leukemia): Unclear if she should be taking allopurinol Continue Venetoclax 70mg PO daily Consult oncology to help with correct medications Levaquin discontinued due to ANC > 500 per oncology note Continue posaconazole 300mg PO daily Continue acyclovir 400mg PO BID (6) Rheumatoid arthritis: Patient no longer on methotrexate per last oncology note - will discontinue this on med rec (7) Diabetes: T2DM HbA1C 6.6 Hold metformin Defer basal dosing given unclear how much she will be eating Novolog: --Goal BSG Range: Low 110 mg/dL, High 140 mg/dL --Correction Factor: 45 mg/dL/unit --Carbohydrate ratio = 15 g/unit --BSGs ACHS if eating, q6h if npo (8) Urge and stress incontinence: Mirabegron 50mg PO daily Plan VTE Prophylaxis - SCDs, consider chemical prophylaxis if stay prolonged Diet - T2DM Total Time Total Time Spent Total Time Spent (In Minutes): 35 Discharge Plan Discharge Items Patient Disposition: Home - Self-Care Reason For Visit: COVID 19,WEAKNESS,NAUSEA Discharge Diagnosis: COVID 19 Activity: Resume your previous activity Non-emergency contact: Primary Care Provider Call non-emergency contact if: you have any medication questions Follow-up/Referrals: Agueda Fowler DO [Primary Care Provider] - 06/17/22 10:00 am Carmen Johnson PA-C [Physician Software Analyst] - 07/04/22 11:30 am Diet: Carb Consistent or DM2 Addtl Attending Provider Instructions: You were found to have dizziness, this was likely secondary to your COVID 19 infection adn chemotherapy. Uring your time here, your symptoms improved. You also had an MRI of the brain which did not show any new cancer involvement in your brain. You do not need to get the MRI of the brain on 06/13. This will be cancelled for you. Recommend close followup with your PCP in 1-2 weeks. Will defer start of CGRP antagonist to your PCP for migraine prevention. Pending Studies at Discharge: No Stand-Alone Forms: [facility], Smoking Cessation Medications and DC Order Prescriptions: Continued sertraline 50 mg tablet 50 mg PO DAILY Qty: 90 1RF topiramate 100 mg tablet 100 mg PO BID Qty: 180 1RF zafirlukast 20 mg tablet 20 mg PO Q12H Qty: 180 1RF mirabegron 50 mg tablet extended release 24 hr 50 mg PO DAILY Qty: 90 3RF metformin 1,000 mg tablet 1,000 mg PO BID Qty: 180 3RF alendronate [Fosamax] 70 mg tablet 70 mg PO WEEKLY Qty: 12 3RF pantoprazole 40 mg tablet,delayed release (DR/EC) 40 mg PO QAM Qty: 180 2RF acyclovir 400 mg tablet 400 mg PO BID dexamethasone 4 mg tablet 8 mg PO .COMPLEX Rx Instructions: 8 mg orally prior to injection at oncology office; Venclexta 50 mg tablet 50 mg PO DAILY allopurinol 300 mg tablet 300 mg PO DAILY Qty: 30 2RF posaconazole 100 mg tablet,delayed release (DR/EC) 300 mg PO DAILY Qty: 90 0RF venetoclax 10 mg tablet 20 mg PO DAILY Qty: 60 5RF Rx Instructions: take along with 50mg to equal 70mg acetaminophen 325 mg tablet 325 mg PO Q4H PRN (Reason: headache) albuterol sulfate 2.5 mg /3 mL (0.083 %) solution for nebulization 5 mg inhalation Q6H cholecalciferol (vitamin D3) [Vitamin D3] 1,000 unit Capsule 1,000 unit PO QAM naproxen sodium [Aleve] 220 mg Capsule 220 mg PO DIRECTED PRN (Reason: Pain) No Action meclizine 25 mg tablet 25 mg PO TID PRN (Reason: Dizziness) Qty: 90 1RF lansoprazole 30 mg capsule,delayed release(DR/EC) 30 mg PO DAILY Qty: 90 1RF Discharge Orders: Discharge Order (Routine); Ordered 06/10/22 Ordered By: Bal Carter/Other Patient Handouts: COVID-19 Vaccines and Prevention, COVID-19 Home Care Admission Data Admit Date/Time: 06/09/22 15:55 Attending Provider: Bal Ely Admit Provider: Thiago Cohen Primary Care Provider: Agueda Fowler Other Providers: Thiago Cohen ; Dontae Araujo ; Jerry Sanchez Other Interventions: Discharge Summary Assessment (RN) Last Done: 06/10/22 17:01 Coding Level of Care Code HOSP INP/OBS DISCH >30 MIN Diagnoses Migraine with vertigo G43.109 COVID-19 U07.1 Diarrhea R19.7 Generalized weakness R53.1 AML (acute myeloblastic leukemia) C92.00 Rheumatoid arthritis M06.9 Diabetes E11.9 Urge and stress incontinence N39.46
== END 2022-06-10 17:25 | disposition home or self-care (01) | DRG 102 ==
LOC: ED 15:57 → 3E 15:57 → SUATTDRO 19:39 → 3E 20:14

== ENCOUNTER 2022-12-25 01:49 | Inpatient (IN) ==
[2022-12-25 02:47] LABS: Albumin Globulin Ratio 1.4 (0.9-2); Albumin Level 3.6 gm/dl (3.4-5.0); BUN Creatinine Ratio 25.7 (10-20); Bilirubin,Total 0.6 mg/dl (0.2-1.0); Calcium 9.1 mg/dl (8.6-10.3); Creatinine Clr Calc Pharmacy 59.8 ml/min; Est GFR (African American) 94.2 ml/min; Est GFR (Non-African American) 81.3 ml/min; Globulin 2.6 gm/dl (2.5-4.0); Potassium 3.7 mmol/L (3.5-5.1); Total Protein 6.2 gm/dl (6.0-8.3)
[2022-12-25 02:52] LABS: Troponin I High Sensitivity 4.2 pg/ml (0-14)
[2022-12-25 03:03] LABS: Hematocrit (blood only) 20.5 % (37.0-47.0); Hemoglobin 6.8 g/dl (12.0-16.0); Mean Corpuscular Hemoglobin 30.4 pg (25.0-34.0); Mean Corpuscular Hgb Conc 33.2 g/dL (32.0-36.0); Mean Corpuscular Volume 91.5 fL (80.0-100.0); Nucleated RBC # (auto) 0.41 K/uL (0-0.12); Nucleated RBC % (auto) 35.3 %; Platelet Count 16 K/uL (130-400); RDW Coefficient of Variation 16.6 % (11.5-14.5); RDW Standard Deviation 54.8 fL (36.4-46.3); Red Blood Count 2.24 M/uL (4.20-5.40); White Blood Count 1.16 K/ul (4.8-10.8)
[2022-12-25 03:05] LABS: ALC (manual) 0.89 K/uL (1.2-3.4); ANC (manual) 0.06 K/uL (1.4-6.5); Blast # (manual) 0.19 K/uL (0-0); Blast Cells % (manual) 16 %; Lymphocytes # (manual) 0.89 K/uL (1.2-3.4); Lymphocytes % (manual) 77 %; Monocytes # (manual) 0.03 K/uL (0.11-0.59); Monocytes % (manual) 3 %; Neutrophils # (manual) 0.06 K/uL (1.40-6.50); Neutrophils % (manual) 5 %; RBC Morphology Unremarkable
[2022-12-25 03:15] LABS: Partial Thromboplastin Ratio 0.9; Partial Thromboplastin Time 24.8 Seconds (21.0-31.0); Prothrombin Time 10.9 Seconds (9.0-12.0)
[2022-12-25] MEDS ORDERED: SODIUM CHLORIDE 0.9% 250 ML IV PRN ×2 (03:23→16:49)
--- NOTE | 2022-12-25 04:15 | History & Physical Report ---
Date of Service December 25, 2022 Assessment & Plan (1) Rheumatoid arthritis: (2) Diabetes: (3) Asthma: (4) GERD (gastroesophageal reflux disease): (5) Dyslipidemia: (6) Cellulitis of back: (7) Anxiety and depression: (8) Hypertension: (9) AML (acute myeloblastic leukemia): (10) Migraine with vertigo: (11) Symptomatic anemia: Plan Symptomatic anemia/AML/thrombocytopenia/neutropenia- Hemoglobin 6.8 is low for her, and will be transfused 2 units PRBCs written by the ED Hemoglobin drop may be due to physiologic stress associated with skin lesions Neutropenic precautions Follow serial CBC with differential Continue usual supportive medications Cellulitis lesions on back and forearm- Hold Augmentin Expedite healing placed on vancomycin IV and Zosyn IV Follow clinical examination Diabetes mellitus- Hold metformin Placed on Accu-Cheks with SSI GERD- Continue pantoprazole History of Present Illness Chief Complaint: The patient presents to the emergency department with complaint of her heart p ounding so hard that the sound went up into her ears, as she was lying down to go to sleep this evening Primary Care Provider: Agueda Fowler DO The patient is an 82-year-old female with a past medical history including rheumatoid arthritis, diabetes mellitus, AML, asthma, GERD, dyslipidemia, migraine, urge and stress incontinence, nontoxic multinodular goiter, hypertension, anxiety and depression, and bilateral SNHL. She presents to the emergency department with the acute symptoms of heart pounding into her ears as she was lying down to go to bed this evening. She reports she has had intermittent temperatures over the past week or so, and has had skin lesions on her back and forearms that she was prescribed Augmentin for, that have not been significantly healing. Allergies Allergy/AdvReac Type Severity Reaction Status Date / Time adhesive Allergy Intermediate "PULLS OFF Verified 12/25/22 02:34 SKIN" codeine AdvReac Severe VOMITING Verified 12/25/22 02:34 DROP IN BP morphine AdvReac Severe DROP IN Verified 12/25/22 02:34 VITAL SIGNS, TREMORS, VOMITING oxycodone AdvReac Severe drop in Verified 12/25/22 02:34 vital signs,tremors,vomiting hydrocodone [From Vicodin] AdvReac Intermediate vomiting Verified 12/25/22 02:34 and tremors meperidine AdvReac Intermediate VOMITING Verified 12/25/22 02:34 pravastatin AdvReac Intermediate pains in Verified 12/25/22 02:34 arms and legs simvastatin AdvReac Intermediate pains in Verified 12/25/22 02:34 legs and arms cephalexin [From Keflex] AdvReac Mild Nausea Verified 12/25/22 02:34 aspirin [From Percodan] AdvReac Unknown unknown Verified 12/25/22 02:34 montelukast [From Singulair] AdvReac Unknown unknown Verified 12/25/22 02:34 Home Medications Medication Instructions Recorded Confirmed Type mirabegron 50 mg tablet,extended 50 mg PO DAILY #90 tabs 04/08/22 12/25/22 Rx release 24 hr metformin 1,000 mg tablet 1,000 mg PO BID #180 tabs 04/24/22 12/25/22 Rx dexamethasone 4 mg tablet 8 mg PO UD 05/28/22 12/25/22 History posaconazole 100 mg tablet,delayed 300 mg PO DAILY #90 tabs 05/28/22 12/25/22 Rx release venetoclax 10 mg tablet 20 mg PO DAILY #60 tabs 05/28/22 12/25/22 Rx venetoclax 50 mg tablet (Venclexta) 50 mg PO DAILY 05/28/22 12/25/22 History pantoprazole 40 mg tablet,delayed 40 mg PO QAM #180 tabs 06/06/22 12/25/22 Rx release meclizine 25 mg tablet 25 mg PO TID PRN Dizziness #90 tabs 06/13/22 12/25/22 Rx alendronate 70 mg tablet (Fosamax) 70 mg PO WEEKLY #12 tabs 06/17/22 12/25/22 Rx sumatriptan 5 mg/actuation nasal 10 mg intranasal Q2H PRN migraine 06/17/22 12/25/22 Rx spray headache #6 ea zafirlukast 20 mg tablet 20 mg PO Q12H #180 tabs 07/25/22 12/25/22 Rx galcanezumab-gnlm 120 mg/mL 120 mg subcut .MONTHLY/UD 08/15/22 12/25/22 History subcutaneous pen injector (Emgality Pen) acyclovir 400 mg tablet 400 mg PO BID 09/17/22 12/25/22 History albuterol sulfate 2.5 mg/3 mL 5 mg inhalation Q6H PRN Shortness 09/17/22 12/25/22 History (0.083 %) solution for nebulization Of Breath Or Wheezing sertraline 50 mg tablet 50 mg PO DAILY #90 tabs 09/17/22 12/25/22 Rx naproxen sodium 220 mg tablet 220 mg PO BID PRN Pain 11/21/22 12/25/22 History (Aleve) Past Med/Surg History Medical History Allergic rhinitis AML (acute myeloblastic leukemia) (03/2022) Anxiety and depression Asthma Chronic sinusitis COVID-19 Diabetes DVT prophylaxis Dyslipidemia Fibula fracture GERD (gastroesophageal reflux disease) Hypertension Insomnia Migraine headache Nontoxic multinodular goiter Osteopenia Rheumatoid arthritis Sensorineural hearing loss (SNHL) of both ears Urge and stress incontinence Vitamin D deficiency Surgical History S/P adenoidectomy S/P carpal tunnel release b/l wrists S/P cataract extraction b/l eyes S/P cholecystectomy S/P foot surgery L foot hammertoe repair S/P hysterectomy S/P medial meniscal repair L knee S/P tonsillectomy S/P trigger finger release R hand Family History Brother Myocardial infarction Heart disease Hypertension Father , age 81 of heart disease Arthritis Heart disease Mother , age 41 Of leukemia Leukemia Breast cancer Ovarian cancer Sister , age 64 Diabetes Brother Throat cancer Liver cirrhosis Denies family history of Prostate cancer Colorectal cancer Social History Smoking Status: Never smoker Age Started Using Tobacco: 21; Age Quit Using Tobacco: 31; Cigarettes Per Day: light smoker only; Second Hand Exposure: No; Do You Dip or Chew Tobacco: No; Hx Alcohol Use: No Hx Substance Use: No Preferred Language: Maori Communication Ability: Effective Visual Impairment: No Limitations Hearing Ability: Normal Scrum Coach Required: No Beliefs That Will Affect Care: None marital status: / Current Living Situation: Family Current Living Situation Comment: Lives with Granddaughter. 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 [employer] Feels Safe at Home: Yes Childhood Exposure to Second-Hand Smoke: Yes Diet: regular Diet Comment: regular caffeine: Yes (6 -8 cups coffee a day half caffeine ) during the past year weight has: remained stable Dental Care, Regularly: No Physical Activity Frequency: Daily Seatbelt Use: always Sunscreen Use: Yes Assistive Devices: Cane and Walker Review of Systems Review of Systems: The patient denies chest pain, cough, lower extremity swelling, sore throat, fevers, chills, sweats, nausea, vomiting, diarrhea , constipation, abdominal pain, pelvic pain, blood in urine or stool, dysuria, urinary frequency or urgency, lightheadedness, dizziness, headache, memory loss, loss of consciousness, rash, abnormal bruising or bleeding, imbalance, focal weakness, numbness or tingling in arms or legs, generalized arthralgias or myalgias, back or neck pain, or night sweats. The review of systems is otherwise negative other than for that already noted above, and at least 10 systems have been reviewed. Physical Exam Physical Exam: The patient is awake, alert and oriented 3, well developed and well nourished, normocephalic and atraumatic, lying in bed and in no acute distress. HEENT--PERRL, EOMI, mucous membranes and oropharynx normal. Neck--supple. No JVD. No bruits. Thyroid normal, trachea midline, no adenopathy. Heart--normal S1 and S2. No murmurs, rubs or gallops. Lungs--clear bilaterally, no respiratory distress, no accessory muscle use. Abdomen--normal bowel sounds and soft. Nontender. Nondistended, no hernias or masses, no organomegaly. Extremities--no cyanosis or clubbing. No edema. Dermatologic--normal skin turgor, normal color, no abnormal lymph nodes, no rash. Neurologic--cranial nerves II through XII grossly intact. Rheumatologic--normal range of motion. Psychiatric--normal affect. Results & Data Results & Data Vital Signs (Past 12 Hours) Vital Signs Temp Pulse Pulse Resp BP BP Pulse Ox 12/25/22 02:16 93 H 17 96 12/25/22 02:04 99 H 12/25/22 02:03 93 H 17 132/73 96 12/25/22 02:03 96 12/25/22 01:58 37.1 C 97 H 17 132/73 96 O2 Del Method 12/25/22 02:16 Room Air 12/25/22 02:04 12/25/22 02:03 Room Air 12/25/22 02:03 Room Air 12/25/22 01:58 Room Air Laboratory Results Laboratory Results WBC 1.16 K/ul (4.8-10.8) L 12/25/22 02:13 RBC 2.24 M/uL (4.20-5.40) L 12/25/22 02:13 Hgb 6.8 g/dl (12.0-16.0) L* 12/25/22 02:13 Hct 20.5 % (37.0-47.0) L* 12/25/22 02:13 MCV 91.5 fL (80.0-100.0) 12/25/22 02:13 MCH 30.4 pg (25.0-34.0) 12/25/22 02:13 MCHC 33.2 g/dL (32.0-36.0) 12/25/22 02:13 RDW Std Deviation 54.8 fL (36.4-46.3) H 12/25/22 02:13 RDW Coeff of [place] 16.6 % (11.5-14.5) H 12/25/22 02:13 Plt Count 16 K/uL (130-400) L* 12/25/22 02:13 Absolute Nucleated RBC 0.41 K/uL (0-0.12) H 12/25/22 02:13 Nucleated RBC % (auto) 35.3 % 12/25/22 02:13 Neutrophils % (Manual) 5 % 12/25/22 02:13 Lymphocytes % (Manual) 77 % 12/25/22 02:13 Monocytes % (Manual) 3 % 12/25/22 02:13 Blast Cells % (Manual) 16 % 12/25/22 02:13 Neutrophils # (Manual) 0.06 K/uL (1.40-6.50) L 12/25/22 02:13 Total Absolute Neuts 0.06 K/uL (1.4-6.5) L* 12/25/22 02:13 Lymphocytes # (Manual) 0.89 K/uL (1.2-3.4) L 12/25/22 02:13 Total Abs Lymphocytes 0.89 K/uL (1.2-3.4) L 12/25/22 02:13 Monocytes # (Manual) 0.03 K/uL (0.11-0.59) L 12/25/22 02:13 Blast Cells # (Man) 0.19 K/uL (0-0) H 12/25/22 02:13 RBC Morphology Unremarkable 12/25/22 02:13 PT 10.9 Seconds (9.0-12.0) 12/25/22 02:13 INR 1.0 (0.9-1.1) 12/25/22 02:13 APTT 24.8 Seconds (21.0-31.0) 12/25/22 02:13 PTT Ratio 0.9 12/25/22 02:13 Sodium 139 mmol/L (136-145) 12/25/22 02:13 Potassium 3.7 mmol/L (3.5-5.1) 12/25/22 02:13 Chloride 105 mmol/L (98-107) 12/25/22 02:13 Carbon Dioxide 25 mmol/L (21-32) 12/25/22 02:13 Anion Gap 9 (3-11) 12/25/22 02:13 BUN 18 mg/dl (6-23) 12/25/22 02:13 Creatinine 0.70 mg/dl (0.6-1.2) 12/25/22 02:13 Est Cr Clr Drug Dosing 59.8 ml/min 12/25/22 02:13 Est GFR ( Amer) 94.2 ml/min 12/25/22 02:13 Est GFR (Non-Af Amer) 81.3 ml/min 12/25/22 02:13 BUN/Creatinine Ratio 25.7 (10-20) H 12/25/22 02:13 Glucose 111 mg/dl (70-99(Fasting)) H 12/25/22 02:13 Calcium 9.1 mg/dl (8.6-10.3) 12/25/22 02:13 Total Bilirubin 0.6 mg/dl (0.2-1.0) 12/25/22 02:13 AST 18 U/L (13-39) 12/25/22 02:13 ALT 8 U/L (7-52) 12/25/22 02:13 Alkaline Phosphatase 57 U/L (34-104) 12/25/22 02:13 Troponin I High Sens 4.2 pg/ml (0-14) 12/25/22 02:13 Total Protein 6.2 gm/dl (6.0-8.3) 12/25/22 02:13 Albumin 3.6 gm/dl (3.4-5.0) 12/25/22 02:13 Globulin 2.6 gm/dl (2.5-4.0) 12/25/22 02:13 Albumin/Globulin Ratio 1.4 (0.9-2) 12/25/22 02:13 Lipase 37 U/L (11-82) 12/25/22 02:13 SARS-CoV-2, RNA, NAAT NEGATIVE (NEGATIVE) 12/25/22 02:19 Blood Type O Negative 12/25/22 03:35 Antibody Screen NEGATIVE 12/25/22 03:35 Crossmatch See Detail 12/25/22 03:35 Code Status & VTE Plan Code Status Full code VTE Prophylaxis Plan VTE Prophylaxis will be ordered: Yes PG Care Time/CCT Total # of Minutes Spent Total Time Spent with Patient: Total time spent is greater than 50% in coordination of care (as documented) at patient's floor/unit and/or counseling patient: Coding Level of Care Code 83614 INT INP/OBS CARE 3/75MIN Diagnoses Rheumatoid arthritis M06.9 Diabetes E11.9 Asthma J45.909 GERD (gastroesophageal reflux disease) K21.9 Dyslipidemia E78.5 Cellulitis of back L03.312 Anxiety and depression F41.9; F32.9 Hypertension I10 AML (acute myeloblastic leukemia) C92.00 Migraine with vertigo G43.109 Symptomatic anemia D64.9
--- NOTE | 2022-12-25 04:26 | Emergency Department Note ---
Impression & Plan Leukopenia, Anemia, Thrombocytopenia, Skin lesion, Acute myeloblastic leukemia ED Provider Note CHIEF COMPLAINT: Heart pounding, dyspnea with exertion HISTORY OF PRESENT ILLNESS: This 82-year-old female patient with past medical history of acute myeloblastic leukemia, anxiety, hypertension, goiter, migraine headache, dyslipidemia, GERD, asthma, diabetes and rheumatoid arthritis presents to the emergency department with complaints of her heart pounding. She states it was pounding so loud that she could not go to sleep. She does feel that it was going fast and its been over several hours. Patient denies any recent fevers, cough, abdominal pain, vomiting or diarrhea. She is currently taking Augmentin for cutaneous lesions on the upper back, and 1 healed on the left arm. She is followed by Dr. Anne of oncology. She is currently undergoing chemotherapy. REVIEW OF SYSTEMS: A review of systems was performed with positives and pertinent negatives listed in the history of present illness. 10 systems were reviewed and are otherwise negative. ALLERGIES: see below MEDICATIONS: see below PMH: see below SOCIAL HISTORY: see below DDx: Acute coronary syndrome, pulmonary embolus, dehydration, anemia, electrolyte abnormality, infectious etiology such as UTI, among others. PHYSICAL EXAM: Vital signs reviewed. General: Well-appearing 82-year-old female, in no significant distress. HEENT: No scleral icterus, PERRLA, neck supple. Atraumatic. Cardiovascular: Regular rate and rhythm, no extra sounds. Occasional ectopy. Pulmonary: Clear to auscultation bilaterally, normal work of breathing. Abdomen: Soft, nontender, nondistended, positive bowel sounds. Musculoskeletal: Atraumatic, no peripheral edema. Neurologic: Patient awake alert and oriented x 3, speech is clear Skin: Warm, dry, 2 subcentimeter nodules on the upper back, 1 midline at the base of the cervical spine and the other on the left trapezius. Lesions are raised, erythematous with central ulceration. No fluctuance. No drainage. EMERGENCY DEPARTMENT COURSE/MDM: This patient was evaluated and appeared to be in no significant distress. Patient is noted to be tachycardic but maintaining her oxygen saturations. Patient has remained afebrile. Outside medical records were reviewed. The patient is noted to be leukopenic, thrombocytopenic and anemic. Patient was typed and crossed for 2 units of PRBCs. 1 unit was ordered to be transfused after the patient was consented for blood. The etiology of the lesions on her back is unclear. Does not appear to be atypical cellulitis and I do have some concern that this may be a cutaneous manifestation of her malignancy. It is also possible that this is a secondary development due to her immunocompromised state. Patient's chest x-ray is clear. I have discussed the case with the hospitalist, Dr. Eastman for admission and further management. He has evaluated the patient and agrees. The patient was informed of the findings and plan and agrees. MONITORING: An order for cardiac monitoring was placed and the patient is noted to be in a normal sinus rhythm at 93 beats per minute. RADIOLOGY: Chest x-ray to my interpretation reveals chronic elevation of the left hemidiaphragm without evidence of focal lung consolidation or failure. Otherwise defer to radiology's read. EKG: To my interpretation reveals a sinus tachycardia at 113 bpm. Nonspecific T wave abnormality. No PVC, no PAC. QTc is 447. When compared to previous dated August 15, 2022, no significant change was found DISPOSITION: Admission I have personally spent 30 minutes of critical care time in the direct management of this patient. This was a life/limb threatening event. This 30 minutes is in excess of all separately billable procedures. Past Med/Surg History Medical History (Updated 12/29/22 @ 22:00 by Ida Macias MD) Advanced care planning/counseling discussion Allergic rhinitis AML (acute myeloblastic leukemia) (03/2022) Anxiety and depression Asthma Chronic sinusitis COVID-19 Diabetes DVT prophylaxis Dyslipidemia Fibula fracture GERD (gastroesophageal reflux disease) Hypertension Insomnia Migraine headache Nontoxic multinodular goiter Osteopenia Palliative care by specialist Rheumatoid arthritis Sensorineural hearing loss (SNHL) of both ears Urge and stress incontinence Vitamin D deficiency Surgical History S/P adenoidectomy S/P carpal tunnel release b/l wrists S/P cataract extraction b/l eyes S/P cholecystectomy S/P foot surgery L foot hammertoe repair S/P hysterectomy S/P medial meniscal repair L knee S/P tonsillectomy S/P trigger finger release R hand Family History Brother Myocardial infarction Heart disease Hypertension Father , age 81 of heart disease Arthritis Heart disease Mother , age 41 Of leukemia Leukemia Breast cancer Ovarian cancer Sister , age 64 Diabetes Brother Throat cancer Liver cirrhosis Denies family history of Prostate cancer Colorectal cancer Social History Smoking Status: Never smoker Age Started Using Tobacco: 21; Age Quit Using Tobacco: 31; Cigarettes Per Day: light smoker only; Second Hand Exposure: No; Do You Dip or Chew Tobacco: No; Hx Alcohol Use: No Hx Substance Use: No Preferred Language: Hebrew Communication Ability: Effective Visual Impairment: No Limitations Hearing Ability: Normal Music Grapher Required: No Beliefs That Will Affect Care: None marital status: / Current Living Situation: Family Current Living Situation Comment: Granddaughter, family is always visiting. 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63, [employer] Feels Safe at Home: Yes Childhood Exposure to Second-Hand Smoke: Yes Diet: regular Diet Comment: regular caffeine: Yes (6 -8 cups coffee a day half caffeine ) during the past year weight has: remained stable Dental Care, Regularly: No Physical Activity Frequency: Daily Seatbelt Use: always Sunscreen Use: Yes Assistive Devices: Cane and Walker Allergies Allergies Allergy/AdvReac Type Severity Reaction Status Date / Time adhesive Allergy Intermediate "PULLS OFF Verified 12/25/22 02:34 SKIN" codeine AdvReac Severe VOMITING Verified 12/25/22 02:34 DROP IN BP morphine AdvReac Severe DROP IN Verified 12/25/22 02:34 VITAL SIGNS, TREMORS, VOMITING oxycodone AdvReac Severe drop in Verified 12/25/22 02:34 vital signs,tremors,vomiting hydrocodone [From Vicodin] AdvReac Intermediate vomiting Verified 12/25/22 02:34 and tremors meperidine AdvReac Intermediate VOMITING Verified 12/25/22 02:34 pravastatin AdvReac Intermediate pains in Verified 12/25/22 02:34 arms and legs simvastatin AdvReac Intermediate pains in Verified 12/25/22 02:34 legs and arms cephalexin [From Keflex] AdvReac Mild Nausea Verified 12/25/22 02:34 aspirin [From Percodan] AdvReac Unknown unknown Verified 12/25/22 02:34 montelukast [From Singulair] AdvReac Unknown unknown Verified 12/25/22 02:34 Home Meds Home Medications Medication Instructions Recorded Confirmed acyclovir 400 mg tablet 400 mg PO BID 09/17/22 12/29/22 albuterol sulfate 2.5 mg/3 mL 5 mg inhalation Q6H PRN Shortness 09/17/22 12/29/22 (0.083 %) solution for nebulization Of Breath Or Wheezing Previous Rx's Medication Instructions Recorded mirabegron 50 mg tablet,extended 50 mg PO DAILY #90 tabs 04/08/22 release 24 hr metformin 1,000 mg tablet 1,000 mg PO BID #180 tabs 04/24/22 pantoprazole 40 mg tablet,delayed 40 mg PO QAM #180 tabs 06/06/22 release meclizine 25 mg tablet 25 mg PO TID PRN Dizziness #90 tabs 06/13/22 alendronate 70 mg tablet (Fosamax) 70 mg PO WEEKLY #12 tabs 06/17/22 sumatriptan 5 mg/actuation nasal 10 mg intranasal Q2H PRN migraine 06/17/22 spray headache #6 ea zafirlukast 20 mg tablet 20 mg PO Q12H #180 tabs 07/25/22 sertraline 50 mg tablet 50 mg PO DAILY #90 tabs 09/17/22 fluconazole 100 mg tablet 200 mg PO QAM #30 tabs 12/26/22 (Diflucan) levofloxacin 500 mg tablet 500 mg PO DAILY 28 days #28 tabs 12/26/22 Results & Data (ED) Vital Signs Vital Signs - 24 hr 12/25/22 01:58 12/25/22 02:03 12/25/22 02:03 Temperature 37.1 C Temperature Source Oral Pulse Rate 97 H Pulse Rate [Apical] 93 H Respiratory Rate 17 17 Respiratory Effort / Characteristics Non-Labored Spontaneous Non-Labored Spontaneous Respiratory Depth Normal Normal Blood Pressure 132/73 Blood Pressure [Right Arm] 132/73 Blood Pressure Mean 92 Blood Pressure Mean [Right Arm] 92 Blood Pressure Position Sitting Blood Pressure Position [Right Arm] Sitting Pulse Oximetry 96 96 96 Oxygen Delivery Method Room Air Room Air Room Air Sepsis Recent Fever Within 48 Hours No Sepsis New/Unexplained Change in Mental Status No Sepsis Action Taken by Nursing No Action Required 12/25/22 02:04 12/25/22 02:16 Temperature Temperature Source Pulse Rate 99 H 93 H Pulse Rate [Apical] Respiratory Rate 17 Respiratory Effort / Characteristics Respiratory Depth Blood Pressure Blood Pressure [Right Arm] Blood Pressure Mean Blood Pressure Mean [Right Arm] Blood Pressure Position Blood Pressure Position [Right Arm] Pulse Oximetry 96 Oxygen Delivery Method Room Air Sepsis Recent Fever Within 48 Hours Sepsis New/Unexplained Change in Mental Status Sepsis Action Taken by [facility] Medications Current Medication List: was personally reviewed by me Laboratory Data Attestation: I reviewed the patient's lab results. 12/25/22 02:13 12/25/22 02:13 Lab Results 12/25/22 12/25/22 12/25/22 Range/Units 02:13 02:13 02:13 WBC 1.16 L (4.8-10.8) K/ul RBC 2.24 L (4.20-5.40) M/uL Hgb 6.8 L* (12.0-16.0) g/dl Hct 20.5 L* (37.0-47.0) % MCV 91.5 (80.0-100.0) fL MCH 30.4 (25.0-34.0) pg MCHC 33.2 (32.0-36.0) g/dL RDW Std Deviation 54.8 H (36.4-46.3) fL RDW Coeff of [place] 16.6 H (11.5-14.5) % Plt Count 16 L* (130-400) K/uL Absolute Nucleated RBC 0.41 H (0-0.12) K/uL Nucleated RBC % (auto) 35.3 % Neutrophils % (Manual) 5 % Lymphocytes % (Manual) 77 % Monocytes % (Manual) 3 % Blast Cells % (Manual) 16 % Neutrophils # (Manual) 0.06 L (1.40-6.50) K/uL Total Absolute Neuts 0.06 L* (1.4-6.5) K/uL Lymphocytes # (Manual) 0.89 L (1.2-3.4) K/uL Total Abs Lymphocytes 0.89 L (1.2-3.4) K/uL Monocytes # (Manual) 0.03 L (0.11-0.59) K/uL Blast Cells # (Man) 0.19 H (0-0) K/uL RBC Morphology Unremarkable PT 10.9 (9.0-12.0) Seconds INR 1.0 (0.9-1.1) APTT 24.8 (21.0-31.0) Seconds PTT Ratio 0.9 Sodium 139 (136-145) mmol/L Potassium 3.7 (3.5-5.1) mmol/L Chloride 105 (98-107) mmol/L Carbon Dioxide 25 (21-32) mmol/L Anion Gap 9 (3-11) BUN 18 (6-23) mg/dl Creatinine 0.70 (0.6-1.2) mg/dl Est Cr Clr Drug Dosing 59.8 ml/min Est GFR ( Amer) 94.2 ml/min Est GFR (Non-Af Amer) 81.3 ml/min BUN/Creatinine Ratio 25.7 H (10-20) Glucose 111 H (70-99(Fasting)) mg/dl Calcium 9.1 (8.6-10.3) mg/dl Total Bilirubin 0.6 (0.2-1.0) mg/dl AST 18 (13-39) U/L ALT 8 (7-52) U/L Alkaline Phosphatase 57 (34-104) U/L Troponin I High Sens 4.2 (0-14) pg/ml Total Protein 6.2 (6.0-8.3) gm/dl Albumin 3.6 (3.4-5.0) gm/dl Globulin 2.6 (2.5-4.0) gm/dl Albumin/Globulin Ratio 1.4 (0.9-2) Lipase 37 (11-82) U/L SARS-CoV-2, RNA, NAAT (NEGATIVE) Blood Type Antibody Screen Crossmatch 12/25/22 12/25/22 Range/Units 02:19 03:35 WBC (4.8-10.8) K/ul RBC (4.20-5.40) M/uL Hgb (12.0-16.0) g/dl Hct (37.0-47.0) % MCV (80.0-100.0) fL MCH (25.0-34.0) pg MCHC (32.0-36.0) g/dL RDW Std Deviation (36.4-46.3) fL RDW Coeff of [place] (11.5-14.5) % Plt Count (130-400) K/uL Absolute Nucleated RBC (0-0.12) K/uL Nucleated RBC % (auto) % Neutrophils % (Manual) % Lymphocytes % (Manual) % Monocytes % (Manual) % Blast Cells % (Manual) % Neutrophils # (Manual) (1.40-6.50) K/uL Total Absolute Neuts (1.4-6.5) K/uL Lymphocytes # (Manual) (1.2-3.4) K/uL Total Abs Lymphocytes (1.2-3.4) K/uL Monocytes # (Manual) (0.11-0.59) K/uL Blast Cells # (Man) (0-0) K/uL RBC Morphology PT (9.0-12.0) Seconds INR (0.9-1.1) APTT (21.0-31.0) Seconds PTT Ratio Sodium (136-145) mmol/L Potassium (3.5-5.1) mmol/L Chloride (98-107) mmol/L Carbon Dioxide (21-32) mmol/L Anion Gap (3-11) BUN (6-23) mg/dl Creatinine (0.6-1.2) mg/dl Est Cr Clr Drug Dosing ml/min Est GFR ( Amer) ml/min Est GFR (Non-Af Amer) ml/min BUN/Creatinine Ratio (10-20) Glucose (70-99(Fasting)) mg/dl Calcium (8.6-10.3) mg/dl Total Bilirubin (0.2-1.0) mg/dl AST (13-39) U/L ALT (7-52) U/L Alkaline Phosphatase (34-104) U/L Troponin I High Sens (0-14) pg/ml Total Protein (6.0-8.3) gm/dl Albumin (3.4-5.0) gm/dl Globulin (2.5-4.0) gm/dl Albumin/Globulin Ratio (0.9-2) Lipase (11-82) U/L SARS-CoV-2, RNA, NAAT NEGATIVE (NEGATIVE) Blood Type O Negative Antibody Screen NEGATIVE Crossmatch See Detail Administered Medications Discontinued Medications Acetaminophen (Acetaminophen 325 Mg Tab) 650 mg PO Q4H PRN PRN Reason: pain/fever Stop: 01/24/23 05:48 Last Admin: 12/26/22 07:51 Dose: 650 mg Documented By: Admin: 12/25/22 20:08 Dose: 650 mg Documented By: Admin: 12/25/22 08:22 Dose: 650 mg Documented By: RT Acetaminophen (Acetaminophen 1000 Mg/100 Ml Iv) Confirm Administered Dose 1,000 mg IV .STK-MED ONE Stop: 12/25/22 10:55 Last Admin: 12/25/22 12:44 Dose: Not Given Documented By: RT Acyclovir (Acyclovir 400 Mg Tab) 400 mg PO BID [facility] Stop: 01/24/23 08:59 Last Admin: 12/27/22 08:55 Dose: 400 mg Documented By: Admin: 12/26/22 21:08 Dose: 400 mg Documented By: Admin: 12/26/22 09:11 Dose: 400 mg Documented By: Admin: 12/25/22 20:09 Dose: 400 mg Documented By: Admin: 12/25/22 07:50 Dose: 400 mg Documented By: RT Fluconazole (Fluconazole 100 Mg Tab) [facility] [place]: 01/25/23 08:59 Last Admin: 12/27/22 09:04 Dose: 200 mg Documented By: Admin: 12/26/22 09:28 Dose: 200 mg Documented By: TAMELA Vancomycin HCl 1,500 mg/ (Sodium Chloride) 530 mls @ 200 mls/hr IV NOW ONE; Protocol Stop: 12/25/22 09:38 Last Infusion: 12/25/22 11:07 Dose: 0 mls/hr Documented By: Admin: 12/25/22 07:45 Dose: 200 mls/hr Documented By: RT Piperacillin Sod/Tazobactam (Sod 4.5 gm/ Dextrose) 120 mls @ 30 mls/hr IV Q8H [facility]; Protocol Stop: 01/01/23 05:48 Last Infusion: 12/26/22 15:50 Dose: 0 mls/hr Documented By: Admin: 12/26/22 11:50 Dose: 30 mls/hr Documented By: Infusion: 12/26/22 07:27 Dose: 0 mls/hr Documented By: Admin: 12/26/22 03:27 Dose: 30 mls/hr Documented By: Infusion: 12/26/22 00:36 Dose: 0 mls/hr Documented By: Admin: 12/25/22 20:08 Dose: 30 mls/hr Documented By: Infusion: 12/25/22 17:02 Dose: 0 mls/hr Documented By: Admin: 12/25/22 12:52 Dose: 30 mls/hr Documented By: RT Piperacillin Sod/Tazobactam (Sod 4.5 gm/ Dextrose) 120 mls @ 240 mls/hr IV NOW ONE; Protocol Stop: 12/25/22 07:29 Last Infusion: 12/25/22 08:23 Dose: 0 mls/hr Documented By: Admin: 12/25/22 07:45 Dose: 240 mls/hr Documented By: RT Vancomycin HCl 750 mg/ Sodium (Chloride) 265 mls @ 200 mls/hr IV Q12H [facility] Stop: 01/01/23 15:59 Last Infusion: 12/26/22 04:51 Dose: 0 mls/hr Documented By: Admin: 12/26/22 03:27 Dose: 200 mls/hr Documented By: Infusion: 12/25/22 17:30 Dose: 0 mls/hr Documented By: Admin: 12/25/22 16:09 Dose: 200 mls/hr Documented By: RT Acetaminophen (Ofirmev) 1,000 mg in 100 mls @ 400 mls/hr IV NOW STA Stop: 12/25/22 14:57 Last Infusion: 12/25/22 12:10 Dose: 0 mls/hr Documented By: Admin: 12/25/22 11:50 Dose: 400 mls/hr Documented By: ADAMA Insulin Aspart (Insulin Aspart Per Unit Charge) 0 units SC ACHS [facility] Stop: 01/24/23 07:29 Last Admin: 12/27/22 12:46 Dose: 3 units Documented By: TAMELA Co-signed By: JOSE Admin: 12/27/22 08:59 Dose: 5 units Documented By: TAMELA Co-signed By: AMS Admin: 12/26/22 21:29 Dose: Not Given Documented By: EW Co-signed By: SMN Admin: 12/26/22 17:36 Dose: 3 units Documented By: TAMELA Co-signed By: DLS Admin: 12/26/22 11:57 Dose: 2 units Documented By: TRISTAN Co-signed By: KADEN Admin: 12/26/22 09:23 Dose: 4 units Documented By: TAMELA Co-signed By: KADEN Admin: 12/25/22 20:09 Dose: Not Given Documented By: Admin: 12/25/22 17:44 Dose: 2 units Documented By: RT Co-signed By: LEEANN Admin: 12/25/22 12:45 Dose: 3 units Documented By: RT Co-signed By: LEEANN Admin: 12/25/22 08:26 Dose: 4 units Documented By: RT Co-signed By: LEEANN Levofloxacin (Levofloxacin 750 Mg Tab) 750 mg PO Q24H [facility] Stop: 01/02/23 15:29 Last Admin: 12/26/22 17:30 Dose: 750 mg Documented By: TAMELA Lorazepam (Lorazepam 2 Mg/1 Ml Vial) 0.5 mg IV UD ONE Stop: 12/25/22 10:44 Last Admin: 12/25/22 12:44 Dose: Not Given Documented By: RT Lorazepam (Lorazepam 2 Mg/1 Ml Vial) 0.5 mg IV NOW STA Stop: 12/25/22 14:45 Last Admin: 12/25/22 11:50 Dose: 0.5 mg Documented By: ADAMA Miscellaneous (Posaconazole 100 Mg Tablet - Order Awaiting Action) 1 each N/A QS [facility] Stop: 01/24/23 07:59 Last Admin: 12/27/22 08:55 Dose: Not Given Documented By: Admin: 12/26/22 21:31 Dose: Not Given Documented By: Admin: 12/26/22 16:12 Dose: Not Given Documented By: Admin: 12/26/22 09:21 Dose: Not Given Documented By: Admin: 12/25/22 23:17 Dose: Not Given Documented By: Admin: 12/25/22 16:09 Dose: Not Given Documented By: Admin: 12/25/22 07:49 Dose: Not Given Documented By: RT Miscellaneous (Sumatriptan 5 Mg/Actuation [place] - Order Awaiting Action) 1 each N/A QS AUDELIA Stop: 01/24/23 07:59 Last Admin: 12/27/22 08:53 Dose: Not Given Documented By: [facility] Admin: 12/26/22 21:32 Dose: Not Given Documented By: Admin: 12/26/22 16:12 Dose: Not Given Documented By: [facility] Admin: 12/26/22 09:20 Dose: Not Given Documented By: [facility] Admin: 12/25/22 23:18 Dose: Not Given Documented By: Admin: 12/25/22 16:09 Dose: Not Given Documented By: Admin: 12/25/22 07:48 Dose: Not Given Documented By: RT Miscellaneous (Venetoclax [Venclexta] 50mg - Order Awaiting Action) 1 each N/A QS [facility] Stop: 01/24/23 07:59 Last Admin: 12/27/22 08:54 Dose: Not Given Documented By: [facility] Admin: 12/26/22 21:32 Dose: Not Given Documented By: Admin: 12/26/22 16:13 Dose: Not Given Documented By: [facility] Admin: 12/26/22 09:17 Dose: Not Given Documented By: [facility] Admin: 12/25/22 23:18 Dose: Not Given Documented By: Admin: 12/25/22 16:09 Dose: Not Given Documented By: Admin: 12/25/22 07:48 Dose: Not Given Documented By: RT Miscellaneous (Venetoclax 10 Mg Tablet - Order Awaiting Action) 1 each N/A QS [facility] Stop: 01/24/23 07:59 Last Admin: 12/27/22 08:54 Dose: Not Given Documented By: [facility] Admin: 12/26/22 21:32 Dose: Not Given Documented By: Admin: 12/26/22 16:13 Dose: Not Given Documented By: [facility] Admin: 12/26/22 09:20 Dose: Not Given Documented By: [facility] Admin: 12/25/22 23:18 Dose: Not Given Documented By: Admin: 12/25/22 16:09 Dose: Not Given Documented By: Admin: 12/25/22 07:48 Dose: Not Given Documented By: RT Miscellaneous (Zafirlukast 20 Mg - Order Awaiting Action) 1 each N/A QS [facility] Stop: 01/24/23 07:59 Last Admin: 12/27/22 08:54 Dose: Not Given Documented By: [facility] Admin: 12/26/22 21:32 Dose: Not Given Documented By: Admin: 12/26/22 16:13 Dose: Not Given Documented By: [facility] Admin: 12/26/22 09:20 Dose: Not Given Documented By: [facility] Admin: 12/25/22 23:18 Dose: Not Given Documented By: Admin: 12/25/22 16:09 Dose: Not Given Documented By: Admin: 12/25/22 07:49 Dose: Not Given Documented By: RT Pantoprazole Sodium (Pantoprazole 40 Mg Tab) 40 mg PO QAM [facility] Stop: 01/24/23 08:59 Last Admin: 12/27/22 09:04 Dose: 40 mg Documented By: [facility] Admin: 12/26/22 09:11 Dose: 40 mg Documented By: [facility] Admin: 12/25/22 07:50 Dose: 40 mg Documented By: RT Potassium Chloride (Potassium Chloride Crtab 20 Meq Tabcr) 20 meq PO BID [facility] Stop: 12/27/22 21:01 Last Admin: 12/27/22 08:55 Dose: 20 meq Documented By: [facility] Admin: 12/26/22 20:12 Dose: 20 meq Documented By: EW Sertraline HCl (Sertraline Hcl 50 Mg Tablet) 50 mg PO DAILY [facility] Stop: 01/24/23 08:59 Last Admin: 12/27/22 09:04 Dose: 50 mg Documented By: [facility] Admin: 12/26/22 09:11 Dose: 50 mg Documented By: [facility] Admin: 12/25/22 07:50 Dose: 50 mg Documented By: RT Vibegron (Vibegron 75 Mg Tab) 75 mg PO DAILY [facility] Stop: 01/24/23 08:59 Last Admin: 12/27/22 09:04 Dose: 75 mg Documented By: [facility] Admin: 12/26/22 09:11 Dose: 75 mg Documented By: [facility] Admin: 12/25/22 07:50 Dose: 75 mg Documented By: RT Imaging Data Radiologist's Impression: Chest X-Ray 12/25/22 02:12 XR chest 1V portable HISTORY: 82 years-old Female Chest pain, nonspecific COMPARISON: 09/15/2022 TECHNIQUE: AP view of the chest FINDINGS: Cardiomediastinal and hilar silhouettes are within normal limits. Unchanged left hemidiaphragmatic elevation. No pneumothorax, pleural effusion, airspace consolidation or pulmonary edema. Bones appear grossly intact. IMPRESSION: No acute process. ACT 112: Negative or not required by law. The above report was generated using voice recognition software. It may contain grammatical, syntax or spelling errors. Electronically signed by: Fenrando Styles M.D. 12/25/2022 7:25 AM Discharge Plan Visit Data Chief Complaint: Cardiac Assessment Stated Complaint: "Loud" Heartbeat ED Provider: Ida Macias Discharge Problem: Leukopenia, Anemia, Thrombocytopenia, Skin lesion, Acute myeloblastic leukemia Patient Disposition: Admitted As Inpatient Discharge Instructions Interventions: ED Discharge Assessment Last Done: 12/25/22 05:23
[2022-12-25] MEDS ORDERED: ONDANSETRON INJ 2 MG/ML 2 ML VIAL IV PRN (05:49)
[2022-12-25] MEDS ORDERED: DEXTROSE 50% 50 ML SYRINGE IV PRN (05:49)
[2022-12-25] MEDS ORDERED: VANCOMYCIN CONSULT ACTIVE PRN (05:49)
[2022-12-25] MEDS ORDERED: MECLIZINE HCL 25 MG TAB PO PRN (05:49)
[2022-12-25] MEDS ORDERED: ALBUTEROL 0.083% NEBU SOLN 3 ML VIAL INH PRN (05:49)
[2022-12-25] MEDS ORDERED: CARBOHYDRATES FOR HYPOGLYCEMIA PO PRN (05:49)
[2022-12-25] MEDS ORDERED: GLUCOSE 10 TAB/TUBE PO PRN (05:49)
[2022-12-25] MEDS ORDERED: dexAMETHasone 4 MG TAB PO SCH (05:49)
[2022-12-25] MEDS ORDERED: GLUCAGON FOR INJ 1 MG VIAL SQ PRN (05:49)
[2022-12-25] MEDS ORDERED: GLUCOSE 40% GEL 15 GM TUBE PO PRN (05:49)
[2022-12-25] MEDS ORDERED: PIPERACILLIN/TAZOBACTAM 4.5 GM (over 30 mins) IV ONE (07:00)
[2022-12-25] MEDS ORDERED: VANCOMYCIN HCL 1,500 MG in SODIUM CHLORIDE 0.9% 500 ML IV ONE (07:00)
--- NOTE | 2022-12-25 07:26 | XRay Report ---
XR chest 1V portable HISTORY: 82 years-old Female Chest pain, nonspecific COMPARISON: 09/15/2022 TECHNIQUE: AP view of the chest FINDINGS: Cardiomediastinal and hilar silhouettes are within normal limits. Unchanged left hemidiaphragmatic el evation. No pneumothorax, pleural effusion, airspace consolidation or pulmonary edema. Bones appear g rossly intact. IMPRESSION: No acute process. ACT 112: Negative or not required by law. The above report was generated using voice recognition software. It may contain grammatical, syntax o r spelling errors. Electronically signed by: Fernando Styles M.D. 12/25/2022 7:25 AM
[2022-12-25] MEDS: SERTRALINE HCL 50 MG TABLET PO SCH (07:50)
[2022-12-25] MEDS: PANTOprazole 40 MG TAB PO SCH (07:50)
[2022-12-25] MEDS: VIBEGRON 75 MG TAB PO SCH (07:50)
[2022-12-25] MEDS: ACYCLOVIR 400 MG TAB PO SCH ×2 (07:50→20:09)
[2022-12-25] MEDS: ACETAMINOPHEN 325 MG TAB PO PRN ×2 (08:22→20:08)
[2022-12-25] MEDS: INSULIN ASPART PER UNIT CHARGE SC SCH ×4 (08:26→20:09)
--- NOTE | 2022-12-25 09:39 | Hospitalist Progress Note ---
Date of Service December 25, 2022 Assessment & Plan (1) AML (acute myeloblastic leukemia): Plan: Patient follows with [facility] [place] diagnosed with AML March 2022 Treated with azacitidine and venetoclax symptomatic anemia/AML/thrombocytopenia/neutropenia- Hemoglobin 6.8 is low for her, and will be transfused 2 units PRBCs written by the ED Hemoglobin drop may be due to physiologic stress associated with skin lesions Neutropenic precautions Discussed case with Dr. Brooks recommended interventional radiology bone marrow biopsy which was performed on 12/25/2022 (2) Cellulitis of back: Plan: Cellulitis lesions on back and forearm- Hold Augmentin Expedite healing placed on vancomycin IV and Zosyn IV this will also cover for neutropenic fever if present Follow clinical examination (3) Diabetes: Plan: Oral metformin held patient on sliding scale insulin (4) Anxiety and depression: (5) Asthma: Plan: Chronic and stable (6) GERD (gastroesophageal reflux disease): (7) Rheumatoid arthritis: Admission and Anticipated Discharge Date Admission Date: December 25, 2022 Subjective pt is fatigued, but overall no current issues except for bruising Physical Exam Physical Exam: Awake and alert only some bruising on her legs card exam is regular lungs are clear Results & Data Results & Data Vital Signs (Past 12 Hours) Vital Signs Temp Pulse Pulse Pulse Resp BP BP 12/25/22 08:30 98.4 F 95 H 18 118/76 12/25/22 07:57 98.1 F 93 H 18 121/76 12/25/22 06:57 98.2 F 93 H 16 120/74 12/25/22 05:27 12/25/22 05:27 12/25/22 05:57 98.4 F 90 18 121/70 12/25/22 05:27 98.2 F 91 H 18 127/73 12/25/22 05:27 98.2 F 91 H 18 127/73 12/25/22 05:12 98.6 F 96 H 16 125/72 12/25/22 05:01 87 18 129/72 12/25/22 04:52 98.6 F 95 H 18 129/72 12/25/22 02:16 93 H 17 12/25/22 02:04 99 H 12/25/22 02:03 93 H 17 132/73 12/25/22 02:03 12/25/22 01:58 98.8 F 97 H 17 132/73 Pulse Ox O2 Del Method 12/25/22 08:30 97 12/25/22 07:57 97 12/25/22 06:57 97 12/25/22 05:27 Room Air 12/25/22 05:27 Room Air 12/25/22 05:57 95 12/25/22 05:27 94 Room Air 12/25/22 05:27 96 12/25/22 05:12 96 12/25/22 05:01 97 Room Air 12/25/22 04:52 98 12/25/22 02:16 96 Room Air 12/25/22 02:04 12/25/22 02:03 96 Room Air 12/25/22 02:03 96 Room Air 12/25/22 01:58 96 Room Air Laboratory Results Reviewed CBC reviewed chemistry Discussed case with Dr. Anne Discussed case with interventional radiology PG Care Time/CCT Total # of Minutes Spent Total Time Spent with Patient: Total time spent is greater than 50% in coordination of care (as documented) at patient's floor/unit and/or counseling patient: Coding Level of Care Code 32720 SUB INP/OBS CARE MIN Diagnoses AML (acute myeloblastic leukemia) C92.00 Cellulitis of back L03.312 Diabetes E11.9 Anxiety and depression F41.9; F32.9 Asthma J45.909 GERD (gastroesophageal reflux disease) K21.9 Rheumatoid arthritis M06.9
[2022-12-25] MEDS ORDERED: LORazepam 2 MG/1 ML VIAL IV ONE (10:43)
[2022-12-25] MEDS ORDERED: ACETAMINOPHEN 1000 MG/100 ML IV IV ONE (10:54)
--- NOTE | 2022-12-25 12:16 | Pharmacy Report ---
Pharmacy PK ABX Note - Date of Service December 25, 2022 - Assessment and Plan Assessment 82 year old F receiving vancomycin/Zosyn for treatment of skin infection. Pertinent microbiologic data includes: N/A. Day # 1 of antimicrobial therapy. Plan Vancomycin * Loading dose: 1500 mg IV x 1 * Maintenance dose: 750 mg IV every 16 hours * Regimen is predicted to achieve target AUC/OFELIA of 400-600 mg/L.hr * Trough level to be ordered if continued > 48 hours Pharmacy will continue to follow and will adjust dose/frequency as necessary. Thank you. Pharmacy has transitioned to AUC monitoring for vancomycin. AUC/OFELIA is the preferred PK/PD target and is associated with decreased risk of nephrotoxicity compared to traditional trough targets.
[2022-12-25] MEDS: PIPERACILLIN/TAZOBACTAM 4.5 GM in DEXTROSE 5% 100 ML IV SCH ×2 (12:52→20:08)
--- NOTE | 2022-12-25 13:46 | CT Scan Report ---
CT guided bone marrow biopsy INDICATION: Pancytopenia PROCEDURE: Procedure and risks were explained. Informed consent was obtained. A final timeout was com pleted. The patient was placed prone on the CT exam table. The left gluteal region was prepped and dr aped in sterile fashion. 1% buffered lidocaine was last for skin anesthesia. The patient received 1 g Tylenol IV. Utilizing CT guidance, an 11-gauge bone biopsy needle was advanced into the left iliac bone. Multiple aspirates and one small bone core was obtained. The needle was removed and Band-Aid applied. The pat ient tolerated the procedure well. IMPRESSION: Bone marrow biopsy as above. Performed, dictated, and signed by Barney Iraheta PA-C; to be co-signed by Dr. Seth Sandoval. Electronically signed by: Seth Sandoval M.D. 12/25/2022 5:15 PM
[2022-12-25] MEDS ORDERED: ACETAMINOPHEN 1,000 MG/100 ML VIAL IV STA (14:43)
[2022-12-25] MEDS ORDERED: LORazepam 2 MG/1 ML VIAL IV STA (14:44)
[2022-12-25] MEDS: VANCOMYCIN HCL 750 MG in SODIUM CHLORIDE 0.9% 250 ML IV SCH (16:09)
[2022-12-26] MEDS: VANCOMYCIN HCL 750 MG in SODIUM CHLORIDE 0.9% 250 ML IV SCH (03:27)
[2022-12-26] MEDS: PIPERACILLIN/TAZOBACTAM 4.5 GM in DEXTROSE 5% 100 ML IV SCH ×2 (03:27→11:50)
--- NOTE | 2022-12-26 06:20 | Consultation ---
Date of Consultation December 26, 2022 Assessment & Plan (1) Rheumatoid arthritis: Rheumatoid arthritis has actually been her more symptomatic issue recently though now with more marked anemia she also has significant fatigue and the transient tachycardia. Unfortunately, steroids and methotrexate could both be problematic in exacerbating her infection risk and masking any signs of infection at a time that she is severely neutropenic. Similarly bio modulator such as rituximab could be immune suppressants as well. We will just need to go with as needed analgesics for now as we try to understand and stabilize her hematologic situation (2) AML (acute myeloblastic leukemia): Patient has actually done extraordinarily well with remission lasting more than 6 months treated only with venetoclax and azacitidine for an acute leukemia. We had hoped that the recent pancytopenia might simply represent a cumulative chemotherapy effect but with the presence of nucleated red blood cells in the peripheral smear we do have to be concerned that there is more than just a suppressed/recovering marrow. Aspiration and biopsy are pending. We will need to be careful in interpreting that ais a recovering marrow will show some immature cells but should show normal maturation rather than maturation arrest. If she is aplastic or markedly hypocellular it may be worthwhile to simply observe for a time longer to see if there is more recovery. We could discuss the potential role for myeloid growth factors under that circumstance. If she does have relapsed leukemia our options for salvage therapy might be somewhat limited given her age as she is not a candidate for allogeneic stem nayeli l transplantation. Have cautiously begun prognostic discussions and noted that we may need to look very closely at what we can and cannot achieve and set appropriate parameters of care (3) Infection: Superficial skin ulcerations on her back and arm are stable and she is afebrile and quite stable though with her severe neutropenia she may have minimal signs of that even not necessarily mounting a significant fever. At the same time, there has been no specific suggestion of systemic infection and prolonged aggressive antibiotics could generate resistant bacteria populations that could be more problematic at a later time 48 hours of IV antibiotics certainly seems worthwhile but if she remains afebrile and cultures are negative, might wonder whether we could back off to a fluoroquinolone. Topical treatment to the skin ulcers continuing will also be worthwhile. It would probably be prudent to start her on fluconazole especially now that she is not on the venetoclax and to continue her acyclovir in a prophylaxis as well. Plan 1. Certainly we will continue to hold the azacitidine and venetoclax pending bone marrow aspiration and biopsy 2. Await reading from that bone marrow sample 3. Transfusion support to maintain hemoglobin levels above 7 g/dL and platelets above 10,000, higher platelet threshold if there is any signs of significant hemostasis issues. Products should be irradiated 4. If she is clinically stable and cultures are negative at 48 hours we will consider transitioning from the current IV antibiotics to a fluoroquinolone 5. Would continue with acyclovir prophylaxis and institute fluconazole prophylaxis as well 6. As the marrow better defines her setting can consider whether there is a role for myeloid growth factors. May also need to incorporate pill of care discussions if we see significant relapse of her acute myeloid leukemia 7. Analgesics as needed for her joint symptoms 8. Mechanical DVT prophylaxis History of Present Illness Reason for Consultation: Patient with AML in previous remission admitted with tachycardia, marked pancytopenia, and ongoing issues of skin ulcers Attending Physician: Mamadou Gaitan MD History of Present Illness Patient had presented last with nausea, vomiting, and Georgette esthela containing blasts on peripheral smear transferred urgently to [facility] where she was treated with initial azacitidine/venetoclax induction and rapidly achieved remission. She has been maintained on that combination since without until very recently quite stable counts overall. Over the last 4 weeks she has shown a downward trend in her counts ultimately leading to suspension of chemotherapy with concern over the possibility of cumulative chemotherapy effect. She is now admitted, however, with symptomatic tachycardia related to that. She has had some recent shallow skin ulcerations on her left forearm and right upper back and had been put on Augmentin over the weekend without as well as ongoing topical bacitracin. At least up until this point she showed no signs of major systemic infection. She does have a concomitant history of rheumatoid arthritis with some ongoing major symptoms from that but we have been slow to add extra medications out of concern that cytotoxic's could exacerbate her pancytopenia and steroids could exacerbate her infectious risk as well as masking any signs of an infection Allergies Allergy/AdvReac Type Severity Reaction Status Date / Time adhesive Allergy Intermediate "PULLS OFF Verified 12/25/22 02:34 SKIN" codeine AdvReac Severe VOMITING Verified 12/25/22 02:34 DROP IN BP morphine AdvReac Severe DROP IN Verified 12/25/22 02:34 VITAL SIGNS, TREMORS, VOMITING oxycodone AdvReac Severe drop in Verified 12/25/22 02:34 vital signs,tremors,vomiting hydrocodone [From Vicodin] AdvReac Intermediate vomiting Verified 12/25/22 02:34 and tremors meperidine AdvReac Intermediate VOMITING Verified 12/25/22 02:34 pravastatin AdvReac Intermediate pains in Verified 12/25/22 02:34 arms and legs simvastatin AdvReac Intermediate pains in Verified 12/25/22 02:34 legs and arms cephalexin [From Keflex] AdvReac Mild Nausea Verified 12/25/22 02:34 aspirin [From Percodan] AdvReac Unknown unknown Verified 12/25/22 02:34 montelukast [From Singulair] AdvReac Unknown unknown Verified 12/25/22 02:34 Home Medications Medication Instructions Recorded Confirmed Type mirabegron 50 mg tablet,extended 50 mg PO DAILY #90 tabs 04/08/22 12/25/22 Rx release 24 hr metformin 1,000 mg tablet 1,000 mg PO BID #180 tabs 04/24/22 12/25/22 Rx dexamethasone 4 mg tablet 8 mg PO UD 05/28/22 12/25/22 History posaconazole 100 mg tablet,delayed 300 mg PO DAILY #90 tabs 05/28/22 12/25/22 Rx release venetoclax 10 mg tablet 20 mg PO DAILY #60 tabs 05/28/22 12/25/22 Rx venetoclax 50 mg tablet (Venclexta) 50 mg PO DAILY 05/28/22 12/25/22 History pantoprazole 40 mg tablet,delayed 40 mg PO QAM #180 tabs 06/06/22 12/25/22 Rx release meclizine 25 mg tablet 25 mg PO TID PRN Dizziness #90 tabs 06/13/22 12/25/22 Rx alendronate 70 mg tablet (Fosamax) 70 mg PO WEEKLY #12 tabs 06/17/22 12/25/22 Rx sumatriptan 5 mg/actuation nasal 10 mg intranasal Q2H PRN migraine 06/17/22 12/25/22 Rx spray headache #6 ea zafirlukast 20 mg tablet 20 mg PO Q12H #180 tabs 07/25/22 12/25/22 Rx galcanezumab-gnlm 120 mg/mL 120 mg subcut .MONTHLY/UD 08/15/22 12/25/22 History subcutaneous pen injector (Emgality Pen) acyclovir 400 mg tablet 400 mg PO BID 09/17/22 12/25/22 History albuterol sulfate 2.5 mg/3 mL 5 mg inhalation Q6H PRN Shortness 09/17/22 12/25/22 History (0.083 %) solution for nebulization Of Breath Or Wheezing sertraline 50 mg tablet 50 mg PO DAILY #90 tabs 09/17/22 12/25/22 Rx naproxen sodium 220 mg tablet 220 mg PO BID PRN Pain 11/21/22 12/25/22 History (Aleve) Patient History Medical History Allergic rhinitis AML (acute myeloblastic leukemia) (03/2022) Anxiety and depression Asthma Chronic sinusitis COVID-19 Diabetes DVT prophylaxis Dyslipidemia Fibula fracture GERD (gastroesophageal reflux disease) Hypertension Insomnia Migraine headache Nontoxic multinodular goiter Osteopenia Rheumatoid arthritis Sensorineural hearing loss (SNHL) of both ears Urge and stress incontinence Vitamin D deficiency Surgical History S/P adenoidectomy S/P carpal tunnel release b/l wrists S/P cataract extraction b/l eyes S/P cholecystectomy S/P foot surgery L foot hammertoe repair S/P hysterectomy S/P medial meniscal repair L knee S/P tonsillectomy S/P trigger finger release R hand Family History Brother Myocardial infarction Heart disease Hypertension Father , age 81 of heart disease Arthritis Heart disease Mother , age 41 Of leukemia Leukemia Breast cancer Ovarian cancer Sister , age 64 Diabetes Brother Throat cancer Liver cirrhosis Denies family history of Prostate cancer Colorectal cancer Social History Smoking Status: Never smoker Age Started Using Tobacco: 21; Age Quit Using Tobacco: 31; Cigarettes Per Day: light smoker only; Second Hand Exposure: No; Do You Dip or Chew Tobacco: No; Hx Alcohol Use: No Hx Substance Use: No Preferred Language: Yakut Communication Ability: Effective Visual Impairment: No Limitations Hearing Ability: Normal Booth Usher Required: No Beliefs That Will Affect Care: None marital status: / Current Living Situation: Family Current Living Situation Comment: Granddaughter, family is always visiting. 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63, [employer] Feels Safe at Home: Yes Childhood Exposure to Second-Hand Smoke: Yes Diet: regular Diet Comment: regular caffeine: Yes (6 -8 cups coffee a day half caffeine ) during the past year weight has: remained stable Dental Care, Regularly: No Physical Activity Frequency: Daily Seatbelt Use: always Sunscreen Use: Yes Assistive Devices: Cane and Walker Results & Data Vital Signs (Past 12 Hours) Vital Signs Temp Pulse Resp BP Pulse Ox 12/25/22 19:58 37.3 C 92 H 18 132/75 97 12/25/22 18:45 36.9 C 97 H 16 127/75 97 Laboratory Results Laboratory Results - last 24 hr 12/25/22 12/25/22 12/25/22 03:35 07:53 11:30 POC Glucose 127 H Flow Cytometry Comment Pending Blood Type O Negative Antibody Screen NEGATIVE Crossmatch See Detail 12/25/22 12/25/22 12/25/22 12:39 16:38 20:01 POC Glucose 93 105 H 133 H Flow Cytometry Comment Blood Type Antibody Screen Crossmatch Diagnostic Findings Chest X-Ray 12/25/22 02:12 XR chest 1V portable HISTORY: 82 years-old Female Chest pain, nonspecific COMPARISON: 09/15/2022 TECHNIQUE: AP view of the chest FINDINGS: Cardiomediastinal and hilar silhouettes are within normal limits. Unchanged left hemidiaphragmatic elevation. No pneumothorax, pleural effusion, airspace consolidation or pulmonary edema. Bones appear grossly intact. IMPRESSION: No acute process. ACT 112: Negative or not required by law. The above report was generated using voice recognition software. It may contain grammatical, syntax or spelling errors. Electronically signed by: Fernando Styles M.D. 12/25/2022 7:25 AM Bone Marrow Biopsy w/ CT 12/25/22 10:43 CT guided bone marrow biopsy INDICATION: Pancytopenia PROCEDURE: Procedure and risks were explained. Informed consent was obtained. A final timeout was completed. The patient was placed prone on the CT exam table. The left gluteal region was prepped and draped in sterile fashion. 1% buffered lidocaine was last for skin anesthesia. The patient received 1 g Tylenol IV. Utilizing CT guidance, an 11-gauge bone biopsy needle was advanced into the left iliac bone. Multiple aspirates and one small bone core was obtained. The needle was removed and Band-Aid applied. The patient tolerated the procedure well. IMPRESSION: Bone marrow biopsy as above. Performed, dictated, and signed by Barney Iraheta PA-C; to be co-signed by Dr. Seth Sandoval. Electronically signed by: Seth Sandoval M.D. 12/25/2022 5:15 PM PG Care Time/CCT Total # of Minutes Spent Total Time Spent with Patient: Total time spent is greater than 50% in coordination of care (as documented) at patient's floor/unit and/or counseling patient: [place] [address] IN/OBS CONSULT LVL 4,60M Patient Type New History Problem Focused Exam Problem Focused Medical Decision Making High Complexity Diagnoses Rheumatoid arthritis M06.9 AML (acute myeloblastic leukemia) C92.00 Infection B99.9
[2022-12-26 07:18] LABS: Hematocrit (blood only) 28.1 % (37.0-47.0); Hemoglobin 9.6 g/dl (12.0-16.0); Mean Corpuscular Hemoglobin 29.9 pg (25.0-34.0); Mean Corpuscular Hgb Conc 34.2 g/dL (32.0-36.0); Mean Corpuscular Volume 87.5 fL (80.0-100.0); Nucleated RBC # (auto) 0.39 K/uL (0-0.12); Nucleated RBC % (auto) 42.4 %; Platelet Count 12 K/uL (130-400); RDW Standard Deviation 53.8 fL (36.4-46.3); Red Blood Count 3.21 M/uL (4.20-5.40); White Blood Count 0.92 K/ul (4.8-10.8)
[2022-12-26] MEDS: ACETAMINOPHEN 325 MG TAB PO PRN (07:51)
[2022-12-26 07:55] LABS: ALC (manual) 0.57 K/uL (1.2-3.4); ANC (manual) 0.14 K/uL (1.4-6.5); Basophils # (manual) 0.01 K/uL (0-0.2); Basophils % (manual) 1 %; Blast # (manual) 0.21 K/uL (0-0); Blast Cells % (manual) 23 %; Lymphocytes # (manual) 0.57 K/uL (1.2-3.4); Lymphocytes % (manual) 62 %; Neutrophils # (manual) 0.14 K/uL (1.40-6.50); Neutrophils % (manual) 15 %; Polychromasia 1+
[2022-12-26 08:04] LABS: Albumin Globulin Ratio 1.3 (0.9-2); Albumin Level 3.2 gm/dl (3.4-5.0); Bilirubin,Total 1.2 mg/dl (0.2-1.0); Calcium 8.2 mg/dl (8.6-10.3); Creatinine Clr Calc Pharmacy 67.2 ml/min; Est GFR (African American) 98.5 ml/min; Globulin 2.4 gm/dl (2.5-4.0); Magnesium 1.6 mg/dl (1.7-2.4); Potassium 3.4 mmol/L (3.5-5.1); Total Protein 5.6 gm/dl (6.0-8.3)
[2022-12-26] MEDS ORDERED: FLUCONAZOLE 100 MG TAB PO SCH (09:00)
[2022-12-26] MEDS: VIBEGRON 75 MG TAB PO SCH (09:11)
[2022-12-26] MEDS: PANTOprazole 40 MG TAB PO SCH (09:11)
[2022-12-26] MEDS: SERTRALINE HCL 50 MG TABLET PO SCH (09:11)
[2022-12-26] MEDS: ACYCLOVIR 400 MG TAB PO SCH ×2 (09:11→21:08)
[2022-12-26] MEDS: INSULIN ASPART PER UNIT CHARGE SC SCH ×4 (09:23→21:29)
[2022-12-26] MEDS: FLUCONAZOLE 100 MG TAB PO SCH (09:28)
--- NOTE | 2022-12-26 13:41 | Palliative Care Consultation ---
Date of Consultation December 26, 2022 Assessment & Plan (1) Generalized weakness: severe anemia and recurrent AML as cause transfusion support improved subjectively (2) Cancer related pain: Severe reactions to all opioids including malignant hyperthermia, resp suppression, neuro changes, palpitations etc. Can only tolerate NSAID and low intensity tramadol (3) Dyspnea and respiratory abnormalities: from anemia, improves with transfusion (4) Fatigue: (5) Palliative care by specialist: Met with pt/family. Provided overview of Palliative Medicine, a subspecialty that provides specialized medical care for people living with a serious illness by offering a focus on quality of life. Palliative Medicine is often conflated with hospice: I advised patient/family that Palliative and hospice can be partners but we are not the same. It is important to understand the difference so that we may be informed, and not afraid. Palliative Medicine works to improve QOL through reduction of symptom burden/more control over their illness, for b oth the patient and family. Palliative medicine clinicians are board certified, specially-trained and another member of the patient's medical care team. We often provide an extra layer of support because our care is based on the needs of the patient, not the prognosis; as such, it's appropriate at any age/advancing stage of a serious illness and can be provided along with curative treatment. Palliative Medicine clinicians are also trained in advanced communication methodologies, to facilitate complex discussions about advanced illness planning, which are needed to help assure that the treatment choices match the patient's goals, aka delivering Goal Concordant care. Finally, we discussed that hospice is a visiting nurse service that focuses on care delivered at the very end of life for patients with terminal illness, with life expectancy less than 6 month. We discussed that cancer patients experience significant symptom and psychosocial burden for which the early integration of supportive oncology with palliative medicine (early findings from the research of [facility]) help address a growing need to manage patients comprehensively, with an emphasis on symptom control, nutritional and psychosocial support, and pharmaceutical review. Palliative care consultation in patients with advanced cancer is not only associated with an improvement in the quality of oncology care, but also a reduction in downstream healthcare utilization. In Rai et al 2017, when the automatic palliative medicine consult was triggered by specific oncology criteria, 30-day readmission rates and use of chemotherapy after discharge declined, whereas hospice referrals and uptake of support services post- discharge increased. Patients with advanced cancer admitted to an acute care hospital often have short life expectancies and high morbidity - for these patients, the integration of palliative care has improved symptom burden, reduced patient and caregiver distress, increased referral to hospice, and improved outcomes. (6) Advanced care planning/counseling discussion: Met with dtr Dona and pt at bedside for 45min ACP face to face discussion. Pam is aware her AML is back and chemo would be high risk. She does not want chemo and prefers to have more symptom directed support with transfusions and focus on QOL.Dona in agreement. Pam states she feels a lot better after transfusions so she wants these to continue. We reviewed that transfusions support, routine labs and she asks for help getting transportation to clinic for which I have notified cancer navigators. She asked about some home support options, for now it would be standard home health/VNS but she is not eligible for hospice so long as she is continuing with active infusion support. We discussed the goals of hospice as a patient service and the goals of care; we discussed EOL trajectories and transitions scarlett the emotional impact of realizing mortality as a concrete reality from prior abstract considerations. Pt was reassured that no matter where they are along this trajectory, they are not alone - their medical team will remain by their side through their journey. Discussed the pros/cons of accepting help when especially weakened and distressed by pain-which would also help provide relief/decrease caregiver burden/strain. I provided education about the hospice benefit: an interdisciplinary program offered by nurses, nurses aides, social workers, chaplains and a medical billing coordinator for patients with a terminal condition and a life expectancy of less than 6 months. This is covered by Medicare at 100%/no out of pocket expense to patient and all meds/supplies needed by patient for the reason they are on hospice are paid for/covered by hospice. The goal is assure quality of life of the patient in their home setting (home, fdc, inpatient hospice setting) by providing symptoms management, psychosocial and spiritual support. However, they cannot offer 24 hours care and if the family is unable to provide that care, they will have to consider personal care with out of pocket cost vs. fdc placement. We discussed the goals of hospice as a patient service and the goals of care; we discussed EOL trajectories and transitions scarlett the emotional impact of realizing mortality as a concrete reality from prior abstract considerations. Pt was reassured that no matter where they are along this trajectory, they are not alone - their medical team will remain by their side through their journey. Discussed the pros/cons of accepting help when especially weakened and distressed by pain-which would also help provide relief/decrease caregiver burden/strain. (7) AML (acute myeloblastic leukemia): Plan * Home today is possible per pt preference * She will continue transfusion support for sx mgt and QOL * She is not eligible for hospice while on active transfusion protocol. Hospice may approve a limited # but not indefinite. * She had some concerns about pain mgt when she worsens. ADvised we could likely consider admission for palliative sedation given that her reactions for nearly every opioid is so severe. * She would like ca ryan assistance. * I updated primary and oncology teams + navigation team. * I will follow her in OP clinic as needed, contact info provided. * TS 75min Thank you for allowing us to participate in the ongoing care of this patient. Please don't hesitate to call or page with any additional concerns. Dr. Lisa Alva DNP Director, Palliative Care History of Present Illness Reason for Consultation: AML, progressive, C Attending Physician: Mamadou Gaitan MD History of Present Illness 82yo female with progressive AML and hx RA Has been in remission > 6 months following tx with venetoclax and azacitidine for an acute leukemia. Her RA has been her more symptomatic issue recently, with more marked anemia, significant fatigue and transient tachycardia. Unfortunately, steroids and methotrexate could both be problematic in exacerbating her infection risk and masking any signs of infection at a time that she is severely neutropenic. Similarly bio modulator such as rituximab could be immune suppressants as well. She had a bone marrow bx and result are pending. Dr. Araujo saw her earlier today and noted: "Await reading from that bone marrow sample 3. Transfusion support to maintain hemoglobin levels above 7 g/dL and platelets above 10,000, higher platelet threshold if there is any signs of significant hemostasis issues. Products should be irradiated 4. If she is clinically stable and cultures are negative at 48 hours we will consider transitioning from the current IV antibiotics to a fluoroquinolone 5. Would continue with acyclovir prophylaxis and institute fluconazole prophylaxis as well 6. As the marrow better defines her setting can consider whether there is a role for myeloid growth factors. May also need to incorporate pall care dis cussions if we see significant relapse of her acute myeloid leukemia 7. Analgesics as needed for her joint symptoms" Allergies Allergy/AdvReac Type Severity Reaction Status Date / Time adhesive Allergy Intermediate "PULLS OFF Verified 12/25/22 02:34 SKIN" codeine AdvReac Severe VOMITING Verified 12/25/22 02:34 DROP IN BP morphine AdvReac Severe DROP IN Verified 12/25/22 02:34 VITAL SIGNS, TREMORS, VOMITING oxycodone AdvReac Severe drop in Verified 12/25/22 02:34 vital signs,tremors,vomiting hydrocodone [From Vicodin] AdvReac Intermediate vomiting Verified 12/25/22 02:34 and tremors meperidine AdvReac Intermediate VOMITING Verified 12/25/22 02:34 pravastatin AdvReac Intermediate pains in Verified 12/25/22 02:34 arms and legs simvastatin AdvReac Intermediate pains in Verified 12/25/22 02:34 legs and arms cephalexin [From Keflex] AdvReac Mild Nausea Verified 12/25/22 02:34 aspirin [From Percodan] AdvReac Unknown unknown Verified 12/25/22 02:34 montelukast [From Singulair] AdvReac Unknown unknown Verified 12/25/22 02:34 Home Medications Medication Instructions Recorded Confirmed Type mirabegron 50 mg tablet,extended 50 mg PO DAILY #90 tabs 04/08/22 12/25/22 Rx release 24 hr metformin 1,000 mg tablet 1,000 mg PO BID #180 tabs 04/24/22 12/25/22 Rx dexamethasone 4 mg tablet 8 mg PO UD 05/28/22 12/25/22 History posaconazole 100 mg tablet,delayed 300 mg PO DAILY #90 tabs 05/28/22 12/25/22 Rx release venetoclax 10 mg tablet 20 mg PO DAILY #60 tabs 05/28/22 12/25/22 Rx venetoclax 50 mg tablet (Venclexta) 50 mg PO DAILY 05/28/22 12/25/22 History pantoprazole 40 mg tablet,delayed 40 mg PO QAM #180 tabs 06/06/22 12/25/22 Rx release meclizine 25 mg tablet 25 mg PO TID PRN Dizziness #90 tabs 06/13/22 12/25/22 Rx alendronate 70 mg tablet (Fosamax) 70 mg PO WEEKLY #12 tabs 06/17/22 12/25/22 Rx sumatriptan 5 mg/actuation nasal 10 mg intranasal Q2H PRN migraine 06/17/22 12/25/22 Rx spray headache #6 ea zafirlukast 20 mg tablet 20 mg PO Q12H #180 tabs 07/25/22 12/25/22 Rx galcanezumab-gnlm 120 mg/mL 120 mg subcut .MONTHLY/UD 08/15/22 12/25/22 History subcutaneous pen injector (Emgality Pen) acyclovir 400 mg tablet 400 mg PO BID 09/17/22 12/25/22 History albuterol sulfate 2.5 mg/3 mL 5 mg inhalation Q6H PRN Shortness 09/17/22 12/25/22 History (0.083 %) solution for nebulization Of Breath Or Wheezing sertraline 50 mg tablet 50 mg PO DAILY #90 tabs 09/17/22 12/25/22 Rx naproxen sodium 220 mg tablet 220 mg PO BID PRN Pain 11/21/22 12/25/22 History (Aleve) fluconazole 100 mg tablet 200 mg PO QAM #30 tabs 12/26/22 Rx (Diflucan) levofloxacin 500 mg tablet 500 mg PO DAILY 28 days #28 tabs 12/26/22 Rx Patient History Medical History (Updated 12/26/22 @ 15:13 by Lisa Alva DNP) Advanced care planning/counseling discussion Allergic rhinitis AML (acute myeloblastic leukemia) (03/2022) Anxiety and depression Asthma Chronic sinusitis COVID-19 Diabetes DVT prophylaxis Dyslipidemia Fibula fracture GERD (gastroesophageal reflux disease) Hypertension Insomnia Migraine headache Nontoxic multinodular goiter Osteopenia Palliative care by specialist Rheumatoid arthritis Sensorineural hearing loss (SNHL) of both ears Urge and stress incontinence Vitamin D deficiency Surgical History S/P adenoidectomy S/P carpal tunnel release b/l wrists S/P cataract extraction b/l eyes S/P cholecystectomy S/P foot surgery L foot hammertoe repair S/P hysterectomy S/P medial meniscal repair L knee S/P tonsillectomy S/P trigger finger release R hand Family History Brother Myocardial infarction Heart disease Hypertension Father , age 81 of heart disease Arthritis Heart disease Mother , age 41 Of leukemia Leukemia Breast cancer Ovarian cancer Sister , age 64 Diabetes Brother Throat cancer Liver cirrhosis Denies family history of Prostate cancer Colorectal cancer Social History Smoking Status: Never smoker Age Started Using Tobacco: 21; Age Quit Using Tobacco: 31; Cigarettes Per Day: light smoker only; Second Hand Exposure: No; Do You Dip or Chew Tobacco: No; Hx Alcohol Use: No Hx Substance Use: No Preferred Language: [place] Communication Ability: Effective Visual Impairment: No Limitations Hearing Ability: Normal News Editor Required: No Beliefs That Will Affect Care: None marital status: / Current Living Situation: Family Current Living Situation Comment: Granddaughter, family is always visiting. 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 [employer] Feels Safe at Home: Yes Childhood Exposure to Second-Hand Smoke: Yes Diet: regular Diet Comment: regular caffeine: Yes (6 -8 cups coffee a day half caffeine ) during the past year weight has: remained stable Dental Care, Regularly: No Physical Activity Frequency: Daily Seatbelt Use: always Sunscreen Use: Yes Assistive Devices: Cane and Walker Review of Systems Review of Systems: All systems reviewed & are unremarkable except as noted in Subjective Physical Exam Constitutional: WD/WN, vitals as above Neck: normal visual inspection Thyroid: normal thyroid Respiratory: normal respiratory effort, able to speak in complete sentences and symmetric chest movement Cardiovascular: Extremities: normal capillary refill (no edema) Gastrointestinal (Abdomen): normal bowel sounds, soft, nontender, no hepatosplenomegaly Musculoskeletal: no c/c/e Skin: no rashes, warm and dry Neurologic: PERRL, EOMI, accommodation nl, no face palsy, no dysarthria awake Psychiatric: A+Ox3, euthymic affect Results & Data Vital Signs (Past 12 Hours) Vital Signs Temp Pulse BP Pulse Ox O2 Del Method 12/26/22 10:37 36 C L 12/26/22 07:55 99 H 112/71 96 Room Air Laboratory Results data reviewed Diagnostic Findings data reviewed PG Care Time/CCT Total # of Minutes Spent Total Time Spent: 90 Total Time Spent with Patient: Total time spent is greater than 50% in coordination of care (as documented) at patient's floor/unit and/or counseling patient: I spent 90 minutes overall addressing this very complex case: 15 in medical data review/discussion with referring provider(s) and/or preparation for the visit 15 in direct interaction with the patient 45 Advance Care Planning/Goals of Care discussions as detailed above in note (must be >16min) 5 in subsequent review and synthesis of assessment and plan 15 in communicating with other providers regarding the patient's case: oncology, primary team, cancer navig Prolonged Care Time Prolonged Care Time: Yes Advanced Care Planning 37494 Advanced Care Planning 30 Min 69609 Advanced Care Planning Additional 30 [place] [address] IN/OBS CONSULT LVL 5,80M Patient Type New History Comprehensive Exam Comprehensive Medical Decision Making High Complexity Diagnoses Generalized weakness R53.1 Cancer related pain G89.3 Dyspnea and respiratory abnormalities R06.00; R06.89 Fatigue R53.83 Palliative care by specialist Z51.5 Advanced care planning/counseling discussion Z71.89 AML (acute myeloblastic leukemia) C92.00 Additional Codes Advanced Care Planning - 92652 Advanced Care Planning 30 Min: 54841 Advanced Care Planning 30 Min ([id number]) Advanced Care Planning - 91522 Advanced Care Planning Additional 30 Min: 54668 Advanced Care Planning Additional 30 Min ([id number]) Prolonged Care Time - Prolonged Care Time: Yes ([id number])
--- NOTE | 2022-12-26 16:00 | Hospitalist Progress Note ---
Date of Service December 26, 2022 Assessment & Plan (1) AML (acute myeloblastic leukemia): Plan: Patient follows with [facility] [place] diagnosed with AML March 2022 Treated with azacitidine and venetoclax symptomatic anemia/AML/thrombocytopenia/neutropenia- transfused 2 units PRBCs good improvement of Discussed case with Dr. Araujo after interpretation of bone marrow biopsy which was performed on 12/25/2022 Dr. Araujo feels AML is relapsed after long discussion with patient and her family will begin to have symptom oriented treatment, supportive treatment only with persistent transfusions. Patient voices this decision back to me. Patient be on prophylactic antibiotics antifungals and antivirals while she remains pancytopenic this will be levofloxacin day glucan and acyclovir Family is ready for the patient to come home on 12/27/2022 she will follow-up with Dr. Anne's office for surveillance blood counts and blood product support as needed (2) Cellulitis of back: Plan: Cellulitis lesions on back and forearm- Patient be transitioned to levofloxacin and will remain on this after discharge (3) Diabetes: Plan: Oral metformin will be resumed at discharge (4) Anxiety and depression: (5) Asthma: Plan: Chronic and stable (6) GERD (gastroesophageal reflux disease): (7) Rheumatoid arthritis: Admission and Anticipated Discharge Date Admission Date: December 25, 2022 Subjective Patient feels much improved after transfusion, was seen in the company of family, I also personally discussed case with Dr. 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 Physical Exam Physical Exam: Awake and alert only some bruising on her legs card exam is regular lungs are clear Results & Data Results & Data Vital Signs (Past 12 Hours) Vital Signs Temp Pulse Resp BP Pulse Ox O2 Del Method 12/26/22 15:11 98.2 F 101 H 20 124/71 96 Room Air 12/26/22 10:37 96.8 F L 12/26/22 07:55 99 H 112/71 96 Room Air Laboratory Results Reviewed CBC reviewed chemistry For hypokalemia given dose of oral potassium PG Care Time/CCT Total # of Minutes Spent Total Time Spent with Patient: Total time spent is greater than 50% in coordination of care (as documented) at patient's floor/unit and/or counseling patient: Coding Level of Care Code 40448 SUB INP/OBS CARE 3/50MIN Diagnoses AML (acute myeloblastic leukemia) C92.00 Cellulitis of back L03.312 Diabetes E11.9 Anxiety and depression F41.9; F32.9 Asthma J45.909 GERD (gastroesophageal reflux disease) K21.9 Rheumatoid arthritis M06.9
--- NOTE | 2022-12-26 16:36 | Hospitalist Progress Note ---
Date of Service December 26, 2022 Assessment & Plan (1) AML (acute myeloblastic leukemia): Plan: I personally reviewed the bone marrow slides with our pathologist. There is an unequivocal picture of significant relapse of her AML. I met with Pam [id number] at great length. I discussed that for someone over 80, allogeneic bone marrow transplantation is not a practical option. We reviewed that there might be experimental treatment options to consider and we could transfer her to a quaternary institution either [place] or elsewhere to explore those and also to get input from 1 of those teams into their own prognostication and assessment of her options. Noting NCCN recommending that supportive care only should be considered for those who are not transplant candidates, we did discuss the importance of understanding the limits to what we can accomplish with additional cytotoxic's especially for disease that has recurred less than 1 year from first diagnosis and while on active and reasonably aggressive maintenance therapy. I noted that any treatment, standard or experimental, will have the potential for significant toxicities and probably no more than marginal impact on ultimate survival. Indeed, concern would be as to whether there would be adverse impact on survival itself based on life-threatening complications that could result from deeper and more prolonged cytopenias. We spoke that the alternative would be to go with simple supportive therapy using transfusions and prophylactic antibiotics and trying to focus the time to come more on quality time at home and with her family than in some faraway institution receiving potentially toxic treatments. We noted that survival could still be very short as transfusion can only bolster the red cell and platelet populations but would not replace the white cells effectively and would also not prevent all bleeding complications. Furthermore, as leukemia progresses the leukemia cells themselves may create problems with organ infiltration or with vascular stasis. Pam seems quite calm and reasonable during the entire conversation, she seems to well understand her prognosis, and in shared decision-making would much prefer to stay here with transfusion support. I have asked the hospitalist and palliative care services to affirm that plan, suggest that she be discharged on the combination of levofloxacin/fluconazole/acyclovir to try to prevent infections, and have asked our office staff to set up for at least twice weekly assessments with transfusion transitioning to 3 times weekly if there is a greater need. Subsequent to the conversation with Pam I did speak with her daughter Dona on the phone who is in support of this approach and similarly understands the grave prognosis that Pam faces Plan Discharge on antibiotic prophylaxis with scheduled assessment for regular transfusion support. Admission and Anticipated Discharge Date Admission Date: December 25, 2022 Subjective See early a.m. consultation, this is a supplemental notation based on subsequent availability of bone marrow results Results & Data Results & Data Vital Signs (Past 12 Hours) Vital Signs Temp Pulse Resp BP Pulse Ox O2 Del Method 12/26/22 15:11 36.8 C 101 H 20 124/71 96 Room Air 12/26/22 10:37 36 C L 12/26/22 07:55 99 H 112/71 96 Room Air PG Care Time/CCT Total # of Minutes Spent Total Time Spent with Patient: Total time spent is greater than 50% in coordination of care (as documented) at patient's floor/unit and/or counseling patient: Coding Level of Care Code None Diagnoses AML (acute myeloblastic leukemia) C92.00
[2022-12-26] MEDS ORDERED: levoFLOXacin 750 MG TAB PO SCH (18:00)
[2022-12-26] MEDS: POTASSIUM CHLORIDE CRTAB 20 MEQ TABCR PO SCH (20:12)
--- NOTE | 2022-12-26 21:48 | Electrocardiogram Report ---
Test Reason : Blood Pressure : / mmHG Vent. Rate : 096 BPM Atrial Rate : 096 BPM P-R Int : 146 ms QRS Dur : 076 ms QT Int : 344 ms P-R-T Axes : 016 016 076 degrees QTc Int : 434 ms Normal sinus rhythm Normal ECG When compared with ECG of 15-SEP-2022 14:02, No significant change was found Confirmed by Jaime Mackenzie ([id number]) on 12/26/2022 9:48:09 PM Referred By: REFERRED SELF Confirmed By:Jaime Mackenzie
[2022-12-27 07:45] LABS: Hematocrit (blood only) 29.5 % (37.0-47.0); Hemoglobin 10.1 g/dl (12.0-16.0); Mean Corpuscular Hemoglobin 29.8 pg (25.0-34.0); Mean Corpuscular Hgb Conc 34.2 g/dL (32.0-36.0); Nucleated RBC # (auto) 0.38 K/uL (0-0.12); Nucleated RBC % (auto) 40.9 %; RDW Coefficient of Variation 16.7 % (11.5-14.5); RDW Standard Deviation 51.8 fL (36.4-46.3); Red Blood Count 3.39 M/uL (4.20-5.40)
[2022-12-27 07:46] LABS: ALC (manual) 0.56 K/uL (1.2-3.4); ANC (manual) 0.07 K/uL (1.4-6.5); Blast # (manual) 0.28 K/uL (0-0); Blast Cells % (manual) 30 %; Eosinophils # (manual) 0.01 K/uL (0-0.50); Eosinophils % (manual) 1 %; Lymphocytes # (manual) 0.56 K/uL (1.2-3.4); Lymphocytes % (manual) 60 %; Monocytes # (manual) 0.01 K/uL (0.11-0.59); Monocytes % (manual) 1 %; Neutrophils # (manual) 0.07 K/uL (1.40-6.50); Neutrophils % (manual) 8 %; Platelet Count 10 K/uL (130-400); Platelet Estimate Signific. Decreased (Normal); Promyelocytes # (manual) 0.01 K/uL (0-0); Promyelocytes % (manual) 1 %; RBC Morphology Unremarkable; White Blood Count 0.93 K/ul (4.8-10.8)
[2022-12-27 07:47] LABS: Albumin Globulin Ratio 1.3 (0.9-2); Albumin Level 3.4 gm/dl (3.4-5.0); BUN Creatinine Ratio 22.6 (10-20); Bilirubin,Total 0.9 mg/dl (0.2-1.0); Calcium 8.5 mg/dl (8.6-10.3); Creatinine Clr Calc Pharmacy 66.1 ml/min; Est GFR (Non-African American) 84.6 ml/min; Globulin 2.6 gm/dl (2.5-4.0); Magnesium 1.8 mg/dl (1.7-2.4); Potassium 3.7 mmol/L (3.5-5.1)
[2022-12-27] MEDS: POTASSIUM CHLORIDE CRTAB 20 MEQ TABCR PO SCH (08:55)
[2022-12-27] MEDS: ACYCLOVIR 400 MG TAB PO SCH (08:55)
[2022-12-27] MEDS: INSULIN ASPART PER UNIT CHARGE SC SCH ×2 (08:59→12:46)
[2022-12-27] MEDS: PANTOprazole 40 MG TAB PO SCH (09:04)
[2022-12-27] MEDS: FLUCONAZOLE 100 MG TAB PO SCH (09:04)
[2022-12-27] MEDS: VIBEGRON 75 MG TAB PO SCH (09:04)
[2022-12-27] MEDS: SERTRALINE HCL 50 MG TABLET PO SCH (09:04)
--- NOTE | 2022-12-27 16:36 | Discharge Summary ---
Date of Service December 27, 2022 Admission HPI Per Admitting Provider The patient is an 82-year-old female with a past medical history including rheumatoid arthritis, diabetes mellitus, AML, asthma, GERD, dyslipidemia, migraine, urge and stress incontinence, nontoxic multinodular goiter, hypertension, anxiety and depression, and bilateral SNHL. She presents to the emergency department with the acute symptoms of heart pounding into her ears as she was lying down to go to bed this evening. She reports she has had intermittent temperatures over the past week or so, and has had skin lesions on her back and forearms that she was prescribed Augmentin for, that have not been significantly healing. 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 Discharge Exam Patient without problems or complaints received platelet transfusion prior to discharge without incident Discharge Data Allergies Allergy/AdvReac Type Severity Reaction Status Date / Time adhesive Allergy Intermediate "PULLS OFF Verified 12/25/22 02:34 SKIN" codeine AdvReac Severe VOMITING Verified 12/25/22 02:34 DROP IN BP morphine AdvReac Severe DROP IN Verified 12/25/22 02:34 VITAL SIGNS, TREMORS, VOMITING oxycodone AdvReac Severe drop in Verified 12/25/22 02:34 vital signs,tremors,vomiting hydrocodone [From Vicodin] AdvReac Intermediate vomiting Verified 12/25/22 02:34 and tremors meperidine AdvReac Intermediate VOMITING Verified 12/25/22 02:34 pravastatin AdvReac Intermediate pains in Verified 12/25/22 02:34 arms and legs simvastatin AdvReac Intermediate pains in Verified 12/25/22 02:34 legs and arms cephalexin [From Keflex] AdvReac Mild Nausea Verified 12/25/22 02:34 aspirin [From Percodan] AdvReac Unknown unknown Verified 12/25/22 02:34 montelukast [From Singulair] AdvReac Unknown unknown Verified 12/25/22 02:34 Consultations 12/25/22 03:27 ED Decision to Admit Stat 12/25/22 09:42 Consult Oncology Routine 12/26/22 14:23 Consult Palliative Care Routine Ordered Studies 12/25/22 10:43 IR bone marrow bx & asp Routine Hospital Course (1) AML (acute myeloblastic leukemia): Patient follows with [facility] diagnosed with AML March 2022 Treated with azacitidine and venetoclax symptomatic anemia/AML/thrombocytopenia/neutropenia- transfused 2 units PRBCs and 1 unit of multiple packed platelets good improvement of blood count Discussed case with Dr. Araujo after interpretation of bone marrow biopsy which was performed on 12/25/2022 Dr. Araujo feels AML is relapsed after long discussion with patient and her family will begin to have symptom oriented treatment, supportive treatment only with persistent transfusions. Patient voices this decision back to me. Patient be on prophylactic antibiotics antifungals and antivirals while she remains pancytopenic this will be levofloxacin day glucan and acyclovir Family is ready for the patient to come home on 12/27/2022 she will follow-up with Dr. Anne's office for surveillance blood counts and blood product support as needed (2) Cellulitis of back: Cellulitis lesions on back and forearm- Patient be transitioned to levofloxacin and will remain on this after discharge (3) Diabetes: Oral metformin will be resumed at discharge (4) Anxiety and depression: (5) Asthma: Chronic and stable (6) GERD (gastroesophageal reflux disease): (7) Rheumatoid arthritis: Total Time Total Time Spent Total Time Spent (In Minutes): It required greater than 30 minutes to prepare this patient for discharge Discharge Plan Discharge Items Patient Disposition: Home - Self-Care Reason For Visit: AML,PANCYTOPENIA,SYMPTOMATIC ANEMIA,NEUTROPENIA, Discharge Diagnosis: acute myelogenous leukemia relapse pancytopenia Activity: Resume your previous activity Non-emergency contact: Primary Care Provider and Oncologist Call non-emergency contact if: your symptoms worsen Follow-up/Referrals: Agueda Fowler DO [Primary Care Provider] - 01/06/23 8:20 am Diet: Regular Addtl Attending Provider Instructions: please be careful to avoid bruising, and keep aware of changes in your body to alert your health care team promptly Pending Studies at Discharge: No Stand-Alone Forms: My [employer], Smoking Cessation Medications and DC Order Prescriptions: New fluconazole [Diflucan] 100 mg Tablet 200 mg PO QAM Qty: 30 3RF levofloxacin 500 mg tablet 500 mg PO DAILY 28 Days Qty: 28 0RF Continued mirabegron 50 mg tablet extended release 24 hr 50 mg PO DAILY Qty: 90 3RF metformin 1,000 mg tablet 1,000 mg PO BID Qty: 180 3RF pantoprazole 40 mg tablet,delayed release (DR/EC) 40 mg PO QAM Qty: 180 2RF meclizine 25 mg tablet 25 mg PO TID PRN (Reason: Dizziness) Qty: 90 1RF zafirlukast 20 mg tablet 20 mg PO Q12H Qty: 180 1RF albuterol sulfate 2.5 mg /3 mL (0.083 %) solution for nebulization 5 mg inhalation Q6H PRN (Reason: Shortness Of Breath Or Wheezing) acyclovir 400 mg tablet 400 mg PO BID sertraline 50 mg tablet 50 mg PO DAILY Qty: 90 4RF sumatriptan 5 mg/actuation spray,non-aerosol 10 mg intranasal Q2H PRN (Reason: migraine headache) Qty: 6 1RF Rx Instructions: May repeat the dose once after 2 hour. Maximum dose: 30 mg per 24 hours. alendronate [Fosamax] 70 mg tablet 70 mg PO WEEKLY Qty: 12 3RF Rx Instructions: TAKE THIS MED EVERY THURSDAY MORNING naproxen sodium [Aleve] 220 mg tablet 220 mg PO BID PRN (Reason: Pain) Discontinued dexamethasone 4 mg tablet 8 mg PO UD Rx Instructions: 8 mg orally prior to injection of Vidaza at oncology office; Venclexta 50 mg tablet 50 mg PO DAILY Rx Instructions: take one 50mg tablet daily with two 10mg tablets = 70mg daily posaconazole 100 mg tablet,delayed release (DR/EC) 300 mg PO DAILY Qty: 90 0RF venetoclax 10 mg tablet 20 mg PO DAILY Qty: 60 5RF Rx Instructions: take two tablets along with 50mg to equal 70mg daily Emgality Pen 120 mg/mL pen injector 120 mg subcut .MONTHLY/UD Discharge Orders: Discharge Order (Routine); Ordered 12/27/22 Ordered By: Mamadou Gaitan Admission Data Admit Date/Time: 12/25/22 04:13 Attending Provider: Mamadou Gaitan Admit Provider: Capo Cagle Primary Care Provider: Agueda Fowler Other Providers: Capo Cagle ; Dontae Araujo ; Lisa Alva Other Interventions: Discharge Summary Assessment (RN) Last Done: 12/27/22 11:59 Coding Level of Care Code 07496 INP/OBS DISCH >30 MIN Diagnoses AML (acute myeloblastic leukemia) C92.00 Cellulitis of back L03.312 Diabetes E11.9 Anxiety and depression F41.9; F32.9 Asthma J45.909 GERD (gastroesophageal reflux disease) K21.9 Rheumatoid arthritis M06.9
== END 2022-12-27 14:12 | disposition home or self-care (01) | DRG 835 ==
LOC: ED 01:49 → SUATTDRO 04:13 → 3N 04:13

== ENCOUNTER 2023-01-17 10:22 | Inpatient (IN) ==
--- NOTE | 2023-01-17 11:28 | Emergency Department Note ---
Impression & Plan Chest wall hematoma, Thrombocytopenia, Anemia requiring transfusions ED Provider Note HISTORY OF PRESENT ILLNESS: Patient is an 82-year-old female presenting with left chest wall pain and swelling. Patient had a left subclavian port placed 2 days ago. She reports that she has been having pain and progressively worsening swelling and bruising to her left chest and left axillary region. Denies any anticoagulation use. Reports that she has had oozing blood from the incision over the last 2 days. She states that the ecchymosis and swelling has now extended into her axillary region. Denies any significant shortness of breath. Denies any numbness or tingling down her arm. Denies any headache or changes in vision. Patient reports her last round of chemo was last month. ROS: as above PHYSICAL EXAM: Constitutional: Patient appears in no acute distress. HENT: Head: Normocephalic and atraumatic. Eyes: EOMI, PERRL Mouth/Throat: Mucous membranes moist. Neck: Trachea midline. Neck supple. Cardiovascular: RRR, No murmurs, rubs or gallops. Intact distal pulses. Pulmonary/Chest: No respiratory distress. Breath sounds clear and equal bilaterally. No wheezes or rales. Left chest wall is ecchymotic and significantly swollen as compared to the right. Entire left chest wall is tender to palpation. Ecchymosis tracks into the left axillary region. Subclavian port incision is intact but very tender to palpation. Abdominal: Abdomen soft, no tenderness, rebound or guarding. Musculoskeletal: No edema, tenderness or deformity noted. Skin: Warm and dry. No rash, erythema, pallor or cyanosis Psychiatric: Appropriate mood and affect for situation. Neurological: Alert and keenly responsive. CN II-XII grossly intact, moving all extremities equally and fully. MDM: - Vitals signs showed tachycardia. - History obtained via patient. Patient presents with left chest wall pain and swelling. Patient had left subclavian port placed 2 days ago. Reports has been having progressively worsening pain and swelling to her left chest ever since. Denies any fevers. Denies any cough or sensation of shortness of breath. She is not on any anticoagulation. - Chronic conditions affecting care: leukemia; DM-2; HLD; HTN - Differential diagnoses include, but are not limited to: ACS; subclavian dissection; post-op hematoma - Order placed for continuous cardiac monitoring. At this time, monitor showed rate of 98 bpm with normal sinus rhythm, per my interpretation. - External medical records reviewed. - EKG reviewed by myself showed normal sinus rhythm. Rate tachycardic at 103 bpm. QTc 437. No acute ischemic changes. - Laboratory workup interpreted by myself showed leukocytosis (WBC 54.66); anemia (Hgb 6.1); thrombocytopenia (plt 28); elevated INR (1.4); stable electrolytes; normal procalcitonin - CXR negative for pneumothorax, per my interpretation - Patient given 1g IV acetaminophen for pain control in ER. - Type and screen obtained. - CTA chest showed hematoma along the inferior aspect of the port measuring 3.4 x 2.9 x 2.9 cm. Also noted to have diffuse left breast, upper chest and axillary hyperdense fluid collection concerning for hemorrhage. No active extravasation noted. - Discussed case with general surgeon on-call, Dr. Greenwood, who recommended admission for monitoring of the hematoma but no active surgery at this time gi kim no active extravasation. - Discussed case with oncologist fire control mechanic, Dr. Christina. She reports that the patient has declined transfer for treatment for her leukemia in the past. There is documentation that the patient only wants transfusions for blood and platelets as needed. She recommends transfusing nonirradiated packed red blood cells and 1 unit of platelets for the patient. - 2 units PRBC and 1 unit platelets ordered for transfusion. - Discussion was had with social media sr strategy manager about patient's case and need for admission. - Hospitalist consulted for admission - [facility] I provided 48 minutes of critical care time to this patient's care outside of billable procedures. ASSESSMENT AND PLAN: Diagnosis: Chest wall hematoma; anemia requiring blood transfusion; thrombocytopenia Plan: admit Past Med/Surg History Medical History (Updated 01/17/23 @ 16:46 by Senia Coreas MD) Allergic rhinitis Anxiety and depression Asthma Chronic sinusitis COVID-19 05/2022 (not hospitalized) Diabetes NIDDM DVT (deep venous thrombosis) LLE (1971), post-op hysterectomy Dyslipidemia GERD (gastroesophageal reflux disease) Hypertension Insomnia Leukemia Dx 03/2022, had 8 months chemo (stopped 11/2022) Migraine No recent issues Nontoxic multinodular goiter Osteopenia Poor venous access Rheumatoid arthritis Sensorineural hearing loss (SNHL) of both ears Urge and stress incontinence Surgical History (Updated 01/16/23 @ 10:48 by Jud Brandon, EWA) History of colonoscopy History of esophagogastroduodenoscopy (EGD) History of mandibular surgery to get set for denture placement History of tooth extraction Hx of resection of rib 1990 (just for being too large and causing arm problems, "top two ribs, one on each side") Port-A-Cath in place (01/15/23) Insertion of Access Port with Fluoroscopy(Left) - Barney Hernandez, DO S/P adenoidectomy S/P carpal tunnel release b/l wrists S/P cataract extraction b/l eyes S/P cholecystectomy S/P foot surgery L foot hammertoe repair S/P hysterectomy S/P medial meniscal repair L knee S/P tonsillectomy S/P trigger finger release R hand Family History Brother Myocardial infarction Heart disease Hypertension Father , age 81 of heart disease Arthritis Heart disease Mother , age 41 Of leukemia Leukemia Breast cancer Ovarian cancer Sister , age 64 Diabetes Brother Throat cancer Liver cirrhosis Denies family history of Prostate cancer Colorectal cancer Social History Smoking Status: Never smoker Age Started Using Tobacco: 21; Age Quit Using Tobacco: 31; Cigarettes Per Day: light smoker only; Second Hand Exposure: Yes ( smoked, he passed 2009); Do You Dip or Chew Tobacco: No; Hx Alcohol Use: No Hx Substance Use: No Preferred Language: Croatian Communication Ability: Effective Visual Impairment: Limited Hearing Ability: Normal Brazer Resistance Required: No Beliefs That Will Affect Care: None marital status: / Current Living Situation: Family Current Living Situation Comment: Granddaughter, family is always visiting. 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63, [employer] Feels Safe at Home: Yes Childhood Exposure to Second-Hand Smoke: Yes Diet: regular Diet Comment: regular caffeine: Yes (6 -8 cups coffee a day half caffeine ) during the past year weight has: remained stable Dental Care, Regularly: No Physical Activity Frequency: Daily Seatbelt Use: always Sunscreen Use: Yes Assistive Devices: Denture - Upper, Denture - Lower and Glasses Allergies Allergies Allergy/AdvReac Type Severity Reaction Status Date / Time codeine Allergy Severe Vomiting, Verified 01/17/23 14:29 drop in BP meperidine Allergy Severe Vomiting Verified 01/17/23 14:29 morphine Allergy Severe "Drop in Verified 01/17/23 14:29 vital signs", tremors, vomiting oxycodone Allergy Severe "Drop in Verified 01/17/23 14:29 vital signs", tremors, vomiting adhesive Allergy Intermediate "Pulls off Verified 01/17/23 14:29 skin" hydrocodone [From Vicodin] Allergy Intermediate Vomiting, Verified 01/17/23 14:29 tremors nickel Allergy Intermediate Rash Verified 01/17/23 14:29 pravastatin AdvReac Intermediate Arm/leg Verified 01/17/23 14:29 pain simvastatin AdvReac Intermediate Arm/leg Verified 01/17/23 14:29 pain cephalexin [From Keflex] AdvReac Mild Nausea Verified 01/17/23 14:29 aspirin [From Percodan] AdvReac Unknown Unknown Verified 01/17/23 14:29 montelukast [From Singulair] AdvReac Unknown Unknown Verified 01/17/23 14:29 Home Meds Home Medications Medication Instructions Recorded Confirmed acyclovir 400 mg tablet 400 mg PO BID 09/17/22 01/17/23 albuterol sulfate 2.5 mg/3 mL 5 mg inhalation Q6H PRN Shortness 09/17/22 01/17/23 (0.083 %) solution for nebulization Of Breath Or Wheezing mirabegron 50 mg tablet,extended 50 mg PO QAM 01/12/23 01/17/23 release 24 hr sertraline 50 mg tablet 50 mg PO QAM 01/12/23 01/17/23 tramadol 50 mg tablet 50 mg PO Q6H PRN Pain 01/12/23 01/17/23 levofloxacin 500 mg tablet 500 mg PO DAILY 01/17/23 01/17/23 prednisone 5 mg tablet 15 mg PO DAILY 01/17/23 01/17/23 Previous Rx's Medication Instructions Recorded metformin 1,000 mg tablet 1,000 mg PO BID #180 tabs 04/24/22 pantoprazole 40 mg tablet,delayed 40 mg PO QAM #180 tabs 06/06/22 release meclizine 25 mg tablet 25 mg PO TID PRN Dizziness #90 tabs 06/13/22 alendronate 70 mg tablet (Fosamax) 70 mg PO WEEKLY #12 tabs 06/17/22 sumatriptan 5 mg/actuation nasal 10 mg intranasal Q2H PRN migraine 06/17/22 spray headache #6 ea zafirlukast 20 mg tablet 20 mg PO Q12H #180 tabs 07/25/22 fluconazole 100 mg tablet 200 mg PO QAM #30 tabs 12/26/22 (Diflucan) Results & Data (ED) Vital Signs Vital Signs - 24 hr 01/17/23 10:31 01/17/23 10:38 01/17/23 11:35 Temperature 37.0 C Temperature Source Oral Pulse Rate 108 H 106 H 105 H Pulse Rate from SpO2 Sensor Pulse Rhythm Regular Regular Pulse Strength Normal Respiratory Rate 20 18 Respiratory Effort / Characteristics Non-Labored Spontaneous Respiratory Depth Normal Respiratory Pattern Regular Blood Pressure 102/62 Blood Pressure Mean 75 Blood Pressure Position Sitting Pulse Oximetry 94 98 Oxygen Delivery Method Room Air Nasal Cannula Oxygen Flow Rate 2 Sepsis Recent Fever Within 48 Hours No Sepsis New/Unexplained Change in Mental Status No Sepsis Action Taken by Nursing No Action Required 01/17/23 11:05 01/17/23 10:29 01/17/23 10:30 Temperature Temperature Source Pulse Rate 105 H 105 H Pulse Rate from SpO2 Sensor 105 H 106 H Pulse Rhythm Pulse Strength Respiratory Rate 18 16 16 Respiratory Effort / Characteristics Non-Labored Respiratory Depth Normal Respiratory Pattern Regular Blood Pressure Blood Pressure Mean Blood Pressure Position Pulse Oximetry 94 94 94 Oxygen Delivery Method Nasal Cannula Oxygen Flow Rate 2 Sepsis Recent Fever Within 48 Hours Sepsis New/Unexplained Change in Mental Status Sepsis Action Taken by Nursing 01/17/23 11:00 01/17/23 11:30 01/17/23 12:00 Temperature Temperature Source Pulse Rate 102 H 103 H 103 H Pulse Rate from SpO2 Sensor 102 H 103 H 103 H Pulse Rhythm Pulse Strength Respiratory Rate 18 19 20 Respiratory Effort / Characteristics Respiratory Depth Respiratory Pattern Blood Pressure 102/62 Blood Pressure Mean 75 Blood Pressure Position Pulse Oximetry 88 L 99 98 Oxygen Delivery Method Nasal Cannula Oxygen Flow Rate 2 Sepsis Recent Fever Within 48 Hours Sepsis New/Unexplained Change in Mental Status Sepsis Action Taken by Nursing 01/17/23 12:30 01/17/23 13:00 01/17/23 13:24 Temperature Temperature Source Pulse Rate 108 H 115 H 104 H Pulse Rate from SpO2 Sensor 107 H 114 H 104 H Pulse Rhythm Pulse Strength Respiratory Rate Respiratory Effort / Characteristics Respiratory Depth Respiratory Pattern Blood Pressure 101/60 Blood Pressure Mean 73 Blood Pressure Position Pulse Oximetry 99 99 99 Oxygen Delivery Method Nasal Cannula Oxygen Flow Rate 2 Sepsis Recent Fever Within 48 Hours Sepsis New/Unexplained Change in Mental Status Sepsis Action Taken by Nursing 01/17/23 13:24 01/17/23 16:14 Temperature Temperature Source Pulse Rate 103 H Pulse Rate from SpO2 Sensor Pulse Rhythm Pulse Strength Respiratory Rate Respiratory Effort / Characteristics Respiratory Depth Respiratory Pattern Blood Pressure 103/63 Blood Pressure Mean 68 Blood Pressure Position Pulse Oximetry Oxygen Delivery Method Oxygen Flow Rate Sepsis Recent Fever Within 48 Hours Sepsis New/Unexplained Change in Mental Status Sepsis Action Taken by Nursing Laboratory Data 01/17/23 11:37 01/17/23 11:37 Lab Results 01/17/23 01/17/23 01/17/23 Range/Units 11:37 11:37 11:37 WBC 54.66 H* (4.8-10.8) K/ul RBC 2.12 L (4.20-5.40) M/uL Hgb 6.1 L* (12.0-16.0) g/dl Hct 19.1 L* (37.0-47.0) % MCV 90.1 (80.0-100.0) fL MCH 28.8 (25.0-34.0) pg MCHC 31.9 L (32.0-36.0) g/dL RDW Std Deviation 56.8 H (36.4-46.3) fL RDW Coeff of [place] 17.5 H (11.5-14.5) % Plt Count 28 L* (130-400) K/uL MPV 8.9 L (9.4-12.4) fL Absolute Nucleated RBC 0.57 H (0.00-0.12) K/uL Nucleated RBC % (auto) 1.0 % Neutrophils % (Manual) 1 % Lymphocytes % (Manual) 3 % Blast Cells % (Manual) 96 % Neutrophils # (Manual) 0.55 L (1.40-6.50) K/uL Total Absolute Neuts 0.55 L* (1.4-6.5) K/uL Lymphocytes # (Manual) 1.64 (1.2-3.4) K/uL Total Abs Lymphocytes 1.64 (1.2-3.4) K/uL Blast Cells # (Man) 52.47 H (0-0) K/uL PT 14.9 H (9.0-12.0) Seconds INR 1.4 H (0.9-1.1) Sodium 138 (136-145) mmol/L Potassium 4.0 (3.5-5.1) mmol/L Chloride 103 (98-107) mmol/L Carbon Dioxide 26 (21-32) mmol/L Anion Gap 9 (3-11) BUN 12 (6-23) mg/dl Creatinine 0.50 L (0.6-1.2) mg/dl Est Cr Clr Drug Dosing 82.8 ml/min Est GFR ( Amer) 105.2 ml/min Est GFR (Non-Af Amer) 90.8 ml/min BUN/Creatinine Ratio 24.0 H (10-20) Glucose 116 H (70-99(Fasting)) mg/dl Calcium 8.6 (8.6-10.3) mg/dl Total Bilirubin 0.8 (0.2-1.0) mg/dl AST 21 (13-39) U/L ALT 6 L (7-52) U/L Alkaline Phosphatase 44 (34-104) U/L Troponin I High Sens 10.7 (0-14) pg/ml Total Protein 5.7 L (6.0-8.3) gm/dl Albumin 3.4 (3.4-5.0) gm/dl Globulin 2.3 L (2.5-4.0) gm/dl Albumin/Globulin Ratio 1.5 (0.9-2) Lipase 11 (11-82) U/L Procalcitonin (0-0.5) ng/ml Blood Type Antibody Screen Crossmatch 01/17/23 01/17/23 Range/Units 11:37 12:55 WBC (4.8-10.8) K/ul RBC (4.20-5.40) M/uL Hgb (12.0-16.0) g/dl Hct (37.0-47.0) % MCV (80.0-100.0) fL MCH (25.0-34.0) pg MCHC (32.0-36.0) g/dL RDW Std Deviation (36.4-46.3) fL RDW Coeff of [place] (11.5-14.5) % Plt Count (130-400) K/uL MPV (9.4-12.4) fL Absolute Nucleated RBC (0.00-0.12) K/uL Nucleated RBC % (auto) % Neutrophils % (Manual) % Lymphocytes % (Manual) % Blast Cells % (Manual) % Neutrophils # (Manual) (1.40-6.50) K/uL Total Absolute Neuts (1.4-6.5) K/uL Lymphocytes # (Manual) (1.2-3.4) K/uL Total Abs Lymphocytes (1.2-3.4) K/uL Blast Cells # (Man) (0-0) K/uL PT (9.0-12.0) Seconds INR (0.9-1.1) Sodium (136-145) mmol/L Potassium (3.5-5.1) mmol/L Chloride (98-107) mmol/L Carbon Dioxide (21-32) mmol/L Anion Gap (3-11) BUN (6-23) mg/dl Creatinine (0.6-1.2) mg/dl Est Cr Clr Drug Dosing ml/min Est GFR ( Amer) ml/min Est GFR (Non-Af Amer) ml/min BUN/Creatinine Ratio (10-20) Glucose (70-99(Fasting)) mg/dl Calcium (8.6-10.3) mg/dl Total Bilirubin (0.2-1.0) mg/dl AST (13-39) U/L ALT (7-52) U/L Alkaline Phosphatase (34-104) U/L Troponin I High Sens (0-14) pg/ml Total Protein (6.0-8.3) gm/dl Albumin (3.4-5.0) gm/dl Globulin (2.5-4.0) gm/dl Albumin/Globulin Ratio (0.9-2) Lipase (11-82) U/L Procalcitonin 0.17 (0-0.5) ng/ml Blood Type O Negative Antibody Screen NEGATIVE Crossmatch See Detail Administered Medications Discontinued Medications Acetaminophen (Ofirmev) 1,000 mg in 100 mls @ 400 mls/hr IV NOW STA Stop: 01/17/23 11:43 Last Infusion: 01/17/23 13:22 Dose: 0 mls/hr Documented By: Admin: 01/17/23 13:08 Dose: 400 mls/hr Documented By: RSGabriella Phytonadione 10 mg/ Dextrose 51 mls @ 102 mls/hr IV ONE ONE Stop: 01/17/23 16:29 Last Admin: 01/17/23 16:13 Dose: 102 mls/hr Documented By: CLIENT REPORTING ASSOCIATE Ioversol (Ioversol 350 Mg 125ml Prefilled Syringe) 117 ml IV ONCE ONE Stop: 01/17/23 13:46 Last Admin: 01/17/23 13:46 Dose: 117 ml Documented By: EDK Imaging Data Radiologist's Impression: Chest X-Ray 01/17/23 11:02 XR chest 1V portable CLINICAL HISTORY: Chest pain, nonspecific COMPARISON STUDY: Chest CT September 15, 2022. Chest radiograph January 15, 2023. FINDINGS: Left subclavian Obqaka-m-Uwgm is in place. Elevation of the left hemidiaphragm is unchanged. Lungs are clear. There is no pneumothorax or pleural effusion. Cardiac size is normal. Mediastinal contours are normal. There is no evidence for pulmonary edema. IMPRESSION: No acute cardiopulmonary findings. No change in appearance of the chest. ACT 112: Negative or not required by law. Electronically signed by: Seth Sandoval M.D. 01/17/2023 11:28 AM Chest CTA 01/17/23 11:27 CT ANGIOGRAPHY OF THE CHEST DISSECTION PROTOCOL CLINICAL HISTORY: left CP and hematoma; recent subclavian port placement. COMPARISON STUDY: Chest radiograph performed earlier today. Chest CT September 15, 2022. TECHNIQUE: Before and following the IV administration of 117 mL of Optiray, helical axial images of the chest were obtained. Maximal intensity projections and sagittal and coronal reformats were viewed on an independent 3D workstation. IV contrast was administered without complication. Automated exposure control was utilized for the study. A dose lowering technique was utilized adhering to the principles of ALARA. CT DOSE: 1730.17 mGy.cm FINDINGS: The caliber of the thoracic aorta is normal. There is no intramural hematoma or thoracic aortic dissection. No pulmonary emboli are identified. There is moderate coronary artery calcification. Size of the heart is normal. There is no pericardial effusion. No pneumothorax or pleural effusion is present. Elevation of the left hemidiaphragm is unchanged. Subpleural right apical density favor scarring. This is unchanged. There are no suspicious pulmonary nodules. No consolidation is identified to suggest pneumonia.There is no thoracic lymphadenopathy. A left subclavian Gsrmsp-k-Tjdj is in place. The tip is within the distal left brachiocephalic vein. The catheter is intact. A 3.4 x 2.9 x 2.9 cm hyperdense fluid collection along the inferior aspect of the port represents a hematoma. There is diffuse stranding within the adjacent left soft tissues with hyperdense fluid. This involves the left breast, left upper chest wall, left axilla and left lower neck. No additional discrete fluid collections are present. There is mild asymmetric enlargement of the adjacent musculature which favors a small amount of acute intramuscular hemorrhage. No active extravasation. No pseudoaneurysm. Small amount of subcutaneous gas as expected in the early post procedural setting. There is associated skin thick ening. IMPRESSION: 1. No thoracic aortic dissection. 2. Left subclavian Rblcsk-r-Cbwd in place. Catheter intact with tip within the distal left brachiocephalic vein. 3.4 x 2.9 x 2.9 cm hematoma along the inferior aspect of the port. Diffuse left breast, upper chest, axillary and lower neck stranding with hyperdense fluid consistent with moderate hemorrhage. Associated small amount of acute intramuscular hemorrhage. No pseudoaneurysm. No active extravasation. ACT 112: Negative or not required by law. Electronically signed by: Seth Sandoval M.D. 01/17/2023 2:13 PM Discharge Plan Visit Data Chief Complaint: Chest/Rib Injury ED Provider: Senia Coreas Discharge Problem: Chest wall hematoma, Thrombocytopenia, Anemia requiring transfusions Forms Stand Alone Forms: [facility] GBS Prescriptions Prescriptions: No Action metformin 1,000 mg tablet 1,000 mg PO BID Qty: 180 3RF pantoprazole 40 mg tablet,delayed release (DR/EC) 40 mg PO QAM Qty: 180 2RF meclizine 25 mg tablet 25 mg PO TID PRN (Reason: Dizziness) Qty: 90 1RF zafirlukast 20 mg tablet 20 mg PO Q12H Qty: 180 1RF albuterol sulfate 2.5 mg /3 mL (0.083 %) solution for nebulization 5 mg inhalation Q6H PRN (Reason: Shortness Of Breath Or Wheezing) acyclovir 400 mg tablet 400 mg PO BID sumatriptan 5 mg/actuation spray,non-aerosol 10 mg intranasal Q2H PRN (Reason: migraine headache) Qty: 6 1RF Rx Instructions: May repeat the dose once after 2 hour. Maximum dose: 30 mg per 24 hours. alendronate [Fosamax] 70 mg tablet 70 mg PO WEEKLY Qty: 12 3RF Rx Instructions: TAKE THIS MED EVERY THURSDAY MORNING levofloxacin 500 mg tablet 500 mg PO DAILY Rx Instructions: Start Date 12/27/22 - End Date 01/24/23 prednisone 5 mg tablet 15 mg PO DAILY fluconazole [Diflucan] 100 mg Tablet 200 mg PO QAM Qty: 30 3RF Rx Instructions: Start Date 01/13/23 - End Date 01/28/23 sertraline 50 mg tablet 50 mg PO QAM mirabegron 50 mg tablet extended release 24 hr 50 mg PO QAM tramadol 50 mg Tablet 50 mg PO Q6H PRN (Reason: Pain) Referrals Referrals: Agueda Fowler DO [Primary Care Provider] -
[2023-01-17] MEDS ORDERED: ACETAMINOPHEN 1,000 MG/100 ML VIAL IV STA (11:29)
--- NOTE | 2023-01-17 11:29 | XRay Report ---
XR chest 1V portable CLINICAL HISTORY: Chest pain, nonspecific COMPARISON STUDY: Chest CT September 15, 2022. Chest radiograph January 15, 2023. FINDINGS: Left subclavian Bbizgj-q-Ibpm is in place. Elevation of the left hemidiaphragm is unchanged . Lungs are clear. There is no pneumothorax or pleural effusion. Cardiac size is normal. Mediastinal contours are normal. There is no evidence for pulmonary edema. IMPRESSION: No acute cardiopulmonary findings. No change in appearance of the chest. ACT 112: Negative or not required by law. Electronically signed by: Seth Sandoval M.D. 01/17/2023 11:28 AM
[2023-01-17 12:18] LABS: Hematocrit (blood only) 19.1 % (37.0-47.0); Hemoglobin 6.1 g/dl (12.0-16.0); Mean Corpuscular Hemoglobin 28.8 pg (25.0-34.0); Mean Corpuscular Hgb Conc 31.9 g/dL (32.0-36.0); Mean Corpuscular Volume 90.1 fL (80.0-100.0); Mean Platelet Volume 8.9 fL (9.4-12.4); Nucleated RBC # (auto) 0.57 K/uL (0.00-0.12); Platelet Count 28 K/uL (130-400); RDW Coefficient of Variation 17.5 % (11.5-14.5); RDW Standard Deviation 56.8 fL (36.4-46.3); Red Blood Count 2.12 M/uL (4.20-5.40); White Blood Count 54.66 K/ul (4.8-10.8)
[2023-01-17 12:20] LABS: Troponin I High Sensitivity 10.7 pg/ml (0-14)
[2023-01-17 12:24] LABS: INR 1.4 (0.9-1.1); Prothrombin Time 14.9 Seconds (9.0-12.0)
[2023-01-17 12:32] LABS: Albumin Level 3.4 gm/dl (3.4-5.0); Bilirubin,Total 0.8 mg/dl (0.2-1.0); Calcium 8.6 mg/dl (8.6-10.3)
[2023-01-17 12:39] LABS: Albumin Globulin Ratio 1.5 (0.9-2); Creatinine Clr Calc Pharmacy 82.8 ml/min; Est GFR (African American) 105.2 ml/min; Est GFR (Non-African American) 90.8 ml/min; Globulin 2.3 gm/dl (2.5-4.0); Total Protein 5.7 gm/dl (6.0-8.3)
[2023-01-17 13:13] LABS: ALC (manual) 1.64 K/uL (1.2-3.4); ANC (manual) 0.55 K/uL (1.4-6.5); Blast # (manual) 52.47 K/uL (0-0); Blast Cells % (manual) 96 %; Lymphocytes # (manual) 1.64 K/uL (1.2-3.4); Lymphocytes % (manual) 3 %; Neutrophils # (manual) 0.55 K/uL (1.40-6.50); Neutrophils % (manual) 1 %
[2023-01-17] MEDS ORDERED: IOVERSOL 350 MG 125mL Prefilled Syringe IV ONE (13:45)
--- NOTE | 2023-01-17 14:14 | CT Scan Report ---
CT ANGIOGRAPHY OF THE CHEST DISSECTION PROTOCOL CLINICAL HISTORY: left CP and hematoma; recent subclavian port placement. COMPARISON STUDY: Chest radiograph performed earlier today. Chest CT September 15, 2022. TECHNIQUE: Before and following the IV administration of 117 mL of Optiray, helical axial images of t he chest were obtained. Maximal intensity projections and sagittal and coronal reformats were viewed on an independent 3D workstation. IV contrast was administered without complication. Automated exp osure control was utilized for the study. A dose lowering technique was utilized adhering to the charisma Doyle. CT DOSE: 1730.17 mGy.cm FINDINGS: The caliber of the thoracic aorta is normal. There is no intramural hematoma or thoracic a ortic dissection. No pulmonary emboli are identified. There is moderate coronary artery calcification . Size of the heart is normal. There is no pericardial effusion. No pneumothorax or pleural effusion is present. Elevation of the left hemidiaphragm is unchanged. Subpleural right apical density favor s carring. This is unchanged. There are no suspicious pulmonary nodules. No consolidation is identified to suggest pneumonia.There is no thoracic lymphadenopathy. A left subclavian Ilvbyw-e-Bdyi is in mariia ce. The tip is within the distal left brachiocephalic vein. The catheter is intact. A 3.4 x 2.9 x 2.9 cm hyperdense fluid collection along the inferior aspect of the port represents a hematoma. There is diffuse stranding within the adjacent left soft tissues with hyperdense fluid. This involves the lef t breast, left upper chest wall, left axilla and left lower neck. No additional discrete fluid collec tions are present. There is mild asymmetric enlargement of the adjacent musculature which favors a sm all amount of acute intramuscular hemorrhage. No active extravasation. No pseudoaneurysm. Small amoun t of subcutaneous gas as expected in the early post procedural setting. There is associated skin thic kening. IMPRESSION: 1. No thoracic aortic dissection. 2. Left subclavian Zyakld-r-Dkkg in place. Catheter intact with tip within the distal left brachiocep halic vein. 3.4 x 2.9 x 2.9 cm hematoma along the inferior aspect of the port. Diffuse left breast, u pper chest, axillary and lower neck stranding with hyperdense fluid consistent with moderate hemorrha ge. Associated small amount of acute intramuscular hemorrhage. No pseudoaneurysm. No active extravasa tion. ACT 112: Negative or not required by law. Electronically signed by: Seth Sandoval M.D. 01/17/2023 2:13 PM
[2023-01-17] MEDS ORDERED: SODIUM CHLORIDE 0.9% 250 ML IV PRN ×3 (14:47→20:50)
[2023-01-17] MEDS ORDERED: PHYTONADIONE 10 MG in DEXTROSE 5% 50 ML IV ONE (16:00)
--- NOTE | 2023-01-17 16:10 | History & Physical Report ---
Date of Service January 17, 2023 Assessment & Plan (1) Post-operative complication: Plan: Post operative hematoma 1 unit platelets recommended by oncology - discused with Dr Christina on admission Vitamin K 10mg IV given due to INR 1.4 although doubtful this is a vitamin p roblem Transfuse 2 units packed RBCs - do not need to be irradiated per oncology Repeat CBC in AM Consult surgery (2) Acute myeloblastic leukemia: Plan: This is acute worsening given sudden increase in blasts cells. Patient and family have discussed previously with Dr Araujo and she is not for induction chemotherapy - confirmed again with the patient today. Plan is for supportive care with transfusions only. Continue infection prophylaxis with acyclovir, Levaquin and fluconazole Neutropenic isolation precautions (3) Neutropenia: Plan: Neutropenic isolation precautions - will need broad spectrum antibiotics if febrile (4) Anxiety and depression: Plan: Continue sertraline (5) GERD (gastroesophageal reflux disease): Plan: Continue pantoprazole (6) Diabetes: Plan: Given generally guarded prognosis will use regular diet and not need for insulin coverage (7) Rheumatoid arthritis: Plan: Continue prednisone (8) Anemia: (9) Thrombocytopenia: Plan VTE Prophylaxis - chemical contraindicated Diet - regular Disposition - admit to med/tele, guarded prognosis Admission and Anticipated Discharge Date Admission Date: January 17, 2023 History of Present Illness Chief Complaint: Hematoma over recent port insertion Primary Care Provider: Agueda Fowler, Pam Mai is an 82 year old female with untreated AML who presents to the ER with post operative hematoma from recent port insertion. Port insertion performed by Dr Hernandez on January 15. No fever or chills. Generalized fatigue ongoing with her AML diagnosis. Also having some dizziness on standing. No chest pain or shortness of breath. Tender over port site. Allergies Allergy/AdvReac Type Severity Reaction Status Date / Time codeine Allergy Severe Vomiting, Verified 01/17/23 14:29 drop in BP meperidine Allergy Severe Vomiting Verified 01/17/23 14:29 morphine Allergy Severe "Drop in Verified 01/17/23 14:29 vital signs", tremors, vomiting oxycodone Allergy Severe "Drop in Verified 01/17/23 14:29 vital signs", tremors, vomiting adhesive Allergy Intermediate "Pulls off Verified 01/17/23 14:29 skin" hydrocodone [From Vicodin] Allergy Intermediate Vomiting, Verified 01/17/23 14:29 tremors nickel Allergy Intermediate Rash Verified 01/17/23 14:29 pravastatin AdvReac Intermediate Arm/leg Verified 01/17/23 14:29 pain simvastatin AdvReac Intermediate Arm/leg Verified 01/17/23 14:29 pain cephalexin [From Keflex] AdvReac Mild Nausea Verified 01/17/23 14:29 aspirin [From Percodan] AdvReac Unknown Unknown Verified 01/17/23 14:29 montelukast [From Singulair] AdvReac Unknown Unknown Verified 01/17/23 14:29 Home Medications Medication Instructions Recorded Confirmed Type metformin 1,000 mg tablet 1,000 mg PO BID #180 tabs 04/24/22 01/17/23 Rx pantoprazole 40 mg tablet,delayed 40 mg PO QAM #180 tabs 06/06/22 01/17/23 Rx release meclizine 25 mg tablet 25 mg PO TID PRN Dizziness #90 tabs 06/13/22 01/17/23 Rx alendronate 70 mg tablet (Fosamax) 70 mg PO WEEKLY #12 tabs 06/17/22 01/17/23 Rx sumatriptan 5 mg/actuation nasal 10 mg intranasal Q2H PRN migraine 06/17/22 01/17/23 Rx spray headache #6 ea zafirlukast 20 mg tablet 20 mg PO Q12H #180 tabs 07/25/22 01/17/23 Rx acyclovir 400 mg tablet 400 mg PO BID 09/17/22 01/17/23 History albuterol sulfate 2.5 mg/3 mL 5 mg inhalation Q6H PRN Shortness 09/17/22 01/17/23 History (0.083 %) solution for nebulization Of Breath Or Wheezing fluconazole 100 mg tablet 200 mg PO QAM #30 tabs 12/26/22 01/17/23 Rx (Diflucan) mirabegron 50 mg tablet,extended 50 mg PO QAM 01/12/23 01/17/23 History release 24 hr sertraline 50 mg tablet 50 mg PO QAM 01/12/23 01/17/23 History tramadol 50 mg tablet 50 mg PO Q6H PRN Pain 01/12/23 01/17/23 History levofloxacin 500 mg tablet 500 mg PO DAILY 01/17/23 01/17/23 History prednisone 5 mg tablet 15 mg PO DAILY 01/17/23 01/17/23 History Past Med/Surg History Medical History Allergic rhinitis Anxiety and depression Asthma Chronic sinusitis COVID-19 05/2022 (not hospitalized) Diabetes NIDDM DVT (deep venous thrombosis) LLE (1971), post-op hysterectomy Dyslipidemia GERD (gastroesophageal reflux disease) Hypertension Insomnia Leukemia Dx 03/2022, had 8 months chemo (stopped 11/2022) Migraine No recent issues Nontoxic multinodular goiter Osteopenia Poor venous access Rheumatoid arthritis Sensorineural hearing loss (SNHL) of both ears Urge and stress incontinence Surgical History History of colonoscopy History of esophagogastroduodenoscopy (EGD) History of mandibular surgery to get set for denture placement History of tooth extraction Hx of resection of rib 1989 (just for being too large and causing arm problems, "top two ribs, one on each side") Port-A-Cath in place (01/15/23) Insertion of Access Port with Fluoroscopy(Left) - Barney Hernandez, S/P adenoidectomy S/P carpal tunnel release b/l wrists S/P cataract extraction b/l eyes S/P cholecystectomy S/P foot surgery L foot hammertoe repair S/P hysterectomy S/P medial meniscal repair L knee S/P tonsillectomy S/P trigger finger release R hand Family History Brother Myocardial infarction Heart disease Hypertension Father , age 81 of heart disease Arthritis Heart disease Mother , age 41 Of leukemia Leukemia Breast cancer Ovarian cancer Sister , age 64 Diabetes Brother Throat cancer Liver cirrhosis Denies family history of Prostate cancer Colorectal cancer Social History Smoking Status: Never smoker Age Started Using Tobacco: 21; Age Quit Using Tobacco: 31; Second Hand Exposure: Yes ( smoked, he passed 2009); Do You Dip or Chew Tobacco: No; Tobacco Cessation Education Requested by Patient: No Hx Alcohol Use: No Hx Substance Use: No Preferred Language: New Zealander Communication Ability: Effective Visual Impairment: Limited Hearing Ability: Normal Painter Set Required: No Beliefs That Will Affect Care: None marital status: / Current Living Situation: Family Current Living Situation Comment: Granddaughter and family is always visiting 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63, 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 [employer] Other Information That Helps Us Care for You: Yes (Chemo x7 days/month) Feels Safe at Home: Yes Safety Concerns: Feels Safe At This Time Childhood Exposure to Second-Hand Smoke: Yes Diet: regular Diet Comment: regular caffeine: Yes (6 -8 cups coffee a day half caffeine ) during the past year weight has: remained stable Dental Care, Regularly: No Physical Activity Frequency: Daily Seatbelt Use: always Sunscreen Use: Yes Assistive Devices: Denture - Upper, Denture - Lower and Glasses Review of Systems Review of Systems: All systems reviewed & are unremarkable except as noted in HPI & below Physical Exam Constitutional: well developed; + not well nourished and no acute distress Eyes: PERRL, conjunctivae normal, anicteric sclerae Respiratory: normal respiratory effort, lungs clear to auscultation Cardiovascular: Rate/Rhythm: regular rhythm and + tachycardic Gastrointestinal (Abdomen): normal bowel sounds, soft, nontender, no hepatosplenomegaly Skin: swelling with hematoma present over port site without active bleeding noted Psychiatric: A+Ox3, euthymic affect Results & Data Results & Data Vital Signs (Past 12 Hours) Vital Signs Temp Pulse Resp BP Pulse Ox O2 Del Method O2 Flow Rate 01/17/23 13:24 103/63 01/17/23 13:24 104 H 23 99 Nasal Cannula 2 01/17/23 13:00 115 H 19 101/60 99 01/17/23 12:30 108 H 23 99 01/17/23 12:00 103 H 20 98 01/17/23 11:30 103 H 19 99 Nasal Cannula 2 01/17/23 11:00 102 H 18 102/62 88 L 01/17/23 10:30 105 H 16 94 01/17/23 10:29 105 H 16 94 01/17/23 11:05 18 94 Nasal Cannula 2 01/17/23 11:35 105 H 18 98 Nasal Cannula 2 01/17/23 10:38 106 H 01/17/23 10:31 37.0 C 108 H 20 102/62 94 Room Air Laboratory Results Abnormal lab results 01/17/23 01/17/23 01/17/23 Range/Units 11:37 11:37 11:37 WBC 54.66 H* (4.8-10.8) K/ul RBC 2.12 L (4.20-5.40) M/uL Hgb 6.1 L* (12.0-16.0) g/dl Hct 19.1 L* (37.0-47.0) % MCHC 31.9 L (32.0-36.0) g/dL RDW Std Deviation 56.8 H (36.4-46.3) fL RDW Coeff of [place] 17.5 H (11.5-14.5) % Plt Count 28 L* (130-400) K/uL MPV 8.9 L (9.4-12.4) fL Absolute Nucleated RBC 0.57 H (0.00-0.12) K/uL Neutrophils # (Manual) 0.55 L (1.40-6.50) K/uL Total Absolute Neuts 0.55 L* (1.4-6.5) K/uL Blast Cells # (Man) 52.47 H (0-0) K/uL PT 14.9 H (9.0-12.0) Seconds INR 1.4 H (0.9-1.1) Creatinine 0.50 L (0.6-1.2) mg/dl BUN/Creatinine Ratio 24.0 H (10-20) Glucose 116 H (70-99(Fasting)) mg/dl ALT 6 L (7-52) U/L Total Protein 5.7 L (6.0-8.3) gm/dl Globulin 2.3 L (2.5-4.0) gm/dl Crossmatch 01/17/23 Range/Units 12:55 WBC (4.8-10.8) K/ul RBC (4.20-5.40) M/uL Hgb (12.0-16.0) g/dl Hct (37.0-47.0) % MCHC (32.0-36.0) g/dL RDW Std Deviation (36.4-46.3) fL RDW Coeff of [place] (11.5-14.5) % Plt Count (130-400) K/uL MPV (9.4-12.4) fL Absolute Nucleated RBC (0.00-0.12) K/uL Neutrophils # (Manual) (1.40-6.50) K/uL Total Absolute Neuts (1.4-6.5) K/uL Blast Cells # (Man) (0-0) K/uL PT (9.0-12.0) Seconds INR (0.9-1.1) Creatinine (0.6-1.2) mg/dl BUN/Creatinine Ratio (10-20) Glucose (70-99(Fasting)) mg/dl ALT (7-52) U/L Total Protein (6.0-8.3) gm/dl Globulin (2.5-4.0) gm/dl Crossmatch See Detail Diagnostic Findings XR chest 1V portable CLINICAL HISTORY: Chest pain, nonspecific COMPARISON STUDY: Chest CT September 15, 2022. Chest radiograph January 15, 2023. FINDINGS: Left subclavian [id number] is in place. Elevation of the left hemidiaphragm is unchanged. Lungs are clear. There is no pneumothorax or pleural effusion. Cardiac size is normal. Mediastinal contours are normal. There is no evidence for pulmonary edema. IMPRESSION: No acute cardiopulmonary findings. No change in appearance of the chest. CT ANGIOGRAPHY OF THE CHEST DISSECTION PROTOCOL CLINICAL HISTORY: left CP and hematoma; recent subclavian port placement. COMPARISON STUDY: Chest radiograph performed earlier today. Chest CT September 15, 2022. TECHNIQUE: Before and following the IV administration of 117 mL of Optiray, helical axial images of the chest were obtained. Maximal intensity projections and sagittal and coronal reformats were viewed on an independent 3D workstation. IV contrast was administered without complication. Automated exposure control was utilized for the study. A dose lowering technique was utilized adhering to the principles of ALARA. CT DOSE: 1730.17 mGy.cm FINDINGS: The caliber of the thoracic aorta is normal. There is no intramural hematoma or thoracic aortic dissection. No pulmonary emboli are identified. There is moderate coronary artery calcification. Size of the heart is normal. There is no pericardial effusion. No pneumothorax or pleural effusion is present. Elevation of the left hemidiaphragm is unchanged. Subpleural right apical density favor scarring. This is unchanged. There are no suspicious pulmonary nodules. No consolidation is identified to suggest pneumonia.There is no thoracic lymphadenopathy. A left subclavian Uqcsqq-p-[id number] is in place. The tip is within the distal left brachiocephalic vein. The catheter is intact. A 3.4 x 2.9 x 2.9 cm hyperdense fluid collection along the inferior aspect of the port represents a hematoma. There is diffuse stranding within the adjacent left soft tissues with hyperdense fluid. This involves the left breast, left upper chest wall, left axilla and left lower neck. No additional discrete fluid collections are present. There is mild asymmetric enlargement of the adjacent musculature which favors a small amount of acute intramuscular hemorrhage. No active extravasation. No pseudoaneurysm. Small amount of subcutaneous gas as expected in the early post procedural setting. There is associated skin thickening. IMPRESSION: 1. No thoracic aortic dissection. 2. Left subclavian [id number] in place. Catheter intact with tip within the distal left brachiocephalic vein. 3.4 x 2.9 x 2.9 cm hematoma along the inferior aspect of the port. Diffuse left breast, upper chest, axillary and lower neck stranding with hyperdense fluid consistent with moderate hemorrhage. Associated small amount of acute intramuscular hemorrhage. No pseudoaneurysm. No active extravasation. Medications Administered ER Medications Given: Acetaminophen 1000mg IV 2 units packed red blood cells ECG Rate (beats per minute): 103 Rhythm: sinus tachycardia Findings: no acute ischemic change Comparison ECG Date: from (Jan 02, 2023) Change: no significant change Code Status & VTE Plan Code Status DNR/DNI VTE Prophylaxis Plan VTE Prophylaxis will be ordered: No Reason for no VTE drug order: Contraindicated PG Care Time/CCT Total # of Minutes Spent Total Time Spent with Patient: Total time spent is greater than 50% in coordination of care (as documented) at patient's floor/unit and/or counseling patient: Coding Level of Care Code 08305 INT INP/OBS CARE 3/75MIN Diagnoses Post-operative complication T81.9XXA Acute myeloblastic leukemia C92.00 Neutropenia D70.9 Anxiety and depression F41.9; F32.9 GERD (gastroesophageal reflux disease) K21.9 Diabetes E11.9 Rheumatoid arthritis M06.9 Anemia D64.9 Anemia type: bone marrow failure Thrombocytopenia D69.6 (8) Anemia Anemia type: bone marrow failure
[2023-01-17] MEDS ORDERED: traMADol HCL 50 MG TABLET PO STA (16:37)
--- NOTE | 2023-01-17 16:54 | Surgery Consultation ---
Date of Consultation January 17, 2023 Assessment & Plan (1) Chest wall hematoma: Small 3 cm hematoma but extensive bruising within the subcutaneous tissue. No sign of active bleeding. Discussed that this can be monitored for now but does increase her risk of infection of the port and /or port removal. Given her thrombocytopenia, repeat surgery would also be at risk for further bleeding. Will defer management of low Hgb to medicine service Continue dry dressing over the incision. OK to have regular diet as no immediate surgical intervention planned. (2) Thrombocytopenia: (3) Acute myeloblastic leukemia: History of Present Illness Reason for Consultation: left chest hematoma Requesting Physician: Herman Cohen MD History of Present Illness 82 yr old woman with AML with recent port placement for frequent transfusions (platelets, plasma). On the day of surgery (01/15), received platelets. Port placed on left side. Subsequently, started to notice more bruising, pain/ tenderness. Feels more lightheaded with standing, more tired. Presented to ER where Hbg had gone from 6.9 to 6.1. Platelet count [address] incr eased. CT scan shows no active extravasation, 3 cm hematoma along inferior aspect of the port. Allergies Allergy/AdvReac Type Severity Reaction Status Date / Time codeine Allergy Severe Vomiting, Verified 01/17/23 14:29 drop in BP meperidine Allergy Severe Vomiting Verified 01/17/23 14:29 morphine Allergy Severe "Drop in Verified 01/17/23 14:29 vital signs", tremors, vomiting oxycodone Allergy Severe "Drop in Verified 01/17/23 14:29 vital signs", tremors, vomiting adhesive Allergy Intermediate "Pulls off Verified 01/17/23 14:29 skin" hydrocodone [From Vicodin] Allergy Intermediate Vomiting, Verified 01/17/23 14:29 tremors nickel Allergy Intermediate Rash Verified 01/17/23 14:29 pravastatin AdvReac Intermediate Arm/leg Verified 01/17/23 14:29 pain simvastatin AdvReac Intermediate Arm/leg Verified 01/17/23 14:29 pain cephalexin [From Keflex] AdvReac Mild Nausea Verified 01/17/23 14:29 aspirin [From Percodan] AdvReac Unknown Unknown Verified 01/17/23 14:29 montelukast [From Singulair] AdvReac Unknown Unknown Verified 01/17/23 14:29 Home Medications Medication Instructions Recorded Confirmed Type metformin 1,000 mg tablet 1,000 mg PO BID #180 tabs 04/24/22 01/17/23 Rx pantoprazole 40 mg tablet,delayed 40 mg PO QAM #180 tabs 06/06/22 01/17/23 Rx release meclizine 25 mg tablet 25 mg PO TID PRN Dizziness #90 tabs 06/13/22 01/17/23 Rx alendronate 70 mg tablet (Fosamax) 70 mg PO WEEKLY #12 tabs 06/17/22 01/17/23 Rx sumatriptan 5 mg/actuation nasal 10 mg intranasal Q2H PRN migraine 06/17/22 01/17/23 Rx spray headache #6 ea zafirlukast 20 mg tablet 20 mg PO Q12H #180 tabs 07/25/22 01/17/23 Rx acyclovir 400 mg tablet 400 mg PO BID 09/17/22 01/17/23 History albuterol sulfate 2.5 mg/3 mL 5 mg inhalation Q6H PRN Shortness 09/17/22 01/17/23 History (0.083 %) solution for nebulization Of Breath Or Wheezing fluconazole 100 mg tablet 200 mg PO QAM #30 tabs 12/26/22 01/17/23 Rx (Diflucan) mirabegron 50 mg tablet,extended 50 mg PO QAM 01/12/23 01/17/23 History release 24 hr sertraline 50 mg tablet 50 mg PO QAM 01/12/23 01/17/23 History tramadol 50 mg tablet 50 mg PO Q6H PRN Pain 01/12/23 01/17/23 History levofloxacin 500 mg tablet 500 mg PO DAILY 01/17/23 01/17/23 History prednisone 5 mg tablet 15 mg PO DAILY 01/17/23 01/17/23 History Patient History Medical History Allergic rhinitis Anxiety and depression Asthma Chronic sinusitis COVID-19 05/2022 (not hospitalized) Diabetes NIDDM DVT (deep venous thrombosis) LLE (1971), post-op hysterectomy Dyslipidemia GERD (gastroesophageal reflux disease) Hypertension Insomnia Leukemia Dx 03/2022, had 8 months chemo (stopped 11/2022) Migraine No recent issues Nontoxic multinodular goiter Osteopenia Poor venous access Rheumatoid arthritis Sensorineural hearing loss (SNHL) of both ears Urge and stress incontinence Surgical History History of colonoscopy History of esophagogastroduodenoscopy (EGD) History of mandibular surgery to get set for denture placement History of tooth extraction Hx of resection of rib 1990 (just for being too large and causing arm problems, "top two ribs, one on each side") Port-A-Cath in place (01/15/23) Insertion of Access Port with Fluoroscopy(Left) - Barney Hernandez, DO S/P adenoidectomy S/P carpal tunnel release b/l wrists S/P cataract extraction b/l eyes S/P cholecystectomy S/P foot surgery L foot hammertoe repair S/P hysterectomy S/P medial meniscal repair L knee S/P tonsillectomy S/P trigger finger release R hand Family History Brother Myocardial infarction Heart disease Hypertension Father , age 81 of heart disease Arthritis Heart disease Mother , age 41 Of leukemia Leukemia Breast cancer Ovarian cancer Sister , age 64 Diabetes Brother Throat cancer Liver cirrhosis Denies family history of Prostate cancer Colorectal cancer Social History Smoking Status: Never smoker Age Started Using Tobacco: 21; Age Quit Using Tobacco: 31; Cigarettes Per Day: light smoker only; Second Hand Exposure: Yes ( smoked, he passed 2009); Do You Dip or Chew Tobacco: No; Hx Alcohol Use: No Hx Substance Use: No Preferred Language: Syriac Communication Ability: Effective Visual Impairment: Limited Hearing Ability: Normal Ground Instructor Advanced Required: No Beliefs That Will Affect Care: None marital status: / Current Living Situation: Family Current Living Situation Comment: Granddaughter, family is always visiting. 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 Incision intact but there is a small quantity of old bloody fluid on the dressing. Skin very thin. no active infection Results & Data Vital Signs (Past 12 Hours) Vital Signs Temp Pulse Resp BP Pulse Ox O2 Del Method O2 Flow Rate 01/17/23 16:14 103 H 01/17/23 13:24 103/63 01/17/23 13:24 104 H 23 99 Nasal Cannula 2 01/17/23 13:00 115 H 19 101/60 99 01/17/23 12:30 108 H 23 99 01/17/23 12:00 103 H 20 98 01/17/23 11:30 103 H 19 99 Nasal Cannula 2 01/17/23 11:00 102 H 18 102/62 88 L 01/17/23 10:30 105 H 16 94 01/17/23 10:29 105 H 16 94 01/17/23 11:05 18 94 Nasal Cannula 2 01/17/23 11:35 105 H 18 98 Nasal Cannula 2 01/17/23 10:38 106 H 01/17/23 10:31 37.0 C 108 H 20 102/62 94 Room Air Laboratory Results Abnormal lab results 01/17/23 01/17/23 01/17/23 Range/Units 11:37 11:37 11:37 WBC 54.66 H* (4.8-10.8) K/ul RBC 2.12 L (4.20-5.40) M/uL Hgb 6.1 L* (12.0-16.0) g/dl Hct 19.1 L* (37.0-47.0) % MCHC 31.9 L (32.0-36.0) g/dL RDW Std Deviation 56.8 H (36.4-46.3) fL RDW Coeff of [place] 17.5 H (11.5-14.5) % Plt Count 28 L* (130-400) K/uL MPV 8.9 L (9.4-12.4) fL Absolute Nucleated RBC 0.57 H (0.00-0.12) K/uL Neutrophils # (Manual) 0.55 L (1.40-6.50) K/uL Total Absolute Neuts 0.55 L* (1.4-6.5) K/uL Blast Cells # (Man) 52.47 H (0-0) K/uL PT 14.9 H (9.0-12.0) Seconds INR 1.4 H (0.9-1.1) Creatinine 0.50 L (0.6-1.2) mg/dl BUN/Creatinine Ratio 24.0 H (10-20) Glucose 116 H (70-99(Fasting)) mg/dl ALT 6 L (7-52) U/L Total Protein 5.7 L (6.0-8.3) gm/dl Globulin 2.3 L (2.5-4.0) gm/dl Crossmatch 01/17/23 Range/Units 12:55 WBC (4.8-10.8) K/ul RBC (4.20-5.40) M/uL Hgb (12.0-16.0) g/dl Hct (37.0-47.0) % MCHC (32.0-36.0) g/dL RDW Std Deviation (36.4-46.3) fL RDW Coeff of [place] (11.5-14.5) % Plt Count (130-400) K/uL MPV (9.4-12.4) fL Absolute Nucleated RBC (0.00-0.12) K/uL Neutrophils # (Manual) (1.40-6.50) K/uL Total Absolute Neuts (1.4-6.5) K/uL Blast Cells # (Man) (0-0) K/uL PT (9.0-12.0) Seconds INR (0.9-1.1) Creatinine (0.6-1.2) mg/dl BUN/Creatinine Ratio (10-20) Glucose (70-99(Fasting)) mg/dl ALT (7-52) U/L Total Protein (6.0-8.3) gm/dl Globulin (2.5-4.0) gm/dl Crossmatch See Detail
[2023-01-17 17:15] LABS: Magnesium 1.2 mg/dl (1.7-2.4)
--- NOTE | 2023-01-17 17:34 | Electrocardiogram Report ---
Test Reason : Blood Pressure : / mmHG Vent. Rate : 103 BPM Atrial Rate : 103 BPM P-R Int : 150 ms QRS Dur : 070 ms QT Int : 334 ms P-R-T Axes : 042 017 061 degrees QTc Int : 437 ms Sinus tachycardia Low voltage QRS Borderline ECG When compared with ECG of 02-JAN-2023 10:12, Premature ventricular complexes are no longer Present Confirmed by Royer Cottrell ([id number]) on 01/17/2023 5:34:47 PM Referred By: REFERRED SELF Confirmed By:Lawrence Cottrell
[2023-01-17 17:56] LABS: Partial Thromboplastin Ratio 0.9; Partial Thromboplastin Time 25.1 Seconds (21.0-31.0)
[2023-01-17] MEDS: MAGNESIUM SULFATE / D5W 1 GM/100 ML BAG IV SCH ×2 (20:52→22:42)
[2023-01-17] MEDS: MAGNESIUM OXIDE 400 MG TAB PO SCH (20:53)
[2023-01-17] MEDS: ACYCLOVIR 400 MG TAB PO SCH (20:54)
[2023-01-17] MEDS: diphenhydrAMINE Capsule 25 MG CAP PO PRN (22:32)
[2023-01-17] MEDS: ACETAMINOPHEN 325 MG TAB PO PRN (22:32)
[2023-01-18] MEDS: MAGNESIUM SULFATE / D5W 1 GM/100 ML BAG IV SCH ×2 (00:42→02:42)
[2023-01-18 03:35] LABS: BUN Creatinine Ratio 21.1 (10-20); Calcium 7.9 mg/dl (8.6-10.3); Creatinine Clr Calc Pharmacy 72.6 ml/min; Est GFR (African American) 100.8 ml/min; Est GFR (Non-African American) 86.9 ml/min; Potassium 3.4 mmol/L (3.5-5.1)
[2023-01-18 03:52] LABS: INR 1.2 (0.9-1.1); Prothrombin Time 12.5 Seconds (9.0-12.0)
[2023-01-18 04:11] LABS: Hematocrit (blood only) 22.2 % (37.0-47.0); Hemoglobin 7.4 g/dl (12.0-16.0); Mean Corpuscular Hemoglobin 28.5 pg (25.0-34.0); Mean Corpuscular Hgb Conc 33.3 g/dL (32.0-36.0); Mean Corpuscular Volume 85.4 fL (80.0-100.0); Nucleated RBC # (auto) 0.73 K/uL (0.00-0.12); Nucleated RBC % (auto) 1.8 %; RDW Coefficient of Variation 16.9 % (11.5-14.5); RDW Standard Deviation 51.8 fL (36.4-46.3)
[2023-01-18 04:12] LABS: Platelet Count 15 K/uL (130-400); White Blood Count 41.34 K/ul (4.8-10.8)
[2023-01-18 04:13] LABS: ALC (manual) 1.24 K/uL (1.2-3.4); ANC (manual) 0.41 K/uL (1.4-6.5); Blast # (manual) 38.86 K/uL (0-0); Blast Cells % (manual) 94 %; Eosinophils # (manual) 0.41 K/uL (0-0.50); Eosinophils % (manual) 1 %; Lymphocytes # (manual) 1.24 K/uL (1.2-3.4); Lymphocytes % (manual) 3 %; Monocytes # (manual) 0.41 K/uL (0.11-0.59); Monocytes % (manual) 1 %; Neutrophils # (manual) 0.41 K/uL (1.40-6.50); Neutrophils % (manual) 1 %; Polychromasia 1+
[2023-01-18] MEDS: traMADol HCL 50 MG TABLET PO PRN (06:44)
--- NOTE | 2023-01-18 07:54 | Hospitalist Progress Note ---
Date of Service January 18, 2023 Assessment & Plan (1) Post-operative complication: Plan: Post operative hematoma, had left chest wall port placed 01/15 1 unit platelets transfused, as well as 2u PRBCs, Hgb 7.4 this Am will transfuse another unit today Vitamin K 10mg IV x1 given due to INR 1.4, INR today of 1.2 Surgery consulted, would not perform surgery at this time given stable hematoma and risks with low platelets (2) Acute myeloblastic leukemia: Plan: This is acute worsening given sudden increase in blasts cells Patient and family have discussed previously with Dr Araujo and she is not for induction chemotherapy - confirmed again with the patient this admission Plan is for supportive care with transfusions only Continue infection prophylaxis with acyclovir, Levaquin and fluconazole Neutropenic isolation precautions (3) Neutropenia: Plan: Neutropenic isolation precautions - will need broad spectrum antibiotics if fe brile BCx collected on admission (4) Anxiety and depression: Plan: Continue sertraline (5) GERD (gastroesophageal reflux disease): Plan: Continue pantoprazole (6) Diabetes: Plan: Given generally guarded prognosis will use regular diet and not need for insulin coverage (7) Rheumatoid arthritis: Plan: Continue prednisone 15mg daily (8) Anemia: Plan: Acute blood loss anemia, also 2/2 AML S/p now 3u PRBCs and 1u plts, continue to monitor hematoma and H/H (9) Thrombocytopenia: Plan: 2/2 AML, s/p 1u plts this admission Repeat CBC this evening Plan VTE Prophylaxis - chemical contraindicated Diet - regular Disposition - admit to med/tele, guarded prognosis, Oncology and Gen. Surg aware of patient and following along peripherally May need PT and OT for dispo planning Attempted to call daughter, no answer Admission and Anticipated Discharge Date Admission Date: January 17, 2023 Subjective Today still with left axilla/chest wall pain, feels tired but perhaps less than yesterday. Denies SOB, nausea, abdominal pain. Physical Exam Constitutional: WD/WN, vitals as above Respiratory: normal respiratory effort, lungs clear to auscultation Cardiovascular: RRR, no murmur, no edema Gastrointestinal (Abdomen): normal bowel sounds, soft, nontender, no hepatosplenomegaly Skin: no rashes, warm and dry left port in place, significant swelling and ecchymosis over site extending up to clavicle, down towards upper breast, and into left axilla. No erythema surrounding port site Psychiatric: A+Ox3, euthymic affect Results & Data Results & Data Vital Signs (Past 12 Hours) Vital Signs Temp Pulse Pulse Resp BP BP Pulse Ox 01/18/23 07:02 37.3 C 102 H 22 130/74 92 01/18/23 07:00 37.3 C 102 H 22 130/74 92 01/17/23 22:00 101 H 01/17/23 20:00 01/18/23 06:00 38 C H 101 H 20 134/75 92 01/18/23 05:30 37.4 C 99 H 20 129/71 93 01/18/23 05:15 37.4 C 99 H 20 129/71 93 01/18/23 05:15 37.4 C 101 H 18 126/73 92 01/18/23 04:51 37.7 C H 100 H 18 114/66 94 01/18/23 00:38 37.5 C 104 H 22 114/68 92 01/18/23 00:38 37.5 C 104 H 22 114/68 92 01/18/23 00:09 38.4 C H 113 H 20 123/69 92 01/17/23 22:40 37.1 C 101 H 18 117/70 94 01/18/23 00:23 37.5 C 01/17/23 23:09 37.8 C H 113 H 18 120/70 94 01/17/23 22:09 37.7 C H 108 H 20 118/69 93 01/17/23 21:39 37.7 C H 118 H 20 118/68 94 01/17/23 21:24 37.6 C H 117 H 18 113/73 94 01/17/23 21:24 37.6 C H 117 H 18 113/73 94 01/17/23 21:04 38.0 C H 115 H 18 124/73 94 01/17/23 20:08 37.3 C 109 H 24 112/70 97 O2 Del Method O2 Flow Rate 01/18/23 07:02 0 01/18/23 07:00 0 01/17/23 22:00 01/17/23 20:00 Room Air 0 01/18/23 06:00 0 01/18/23 05:30 0 01/18/23 05:15 0 01/18/23 05:15 01/18/23 04:51 01/18/23 00:38 0 01/18/23 00:38 0 01/18/23 00:09 0 01/17/23 22:40 Room Air 01/18/23 00:23 01/17/23 23:09 0 01/17/23 22:09 0 01/17/23 21:39 0 01/17/23 21:24 0 01/17/23 21:24 01/17/23 21:04 01/17/23 20:08 0 PG Care Time/CCT Total # of Minutes Spent Total Time Spent with Patient: Total time spent is greater than 50% in coordination of care (as documented) at patient's floor/unit and/or counseling patient: Coding Level of Care Code 01810 SUB INP/OBS CARE 3/50MIN Diagnoses Post-operative complication T81.9XXA Acute myeloblastic leukemia C92.00 Neutropenia D70.9 Anxiety and depression F41.9; F32.9 GERD (gastroesophageal reflux disease) K21.9 Diabetes E11.9 Rheumatoid arthritis M06.9 Anemia D64.9 Anemia type: bone marrow failure Thrombocytopenia D69.6 (8) Anemia Anemia type: bone marrow failure
[2023-01-18] MEDS: MAGNESIUM OXIDE 400 MG TAB PO SCH ×2 (08:31→20:23)
[2023-01-18] MEDS: ACYCLOVIR 400 MG TAB PO SCH ×2 (08:31→20:23)
[2023-01-18] MEDS: VIBEGRON 75 MG TAB PO SCH (08:32)
[2023-01-18] MEDS: SERTRALINE HCL 50 MG TABLET PO SCH (08:32)
[2023-01-18] MEDS: FLUCONAZOLE 100 MG TAB PO SCH (08:32)
[2023-01-18] MEDS: predniSONE 5 MG TAB PO SCH (08:32)
[2023-01-18] MEDS: PANTOprazole 40 MG TAB PO SCH (08:32)
[2023-01-18] MEDS ORDERED: levoFLOXacin 500 MG TAB PO SCH (09:00)
--- NOTE | 2023-01-18 12:34 | Surgery Progress Note ---
Date of Service January 18, 2023 Assessment & Plan (1) Chest wall hematoma: Plan: Small 3 cm hematoma but extensive bruising within the subcutaneous tissue. No sign of active bleeding. Discussed that this can be monitored for now but does increase her risk of infection of the port and /or port removal. Given her thrombocytopenia, repeat surgery would also be at risk for further bleeding. Continue dry dressing over the incision. (2) Thrombocytopenia: (3) Acute myeloblastic leukemia: Admission and Anticipated Discharge Date Admission Date: January 17, 2023 Subjective Still with soreness/ pain at the hematoma site. Received platelets and blood yesterday. Physical Exam Skin: no changes to hematoma left upper chest, not larger Results & Data Vital Signs (Past 12 Hours) Vital Signs Temp Pulse Pulse Resp BP BP Pulse Ox 01/18/23 08:00 98 H 01/18/23 11:02 38.0 C H 109 H 16 124/72 94 01/18/23 07:50 38.0 C H 100 H 17 108/68 91 01/18/23 07:02 37.3 C 102 H 22 130/74 92 01/18/23 07:00 37.3 C 102 H 22 130/74 92 01/18/23 06:00 38 C H 101 H 20 134/75 92 01/18/23 05:30 37.4 C 99 H 20 129/71 93 01/18/23 05:15 37.4 C 99 H 20 129/71 93 01/18/23 05:15 37.4 C 101 H 18 126/73 92 01/18/23 04:51 37.7 C H 100 H 18 114/66 94 01/18/23 00:38 37.5 C 104 H 22 114/68 92 01/18/23 00:38 37.5 C 104 H 22 114/68 92 O2 Del Method O2 Flow Rate 01/18/23 08:00 01/18/23 11:02 Room Air 01/18/23 07:50 Room Air 01/18/23 07:02 0 01/18/23 07:00 0 01/18/23 06:00 0 01/18/23 05:30 0 01/18/23 05:15 0 01/18/23 05:15 01/18/23 04:51 01/18/23 00:38 0 01/18/23 00:38 0 Laboratory Results 01/18/23 01/18/23 01/18/23 Range/Units 02:48 02:48 02:48 WBC 41.34 H* (4.8-10.8) K/ul RBC 2.60 L (4.20-5.40) M/uL Hgb 7.4 L (12.0-16.0) g/dl Hct 22.2 L (37.0-47.0) % MCV 85.4 D (80.0-100.0) fL MCH 28.5 (25.0-34.0) pg MCHC 33.3 (32.0-36.0) g/dL RDW Std Deviation 51.8 H (36.4-46.3) fL RDW Coeff of [place] 16.9 H (11.5-14.5) % Plt Count 15 L* (130-400) K/uL MPV 9.0 L (9.4-12.4) fL Absolute Nucleated RBC 0.73 H (0.00-0.12) K/uL Nucleated RBC % (auto) 1.8 % Neutrophils % (Manual) 1 % Lymphocytes % (Manual) 3 % Monocytes % (Manual) 1 % Eosinophils % (Manual) 1 % Blast Cells % (Manual) 94 % Neutrophils # (Manual) 0.41 L (1.40-6.50) K/uL Total Absolute Neuts 0.41 L* (1.4-6.5) K/uL Lymphocytes # (Manual) 1.24 (1.2-3.4) K/uL Total Abs Lymphocytes 1.24 (1.2-3.4) K/uL Monocytes # (Manual) 0.41 (0.11-0.59) K/uL Eosinophils # (Manual) 0.41 (0-0.50) K/uL Blast Cells # (Man) 38.86 H (0-0) K/uL Polychromasia 1+ PT 12.5 H (9.0-12.0) Seconds INR 1.2 H (0.9-1.1) APTT (21.0-31.0) Seconds PTT Ratio Sodium 133 L (136-145) mmol/L Potassium 3.4 L (3.5-5.1) mmol/L Chloride 99 (98-107) mmol/L Carbon Dioxide 27 (21-32) mmol/L Anion Gap 7 (3-11) BUN 12 (6-23) mg/dl Creatinine 0.57 L (0.6-1.2) mg/dl Est Cr Clr Drug Dosing 72.6 ml/min Est GFR ( Amer) 100.8 ml/min Est GFR (Non-Af Amer) 86.9 ml/min BUN/Creatinine Ratio 21.1 H (10-20) Glucose 179 H (70-99(Fasting)) mg/dl Calcium 7.9 L (8.6-10.3) mg/dl Magnesium (1.7-2.4) mg/dl Total Bilirubin (0.2-1.0) mg/dl AST (13-39) U/L ALT (7-52) U/L Alkaline Phosphatase (34-104) U/L Total Protein (6.0-8.3) gm/dl Albumin (3.4-5.0) gm/dl Globulin (2.5-4.0) gm/dl Albumin/Globulin Ratio (0.9-2) Lipase (11-82) U/L Procalcitonin (0-0.5) ng/ml Blood Type Antibody Screen Crossmatch 01/17/23 01/17/23 01/17/23 Range/Units 16:40 12:55 11:37 WBC (4.8-10.8) K/ul RBC (4.20-5.40) M/uL Hgb (12.0-16.0) g/dl Hct (37.0-47.0) % MCV (80.0-100.0) fL MCH (25.0-34.0) pg MCHC (32.0-36.0) g/dL RDW Std Deviation (36.4-46.3) fL RDW Coeff of [place] (11.5-14.5) % Plt Count (130-400) K/uL MPV (9.4-12.4) fL Absolute Nucleated RBC (0.00-0.12) K/uL Nucleated RBC % (auto) % Neutrophils % (Manual) % Lymphocytes % (Manual) % Monocytes % (Manual) % Eosinophils % (Manual) % Blast Cells % (Manual) % Neutrophils # (Manual) (1.40-6.50) K/uL Total Absolute Neuts (1.4-6.5) K/uL Lymphocytes # (Manual) (1.2-3.4) K/uL Total Abs Lymphocytes (1.2-3.4) K/uL Monocytes # (Manual) (0.11-0.59) K/uL Eosinophils # (Manual) (0-0.50) K/uL Blast Cells # (Man) (0-0) K/uL Polychromasia PT (9.0-12.0) Seconds INR (0.9-1.1) APTT 25.1 (21.0-31.0) Seconds PTT Ratio 0.9 Sodium (136-145) mmol/L Potassium (3.5-5.1) mmol/L Chloride (98-107) mmol/L Carbon Dioxide (21-32) mmol/L Anion Gap (3-11) BUN (6-23) mg/dl Creatinine (0.6-1.2) mg/dl Est Cr Clr Drug Dosing ml/min Est GFR ( Amer) ml/min Est GFR (Non-Af Amer) ml/min BUN/Creatinine Ratio (10-20) Glucose (70-99(Fasting)) mg/dl Calcium (8.6-10.3) mg/dl Magnesium (1.7-2.4) mg/dl Total Bilirubin (0.2-1.0) mg/dl AST (13-39) U/L ALT (7-52) U/L Alkaline Phosphatase (34-104) U/L Total Protein (6.0-8.3) gm/dl Albumin (3.4-5.0) gm/dl Globulin (2.5-4.0) gm/dl Albumin/Globulin Ratio (0.9-2) Lipase (11-82) U/L Procalcitonin 0.17 (0-0.5) ng/ml Blood Type O Negative Antibody Screen NEGATIVE Crossmatch See Detail 01/17/23 01/17/23 Range/Units 11:37 11:37 WBC (4.8-10.8) K/ul RBC (4.20-5.40) M/uL Hgb (12.0-16.0) g/dl Hct (37.0-47.0) % MCV (80.0-100.0) fL MCH (25.0-34.0) pg MCHC (32.0-36.0) g/dL RDW Std Deviation (36.4-46.3) fL RDW Coeff of [place] (11.5-14.5) % Plt Count (130-400) K/uL MPV (9.4-12.4) fL Absolute Nucleated RBC (0.00-0.12) K/uL Nucleated RBC % (auto) % Neutrophils % (Manual) 1 % Lymphocytes % (Manual) 3 % Monocytes % (Manual) % Eosinophils % (Manual) % Blast Cells % (Manual) 96 % Neutrophils # (Manual) 0.55 L (1.40-6.50) K/uL Total Absolute Neuts 0.55 L* (1.4-6.5) K/uL Lymphocytes # (Manual) 1.64 (1.2-3.4) K/uL Total Abs Lymphocytes 1.64 (1.2-3.4) K/uL Monocytes # (Manual) (0.11-0.59) K/uL Eosinophils # (Manual) (0-0.50) K/uL Blast Cells # (Man) 52.47 H (0-0) K/uL Polychromasia PT (9.0-12.0) Seconds INR (0.9-1.1) APTT (21.0-31.0) Seconds PTT Ratio Sodium 138 (136-145) mmol/L Potassium 4.0 (3.5-5.1) mmol/L Chloride 103 (98-107) mmol/L Carbon Dioxide 26 (21-32) mmol/L Anion Gap 9 (3-11) BUN 12 (6-23) mg/dl Creatinine 0.50 L (0.6-1.2) mg/dl Est Cr Clr Drug Dosing 82.8 ml/min Est GFR ( Amer) 105.2 ml/min Est GFR (Non-Af Amer) 90.8 ml/min BUN/Creatinine Ratio 24.0 H (10-20) Glucose 116 H (70-99(Fasting)) mg/dl Calcium 8.6 (8.6-10.3) mg/dl Magnesium 1.2 L (1.7-2.4) mg/dl Total Bilirubin 0.8 (0.2-1.0) mg/dl AST 21 (13-39) U/L ALT 6 L (7-52) U/L Alkaline Phosphatase 44 (34-104) U/L Total Protein 5.7 L (6.0-8.3) gm/dl Albumin 3.4 (3.4-5.0) gm/dl Globulin 2.3 L (2.5-4.0) gm/dl Albumin/Globulin Ratio 1.5 (0.9-2) Lipase 11 (11-82) U/L Procalcitonin (0-0.5) ng/ml Blood Type Antibody Screen Crossmatch
[2023-01-18] MEDS ORDERED: SODIUM CHLORIDE 0.9% 250 ML IV PRN ×2 (16:18→17:31)
[2023-01-18] MEDS: ACETAMINOPHEN 325 MG TAB PO PRN (20:22)
[2023-01-18] MEDS ORDERED: VANCOMYCIN CONSULT ACTIVE PRN (20:24)
[2023-01-18] MEDS ORDERED: VANCOMYCIN HCL 1,500 MG in SODIUM CHLORIDE 0.9% 500 ML IV ONE (20:24)
[2023-01-18] MEDS: CEFEPIME 2,000 MG in SYRINGE 0 ML IV SCH (21:59)
[2023-01-19 01:37] LABS: Calcium 7.7 mg/dl (8.6-10.3); Creatinine Clr Calc Pharmacy 70.9 ml/min; Est GFR (African American) 100.2 ml/min; Est GFR (Non-African American) 86.4 ml/min; Hematocrit (blood only) 21.6 % (37.0-47.0); Hemoglobin 7.4 g/dl (12.0-16.0); Mean Corpuscular Hemoglobin 28.8 pg (25.0-34.0); Mean Corpuscular Hgb Conc 34.3 g/dL (32.0-36.0); Mean Platelet Volume 10.5 fL (9.4-12.4); Nucleated RBC # (auto) 0.47 K/uL (0.00-0.12); Nucleated RBC % (auto) 1.2 %; Platelet Count 28 K/uL (130-400); Potassium 3.4 mmol/L (3.5-5.1); RDW Coefficient of Variation 16.5 % (11.5-14.5); RDW Standard Deviation 50.6 fL (36.4-46.3); Red Blood Count 2.57 M/uL (4.20-5.40); White Blood Count 38.45 K/ul (4.8-10.8)
[2023-01-19 02:05] LABS: ALC (manual) 1.54 K/uL (1.2-3.4); ANC (manual) 1.15 K/uL (1.4-6.5); Blast # (manual) 35.37 K/uL (0-0); Blast Cells % (manual) 92 %; Lymphocytes # (manual) 1.54 K/uL (1.2-3.4); Lymphocytes % (manual) 4 %; Monocytes # (manual) 0.38 K/uL (0.11-0.59); Monocytes % (manual) 1 %; Neutrophils # (manual) 1.15 K/uL (1.40-6.50); Neutrophils % (manual) 3 %; RBC Morphology Unremarkable
[2023-01-19] MEDS: ACETAMINOPHEN 325 MG TAB PO PRN (02:38)
[2023-01-19] MEDS: CEFEPIME 2,000 MG in SYRINGE 0 ML IV SCH ×3 (05:20→22:10)
[2023-01-19] MEDS: VANCOMYCIN HCL 1,000 MG in SODIUM CHLORIDE 0.9% 250 ML IV SCH ×2 (05:20→18:04)
--- NOTE | 2023-01-19 07:57 | Hospitalist Progress Note ---
Date of Service January 19, 2023 Assessment & Plan (1) Post-operative complication: Plan: Post operative hematoma, had LEFT chest wall port placed 01/15 Total of 2 units platelets transfused with plts now 28, as well as 3u PRBCs, Hgb 7.4 this AM will continue to monitor with daily labs Vitamin K 10mg IV x1 given due to INR 1.4 on admission, reduced to 1.2 Surgery consulted, would not perform surgery at this time given stable hematoma and risks with low platelets (2) Acute myeloblastic leukemia: Plan: This is acute worsening given sudden increase in blasts cells Patient and family have discussed previously with Dr Araujo and she is not for induction chemotherapy - confirmed again with the patient this admission Plan is for supportive care with transfusions only Continue infection prophylaxis with acyclovir and fluconazole Neutropenic isolation precautions (3) Neutropenic fever: Plan: Overnight with true fevers, resolved with tylenol, with notable neutropenia on labwork yesterday BCx collected on admission Admission CXR without evidence of PNA No evidence of port infection, however with significant hematoma does likely put at increased infection risk UA without bacteria but had already been on IV Abx ~16 hours by time of collection Empiric broad spectrum Abx started overnight due to neutropenic fever, now WBC count somewhat lower and neutropenia is improved, continue vanc/cefepime (4) Anxiety and depression: Plan: Continue sertraline (5) GERD (gastroesophageal reflux disease): Plan: Continue pantoprazole (6) Diabetes: Plan: Given generally guarded prognosis will use regular diet and not need for insulin coverage (7) Rheumatoid arthritis: Plan: Continue prednisone 15mg daily (8) Anemia: Plan: Acute blood loss anemia, also 2/2 AML S/p now 3u PRBCs and 2u plts, continue to monitor hematoma and H/H (9) Thrombocytopenia: Plan: 2/2 AML, s/p 2u plts this admission Repeat CBC daily Plan VTE Prophylaxis - chemical ppx contraindicated Diet - regular Disposition - med/tele, guarded prognosis, Oncology and Gen. Surg aware of patient and following along PT and OT will be needed for dispo planning, order for tomorrow Case discussed today with patient, daughter, and oncologist Admission and Anticipated Discharge Date Admission Date: January 17, 2023 Subjective Overnight had fevers ~38C, sweaty, no chest pain or SOB, no nausea, no vomiting, no abdominal pain. Pain in left chest wall/axilla is moderate to severe, improved with Tylenol/tramadol/lidocaine patches. Physical Exam Constitutional: WD/WN, vitals as above Respiratory: normal respiratory effort, lungs clear to auscultation Cardiovascular: RRR, no murmur, no edema Gastrointestinal (Abdomen): normal bowel sounds, soft, nontender, no hepatosplenomegaly Skin: no rashes, warm and dry left port in place, significant swelling and ecchymosis over site extending up to left clavicle, down to middle of left breast, and into left axilla. No erythema surrounding port site Psychiatric: A+Ox3, euthymic affect Results & Data Results & Data Vital Signs (Past 12 Hours) Vital Signs Temp Pulse Pulse Resp BP BP Pulse Ox 01/19/23 03:58 37.2 C 94 H 22 114/69 93 01/19/23 03:55 37.2 C 96 H 18 109/67 94 01/19/23 03:00 37.7 C H 94 H 20 114/70 94 01/19/23 02:30 38 C H 95 H 20 120/70 92 01/19/23 02:15 38.1 C H 95 H 20 120/70 92 01/19/23 02:15 37.0 C 93 H 18 118/72 93 01/19/23 01:53 37.3 C 94 H 18 116/64 96 01/18/23 22:00 98 H 01/18/23 23:00 36.9 C 106 H 18 106/76 95 01/18/23 23:30 36.9 C 92 H 20 116/68 95 01/18/23 22:45 36.8 C 90 18 111/66 94 01/18/23 21:45 36.8 C 93 H 18 114/67 93 01/18/23 21:15 37.3 C 104 H 18 112/71 93 01/18/23 20:45 36.5 C 106 H 18 128/71 93 01/18/23 20:15 38.4 C H 116 H 20 145/73 H 92 01/18/23 20:00 37.8 C H 108 H 18 135/70 93 O2 Del Method O2 Flow Rate 01/19/23 03:58 0 01/19/23 03:55 0 01/19/23 03:00 0 01/19/23 02:30 0 01/19/23 02:15 0 01/19/23 02:15 01/19/23 01:53 01/18/23 22:00 01/18/23 23:00 Room Air 01/18/23 23:30 0 01/18/23 22:45 0 01/18/23 21:45 0 01/18/23 21:15 01/18/23 20:45 01/18/23 20:15 0 01/18/23 20:00 PG Care Time/CCT Total # of Minutes Spent Total Time Spent with Patient: Total time spent is greater than 50% in coordination of care (as documented) at patient's floor/unit and/or counseling patient: Coding Level of Care Code 76362 SUB INP/OBS CARE 3/50MIN Diagnoses Post-operative complication T81.9XXA Acute myeloblastic leukemia C92.00 Neutropenic fever D70.9; R50.81 Anxiety and depression F41.9; F32.9 GERD (gastroesophageal reflux disease) K21.9 Diabetes E11.9 Rheumatoid arthritis M06.9 Anemia D64.9 Anemia type: bone marrow failure Thrombocytopenia D69.6 (8) Anemia Anemia type: bone marrow failure
--- NOTE | 2023-01-19 08:09 | Pharmacy Report ---
Pharmacy PK ABX Note - Date of Service January 19, 2023 - Assessment and Plan Assessment 82 year old F receiving vancomcyin/cefepime for empiric treatment of febrile neutropenia. Neutrophils recovering 0.55 -> 0.41 -> 1.15 Pertinent microbiologic data includes: Blood cultures negative at 24 hours. Procal 0.17. Tmax 38.4 C. Antibiotics currently ordered for 48 hours- will need extended if longer treatment course indicated. Plan Vancomycin * Loading dose: 1500 mg IV x 1 * Maintenance dose: 1000 mg IV every 12 hours * Regimen is predicted to achieve target AUC/OFELIA of 400-600 mg/L.hr * Trough ordered for 01/20 @ 0530 Pharmacy will continue to follow and will adjust dose/frequency as necessary. Thank you. Pharmacy has transitioned to AUC monitoring for vancomycin. AUC/OFELIA is the preferred PK/PD target and is associated with decreased risk of nephrotoxicity compared to traditional trough targets.
--- NOTE | 2023-01-19 10:18 | Surgery Progress Note ---
Date of Service January 19, 2023 Assessment & Plan (1) Chest wall hematoma: Plan: Hemoglobin stable overnight. Platelets 28,000 after transfusion. No evidence of current active bleeding. We will need to monitor closely for infection. Might not be a bad idea to leave her on some prophylactic antibiotics until the hematoma starts to resolve (2) Thrombocytopenia: (3) Port-A-Cath in place: Admission and Anticipated Discharge Date Admission Date: January 17, 2023 Ninoska Orozco was readmitted because of left chest wall hematoma status post insertion of an access port. She has no new complaints this morning. Physical Exam Physical Exam: Alert. No acute distress Port is in place. There is a large amount of ecchymosis on the left breast even up into the left neck and shoulder. Results & Data Vital Signs (Past 12 Hours) Vital Signs Temp Pulse Pulse Resp BP BP Pulse Ox 01/19/23 08:37 36.8 C 87 17 127/71 94 01/19/23 03:58 37.2 C 94 H 22 114/69 93 01/19/23 03:55 37.2 C 96 H 18 109/67 94 01/19/23 03:00 37.7 C H 94 H 20 114/70 94 01/19/23 02:30 38 C H 95 H 20 120/70 92 01/19/23 02:15 38.1 C H 95 H 20 120/70 92 01/19/23 02:15 37.0 C 93 H 18 118/72 93 01/19/23 01:53 37.3 C 94 H 18 116/64 96 01/18/23 23:00 36.9 C 106 H 18 106/76 95 01/18/23 23:30 36.9 C 92 H 20 116/68 95 01/18/23 22:45 36.8 C 90 18 111/66 94 O2 Del Method O2 Flow Rate 01/19/23 08:37 Room Air 01/19/23 03:58 0 01/19/23 03:55 0 01/19/23 03:00 0 01/19/23 02:30 0 01/19/23 02:15 0 01/19/23 02:15 01/19/23 01:53 01/18/23 23:00 Room Air 01/18/23 23:30 0 01/18/23 22:45 0 PG Care Time/CCT Total # of Minutes Spent Total Time Spent with Patient: Total time spent is greater than 50% in coordination of care (as documented) at patient's floor/unit and/or counseling patient: Coding Level of Care Code 33209 Post Operative Follow-Up Diagnoses Chest wall hematoma S20.219A Thrombocytopenia D69.6 Port-A-Cath in place Z95.828
[2023-01-19] MEDS: traMADol HCL 50 MG TABLET PO PRN (10:36)
[2023-01-19] MEDS: MAGNESIUM OXIDE 400 MG TAB PO SCH ×2 (10:38→22:12)
[2023-01-19] MEDS: FLUCONAZOLE 100 MG TAB PO SCH (10:38)
[2023-01-19] MEDS: ACYCLOVIR 400 MG TAB PO SCH ×2 (10:38→22:12)
[2023-01-19] MEDS: predniSONE 5 MG TAB PO SCH (10:39)
[2023-01-19] MEDS: VIBEGRON 75 MG TAB PO SCH (10:39)
[2023-01-19] MEDS: PANTOprazole 40 MG TAB PO SCH (10:39)
[2023-01-19] MEDS: SERTRALINE HCL 50 MG TABLET PO SCH (10:39)
[2023-01-19] MEDS ORDERED: traMADol HCL 50 MG TABLET PO STA (11:48)
[2023-01-19] MEDS: ACETAMINOPHEN 500 MG TAB PO SCH ×2 (12:25→22:10)
[2023-01-19] MEDS ORDERED: LIDOCAINE 5% 1 PATCH TD SCH (12:30)
[2023-01-19] MEDS ORDERED: POLYETHYLENE (MIRALAX) 17 GM PACK PO PRN (14:04)
[2023-01-19] MEDS: LIDOCAINE 5% OINT 30 GM TUBE EXT SCH ×2 (14:19→22:11)
[2023-01-19] MEDS ORDERED: POTASSIUM CHLORIDE CRTAB 20 MEQ TABCR PO STA (15:16)
[2023-01-19 15:19] LABS: Appearance Urine Clear (Clear); Bacteria Urine Automated Negative (Negative); Bilirubin Urine Negative (Negative); Blood Urine Negative (Negative); Color Urine Yellow; Epithelial Cell Urine Auto 20-30 /lpf (0-5); Glucose Urine UA Negative (Negative); Ketones Urine Negative (Negative); Leukocyte Esterase Urine Negative (Negative); Nitrite Urine Negative (Negative); Specific Gravity Urine 1.017 (1.000-1.030); Urobilinogen Urine Negative (Negative)
[2023-01-19 15:36] LABS: Protein Urine 1+ (Negative)
--- NOTE | 2023-01-19 20:32 | Consultation ---
Date of Consultation January 19, 2023 Assessment & Plan (1) Neutropenic fever: Fever is low-grade and to some extent the hematoma itself may be a source for that though unfortunately in the face of immune compromise that could also become a site of seeded infection. Interestingly, her neutrophil count has r isen somewhat probably reflecting the "stress" of the current admission and currently though she is technically neutropenic, with neutrophils above 1000 she has better capability of dealing with the current infection at least for now. It is quite reasonable to at least for the first 48 hours continue with an aggressive antibiotic regimen monitoring her neutrophil count closely. If her cultures are negative at that point, and in the the larger context of a somewhat more intermediately aggressive overall approach, we might discuss whether we could transition to an oral regimen and facilitate discharge back to home. (2) Port-A-Cath in place: Unfortunately developed a hematoma at the Port-A-Cath site though even in retrospect that seems a reasonable approach to help maintain the transfusion support plan with which we are approaching her acute leukemia (3) Acute myeloblastic leukemia: At this point the main consequence of her relapsed leukemia is the pancytopenia. She has actually been enjoying a reasonably good quality of life at home with transfusion support. Hope to rapidly stabilize her here and return her to an outpatient basis. Palliative care discussions while she is here may also be helpful to frame her larger goals of care and to assure that we are looking appropriately at the "big picture" as we make technical plans for how to support her. While she certainly has a very challenging prognosis overall, it is reasonable if we can stabilize her to resume that transfusion support as it was offering her a very good week to week quality of life right up until this point (4) Rheumatoid arthritis: This is the other major symptomatic issue. We may need to be careful with nonsteroidals given their propensity for exacerbating platelet dysfunction bleeding. May need to approach with a combination of acetaminophen, steroids (though at the risk of exacerbating infection and masking its signs), and potentially low-dose narcotics Plan 1. We will continue with transfusion support. Given the acute bleeding would target platelet counts in the 30-50,000 range. We will try to maintain hemoglobin above 7.5 to 8 g/dL. Given that she is not a target for allogeneic transplant and that we are having difficulty in identifying available units, we can use nonirradiated blood 2. With her unpredictable neutrophil count, short-term aggressive intravenous antibiotics seem appropriate even for a low-grade temperature but given that that may simply reflect the consequences of the hematoma, if her cultures are negative after 48 hours we can discuss whether conversion to oral therapy is worthwhile. We will continue the acyclovir and fluconazole prophylaxis 3. May need to approach her rheumatoid arthritis with a combination of low-dose steroids, acetaminophen, and potentially narcotics being cautious not to avoiding NSAIDs or biological modulators 4. The plan would be to try to resume the outpatient transfusion support therapy approach. Palliative Care consultation may be worthwhile to help assure we have formulated a "big picture" look at her situation and have consructed an overall treatment plan in line with her reasonable desires but accounting for the irreversible consequences of relapsed leukemia in an octogenarian. History of Present Illness Reason for Consultation: Patient with relapsed AML admitted with post port placement hematoma and has now developed fever. Attending Physician: Angelia Luciano, DO History of Present Illness Please note that this is a consultation constructed purely from review of the electronic database. I am working remotely and unable to speak directly with the patient or examine her. I know her well from previous care and have reviewed both the records from the [facility] and the current admission records which seem to be an accurate source of relevant information but I am completely reliant on that for my conclusions and perspectives. If there are urgent concerns regarding the need for more direct [id number]-sksd review, you should consider transferring the patient to another institution. I will follow up with the patient in a [id number] meeting tomorrow to augment my assessment and recommendations. The evaluation is consultative in nature and all patient care and treatment decisions can either be accepted or rejected by the patient's primary hospital- based treating physician using their own independent medical judgment for the patient. Pam was diagnosed with acute myeloid leukemia in March, with 42% blasts without defining chromosomal changes. Because of her age she was approached with azacitidine/venetoclax starting April 17 and with that went into a complete marrow remission as of July of this year. She had been doing extremely well on ongoing azacitidine/venetoclax but was admitted in early December with declining blood counts and increased need for transfusion at which time a repeat marrow aspiration biopsy showed florid relapse of her leukemia. After extensive review of her options it was decided to proceed with a more supportive care approach with transfusions and she had been doing moderately well at home. Because of increased difficulty with access for those transfusions a Port-A-Cath was placed earlier this week and she was originally admitted with a hematoma at the site of the Port-A-Cath. While hospitalized she is also developed a fever though she remains overall reasonably clinically stable by description Allergies Allergy/AdvReac Type Severity Reaction Status Date / Time codeine Allergy Severe Vomiting, Verified 01/17/23 14:29 drop in BP meperidine Allergy Severe Vomiting Verified 01/17/23 14:29 morphine Allergy Severe "Drop in Verified 01/17/23 14:29 vital signs", tremors, vomiting oxycodone Allergy Severe "Drop in Verified 01/17/23 14:29 vital signs", tremors, vomiting adhesive Allergy Intermediate "Pulls off Verified 01/17/23 14:29 skin" hydrocodone [From Vicodin] Allergy Intermediate Vomiting, Verified 01/17/23 14:29 tremors nickel Allergy Intermediate Rash Verified 01/17/23 14:29 pravastatin AdvReac Intermediate Arm/leg Verified 01/17/23 14:29 pain simvastatin AdvReac Intermediate Arm/leg Verified 01/17/23 14:29 pain cephalexin [From Keflex] AdvReac Mild Nausea Verified 01/17/23 14:29 aspirin [From Percodan] AdvReac Unknown Unknown Verified 01/17/23 14:29 montelukast [From Singulair] AdvReac Unknown Unknown Verified 01/17/23 14:29 Home Medications Medication Instructions Recorded Confirmed Type metformin 1,000 mg tablet 1,000 mg PO BID #180 tabs 04/24/22 01/17/23 Rx pantoprazole 40 mg tablet,delayed 40 mg PO QAM #180 tabs 06/06/22 01/17/23 Rx release meclizine 25 mg tablet 25 mg PO TID PRN Dizziness #90 tabs 06/13/22 01/17/23 Rx alendronate 70 mg tablet (Fosamax) 70 mg PO WEEKLY #12 tabs 06/17/22 01/17/23 Rx sumatriptan 5 mg/actuation nasal 10 mg intranasal Q2H PRN migraine 06/17/22 01/17/23 Rx spray headache #6 ea zafirlukast 20 mg tablet 20 mg PO Q12H #180 tabs 07/25/22 01/17/23 Rx acyclovir 400 mg tablet 400 mg PO BID 09/17/22 01/17/23 History albuterol sulfate 2.5 mg/3 mL 5 mg inhalation Q6H PRN Shortness 09/17/22 01/17/23 History (0.083 %) solution for nebulization Of Breath Or Wheezing fluconazole 100 mg tablet 200 mg PO QAM #30 tabs 12/26/22 01/17/23 Rx (Diflucan) mirabegron 50 mg tablet,extended 50 mg PO QAM 01/12/23 01/17/23 History release 24 hr sertraline 50 mg tablet 50 mg PO QAM 01/12/23 01/17/23 History tramadol 50 mg tablet 50 mg PO Q6H PRN Pain 01/12/23 01/17/23 History levofloxacin 500 mg tablet 500 mg PO DAILY 01/17/23 01/17/23 History prednisone 5 mg tablet 15 mg PO DAILY 01/17/23 01/17/23 History Patient History Medical History (Updated 01/19/23 @ 16:41 by Angelia Luciano DO) Allergic rhinitis Anxiety and depression Asthma Chronic sinusitis COVID-19 05/2022 (not hospitalized) Diabetes NIDDM DVT (deep venous thrombosis) LLE (1971), post-op hysterectomy Dyslipidemia GERD (gastroesophageal reflux disease) Hypertension Insomnia Leukemia Dx 03/2022, had 8 months chemo (stopped 11/2022) Migraine No recent issues Nontoxic multinodular goiter Osteopenia Poor venous access Rheumatoid arthritis Sensorineural hearing loss (SNHL) of both ears Urge and stress incontinence Surgical History (Updated 01/19/23 @ 10:17 by Barney Hernandez DO) History of colonoscopy History of esophagogastroduodenoscopy (EGD) History of mandibular surgery to get set for denture placement History of tooth extraction Hx of resection of rib 1989 (just for being too large and causing arm problems, "top two ribs, one on each side") Port-A-Cath in place (01/15/23) Insertion of Access Port with Fluoroscopy(Left) - Barney Hernandez DO S/P adenoidectomy S/P carpal tunnel release b/l wrists S/P cataract extraction b/l eyes S/P cholecystectomy S/P foot surgery L foot hammertoe repair S/P hysterectomy S/P medial meniscal repair L knee S/P tonsillectomy S/P trigger finger release R hand Family History Brother Myocardial infarction Heart disease Hypertension Father , age 81 of heart disease Arthritis Heart disease Mother , age 41 Of leukemia Leukemia Breast cancer Ovarian cancer Sister , age 64 Diabetes Brother Throat cancer Liver cirrhosis Denies family history of Prostate cancer Colorectal cancer Social History Smoking Status: Never smoker Age Started Using Tobacco: 21; Age Quit Using Tobacco: 31; Second Hand Exposure: Yes ( smoked, he passed 2009); Do You Dip or Chew Tobacco: No; Tobacco Cessation Education Requested by Patient: No Hx Alcohol Use: No Hx Substance Use: No Preferred Language: Togolese Communication Ability: Effective Visual Impairment: Limited Hearing Ability: Normal Armature Repairer Required: No Beliefs That Will Affect Care: None marital status: / Current Living Situation: Family Current Living Situation Comment: Granddaughter and family is always visiting 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63, 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 [employer] Other Information That Helps Us Care for You: Yes (Chemo x7 days/month) Feels Safe at Home: Yes Safety Concerns: Feels Safe At This Time Childhood Exposure to Second-Hand Smoke: Yes Diet: regular Diet Comment: regular caffeine: Yes (6 -8 cups coffee a day half caffeine ) during the past year weight has: remained stable Dental Care, Regularly: No Physical Activity Frequency: Daily Seatbelt Use: always Sunscreen Use: Yes Assistive Devices: Cane and Walker Physical Exam Physical Exam: Tmax 38.4 since admission, currently afebrile with stable vital signs Other than the chest wall hematoma described physical examination is unremarkable Results & Data Vital Signs (Past 12 Hours) Vital Signs Temp Pulse Resp BP Pulse Ox O2 Del Method 01/19/23 15:45 36.6 C 96 H 17 126/69 94 Room Air 01/19/23 12:24 37.4 C 01/19/23 11:43 37.6 C H 103 H 17 130/67 95 Room Air 01/19/23 08:37 36.8 C 87 17 127/71 94 Room Air Laboratory Results Laboratory Results - last 24 hr 01/17/23 01/19/2323 12:55 00:46 00:46 WBC 38.45 H* RBC 2.57 L Hgb 7.4 L Hct 21.6 L MCV 84.0 MCH 28.8 MCHC 34.3 RDW Std Deviation 50.6 H RDW Coeff of [place] 16.5 H Plt Count 28 L* D MPV 10.5 Absolute Nucleated RBC 0.47 H Nucleated RBC % (auto) 1.2 Neutrophils % (Manual) 3 Lymphocytes % (Manual) 4 Monocytes % (Manual) 1 Blast Cells % (Manual) 92 Neutrophils # (Manual) 1.15 L Total Absolute Neuts 1.15 L Lymphocytes # (Manual) 1.54 Total Abs Lymphocytes 1.54 Monocytes # (Manual) 0.38 Blast Cells # (Man) 35.37 H RBC Morphology Unremarkable Sodium 134 L Potassium 3.4 L Chloride 101 Carbon Dioxide 26 Anion Gap 7 BUN 11 Creatinine 0.58 L Est Cr Clr Drug Dosing 70.9 Est GFR ( Amer) 100.2 Est GFR (Non-Af Amer) 86.4 BUN/Creatinine Ratio 19.0 Glucose 166 H Calcium 7.7 L Urine Color Urine Appearance Urine pH Ur Specific [place] Urine Protein Urine Glucose (UA) Urine Ketones Urine Blood Urine Nitrite Urine Bilirubin Urine Urobilinogen Ur Leukocyte Esterase Urine WBC (Auto) Urine RBC (Auto) U Hyaline Cast (Auto) U Epithel Cells (Auto) Urine Bacteria (Auto) Blood Type O Negative Antibody Screen NEGATIVE Crossmatch See Detail 01/19/23 14:35 WBC RBC Hgb Hct MCV MCH MCHC RDW Std Deviation RDW Coeff of [place] Plt Count MPV Absolute Nucleated RBC Nucleated RBC % (auto) Neutrophils % (Manual) Lymphocytes % (Manual) Monocytes % (Manual) Blast Cells % (Manual) Neutrophils # (Manual) Total Absolute Neuts Lymphocytes # (Manual) Total Abs Lymphocytes Monocytes # (Manual) Blast Cells # (Man) RBC Morphology Sodium Potassium Chloride Carbon Dioxide Anion Gap BUN Creatinine Est Cr Clr Drug Dosing Est GFR ( Amer) Est GFR (Non-Af Amer) BUN/Creatinine Ratio Glucose Calcium Urine Color Yellow Urine Appearance Clear Urine pH 8.0 H Ur Specific [place] 1.017 Urine Protein 1+ H Urine Glucose (UA) Negative Urine Ketones Negative Urine Blood Negative Urine Nitrite Negative Urine Bilirubin Negative Urine Urobilinogen Negative Ur Leukocyte Esterase Negative Urine WBC (Auto) 1-5 Urine RBC (Auto) 5-10 H U Hyaline Cast (Auto) 1-5 U Epithel Cells (Auto) 20-30 H Urine Bacteria (Auto) Negative Blood Type Antibody Screen Crossmatch Diagnostic Findings Chest X-Ray 01/17/23 11:02 XR chest 1V portable CLINICAL HISTORY: Chest pain, nonspecific COMPARISON STUDY: Chest CT September 15, 2022. Chest radiograph January 15, 2023. FINDINGS: Left subclavian Bogatd-n-Uouy is in place. Elevation of the left hemidiaphragm is unchanged. Lungs are clear. There is no pneumothorax or pleural effusion. Cardiac size is normal. Mediastinal contours are normal. There is no evidence for pulmonary edema. IMPRESSION: No acute cardiopulmonary findings. No change in appearance of the chest. ACT 112: Negative or not required by law. Electronically signed by: Seth Sandoval M.D. 01/17/2023 11:28 AM Chest CTA 01/17/23 11:27 CT ANGIOGRAPHY OF THE CHEST DISSECTION PROTOCOL CLINICAL HISTORY: left CP and hematoma; recent subclavian port placement. COMPARISON STUDY: Chest radiograph performed earlier today. Chest CT September 15, 2022. TECHNIQUE: Before and following the IV administration of 117 mL of Optiray, helical axial images of the chest were obtained. Maximal intensity projections and sagittal and coronal reformats were viewed on an independent 3D workstation. IV contrast was administered without complication. Automated exposure control was utilized for the study. A dose lowering technique was utilized adhering to the principles of ALARA. CT DOSE: 1730.17 mGy.cm FINDINGS: The caliber of the thoracic aorta is normal. There is no intramural hematoma or thoracic aortic dissection. No pulmonary emboli are identified. There is moderate coronary artery calcification. Size of the heart is normal. There is no pericardial effusion. No pneumothorax or pleural effusion is present. Elevation of the left hemidiaphragm is unchanged. Subpleural right apical density favor scarring. This is unchanged. There are no suspicious pulmonary nodules. No consolidation is identified to suggest pneumonia.There is no thoracic lymphadenopathy. A left subclavian Pevhri-r-Caef is in place. The tip is within the distal left brachiocephalic vein. The catheter is intact. A 3.4 x 2.9 x 2.9 cm hyperdense fluid collection along the inferior aspect of the port represents a hematoma. There is diffuse stranding within the adjacent left soft tissues with hyperdense fluid. This involves the left breast, left upper chest wall, left axilla and left lower neck. No additional discrete fluid collections are present. There is mild asymmetric enlargement of the adjacent musculature which favors a small amount of acute intramuscular hemorrhage. No active extravasation. No pseudoaneurysm. Small amount of subcutaneous gas as expected in the early post procedural setting. There is associated skin thickening. IMPRESSION: 1. No thoracic aortic dissection. 2. Left subclavian Etqasg-l-Hyjp in place. Catheter intact with tip within the distal left brachiocephalic vein. 3.4 x 2.9 x 2.9 cm hematoma along the inferior aspect of the port. Diffuse left breast, upper chest, axillary and lower neck stranding with hyperdense fluid consistent with moderate hemorrhage. Associated small amount of acute intramuscular hemorrhage. No pseudoaneurysm. No active extravasation. ACT 112: Negative or not required by law. Electronically signed by: Seth Sandoval M.D. 01/17/2023 2:13 PM PG Care Time/CCT Total # of Minutes Spent Total Time Spent with Patient: Total time spent is greater than 50% in coordination of care (as documented) at patient's floor/unit and/or counseling patient: Coding Level of Care Code 77766 IN/OBS CONSULT LVL 3,45M Diagnoses Neutropenic fever D70.9; R50.81 Port-A-Cath in place Z95.828 Acute myeloblastic leukemia C92.00 Rheumatoid arthritis M06.9
[2023-01-19] MEDS: ZAFIRLUKAST 20MG: NON-FORMULARY PATIENT'S OWN MED PO SCH (22:14)
[2023-01-20] MEDS: diphenhydrAMINE Capsule 25 MG CAP PO PRN ×2 (01:11→22:11)
[2023-01-20] MEDS ORDERED: VANCOMYCIN LEVEL ONE (05:30)
[2023-01-20] MEDS: ACETAMINOPHEN 500 MG TAB PO SCH ×2 (06:03→12:10)
[2023-01-20] MEDS: CEFEPIME 2,000 MG in SYRINGE 0 ML IV SCH ×3 (06:03→21:59)
[2023-01-20] MEDS: LIDOCAINE 5% OINT 30 GM TUBE EXT SCH ×4 (06:04→22:00)
[2023-01-20 06:48] LABS: Hematocrit (blood only) 22.2 % (37.0-47.0); Hemoglobin 7.3 g/dl (12.0-16.0); Mean Corpuscular Hemoglobin 28.6 pg (25.0-34.0); Mean Corpuscular Hgb Conc 32.9 g/dL (32.0-36.0); Mean Corpuscular Volume 87.1 fL (80.0-100.0); Mean Platelet Volume 10.5 fL (9.4-12.4); Nucleated RBC # (auto) 0.31 K/uL (0.00-0.12); Nucleated RBC % (auto) 0.7 %; Platelet Count 49 K/uL (130-400); RDW Coefficient of Variation 16.8 % (11.5-14.5); RDW Standard Deviation 52.6 fL (36.4-46.3); Red Blood Count 2.55 M/uL (4.20-5.40); White Blood Count 44.46 K/ul (4.8-10.8)
[2023-01-20 06:59] LABS: BUN Creatinine Ratio 22.8 (10-20); Calcium 7.7 mg/dl (8.6-10.3); Creatinine Clr Calc Pharmacy 73.6 ml/min; Est GFR (African American) 100.8 ml/min; Est GFR (Non-African American) 86.9 ml/min; Potassium 3.8 mmol/L (3.5-5.1); Uric Acid 3.3 mg/dl (2.6-7.2)
[2023-01-20] MEDS: VANCOMYCIN HCL 1,000 MG in SODIUM CHLORIDE 0.9% 250 ML IV SCH (07:31)
[2023-01-20 07:42] LABS: ALC (manual) 1.78 K/uL (1.2-3.4); Blast # (manual) 42.68 K/uL (0-0); Blast Cells % (manual) 96 %; Lymphocytes # (manual) 1.78 K/uL (1.2-3.4); Lymphocytes % (manual) 4 %; Neutrophils % (manual) 0 %; Polychromasia 1+
--- NOTE | 2023-01-20 07:49 | Hospitalist Progress Note ---
Date of Service January 20, 2023 Assessment & Plan (1) Post-operative complication: Plan: Post operative hematoma, had LEFT chest wall port placed 01/15 Total of 2 units platelets transfused with plts now 28, as well as now 3u PRBCs, Hgb 7.3 this AM will recheck in AM Vitamin K 10mg IV x1 given on admission due to INR 1.4 Surgery consulted, would not perform surgery at this time given stable hematoma and risks with low platelets (2) Neutropenic fever: Plan: Possible sepsis (leukocytosis likely 2/2 cancer however with neutropenia findings treated empirically with IV Abx and blood cultures collected) Not labeled as sepsis on admission 2/2 no tachycardia or fevers at that time, no hypotension, therefore did not receive sepsis protocol fluids Later in admit did have true fevers, resolved with Tylenol, with notable neutropenia on labwork earlier in admission that is improving BCx collected on admission, NGTD at 48 hours Admission CXR without evidence of PNA No evidence of port infection, however with significant hematoma does likely put at increased infection risk UA without bacteria but had already been on IV Abx ~16 hours by time of collection Empiric broad spectrum Abx vanc/cefepime to be deescalated at Oncology recommendations to Levaquin 500mg PO daily ppx dosing, case discussed with Dr. Araujo (3) Acute myeloblastic leukemia: Plan: This is acute worsening given sudden increase in blasts cells Patient and family have discussed previously with Dr Araujo and she is not for induction chemotherapy - confirmed again with the patient this admission Plan is for supportive care with transfusions only Continue infection prophylaxis with acyclovir and fluconazole, levofloxacin Neutropenic isolation precautions Palliative Care asked to see patient to discuss goals of care with regard to blood transfusions and overall treatment plan in line with her reasonable desires, accounting for the irreversible consequences of relapsed leukemia in an 82 yo patient, case discussed with Dr. Ho (4) Anxiety and depression: Plan: Continue sertraline (5) GERD (gastroesophageal reflux disease): Plan: Continue pantoprazole (6) Diabetes: Plan: Given generally guarded prognosis will use regular diet and not need for insulin coverage (7) Rheumatoid arthritis: Plan: Continue prednisone 15mg daily (8) Anemia: Plan: Acute blood loss anemia, also 2/2 AML S/p now 4u PRBCs and 2u plts, continue to monitor hematoma and H/H (9) Thrombocytopenia: Plan: 2/2 AML, s/p 2u plts this admission Repeat CBC daily, plts 49 today Plan VTE Prophylaxis - chemical ppx contraindicated Diet - regular Disposition - med/tele, guarded prognosis, Oncology and Gen. Surg aware of patient and following along PT and OT will be needed for dispo planning, order for tomorrow Case discussed today with patient, daughter, and oncologist Admission and Anticipated Discharge Date Admission Date: January 17, 2023 Subjective No acute overnight events, no true fevers last night, denies SOB, abdominal pain. Left chest wall pain with deep inspiration at site of hematoma/port. Physical Exam Constitutional: WD/WN, vitals as above Respiratory: normal respiratory effort, lungs clear to auscultation Cardiovascular: RRR, no murmur, no edema Gastrointestinal (Abdomen): normal bowel sounds, soft, nontender, no hepatosplenomegaly Skin: no rashes, warm and dry left port in place, significant swelling and ecchymosis over site extending up to left clavicle, down to middle of left breast, and into left axilla. No erythema surrounding port site, nor purulent drainage Psychiatric: A+Ox3, euthymic affect Results & Data Results & Data Vital Signs (Past 12 Hours) Vital Signs Temp Pulse Pulse Resp BP Pulse Ox O2 Del Method 01/20/23 07:00 91 H 01/19/23 22:00 97 H 01/20/23 03:07 36.9 C 92 H 18 103/58 L 94 Room Air 01/20/23 01:10 36.8 C 01/20/23 00:01 37.9 C H 110 H 20 119/62 92 Room Air PG Care Time/CCT Total # of Minutes Spent Total Time Spent with Patient: Total time spent is greater than 50% in coordination of care (as documented) at patient's floor/unit and/or counseling patient: Coding Level of Care Code 90284 SUB INP/OBS CARE 3/50MIN Diagnoses Post-operative complication T81.9XXA Neutropenic fever D70.9; R50.81 Acute myeloblastic leukemia C92.00 Anxiety and depression F41.9; F32.9 GERD (gastroesophageal reflux disease) K21.9 Diabetes E11.9 Rheumatoid arthritis M06.9 Anemia D64.9 Anemia type: bone marrow failure Thrombocytopenia D69.6 (8) Anemia Anemia type: bone marrow failure
[2023-01-20] MEDS: ZAFIRLUKAST 20MG: NON-FORMULARY PATIENT'S OWN MED PO SCH ×2 (09:01→21:59)
[2023-01-20] MEDS: MAGNESIUM OXIDE 400 MG TAB PO SCH ×2 (09:02→21:58)
[2023-01-20] MEDS: predniSONE 5 MG TAB PO SCH (09:02)
[2023-01-20] MEDS: FLUCONAZOLE 100 MG TAB PO SCH (09:02)
[2023-01-20] MEDS: PANTOprazole 40 MG TAB PO SCH (09:03)
[2023-01-20] MEDS: VIBEGRON 75 MG TAB PO SCH (09:03)
[2023-01-20] MEDS: SERTRALINE HCL 50 MG TABLET PO SCH (09:03)
[2023-01-20] MEDS: ACYCLOVIR 400 MG TAB PO SCH ×2 (09:03→21:59)
[2023-01-20] MEDS ORDERED: SODIUM CHLORIDE 0.9% 250 ML IV PRN (09:12)
[2023-01-20] MEDS ORDERED: diphenhydrAMINE Capsule 25 MG CAP PO ONE (12:37)
--- NOTE | 2023-01-20 14:09 | Palliative Care Consultation ---
Date of Consultation January 20, 2023 Assessment & Plan (1) Pain: with extensive chest wall hematoma she had serious adverse reaction to oxycodone in the past and does not want opioid pain medications prn tramadol available trial IV tyl (2) Palliative care encounter: Mrs. Mai has discussed goals of care with palliative care as an outpatient. I asked her if her current experience changes how she feels about her goals. She was able to do light housework and drive with periodic transfusions prior to admission. Her hope is that she would continue to be able to do those things. It is very important to her to be as independent as possible. Her son is moving in with her to provide support but she stated multiple times that she does not want to be a burden to her family. She expressed concern that the doctors would tell her she couldn't continue transfusions at some point. I assured her that if she continued to feel that they were beneficial, transfusions could continue. Ultimately there will come a time when they are not providing the symptomatic benefit that she hopes for and that she may need help more help with care. If she were dependent on others for care and bedbound, she tells me that she would want to focus on comfort and a peaceful . She feels that she will know when the time is right. It is of utmost importance to her that she not at home. Her son is going to be living in her home after her and she does not want him to have the memory of her there. She would prefer to in hospital if possible. History of Present Illness Reason for Consultation: goals of care Requesting Physician: Dr. Noyola Attending Physician: Angelia Luciano DO History of Present Illness 82 yo lady with history rheumatoid arthritis, AML and pancytopenia. She had complete remission earlier this year after treatment. She has been receiving periodic transfusions for thrombocytopenia and anemia. She presented with neutropenic fever and chest wall hematoma in the area of her port-a-cath which was recently placed to facilitate her transfusions. She has significant discomfort with large chest wall hematoma extending into her left arm below her elbow. She has had po tylenol without significant relief. Allergies Allergy/AdvReac Type Severity Reaction Status Date / Time codeine Allergy Severe Vomiting, Verified 01/17/23 14:29 drop in BP meperidine Allergy Severe Vomiting Verified 01/17/23 14:29 morphine Allergy Severe "Drop in Verified 01/17/23 14:29 vital signs", tremors, vomiting oxycodone Allergy Severe "Drop in Verified 01/17/23 14:29 vital signs", tremors, vomiting adhesive Allergy Intermediate "Pulls off Verified 01/17/23 14:29 skin" hydrocodone [From Vicodin] Allergy Intermediate Vomiting, Verified 01/17/23 14:29 tremors nickel Allergy Intermediate Rash Verified 01/17/23 14:29 pravastatin AdvReac Intermediate Arm/leg Verified 01/17/23 14:29 pain simvastatin AdvReac Intermediate Arm/leg Verified 01/17/23 14:29 pain cephalexin [From Keflex] AdvReac Mild Nausea Verified 01/17/23 14:29 aspirin [From Percodan] AdvReac Unknown Unknown Verified 01/17/23 14:29 montelukast [From Singulair] AdvReac Unknown Unknown Verified 01/17/23 14:29 Home Medications Medication Instructions Recorded Confirmed Type metformin 1,000 mg tablet 1,000 mg PO BID #180 tabs 04/24/22 01/17/23 Rx pantoprazole 40 mg tablet,delayed 40 mg PO QAM #180 tabs 06/06/22 01/17/23 Rx release meclizine 25 mg tablet 25 mg PO TID PRN Dizziness #90 tabs 06/13/22 01/17/23 Rx alendronate 70 mg tablet (Fosamax) 70 mg PO WEEKLY #12 tabs 06/17/22 01/17/23 Rx sumatriptan 5 mg/actuation nasal 10 mg intranasal Q2H PRN migraine 06/17/22 01/17/23 Rx spray headache #6 ea zafirlukast 20 mg tablet 20 mg PO Q12H #180 tabs 07/25/22 01/17/23 Rx acyclovir 400 mg tablet 400 mg PO BID 09/17/22 01/17/23 History albuterol sulfate 2.5 mg/3 mL 5 mg inhalation Q6H PRN Shortness 09/17/22 01/17/23 History (0.083 %) solution for nebulization Of Breath Or Wheezing fluconazole 100 mg tablet 200 mg PO QAM #30 tabs 12/26/22 01/17/23 Rx (Diflucan) mirabegron 50 mg tablet,extended 50 mg PO QAM 01/12/23 01/17/23 History release 24 hr sertraline 50 mg tablet 50 mg PO QAM 01/12/23 01/17/23 History tramadol 50 mg tablet 50 mg PO Q6H PRN Pain 01/12/23 01/17/23 History levofloxacin 500 mg tablet 500 mg PO DAILY 01/17/23 01/17/23 History prednisone 5 mg tablet 15 mg PO DAILY 01/17/23 01/17/23 History Patient History Medical History Allergic rhinitis Anxiety and depression Asthma Chronic sinusitis COVID-19 05/2022 (not hospitalized) Diabetes NIDDM DVT (deep venous thrombosis) LLE (1971), post-op hysterectomy Dyslipidemia GERD (gastroesophageal reflux disease) Hypertension Insomnia Leukemia Dx 03/2022, had 8 months chemo (stopped 11/2022) Migraine No recent issues Nontoxic multinodular goiter Osteopenia Poor venous access Rheumatoid arthritis Sensorineural hearing loss (SNHL) of both ears Urge and stress incontinence Surgical History History of colonoscopy History of esophagogastroduodenoscopy (EGD) History of mandibular surgery to get set for denture placement History of tooth extraction Hx of resection of rib 1989 (just for being too large and causing arm problems, "top two ribs, one on each side") Port-A-Cath in place (01/15/23) Insertion of Access Port with Fluoroscopy(Left) - Barney Hernandez, S/P adenoidectomy S/P carpal tunnel release b/l wrists S/P cataract extraction b/l eyes S/P cholecystectomy S/P foot surgery L foot hammertoe repair S/P hysterectomy S/P medial meniscal repair L knee S/P tonsillectomy S/P trigger finger release R hand Family History Brother Myocardial infarction Heart disease Hypertension Father , age 81 of heart disease Arthritis Heart disease Mother , age 41 Of leukemia Leukemia Breast cancer Ovarian cancer Sister , age 64 Diabetes Brother Throat cancer Liver cirrhosis Denies family history of Prostate cancer Colorectal cancer Social History Smoking Status: Never smoker Age Started Using Tobacco: 21; Age Quit Using Tobacco: 31; Second Hand Exposure: Yes ( smoked, he passed 2009); Do You Dip or Chew Tobacco: No; Tobacco Cessation Education Requested by Patient: No Hx Alcohol Use: No Hx Substance Use: No Preferred Language: Kinyarwanda Communication Ability: Effective Visual Impairment: Limited Hearing Ability: Normal Filler Shredder Required: No Beliefs That Will Affect Care: None marital status: / Current Living Situation: Family Current Living Situation Comment: Granddaughter and family is always visiting 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63, [employer] Other Information That Helps Us Care for You: Yes (Chemo x7 days/month) Feels Safe at Home: Yes Safety Concerns: Feels Safe At This Time Childhood Exposure to Second-Hand Smoke: Yes Diet: regular Diet Comment: regular caffeine: Yes (6 -8 cups coffee a day half caffeine ) during the past year weight has: remained stable Dental Care, Regularly: No Physical Activity Frequency: Daily Seatbelt Use: always Sunscreen Use: Yes Assistive Devices: Cane and Walker Review of Systems Review of Systems: ESAS Pain 2/3 Dyspnea 0/3 Nausea 0/3 Drowsiness 0/3 Physical Exam Constitutional: no acute distress Respiratory: no labored breathing Chest (Breasts): Additional Comments: extensive hematoma left chest extending in left arm below elbow, warm and tender to touch Neurologic: Speech / Cognition: normal cognition Results & Data Vital Signs (Past 12 Hours) Vital Signs Temp Pulse Pulse Resp BP BP Pulse Ox 01/20/23 12:55 98.1 F 88 20 134/69 96 01/20/23 11:55 98.4 F 87 20 113/63 96 01/20/23 11:36 98.4 F 87 20 110/63 96 01/20/23 11:41 98.1 F 96 H 20 110/63 98 01/20/23 11:24 97.7 F 95 H 20 134/73 98 01/20/23 08:00 01/20/23 08:32 98.2 F 88 20 105/63 95 01/20/23 07:00 91 H 01/20/23 03:07 98.4 F 92 H 18 103/58 L 94 O2 Del Method O2 Flow Rate 01/20/23 12:55 01/20/23 11:55 01/20/23 11:36 Room Air 01/20/23 11:41 0 01/20/23 11:24 0 01/20/23 08:00 Room Air 01/20/23 08:32 Room Air 01/20/23 07:00 01/20/23 03:07 Room Air PG Care Time/CCT Total # of Minutes Spent Total Time Spent with Patient: Total time spent is greater than 50% in coordination of care (as documented) at patient's floor/unit and/or counseling patient:goals of care, patient education and support Coding Level of Care Code 94939 INT INP/OBS CARE 3/75MIN Diagnoses Pain R52 Palliative care encounter Z51.5
[2023-01-20] MEDS: traMADol HCL 50 MG TABLET PO PRN (16:36)
[2023-01-20] MEDS: ACETAMINOPHEN 1,000 MG/100 ML VIAL IV PRN (22:11)
[2023-01-21] MEDS: LIDOCAINE 5% OINT 30 GM TUBE EXT SCH ×3 (05:38→21:28)
[2023-01-21] MEDS: traMADol HCL 50 MG TABLET PO PRN ×2 (06:42→23:37)
[2023-01-21 07:06] LABS: Hematocrit (blood only) 26.2 % (37.0-47.0); Hemoglobin 8.8 g/dl (12.0-16.0); Mean Corpuscular Hemoglobin 28.5 pg (25.0-34.0); Mean Corpuscular Hgb Conc 33.6 g/dL (32.0-36.0); Mean Corpuscular Volume 84.8 fL (80.0-100.0); Mean Platelet Volume 10.5 fL (9.4-12.4); Nucleated RBC # (auto) 0.35 K/uL (0.00-0.12); Nucleated RBC % (auto) 0.7 %; Platelet Count 35 K/uL (130-400); RDW Coefficient of Variation 16.4 % (11.5-14.5); RDW Standard Deviation 50.4 fL (36.4-46.3); Red Blood Count 3.09 M/uL (4.20-5.40); White Blood Count 49.64 K/ul (4.8-10.8)
[2023-01-21 07:11] LABS: INR 1.2 (0.9-1.1); Prothrombin Time 12.6 Seconds (9.0-12.0)
[2023-01-21 07:18] LABS: BUN Creatinine Ratio 24.6 (10-20); Calcium 7.7 mg/dl (8.6-10.3); Creatinine Clr Calc Pharmacy 64.3 ml/min; Est GFR (African American) 96.5 ml/min; Est GFR (Non-African American) 83.3 ml/min; Potassium 3.7 mmol/L (3.5-5.1)
--- NOTE | 2023-01-21 07:29 | Hospitalist Progress Note ---
Date of Service January 21, 2023 Assessment & Plan (1) Post-operative complication: Plan: Post operative hematoma, had LEFT chest wall port placed 01/15 Total of now 3 units platelets transfused due to plts 35 today, as well as now 4u PRBCs, Hgb 8.8 this AM, daily check Vitamin K 10mg IV x1 given on admission due to INR 1.4 Surgery consulted, would not perform surgery at this time given stable hematoma and risks with low platelets, asked to reevaluate patient given concern for worsening of swelling (2) Neutropenic fever: Plan: Possible sepsis (leukocytosis likely 2/2 cancer however with neutropenia findings treated empirically with IV Abx and blood cultures collected) Not labeled as sepsis on admission 2/2 no tachycardia or fevers at that time, no hypotension, therefore did not receive sepsis protocol fluids Later in admit did have true fevers, resolved with Tylenol, with notable neutropenia on labwork earlier in admission that is stable BCx collected on admission, NGTD at >48 hours Admission CXR without evidence of PNA No evidence of port infection, however with significant hematoma does likely put at increased infection risk UA without bacteria but had already been on IV Abx ~16 hours by time of collection Empiric broad spectrum Abx vanc/cefepime deescalated to Levaquin 500mg PO daily ppx dosing (3) Anemia: Plan: Acute blood loss anemia, also 2/2 AML S/p now 4u PRBCs and 3u plts, continue to monitor hematoma and H/H Fibrinogen level ordered, if low will give cryoprecipitate Could consider Amicar, discuss with Oncology/Gen. Surgery (4) Acute myeloblastic leukemia: Plan: This is acute worsening given recent sudden increase in blasts cells Patient and family have discussed previously with Dr Araujo and she does not want induction chemotherapy - confirmed again with the patient this admission Plan is for supportive care with transfusions only Continue infection prophylaxis with acyclovir, fluconazole, and levofloxacin Neutropenic isolation precautions Palliative Care asked to see patient to discuss goals of care with regard to blood transfusions and overall treatment plan in line with her reasonable desires, accounting for the irreversible consequences of relapsed leukemia in an 82 yo patient, case discussed with Dr. Ho (5) Anxiety and depression: Plan: Continue sertraline (6) GERD (gastroesophageal reflux disease): Plan: Continue pantoprazole (7) Diabetes: Plan: Given generally guarded prognosis will use regular diet and not need for insulin coverage (8) Rheumatoid arthritis: Plan: Continue prednisone 15mg daily (9) Thrombocytopenia: Plan: 2/2 AML, s/p 3u plts this admission Repeat CBC daily, plts 35 today Plan VTE Prophylaxis - chemical ppx contraindicated Diet - regular Disposition - med/tele, guarded prognosis, Oncology and Gen. Surg aware of patient and following along PT and OT recommend discharge home with family assistance if she does not have precipitous decline while hospitalized Admission and Anticipated Discharge Date Admission Date: January 17, 2023 Subjective Overnight with some increase in left shoulder/chest wall pain, sharp in quality, worse with movement and per nursing patient did sleep on that side a bit before the pain worsened. She denies SOB, nausea, abdominal pain. She notes soreness also in her left breast, and left arm to the elbow where the bruising is. Physical Exam Constitutional: WD/WN, vitals as above (uncomfortable appearing) Respiratory: normal respiratory effort, lungs clear to auscultation Cardiovascular: RRR, no murmur, no edema Gastrointestinal (Abdomen): normal bowel sounds, soft, nontender, no hepatosplenomegaly Skin: no rashes, warm and dry left port in place, significant swelling and ecchymosis over site extending up to left clavicle, over the entirety of the left breast, into left axilla, and down to her left elbow. No erythema surrounding port site, nor purulent drainage, but swelling / redness does appear worse today Psychiatric: A+Ox3, euthymic affect Results & Data Results & Data Vital Signs (Past 12 Hours) Vital Signs Temp Pulse Resp BP Pulse Ox O2 Del Method 01/21/23 04:06 36.8 C 90 18 137/72 95 Room Air 01/20/23 23:18 37.5 C 104 H 20 131/79 96 Room Air 01/20/23 20:15 37.6 C H 103 H 18 122/68 95 Room Air PG Care Time/CCT Total # of Minutes Spent Total Time Spent with Patient: Total time spent is greater than 50% in coordination of care (as documented) at patient's floor/unit and/or counseling patient: Coding Level of Care Code 94070 SUB INP/OBS CARE 3/50MIN Diagnoses Post-operative complication T81.9XXA Neutropenic fever D70.9; R50.81 Anemia D64.9 Anemia type: bone marrow failure Acute myeloblastic leukemia C92.00 Anxiety and depression F41.9; F32.9 GERD (gastroesophageal reflux disease) K21.9 Diabetes E11.9 Rheumatoid arthritis M06.9 Thrombocytopenia D69.6 (3) Anemia Anemia type: bone marrow failure
[2023-01-21 07:42] LABS: ALC (manual) 1.99 K/uL (1.2-3.4); Blast # (manual) 46.66 K/uL (0-0); Blast Cells % (manual) 94 %; Echinocytes 1+; Lymphocytes # (manual) 1.99 K/uL (1.2-3.4); Lymphocytes % (manual) 4 %; Myelocytes % (manual) 1 %; Neutrophils % (manual) 1 %
[2023-01-21] MEDS: PANTOprazole 40 MG TAB PO SCH (08:44)
[2023-01-21] MEDS: predniSONE 5 MG TAB PO SCH (08:44)
[2023-01-21] MEDS: ZAFIRLUKAST 20MG: NON-FORMULARY PATIENT'S OWN MED PO SCH ×2 (08:44→21:25)
[2023-01-21] MEDS: SERTRALINE HCL 50 MG TABLET PO SCH (08:45)
[2023-01-21] MEDS: ACYCLOVIR 400 MG TAB PO SCH ×2 (08:45→21:26)
[2023-01-21] MEDS: VIBEGRON 75 MG TAB PO SCH (08:45)
[2023-01-21] MEDS: levoFLOXacin 500 MG TAB PO SCH (08:45)
[2023-01-21] MEDS: MAGNESIUM OXIDE 400 MG TAB PO SCH ×2 (08:45→21:26)
[2023-01-21] MEDS: FLUCONAZOLE 100 MG TAB PO SCH (08:45)
[2023-01-21] MEDS ORDERED: MoRPHine SULFATE 2 MG/ML CARP IV PRN (12:20)
[2023-01-21] MEDS: ACETAMINOPHEN 1,000 MG/100 ML VIAL IV PRN (12:39)
[2023-01-21] MEDS ORDERED: SODIUM CHLORIDE 0.9% 250 ML IV PRN (13:58)
[2023-01-21] MEDS: ACETAMINOPHEN 1,000 MG/100 ML VIAL IV SCH ×2 (14:06→21:27)
--- NOTE | 2023-01-21 15:03 | Surgery Progress Note ---
Date of Service January 21, 2023 Assessment & Plan (1) Chest wall hematoma: Plan: Patient here with hematoma s/p port insertion Hbg stable today at 8.8, has received total of 4u pRBCs since admit. ordered for plts today, plt 35 There is a large amount of ecchymosis as detailed in exam, with tenderness and induration over certain areas (over port site, arm, breast) Would continue to monitor closely for any signs of infection. she is currently on levofloxaxin No plans to remove Port at this time, will follow for any changes (2) Port-A-Cath in place: Admission and Anticipated Discharge Date Admission Date: January 17, 2023 Subjective Patient reports feeling soreness in chest/breast/arm area and received some morphine for this today around 1230. States her pain is a bit better than yesterday. Physical Exam Physical Exam: awake/alert Respiratory: normal respiratory effort Skin: extensive bruising along L side of chest down to breast, L elbow, and parts of flank/back . tender to palpation, particularly over port site. induration noted over port area and in areas where hematoma has become dependent Results & Data Vital Signs (Past 12 Hours) Vital Signs Temp Pulse Pulse Resp BP Pulse Ox O2 Del Method 01/21/23 14:07 37.3 C 106 H 20 115/68 96 Room Air 01/21/23 08:00 Room Air 01/21/23 11:29 38.1 C H 116 H 20 133/73 94 Room Air 01/21/23 07:48 38.0 C H 104 H 20 135/71 94 Room Air 01/21/23 07:30 93 H 01/21/23 04:06 36.8 C 90 18 137/72 95 Room Air PG Care Time/CCT Total # of Minutes Spent Total Time Spent with Patient: Total time spent is greater than 50% in coordination of care (as documented) at patient's floor/unit and/or counseling patient: Coding Level of Care Code None Diagnoses Chest wall hematoma S20.219A Port-A-Cath in place Z95.828
[2023-01-21 15:39] LABS: Fibrinogen 256 mg/dl (184-400)
[2023-01-21] MEDS: MoRPHine SULFATE 2 MG/ML CARP IV PRN (21:02)
--- NOTE | 2023-01-21 21:52 | Hospitalist Progress Note ---
Date of Service January 21, 2023 Assessment & Plan (1) Chest wall hematoma: Plan: Some increase in size and discomfort but the latter has responded well to morphine. Reviewed with the hospitalist team, will need to try to keep platelets in the 40-50,000 range for at least 36 to 48 hours, fibrinogen levels are adequate, if there is clear further bleeding could consider the use of Amicar though that can have unwanted consequences in terms of thrombosis even in the face of her overall neutropenia. Surgery is appropriately conservative and indicating no role for port removal or other invasive procedures which unfortunately could just exacerbate bleeding and infection risk further. (2) Acute myeloblastic leukemia: Plan: Reasonable hemoglobin levels post transfusion. ANC of 500 allows some immune responsiveness. Hope is still to stabilize her sufficiently to go home and be supported with transfusions for a while with which she has had reasonable quality of life to date Plan Chest wall hematoma will continue to require platelet transfusion support and close observation. Still aiming for discharge home once she is stabilized with outpatient transfusion support I did speak at length with Pam today and I am convinced that she understands the gravity of her situation and is making reasonable choices Admission and Anticipated Discharge Date Admission Date: January 17, 2023 Subjective Patient with large left upper thoracic hematoma at the site of her recently placed Port-A-Cath. She had developed some worsening discomfort today with signs of additional hemorrhage through the day with the initiation of morphine the pain is much improved. Physical Exam Physical Exam: VSS Alert, cooperative, more comfortable this evening that she was earlier today post morphine Lung and cardiac exam seems stable. There is a large hematoma subsumed in most of the left anterior chest wall with a elevated area of skin right around the Port-A-Cath suggesting some additional hemorrhage there. Ecchymosis extends up into the neck and down into the left arm. Her abdomen seems benign Results & Data Results & Data Vital Signs (Past 12 Hours) Vital Signs Temp Pulse Pulse Resp BP BP Pulse Ox 01/21/23 20:42 36.8 C 95 H 18 120/69 96 01/21/23 18:40 36.7 C 95 H 18 125/65 97 01/21/23 18:16 36.8 C 95 H 18 118/66 95 01/21/23 17:25 36.9 C 101 H 18 137/81 97 01/21/23 16:25 36.7 C 93 H 16 102/62 01/21/23 15:55 36.7 C 95 H 18 121/70 96 01/21/23 14:41 98 H 01/21/23 15:39 36.8 C 104 H 18 128/81 95 01/21/23 15:21 36.7 C 103 H 18 124/79 95 01/21/23 14:07 37.3 C 106 H 20 115/68 96 01/21/23 11:29 38.1 C H 116 H 20 133/73 94 O2 Del Method 01/21/23 20:42 Room Air 01/21/23 18:40 01/21/23 18:16 01/21/23 17:25 01/21/23 16:25 01/21/23 15:55 01/21/23 14:41 01/21/23 15:39 01/21/23 15:21 01/21/23 14:07 Room Air 01/21/23 11:29 Room Air Laboratory Results Laboratory Results - last 24 hr 01/20/23 01/21/23 01/21/23 09:43 05:55 05:55 WBC 49.64 H* RBC 3.09 L Hgb 8.8 L Hct 26.2 L MCV 84.8 MCH 28.5 MCHC 33.6 RDW Std Deviation 50.4 H RDW Coeff of [place] 16.4 H Plt Count 35 L MPV 10.5 Absolute Nucleated RBC 0.35 H Nucleated RBC % (auto) 0.7 Neutrophils % (Manual) 1 Lymphocytes % (Manual) 4 Myelocytes % (Man) 1 Blast Cells % (Manual) 94 Neutrophils # (Manual) 0.50 L Total Absolute Neuts 0.50 L* Lymphocytes # (Manual) 1.99 Total Abs Lymphocytes 1.99 Myelocytes # (Manual) 0.50 H Blast Cells # (Man) 46.66 H Echinocytes 1+ PT INR Fibrinogen Sodium 137 Potassium 3.7 Chloride 105 Carbon Dioxide 24 Anion Gap 8 BUN 16 Creatinine 0.65 Est Cr Clr Drug Dosing 64.3 Est GFR ( Amer) 96.5 Est GFR (Non-Af Amer) 83.3 BUN/Creatinine Ratio 24.6 H Glucose 102 H Calcium 7.7 L Blood Type O Negative Antibody Screen NEGATIVE Crossmatch See Detail 01/21/23 01/21/23 05:55 14:28 WBC RBC Hgb Hct MCV MCH MCHC RDW Std Deviation RDW Coeff of [place] Plt Count MPV Absolute Nucleated RBC Nucleated RBC % (auto) Neutrophils % (Manual) Lymphocytes % (Manual) Myelocytes % (Man) Blast Cells % (Manual) Neutrophils # (Manual) Total Absolute Neuts Lymphocytes # (Manual) Total Abs Lymphocytes Myelocytes # (Manual) Blast Cells # (Man) Echinocytes PT 12.6 H INR 1.2 H Fibrinogen 256 Sodium Potassium Chloride Carbon Dioxide Anion Gap BUN Creatinine Est Cr Clr Drug Dosing Est GFR ( Amer) Est GFR (Non-Af Amer) BUN/Creatinine Ratio Glucose Calcium Blood Type Antibody Screen Crossmatch PG Care Time/CCT Total # of Minutes Spent Total Time Spent with Patient: Total time spent is greater than 50% in coordination of care (as documented) at patient's floor/unit and/or counseling patient: Coding Level of Care Code 04045 SUB INP/OBS CARE 06/18MIN Diagnoses Chest wall hematoma S20.219A Acute myeloblastic leukemia C92.00
--- NOTE | 2023-01-22 05:48 | Hospitalist Progress Note ---
Date of Service January 22, 2023 Assessment & Plan (1) Acute myeloblastic leukemia: Plan: as per previous Plan I am away until Thursday, Dr. Christina is covering Admission and Anticipated Discharge Date Admission Date: January 17, 2023 Results & Data Results & Data Vital Signs (Past 12 Hours) Vital Signs Temp Pulse Pulse Resp BP BP Pulse Ox 01/22/23 05:17 36.8 C 96 H 20 126/69 95 01/22/23 04:17 01/21/23 22:00 89 01/21/23 23:59 36.7 C 91 H 18 108/63 95 01/21/23 20:42 36.8 C 95 H 18 120/69 96 01/21/23 18:40 36.7 C 95 H 18 125/65 97 01/21/23 18:16 36.8 C 95 H 18 118/66 95 O2 Del Method 01/22/23 05:17 Room Air 01/22/23 04:17 Room Air 01/21/23 22:00 01/21/23 23:59 Room Air 01/21/23 20:42 Room Air 01/21/23 18:40 01/21/23 18:16 PG Care Time/CCT Total # of Minutes Spent Total Time Spent with Patient: Total time spent is greater than 50% in coordination of care (as documented) at patient's floor/unit and/or counseling patient: Coding Level of Care Code None Diagnoses Acute myeloblastic leukemia C92.00
[2023-01-22] MEDS: LIDOCAINE 5% OINT 30 GM TUBE EXT SCH ×3 (05:52→20:47)
[2023-01-22] MEDS: ACETAMINOPHEN 1,000 MG/100 ML VIAL IV SCH ×3 (05:52→20:59)
[2023-01-22] MEDS: MoRPHine SULFATE 2 MG/ML CARP IV PRN ×2 (06:51→20:56)
[2023-01-22] MEDS: predniSONE 5 MG TAB PO SCH (08:10)
[2023-01-22] MEDS: levoFLOXacin 500 MG TAB PO SCH (08:10)
[2023-01-22] MEDS: VIBEGRON 75 MG TAB PO SCH (08:11)
[2023-01-22] MEDS: MAGNESIUM OXIDE 400 MG TAB PO SCH ×2 (08:11→20:56)
[2023-01-22] MEDS: PANTOprazole 40 MG TAB PO SCH (08:11)
[2023-01-22] MEDS: ZAFIRLUKAST 20MG: NON-FORMULARY PATIENT'S OWN MED PO SCH ×2 (08:11→20:46)
[2023-01-22] MEDS: ACYCLOVIR 400 MG TAB PO SCH ×2 (08:11→20:57)
[2023-01-22] MEDS: FLUCONAZOLE 100 MG TAB PO SCH (08:11)
[2023-01-22] MEDS: SERTRALINE HCL 50 MG TABLET PO SCH (08:11)
--- NOTE | 2023-01-22 09:08 | Surgery Progress Note ---
Date of Service January 22, 2023 Assessment & Plan (1) Port-A-Cath in place: Plan: Postoperative hematoma. Unfortunately there is not much I can add surgically. I would continue the IV antibiotics. Removing the catheter would certainly make things worse. Hopefully if we can keep her platelets elevated there would be no further bleeding. We will simply have to continue to monitor her platelet count and hemoglobin as well as signs and symptoms of infection. (2) Acute myeloblastic leukemia: Admission and Anticipated Discharge Date Admission Date: January 17, 2023 Subjective Patient seen. Continues to have left upper extremity pain. "About the same as yesterday". Physical Exam Physical Exam: Alert. No acute distress Hard to tell if there is persistent bleeding or not. Her hemoglobin is over 8 and her platelets are now 35,000 however she has been given a lot of blood products. The hematoma/ecchymosis is in various stages. Results & Data Vital Signs (Past 12 Hours) Vital Signs Temp Pulse Pulse Resp BP Pulse Ox O2 Del Method 01/22/23 08:09 36.9 C 102 H 18 127/71 94 Room Air 01/22/23 05:17 36.8 C 96 H 20 126/69 95 Room Air 01/22/23 04:17 Room Air 01/21/23 22:00 89 01/21/23 23:59 36.7 C 91 H 18 108/63 95 Room Air PG Care Time/CCT Total # of Minutes Spent Total Time Spent with Patient: Total time spent is greater than 50% in coordination of care (as documented) at patient's floor/unit and/or counseling patient: Coding Level of Care Code 93001 SUB INP/OBS CARE 2/35MIN Diagnoses Port-A-Cath in place Z95.828 Acute myeloblastic leukemia C92.00
[2023-01-22 09:20] LABS: Hematocrit (blood only) 25.5 % (37.0-47.0); Hemoglobin 8.5 g/dl (12.0-16.0); Mean Corpuscular Hemoglobin 28.5 pg (25.0-34.0); Mean Corpuscular Hgb Conc 33.3 g/dL (32.0-36.0); Mean Corpuscular Volume 85.6 fL (80.0-100.0); RDW Coefficient of Variation 16.9 % (11.5-14.5); Red Blood Count 2.98 M/uL (4.20-5.40); White Blood Count 49.06 K/ul (4.8-10.8)
[2023-01-22 09:29] LABS: Calcium 7.9 mg/dl (8.6-10.3); Creatinine Clr Calc Pharmacy 86.9 ml/min; Est GFR (African American) 106.6 ml/min; Potassium 3.7 mmol/L (3.5-5.1)
--- NOTE | 2023-01-22 09:33 | Hospitalist Progress Note ---
Date of Service January 22, 2023 Assessment & Plan (1) Post-operative complication: Plan: Post operative hematoma, had LEFT chest wall port placed 01/15 Total of now 3 units platelets transfused, as well as now 4u PRBCs, Hgb 8.5 this AM with plts 37, recheck tomorrow Vitamin K 10mg IV x1 given on admission due to INR 1.4, now 1.2 Surgery consulted, would not perform surgery at this time given stable hematoma and risks with low platelets (2) Anemia: Plan: Acute blood loss anemia, also 2/2 AML S/p now 4u PRBCs and 3u plts, continue to monitor hematoma and H/H Fibrinogen level ordered, normal Could consider Amicar, would need to discuss with Dr. Aquino (3) Neutropenic fever: Plan: Possible sepsis (leukocytosis likely 2/2 cancer however with neutropenia findings treated empirically with IV Abx and blood cultures collected) Not labeled as sepsis on admission / no tachycardia or fevers at that time, no hypotension, therefore did not receive sepsis protocol fluids Later in admit did have true fevers, resolved with Tylenol, with notable neutropenia on labwork earlier in admission that is stable BCx collected on admission, NGTD at >48 hours Admission CXR without evidence of PNA No evidence of port infection, however with significant hematoma does likely put at increased infection risk UA without bacteria but had already been on IV Abx ~16 hours by time of collection, nocomplaints of dysuria Empiric broad spectrum Abx vanc/cefepime deescalated to Levaquin 500mg PO daily ppx dosing, to continue on discharge (4) Acute myeloblastic leukemia: Plan: This is acute worsening given recent sudden increase in blasts cells Patient and family have discussed previously with Dr Araujo and she does not want induction chemotherapy - confirmed again with the patient this admission Plan is for supportive care with transfusions only, as she had relatively good independence and quality of life with intermittent transfusions before this admission Continue infection prophylaxis with acyclovir, fluconazole, and levofloxacin Neutropenic isolation precautions Palliative Care asked to see patient to discuss goals of care with regard to blood transfusions and overall treatment plan in line with her reasonable desires, accounting for the irreversible consequences of relapsed leukemia in an 82 yo patient (5) Anxiety and depression: Plan: Continue sertraline (6) GERD (gastroesophageal reflux disease): Plan: Continue pantoprazole (7) Diabetes: Plan: Given generally guarded prognosis will use regular diet and not need for insulin coverage (8) Rheumatoid arthritis: Plan: Continue prednisone 15mg daily (9) Thrombocytopenia: Plan: 2/2 AML, s/p 3u plts this admission Repeat CBC daily, plts 37 today Plan VTE Prophylaxis - chemical ppx contraindicated Diet - regular Disposition - med/tele, guarded prognosis, Oncology and Gen. Surg aware of patient and following along PT and OT recommend discharge home with family assistance if she does not have precipitous decline while hospitalized Admission and Anticipated Discharge Date Admission Date: January 17, 2023 Subjective No acute events overnight, pain well controlled with lido gel, Tylenol, morphine prn. Denies lightheadedness. Left chest and arm still very sore and swollen. Physical Exam Constitutional: WD/WN, vitals as above (uncomfortable appearing) Respiratory: normal respiratory effort, lungs clear to auscultation Cardiovascular: RRR, no murmur, no edema Gastrointestinal (Abdomen): normal bowel sounds, soft, nontender, no hepatosplenomegaly Skin: no rashes, warm and dry left port in place, significant swelling and ecchymosis over site extending up to left clavicle, over the entirety of the left breast, into left axilla, and down to her left elbow. No erythema surrounding port site, nor purulent drainage, swelling / redness appears table today Psychiatric: A+Ox3, euthymic affect Results & Data Results & Data Vital Signs (Past 12 Hours) Vital Signs Temp Pulse Pulse Resp BP Pulse Ox O2 Del Method 01/22/23 08:09 36.9 C 102 H 18 127/71 94 Room Air 01/22/23 05:17 36.8 C 96 H 20 126/69 95 Room Air 01/22/23 04:17 Room Air 01/21/23 22:00 89 01/21/23 23:59 36.7 C 91 H 18 108/63 95 Room Air PG Care Time/CCT Total # of Minutes Spent Total Time Spent with Patient: Total time spent is greater than 50% in coordination of care (as documented) at patient's floor/unit and/or counseling patient: Coding Level of Care Code 25323 SUB INP/OBS CARE 3/50MIN Diagnoses Post-operative complication T81.9XXA Anemia D64.9 Anemia type: bone marrow failure Neutropenic fever D70.9; R50.81 Acute myeloblastic leukemia C92.00 Anxiety and depression F41.9; F32.9 GERD (gastroesophageal reflux disease) K21.9 Diabetes E11.9 Rheumatoid arthritis M06.9 Thrombocytopenia D69.6 (2) Anemia Anemia type: bone marrow failure
[2023-01-22 09:37] LABS: Mean Platelet Volume 8.9 fL (9.4-12.4); Nucleated RBC # (auto) 0.28 K/uL (0.00-0.12); Nucleated RBC % (auto) 0.6 %; Platelet Count 37 K/uL (130-400)
[2023-01-22 09:47] LABS: INR 1.2 (0.9-1.1); Prothrombin Time 12.8 Seconds (9.0-12.0)
[2023-01-22 09:53] LABS: ANC (manual) 0.49 K/uL (1.4-6.5); Blast # (manual) 48.57 K/uL (0-0); Blast Cells % (manual) 99 %; Neutrophils # (manual) 0.49 K/uL (1.40-6.50); Neutrophils % (manual) 1 %
[2023-01-23] MEDS: MoRPHine SULFATE 2 MG/ML CARP IV PRN ×2 (03:02→09:29)
[2023-01-23] MEDS: traMADol HCL 50 MG TABLET PO PRN ×4 (04:28→21:49)
[2023-01-23] MEDS: ACETAMINOPHEN 1,000 MG/100 ML VIAL IV SCH ×3 (04:32→21:16)
[2023-01-23] MEDS: LIDOCAINE 5% OINT 30 GM TUBE EXT SCH ×3 (04:32→21:16)
[2023-01-23 07:11] LABS: Hematocrit (blood only) 23.5 % (37.0-47.0); Hemoglobin 7.9 g/dl (12.0-16.0); Mean Corpuscular Hemoglobin 28.6 pg (25.0-34.0); Mean Corpuscular Hgb Conc 33.6 g/dL (32.0-36.0); Mean Corpuscular Volume 85.1 fL (80.0-100.0); RDW Coefficient of Variation 16.9 % (11.5-14.5); RDW Standard Deviation 51.9 fL (36.4-46.3); Red Blood Count 2.76 M/uL (4.20-5.40); White Blood Count 46.32 K/ul (4.8-10.8)
[2023-01-23 07:33] LABS: Mean Platelet Volume 10.2 fL (9.4-12.4); Nucleated RBC # (auto) 0.24 K/uL (0.00-0.12); Nucleated RBC % (auto) 0.5 %; Platelet Count 22 K/uL (130-400)
[2023-01-23 07:44] LABS: ALC (manual) 1.85 K/uL (1.2-3.4); ANC (manual) 1.85 K/uL (1.4-6.5); Blast # (manual) 42.61 K/uL (0-0); Blast Cells % (manual) 92 %; Lymphocytes # (manual) 1.85 K/uL (1.2-3.4); Lymphocytes % (manual) 4 %; Neutrophils # (manual) 1.85 K/uL (1.40-6.50); Neutrophils % (manual) 4 %
[2023-01-23] MEDS ORDERED: SODIUM CHLORIDE 0.9% 250 ML IV PRN (08:22)
--- NOTE | 2023-01-23 08:56 | Surgery Progress Note ---
Date of Service January 23, 2023 Assessment & Plan (1) Port-A-Cath in place: Plan: Continues to be a difficult situation. I believe all we can provide a supportive care. We will continue to follow from the periphery though I suspect not much we can do surgically at this point. Dr. Katie Lao on-call for the weekend if any urgent needs. (2) Thrombocytopenia: (3) Hematoma: Admission and Anticipated Discharge Date Admission Date: January 17, 2023 Subjective Patient seen. Out of bed and overall looks well. Continued discomfort in the left upper chest wall and left arm from her large hematoma Physical Exam Physical Exam: Alert no acute distress Hematoma in various stages. Some drainage from the incision site. Results & Data Vital Signs (Past 12 Hours) Vital Signs Temp Pulse Pulse Pulse Resp BP BP 01/23/23 08:53 37.2 C 115 H 20 129/77 01/23/23 08:05 36.7 C 103 H 16 01/23/23 07:58 102 H 01/23/23 03:30 37.9 C H 116 H 20 151/70 H 01/23/23 02:31 112 H 01/22/23 22:00 37.3 C 103 H 20 124/67 BP Pulse Ox O2 Del Method O2 Flow Rate 01/23/23 08:53 97 0 01/23/23 08:05 154/75 H 94 Room Air 01/23/23 07:58 01/23/23 03:30 96 Room Air 01/23/23 02:31 01/22/23 22:00 96 Room Air PG Care Time/CCT Total # of Minutes Spent Total Time Spent with Patient: Total time spent is greater than 50% in coordination of care (as documented) at patient's floor/unit and/or counseling patient: Coding Level of Care Code 90019 Post Operative Follow-Up Diagnoses Port-A-Cath in place Z95.828 Thrombocytopenia D69.6 Hematoma T14.8XXA
[2023-01-23] MEDS: ZAFIRLUKAST 20MG: NON-FORMULARY PATIENT'S OWN MED PO SCH ×2 (09:35→21:16)
[2023-01-23] MEDS: FLUCONAZOLE 100 MG TAB PO SCH (09:36)
[2023-01-23] MEDS: SERTRALINE HCL 50 MG TABLET PO SCH (09:36)
[2023-01-23] MEDS: PANTOprazole 40 MG TAB PO SCH (09:36)
[2023-01-23] MEDS: ACYCLOVIR 400 MG TAB PO SCH ×2 (09:36→21:15)
[2023-01-23] MEDS: levoFLOXacin 500 MG TAB PO SCH (09:37)
[2023-01-23] MEDS: predniSONE 5 MG TAB PO SCH (09:37)
[2023-01-23] MEDS: MAGNESIUM OXIDE 400 MG TAB PO SCH ×2 (09:37→21:15)
[2023-01-23] MEDS: VIBEGRON 75 MG TAB PO SCH (09:37)
--- NOTE | 2023-01-23 12:32 | Hospitalist Progress Note ---
Date of Service January 23, 2023 Assessment & Plan (1) Post-operative complication: Plan: Post operative hematoma, had LEFT chest wall port placed 01/15 Total of now 4 units platelets transfused, as well as now 4u PRBCs, platelets 22 this morning, goal is above 50 per oncology Surgery consulted, would not perform surgery at this time given stable hematoma and risks with low platelets patient still in some pains (2) Anemia: Plan: Acute blood loss anemia, also 2/2 AML S/p now 4u PRBCs and 4u plts, continue to monitor hematoma and H/H Fibrinogen level ordered, normal Could consider Amicar, would need to discuss with Dr. Aquino (3) Neutropenic fever: Plan: No evidence off sepsis BCx collected on admission, NGTD at >48 hours Admission CXR without evidence of PNA No evidence of port infection, however with significant hematoma does likely put at increased infection risk UA without bacteria but had already been on IV Abx ~16 hours by time of collection, nocomplaints of dysuria Empiric broad spectrum Abx vanc/cefepime deescalated to Levaquin 500mg PO daily ppx dosing, to continue on discharge (4) Acute myeloblastic leukemia: Plan: This is acute worsening given recent sudden increase in blasts cells Patient and family have discussed previously with Dr Araujo and she does not want induction chemotherapy - confirmed again with the patient this admission Plan is for supportive care with transfusions only, as she had relatively good independence and quality of life with intermittent transfusions before this admission Continue infection prophylaxis with acyclovir, fluconazole, and levofloxacin Neutropenic isolation precautions Palliative Care asked to see patient to discuss goals of care with regard to blood transfusions and overall treatment plan in line with her reasonable desires, accounting for the irreversible consequences of relapsed leukemia in an 82 yo patient (5) Anxiety and depression: Plan: Continue sertraline (6) GERD (gastroesophageal reflux disease): Plan: Continue pantoprazole (7) Diabetes: Plan: Given generally guarded prognosis will use regular diet and not need for insulin coverage (8) Rheumatoid arthritis: Plan: Continue prednisone 15mg daily (9) Thrombocytopenia: Plan: 2/2 AML, s/p 4u plts this admission platelets 22 today goal is above 50 Plan VTE Prophylaxis - chemical ppx contraindicated Diet - regular Disposition - med/tele, guarded prognosis, Oncology and Gen. Surg aware of patient and following along PT and OT recommend discharge home with family assistance if she does not have precipitous decline while hospitalized Admission and Anticipated Discharge Date Admission Date: January 17, 2023 Subjective patient seen and examined, still in some pains Review of Systems Review of Systems: All systems reviewed are negative, apart from the ones contained in the history. Physical Exam Physical Exam: The patient is awake, alert and oriented 3, well developed and well nourished, normocephalic and atraumatic, lying in bed and in no acute distress. HEENT--PERRL, EOMI, mucous membranes and oropharynx mildly dry Neck--supple. No JVD. No bruits. Thyroid normal, trachea midline, no adenopathy. Chest: left sided hematoma, with blood soaked dressing Heart--normal S1 and S2. No murmurs, rubs or gallops. Lungs--clear bilaterally, no respiratory distress, no accessory muscle use. Abdomen--normal bowel sounds and soft. Mild epigastric and left sided abdominal pain Extremities--no cyanosis or clubbing. No edema. Dermatologic--normal skin turgor, normal color, no abnormal lymph nodes, no rash. Neurologic--cranial nerves II through XII grossly intact. Rheumatologic--normal range of motion. Psychiatric--normal affect. Results & Data Results & Data Vital Signs (Past 12 Hours) Vital Signs Temp Pulse Pulse Pulse Resp BP BP 01/23/23 11:15 98.8 F 110 H 20 122/71 01/23/23 10:15 100.4 F H 105 H 20 128/71 01/23/23 11:24 98.8 F 110 H 20 122/71 01/23/23 09:13 99.3 F 111 H 20 125/73 01/23/23 08:53 99.0 F 115 H 20 129/77 01/23/23 08:05 98.1 F 103 H 16 01/23/23 07:58 102 H 01/23/23 03:30 100.2 F H 116 H 20 151/70 H 01/23/23 02:31 112 H BP Pulse Ox O2 Del Method O2 Flow Rate 01/23/23 11:15 01/23/23 10:15 01/23/23 11:24 93 Room Air 01/23/23 09:13 111 H 01/23/23 08:53 97 0 01/23/23 08:05 154/75 H 94 Room Air 01/23/23 07:58 01/23/23 03:30 96 Room Air 01/23/23 02:31 PG Care Time/CCT Total # of Minutes Spent Total Time Spent with Patient: Total time spent is greater than 50% in coordination of care (as documented) at patient's floor/unit and/or counseling patient: Coding Level of Care Code 76678 SUB INP/OBS CARE 2/35MIN Diagnoses Post-operative complication T81.9XXA Anemia D64.9 Anemia type: bone marrow failure Neutropenic fever D70.9; R50.81 Acute myeloblastic leukemia C92.00 Anxiety and depression F41.9; F32.9 GERD (gastroesophageal reflux disease) K21.9 Diabetes E11.9 Rheumatoid arthritis M06.9 Thrombocytopenia D69.6 Time Spent (min) 35 (2) Anemia Anemia type: bone marrow failure
[2023-01-23] MEDS: METOPROLOL TARTRATE 25 MG TAB PO SCH ×2 (15:45→21:14)
[2023-01-23] MEDS ORDERED: PIPERACILLIN/TAZOBACTAM 4.5 GM (over 30 mins) IV ONE (16:00)
[2023-01-23] MEDS ORDERED: METOPROLOL TARTRATE 25 MG TAB PO SCH (21:00)
[2023-01-23] MEDS: PIPERACILLIN/TAZOBACTAM 4.5 GM in DEXTROSE 5% 100 ML IV SCH (21:45)
[2023-01-24] MEDS: LIDOCAINE 5% OINT 30 GM TUBE EXT SCH ×3 (05:23→21:00)
[2023-01-24] MEDS: ACETAMINOPHEN 1,000 MG/100 ML VIAL IV SCH (05:48)
[2023-01-24] MEDS: traMADol HCL 50 MG TABLET PO PRN ×4 (05:51→21:24)
[2023-01-24] MEDS: PIPERACILLIN/TAZOBACTAM 4.5 GM in DEXTROSE 5% 100 ML IV SCH ×3 (06:17→22:03)
[2023-01-24] MEDS: ZAFIRLUKAST 20MG: NON-FORMULARY PATIENT'S OWN MED PO SCH ×2 (09:17→21:00)
[2023-01-24] MEDS: METOPROLOL TARTRATE 25 MG TAB PO SCH ×2 (09:17→21:01)
[2023-01-24] MEDS: PANTOprazole 40 MG TAB PO SCH (09:18)
[2023-01-24] MEDS: FLUCONAZOLE 100 MG TAB PO SCH (09:18)
[2023-01-24] MEDS: SERTRALINE HCL 50 MG TABLET PO SCH (09:19)
[2023-01-24] MEDS: predniSONE 5 MG TAB PO SCH (09:19)
[2023-01-24] MEDS: ACYCLOVIR 400 MG TAB PO SCH ×2 (09:19→21:01)
[2023-01-24] MEDS: MAGNESIUM OXIDE 400 MG TAB PO SCH ×2 (09:19→21:00)
[2023-01-24] MEDS: VIBEGRON 75 MG TAB PO SCH (09:20)
[2023-01-24 09:24] LABS: Potassium 3.6 mmol/L (3.5-5.1)
[2023-01-24 09:29] LABS: BUN Creatinine Ratio 25.4 (10-20); Creatinine Clr Calc Pharmacy 70.8 ml/min; Est GFR (African American) 99.6 ml/min
[2023-01-24 09:48] LABS: Hematocrit (blood only) 22.8 % (37.0-47.0); Hemoglobin 7.5 g/dl (12.0-16.0); Mean Corpuscular Hemoglobin 28.3 pg (25.0-34.0); Mean Corpuscular Hgb Conc 32.9 g/dL (32.0-36.0); Mean Platelet Volume 9.9 fL (9.4-12.4); Nucleated RBC % (auto) 0.4 %; Platelet Count 37 K/uL (130-400); RDW Coefficient of Variation 16.9 % (11.5-14.5); RDW Standard Deviation 52.5 fL (36.4-46.3); Red Blood Count 2.65 M/uL (4.20-5.40); White Blood Count 45.12 K/ul (4.8-10.8)
[2023-01-24 10:20] LABS: Blast # (manual) 43.32 K/uL (0-0); Blast Cells % (manual) 96 %; Echinocytes 1+; Lymphocytes % (manual) 4 %; Neutrophils % (manual) 0 %; Ovalocytes 1+; Polychromasia 1+
[2023-01-24] MEDS ORDERED: bisacodyL 10 MG SUPP PR STA (10:26)
[2023-01-24 11:28] LABS: A calco-baum cmplx NotReported Not Detected (NotDetected); Bact fragilis Not Reported Not Detected (NotDetected); C auris Not Reported Not Detected (NotDetected); Calbicans Not Reported Not Detected (NotDetected); Candida glabrata Not Reported Not Detected (NotDetected); Candida krusei Not Reported Not Detected (NotDetected); Cneoformans/gatti Not Reported Not Detected (NotDetected); Cparapsilosis Not Reported Not Detected (NotDetected); Ctropicalis Not Reported Not Detected (NotDetected); E cloacae compx Not Reported Not Detected (NotDetected); Efaecalis Not Reported Not Detected (NotDetected); Efaecium Not Reported Not Detected (NotDetected); Enterobacterales Not Reported Not Detected (NotDetected); Escherichia coli Not Reported Not Detected (NotDetected); H influenzae Not Reported Not Detected (NotDetected); K aerogenes Not Reported Not Detected (NotDetected); Koxytoca Not Reported Not Detected (NotDetected); Kpneumoniae grp Not Reported Not Detected (NotDetected); Lmonocyt Not Reported Not Detected (NotDetected); N meningitidis Not Reported Not Detected (NotDetected); P aeruginosa Not Reported Not Detected (NotDetected); Proteus spp Not Reported Not Detected (NotDetected); Salmonella spp Not Reported Not Detected (NotDetected); Smarcescens Not Reported Not Detected (NotDetected); Staph lugdunensis Not Reported Not Detected (NotDetected); Staph spp. Not Reported Not Detected (NotDetected); Staphaureus Not Reported Not Detected (NotDetected); Staphepi Not Reported Not Detected (NotDetected); Stenmaltophilia Not Reported Not Detected (NotDetected); Strep agal(GrpB) Not Reported Not Detected (NotDetected); Strep pneum Not Reported Not Detected (NotDetected); Strep pyog (GrpA) Not Reported Not Detected (NotDetected); Strep spp Not Reported Not Detected (NotDetected)
--- NOTE | 2023-01-24 12:21 | Hospitalist Progress Note ---
Date of Service January 24, 2023 Assessment & Plan (1) Post-operative complication: Plan: Post operative hematoma, had LEFT chest wall port placed 01/15 Total of now 4 units platelets transfused, as well as now 4u PRBCs, platelets 22 this morning, goal is above 50 per oncology Surgery consulted, would not perform surgery at this time given stable hematoma and risks with low platelets patient still in some pains (2) Anemia: Plan: Acute blood loss anemia, also 2/2 AML S/p now 4u PRBCs and 4u plts, continue to monitor hematoma and H/H Fibrinogen level ordered, normal Could consider Amicar, would need to discuss with Dr. Aquino (3) Neutropenic fever: Plan: Initially started on Empiric broad spectrum Abx vanc/cefepime deescalated to Levaquin 500mg PO daily, which has been stopped yesterday BCx collected on admission, NGTD at >48 hours Admission CXR without evidence of PNA, no evidence of port infection. However, yesterday,01/23, patient became tachycardic and febrile, blood cultures collected 01/23/23 growing gram positives in 1 bottle Was empirically started on IV Zosyn Today, vitals are stable await rest of cultures (4) Acute myeloblastic leukemia: Plan: This is acute worsening given recent sudden increase in blasts cells Patient and family have discussed previously with Dr Araujo and she does not want induction chemotherapy - confirmed again with the patient this admission Plan is for supportive care with transfusions only, as she had relatively good independence and quality of life with intermittent transfusions before this admission Continue infection prophylaxis with acyclovir, fluconazole, (resume levaquin upon discharge) Neutropenic isolation precautions Palliative Care asked to see patient to discuss goals of care with regard to blood transfusions and overall treatment plan in line with her reasonable desires, accounting for the irreversible consequences of relapsed leukemia in an 82 yo patient (5) Anxiety and depression: Plan: Continue sertraline (6) GERD (gastroesophageal reflux disease): Plan: Continue pantoprazole (7) Diabetes: Plan: Given generally guarded prognosis will use regular diet and not need for insulin coverage (8) Rheumatoid arthritis: Plan: Continue prednisone 15mg daily (9) Thrombocytopenia: Plan: 2/2 AML, s/p 4u plts this admission platelets 22 today goal is above 50 (10) Bacteremia: Plan VTE Prophylaxis - chemical ppx contraindicated Diet - regular Disposition - med/tele, guarded prognosis, Oncology and Gen. Surg aware of patient and following along PT and OT recommend discharge home with family assistance if she does not have precipitous decline while hospitalized Admission and Anticipated Discharge Date Admission Date: January 17, 2023 Subjective patient seen and examined, feels better today compared to yesterday Review of Systems Review of Systems: All systems reviewed are negative, apart from the ones contained in the history. Physical Exam Physical Exam: The patient is awake, alert and oriented 3, well developed and well nourished, normocephalic and atraumatic, lying in bed and in no acute distress. HEENT--PERRL, EOMI, mucous membranes and oropharynx mildly dry Neck--supple. No JVD. No bruits. Thyroid normal, trachea midline, no adenopathy. Chest: left sided hematoma, with blood soaked dressing Heart--normal S1 and S2. No murmurs, rubs or gallops. Lungs--clear bilaterally, no respiratory distress, no accessory muscle use. Abdomen--normal bowel sounds and soft. Mild epigastric and left sided abdominal pain Extremities--no cyanosis or clubbing. No edema. Dermatologic--normal skin turgor, normal color, no abnormal lymph nodes, no rash. Neurologic--cranial nerves II through XII grossly intact. Rheumatologic--normal range of motion. Psychiatric--normal affect. Results & Data Results & Data Vital Signs (Past 12 Hours) Vital Signs Temp Pulse Pulse Resp BP Pulse Ox O2 Del Method 01/24/23 11:24 97.5 F L 84 16 108/65 93 Room Air 01/24/23 07:37 98.1 F 89 16 103/65 93 Room Air 01/24/23 03:00 98.1 F 83 18 116/66 97 Room Air PG Care Time/CCT Total # of Minutes Spent Total Time Spent with Patient: Total time spent is greater than 50% in coordination of care (as documented) at patient's floor/unit and/or counseling patient: Coding Level of Care Code 50907 SUB INP/OBS CARE 2/35MIN Diagnoses Post-operative complication T81.9XXA Anemia D64.9 Anemia type: bone marrow failure Neutropenic fever D70.9; R50.81 Acute myeloblastic leukemia C92.00 Anxiety and depression F41.9; F32.9 GERD (gastroesophageal reflux disease) K21.9 Diabetes E11.9 Rheumatoid arthritis M06.9 Thrombocytopenia D69.6 Bacteremia R78.81 Time Spent (min) 35 (2) Anemia Anemia type: bone marrow failure
[2023-01-24] MEDS: diphenhydrAMINE Capsule 25 MG CAP PO PRN (21:24)
[2023-01-25] MEDS: traMADol HCL 50 MG TABLET PO PRN ×3 (01:56→17:41)
[2023-01-25] MEDS: PIPERACILLIN/TAZOBACTAM 4.5 GM in DEXTROSE 5% 100 ML IV SCH ×2 (06:02→14:15)
[2023-01-25] MEDS: LIDOCAINE 5% OINT 30 GM TUBE EXT SCH ×3 (06:07→21:04)
[2023-01-25 06:38] LABS: Est GFR (African American) 103.2 ml/min
[2023-01-25 06:39] LABS: BUN Creatinine Ratio 26.4 (10-20); Calcium 8.3 mg/dl (8.6-10.3); Creatinine Clr Calc Pharmacy 79.4 ml/min
[2023-01-25 06:42] LABS: Hematocrit (blood only) 21.2 % (37.0-47.0); Hemoglobin 7.1 g/dl (12.0-16.0); Mean Corpuscular Hemoglobin 28.4 pg (25.0-34.0); Mean Corpuscular Hgb Conc 33.5 g/dL (32.0-36.0); Mean Corpuscular Volume 84.8 fL (80.0-100.0); Mean Platelet Volume 10.2 fL (9.4-12.4); Nucleated RBC # (auto) 0.25 K/uL (0.00-0.12); Nucleated RBC % (auto) 0.4 %; Platelet Count 29 K/uL (130-400); RDW Standard Deviation 52.7 fL (36.4-46.3); White Blood Count 56.44 K/ul (4.8-10.8)
[2023-01-25 07:49] LABS: ALC (manual) 3.95 K/uL (1.2-3.4); Blast # (manual) 51.36 K/uL (0-0); Blast Cells % (manual) 91 %; Lymphocytes # (manual) 3.95 K/uL (1.2-3.4); Lymphocytes % (manual) 7 %; Monocytes # (manual) 1.13 K/uL (0.11-0.59); Monocytes % (manual) 2 %; Neutrophils % (manual) 0 %; RBC Morphology Unremarkable
[2023-01-25] MEDS: ZAFIRLUKAST 20MG: NON-FORMULARY PATIENT'S OWN MED PO SCH ×2 (08:33→21:03)
[2023-01-25] MEDS: FLUCONAZOLE 100 MG TAB PO SCH (08:34)
[2023-01-25] MEDS: VIBEGRON 75 MG TAB PO SCH (08:34)
[2023-01-25] MEDS: PANTOprazole 40 MG TAB PO SCH (08:34)
[2023-01-25] MEDS: SERTRALINE HCL 50 MG TABLET PO SCH (08:34)
[2023-01-25] MEDS: predniSONE 5 MG TAB PO SCH (08:34)
[2023-01-25] MEDS: METOPROLOL TARTRATE 25 MG TAB PO SCH ×2 (08:34→21:03)
[2023-01-25] MEDS: MAGNESIUM OXIDE 400 MG TAB PO SCH ×2 (08:35→21:04)
[2023-01-25] MEDS: ACYCLOVIR 400 MG TAB PO SCH ×2 (08:35→21:04)
[2023-01-25] MEDS ORDERED: SODIUM CHLORIDE 0.9% 250 ML IV PRN (11:34)
--- NOTE | 2023-01-25 11:36 | Hospitalist Progress Note ---
Date of Service January 25, 2023 Assessment & Plan (1) Post-operative complication: Plan: Post operative hematoma, had LEFT chest wall port placed 01/15 Total of now 4 units platelets transfused, as well as now 4u PRBCs, platelets 29 this morning, goal is above 50 per oncology ! unit of blood and 1 unit of platelets ordered today, 01/25 Surgery consulted, would not perform surgery at this time given risks with low platelets However, area of hematoma is worsening patient still in some pains (2) Anemia: Plan: Acute blood loss anemia, also 2/2 AML S/p now 4u PRBCs and 4u plts, continue to monitor hematoma and H/H Fibrinogen level ordered, normal Could consider Amicar, would need to discuss with Dr. Aquino (3) Neutropenic fever: Plan: Initially started on Empiric broad spectrum Abx vanc/cefepime deescalated to Levaquin 500mg PO daily, which has been stopped yesterday, 01/24 BCx collected on admission, NGTD at >48 hours Admission CXR without evidence of PNA, no evidence of port infection. However, on,01/23, patient became tachycardic and febrile, blood cultures collected 01/23/23 growing baccilus (not antrax) in 1 bottle Was empirically started on IV Zosyn, will continue for now Today, vitals are stable (4) Acute myeloblastic leukemia: Plan: This is acute worsening given recent sudden increase in blasts cells Patient and family have discussed previously with Dr Araujo and she does not want induction chemotherapy - confirmed again with the patient this admission Plan is for supportive care with transfusions only, as she had relatively good independence and quality of life with intermittent transfusions before this admission Continue infection prophylaxis with acyclovir, fluconazole, (resume levaquin upon discharge) Neutropenic isolation precautions Palliative Care asked to see patient to discuss goals of care with regard to blood transfusions and overall treatment plan in line with her reasonable desires, accounting for the irreversible consequences of relapsed leukemia in an 82 yo patient (5) Anxiety and depression: Plan: Continue sertraline (6) GERD (gastroesophageal reflux disease): Plan: Continue pantoprazole (7) Diabetes: Plan: Given generally guarded prognosis will use regular diet and not need for insulin coverage (8) Rheumatoid arthritis: Plan: Continue prednisone 15mg daily (9) Thrombocytopenia: Plan: 2/2 AML, s/p 4u plts this admission platelets 29 today goal is above 50 (10) Bacteremia: Plan VTE Prophylaxis - chemical ppx contraindicated Diet - regular Disposition - med/tele, guarded prognosis, Oncology and Gen. Surg aware of patient and following along PT and OT recommend discharge home with family assistance if she does not have precipitous decline while hospitalized Admission and Anticipated Discharge Date Admission Date: January 17, 2023 Subjective patient seen and examined, feels better today compared to yesterday, although the area of hematoma is worsening Review of Systems Review of Systems: All systems reviewed are negative, apart from the ones contained in the history. Physical Exam Physical Exam: The patient is awake, alert and oriented 3, well developed and well nourished, normocephalic and atraumatic, lying in bed and in no acute distress. HEENT--PERRL, EOMI, mucous membranes and oropharynx mildly dry Neck--supple. No JVD. No bruits. Thyroid normal, trachea midline, no adenopathy . Chest: left sided hematoma, with blood soaked dressing Heart--normal S1 and S2. No murmurs, rubs or gallops. Lungs--clear bilaterally, no respiratory distress, no accessory muscle use. Abdomen--normal bowel sounds and soft. Mild epigastric and left sided abdominal pain Extremities--no cyanosis or clubbing. No edema. Dermatologic--normal skin turgor, normal color, no abnormal lymph nodes, no ra sh. Neurologic--cranial nerves II through XII grossly intact. Rheumatologic--normal range of motion. Psychiatric--normal affect. Results & Data Results & Data Vital Signs (Past 12 Hours) Vital Signs Temp Pulse Pulse Pulse Resp BP Pulse Ox 01/25/23 09:00 01/25/23 08:05 97 H 01/25/23 07:28 99.0 F 100 H 16 110/70 95 01/25/23 03:00 98.2 F 90 18 120/68 94 O2 Del Method 01/25/23 09:00 Room Air 01/25/23 08:05 01/25/23 07:28 Room Air 01/25/23 03:00 Room Air PG Care Time/CCT Total # of Minutes Spent Total Time Spent with Patient: Total time spent is greater than 50% in coordination of care (as documented) at patient's floor/unit and/or counseling patient: Coding Level of Care Code 13638 SUB INP/OBS CARE 2/35MIN Diagnoses Post-operative complication T81.9XXA Anemia D64.9 Anemia type: bone marrow failure Neutropenic fever D70.9; R50.81 Acute myeloblastic leukemia C92.00 Anxiety and depression F41.9; F32.9 GERD (gastroesophageal reflux disease) K21.9 Diabetes E11.9 Rheumatoid arthritis M06.9 Thrombocytopenia D69.6 Bacteremia R78.81 Time Spent (min) 35 (2) Anemia Anemia type: bone marrow failure
[2023-01-26] MEDS: LIDOCAINE 5% OINT 30 GM TUBE EXT SCH ×3 (05:38→20:38)
[2023-01-26 08:18] LABS: Calcium 8.3 mg/dl (8.6-10.3); Creatinine Clr Calc Pharmacy 83.4 ml/min; Est GFR (African American) 105.2 ml/min; Est GFR (Non-African American) 90.8 ml/min; Potassium 3.6 mmol/L (3.5-5.1)
[2023-01-26 08:27] LABS: Hematocrit (blood only) 25.2 % (37.0-47.0); Hemoglobin 8.3 g/dl (12.0-16.0); Mean Corpuscular Hemoglobin 28.3 pg (25.0-34.0); Mean Corpuscular Hgb Conc 32.9 g/dL (32.0-36.0); Nucleated RBC # (auto) 0.24 K/uL (0.00-0.12); Nucleated RBC % (auto) 0.5 %; Platelet Count 64 K/uL (130-400); RDW Standard Deviation 50.4 fL (36.4-46.3); Red Blood Count 2.93 M/uL (4.20-5.40); White Blood Count 44.92 K/ul (4.8-10.8)
[2023-01-26] MEDS: FLUCONAZOLE 100 MG TAB PO SCH (08:58)
[2023-01-26] MEDS: PANTOprazole 40 MG TAB PO SCH (08:58)
[2023-01-26] MEDS: MAGNESIUM OXIDE 400 MG TAB PO SCH ×2 (08:58→20:37)
[2023-01-26] MEDS: ZAFIRLUKAST 20MG: NON-FORMULARY PATIENT'S OWN MED PO SCH ×2 (08:58→20:35)
[2023-01-26] MEDS: predniSONE 5 MG TAB PO SCH (08:58)
[2023-01-26] MEDS: VIBEGRON 75 MG TAB PO SCH (08:58)
[2023-01-26] MEDS: METOPROLOL TARTRATE 25 MG TAB PO SCH ×2 (08:58→20:37)
[2023-01-26] MEDS: ACYCLOVIR 400 MG TAB PO SCH ×2 (08:58→20:37)
[2023-01-26] MEDS: SERTRALINE HCL 50 MG TABLET PO SCH (08:58)
[2023-01-26 09:26] LABS: Blast # (manual) 42.67 K/uL (0-0); Blast Cells % (manual) 95 %; Lymphocytes % (manual) 4 %; Monocytes # (manual) 0.45 K/uL (0.11-0.59); Monocytes % (manual) 1 %; Neutrophils % (manual) 0 %; RBC Morphology Unremarkable
--- NOTE | 2023-01-26 15:39 | Hospitalist Progress Note ---
Date of Service January 26, 2023 Assessment & Plan (1) Post-operative complication: Plan: Post operative hematoma at LEFT anterior upper chest wall port insertion site. This was placed 01/15. Total of now 4 units platelets transfused, as well as now 4u PRBCs. Hemoglobin 8.3 this morning and platelet count 64,000. We will continue serial labs. Dressing changes as needed. Appreciate surgery consultation and recommendations. Continue pain control measures patient still in some pains (2) Anemia: Plan: Acute blood loss anemia due to hematoma and AML. S/p now 4u PRBCs and 4u plts. Serial labs. (3) Neutropenic fever: Plan: Initially started on empiric broad spectrum antibiotics consisting of vanc/cefepime, then deescalated to Levaquin 500mg PO daily which was stopped on January 24. blood culture obtained January 23 growing bacillus organism which appears to be a contaminant. 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 Patient and family have discussed treatment with Dr Araujo and she does not want induction chemotherapy. Plan is for supportive care with transfusions only, as she had relatively good independence and quality of life with intermittent transfusions before this admission. Continue infection prophylaxis with acyclovir, fluconazole, and resume levaquin upon discharge. Palliative Care asked to see patient to discuss goals of care with regard to blood transfusions and overall treatment plan in line with her reasonable desires, accounting for the irreversible consequences of relapsed leukemia in an 82 yo patient (5) Anxiety and depression: Plan: Stable. Continue sertraline (6) GERD (gastroesophageal reflux disease): Plan: Stable continue pantoprazole (7) Diabetes: Plan: The patient requested a regular diet. Sliding scale insulin coverage as needed. (8) Rheumatoid arthritis: Plan: Steroid-dependent. Continue prednisone 15mg daily (9) Thrombocytopenia: Plan: Serial labs. Transfuse as necessary. Appreciate hematology consultation and recommendations (10) Bacteremia: Plan: Appears to be contaminant Plan Hopeful discharge to home soon, possibly tomorrow, January 27. Home health services will be requested Admission and Anticipated Discharge Date Admission Date: January 17, 2023 Subjective Alert and oriented. No acute distress. Multiple family members are in attendance. Hemoglobin stable at 8.3 and platelet count 64,000. Occupational Therapy and physical therapy recommend discharge to home eventually. Antibiotics were discontinued January 24. Hematoma at the venous access port insertion site left upper chest wall continues to ooze but this will continue until the hematoma has nearly resolved. Hopefully she can go home with home health services tomorrow, January 27 Review of Systems Review of Systems: Constitutional-no fever or chills ENT-no blurred vision, no double vision, no epistaxis, no sore throat Respiratory-no cough, no wheezing, no shortness of breath Cardiac-no palpitations, no chest pain, no syncope GI-no nausea, vomiting, diarrhea, melena, hematochezia -no urinary retention, no urinary incontinence, no dysuria, no hematuria Musculoskeletal-no joint pain, no muscle tenderness Skin-extensive bruising from hematoma formation left upper anterior chest wall at the venous access port insertion site with some oozing of blood noted through the incision site. Neuro-no isolated weakness, no paresthesia Psych-no depression, no anxiety Physical Exam Physical Exam: General-alert and oriented x3, no fevers, no chills HEENT-head atraumatic and normocephalic, pupils equal and reactive to light, extraocular muscles intact Neck-no lymphadenopathy or thyromegaly, trachea midline Chest-clear to auscultation percussion. No rales wheezing or rhonchi Cardiac-regular rate and rhythm, normal S1 and S2, no murmurs Abdomen-normal bowel sounds, nontender, no hepatosplenomegaly Extremities-no cyanosis, clubbing, or edema Skinlarge hematoma formation with bruising about the left upper anterior chest wall venous access port insertion site. Some dark blood noted oozing through the incision site. Neuro-cranial nerves II through XII intact, motor and sensory function within normal limits, strength symmetrical , no focal deficits Psych-normal affect, normal mood Results & Data Results & Data Vital Signs (Past 12 Hours) Vital Signs Temp Pulse Pulse Resp BP Pulse Ox O2 Del Method 01/26/23 14:03 90 01/26/23 11:13 36.7 C 90 16 114/73 96 Room Air 01/26/23 08:20 Room Air 01/26/23 06:00 89 01/26/23 07:18 36.7 C 96 H 16 113/66 92 Room Air Laboratory Results 01/26/23 07:22 01/26/23 07:22 PG Care Time/CCT Total # of Minutes Spent Total Time Spent with Patient: Total time spent is greater than 50% in coordination of care (as documented) at patient's floor/unit and/or counseling patient: Coding Level of Care Code 74684 SUB INP/OBS CARE 350MIN Diagnoses Post-operative complication T81.9XXA Anemia D64.9 Anemia type: bone marrow failure Neutropenic fever D70.9; R50.81 Acute myeloblastic leukemia C92.00 Anxiety and depression F41.9; F32.9 GERD (gastroesophageal reflux disease) K21.9 Diabetes E11.9 Rheumatoid arthritis M06.9 Thrombocytopenia D69.6 Bacteremia R78.81 (2) Anemia Anemia type: bone marrow failure
[2023-01-26] MEDS: diphenhydrAMINE Capsule 25 MG CAP PO PRN (20:34)
[2023-01-26] MEDS: MoRPHine SULFATE 2 MG/ML CARP IV PRN (20:34)
[2023-01-26] MEDS ORDERED: TRIAMCINOLONE ACET 0.025% CR 15 GM TUBE EXT PRN (20:45)
[2023-01-26] MEDS ORDERED: HYDROCORTISONE 1% CRM 30 GM TUBE EXT PRN (21:35)
[2023-01-27] MEDS: LIDOCAINE 5% OINT 30 GM TUBE EXT SCH ×2 (05:37→14:01)
[2023-01-27] MEDS: traMADol HCL 50 MG TABLET PO PRN (07:56)
[2023-01-27] MEDS: ZAFIRLUKAST 20MG: NON-FORMULARY PATIENT'S OWN MED PO SCH (09:00)
[2023-01-27] MEDS: FLUCONAZOLE 100 MG TAB PO SCH (09:01)
[2023-01-27] MEDS: predniSONE 5 MG TAB PO SCH (09:01)
[2023-01-27] MEDS: MAGNESIUM OXIDE 400 MG TAB PO SCH (09:01)
[2023-01-27] MEDS: VIBEGRON 75 MG TAB PO SCH (09:02)
[2023-01-27] MEDS: ACYCLOVIR 400 MG TAB PO SCH (09:02)
[2023-01-27] MEDS: METOPROLOL TARTRATE 25 MG TAB PO SCH (09:02)
[2023-01-27] MEDS: PANTOprazole 40 MG TAB PO SCH (09:02)
[2023-01-27] MEDS: SERTRALINE HCL 50 MG TABLET PO SCH (09:03)
[2023-01-27 10:28] LABS: Hematocrit (blood only) 24.4 % (37.0-47.0); Hemoglobin 8.2 g/dl (12.0-16.0); Mean Corpuscular Hemoglobin 28.7 pg (25.0-34.0); Mean Corpuscular Hgb Conc 33.6 g/dL (32.0-36.0); Mean Corpuscular Volume 85.3 fL (80.0-100.0); Mean Platelet Volume 9.3 fL (9.4-12.4); Nucleated RBC # (auto) 0.33 K/uL (0.00-0.12); Nucleated RBC % (auto) 0.6 %; Platelet Count 49 K/uL (130-400); RDW Coefficient of Variation 16.3 % (11.5-14.5); RDW Standard Deviation 50.5 fL (36.4-46.3); Red Blood Count 2.86 M/uL (4.20-5.40); White Blood Count 53.75 K/ul (4.8-10.8)
[2023-01-27 10:42] LABS: BUN Creatinine Ratio 29.6 (10-20); Calcium 8.5 mg/dl (8.6-10.3); Creatinine Clr Calc Pharmacy 76.7 ml/min; Est GFR (African American) 102.6 ml/min; Est GFR (Non-African American) 88.5 ml/min; Potassium 3.8 mmol/L (3.5-5.1)
[2023-01-27 11:25] LABS: ALC (manual) 1.61 K/uL (1.2-3.4); Blast # (manual) 52.14 K/uL (0-0); Blast Cells % (manual) 97 %; Lymphocytes # (manual) 1.61 K/uL (1.2-3.4); Lymphocytes % (manual) 3 %; Neutrophils % (manual) 0 %
--- NOTE | 2023-01-27 12:03 | Discharge Summary ---
Date of Service January 27, 2023 Admission HPI Per Admitting Provider Pam Mai is an 82 year old female with untreated AML who presents to the ER with post operative hematoma from recent port insertion. Port insertion performed by Dr Hernandez on January 15. No fever or chills. Generalized fatigue ongoing with her AML diagnosis. Also having some dizziness on standing. No chest pain or shortness of breath. Tender over port site. Principal Diagnosis Postoperative hematoma after left anterior upper chest wall venous access port placement January 15, acute blood loss anemia, neutropenic fever Discharge Exam General-alert and oriented x3, no fevers, no chills HEENT-head atraumatic and normocephalic, pupils equal and reactive to light, extraocular muscles intact Neck-no lymphadenopathy or thyromegaly, trachea midline Chest-clear to auscultation percussion. No rales wheezing or rhonchi Cardiac-regular rate and rhythm, normal S1 and S2, no murmurs Abdomen-normal bowel sounds, nontender, no hepatosplenomegaly Extremities-no cyanosis, clubbing, or edema Skinlarge hematoma formation with bruising about the left upper anterior chest wall venous access port insertion site. Some dark blood noted oozing through the incision site. Neuro-cranial nerves II through XII intact, motor and sensory function within normal limits, strength symmetrical , no focal deficits Psych-normal affect, normal mood Discharge Data Allergies Allergy/AdvReac Type Severity Reaction Status Date / Time codeine Allergy Severe Vomiting, Verified 01/17/23 14:29 drop in BP meperidine Allergy Severe Vomiting Verified 01/17/23 14:29 morphine Allergy Severe "Drop in Verified 01/17/23 14:29 vital signs", tremors, vomiting oxycodone Allergy Severe "Drop in Verified 01/17/23 14:29 vital signs", tremors, vomiting adhesive Allergy Intermediate "Pulls off Verified 01/17/23 14:29 skin" hydrocodone [From Vicodin] Allergy Intermediate Vomiting, Verified 01/17/23 14:29 tremors nickel Allergy Intermediate Rash Verified 01/17/23 14:29 pravastatin AdvReac Intermediate Arm/leg Verified 01/17/23 14:29 pain simvastatin AdvReac Intermediate Arm/leg Verified 01/17/23 14:29 pain cephalexin [From Keflex] AdvReac Mild Nausea Verified 01/17/23 14:29 aspirin [From Percodan] AdvReac Unknown Unknown Verified 01/17/23 14:29 montelukast [From Singulair] AdvReac Unknown Unknown Verified 01/17/23 14:29 Consultations 01/17/23 15:51 ED Decision to Admit Stat 01/17/23 16:05 Consult General Surgery Stat 01/18/23 18:00 Consult Oncology Routine 01/20/23 09:12 Consult Palliative Care Routine Ordered Studies 01/17/23 11:27 CTA chest dissec wo/w con [CT angio chest dissec wo/w con] Stat Hospital Course (1) Post-operative complication: Post operative hematoma at left anterior upper chest wall port insertion site. This was placed 01/15. Total of now 4 units platelets transfused, as well as 4u PRBCs. Hemoglobin 8.2 this morning and platelet count 49,000. Dressing changes as needed. Appreciate surgery consultation and recommendations. (2) Anemia: Acute blood loss anemia due to hematoma and AML. S/p 4u PRBCs and 4u plts. Serial labs. (3) Neutropenic fever: Initially started on empiric broad spectrum antibiotics consisting of vanc/cefepime, then de-escalated to Levaquin 500mg PO daily which was stopped on January 24. 1 blood culture obtained January 23 growing bacillus organism which appears to be a contaminant. (4) Acute myeloblastic leukemia: recent increase in blasts cells. Patient and family have discussed treatment with Dr Araujo and she does not want induction chemotherapy. Plan is for supportive care with transfusions only, as she had relatively good independence and quality of life with intermittent transfusions before this admission. Continue infection prophylaxis with acyclovir, fluconazole, and resume levaquin upon discharge. Palliative Care asked to see patient to discuss goals of care with regard to blood transfusions and overall treatment plan in line with her reasonable desires, accounting for the irreversible consequences of relapsed leukemia in an 82 yo patient (5) Anxiety and depression: Stable. Continue sertraline (6) GERD (gastroesophageal reflux disease): Stable continue pantoprazole (7) Diabetes: The patient requested a regular diet. Sliding scale insulin coverage as needed. (8) Rheumatoid arthritis: Steroid-dependent. Continue prednisone 15mg daily (9) Thrombocytopenia: Serial labs. Transfuse as necessary. Appreciate hematology consultation and recommendations (10) Bacteremia: Appears to be contaminant Plan Home today, [place] [address], with home health services Total Time Total Time Spent Total Time Spent (In Minutes): 45-minute Discharge Plan Discharge Items Patient Disposition: Home - Home Health Services Reason For Visit: PORT HEMATOMA Discharge Diagnosis: Subcutaneous hematoma and venous access port insertion site left upper anterior chest wall, acute blood loss anemia, neutropenic fever Activity: Resume your previous activity Non-emergency contact: Primary Care Provider and Oncologist Call non-emergency contact if: you have any medication questions and your symptoms worsen Follow-up/Referrals: Agueda Fowler DO [Primary Care Provider] - Diet: Carb Consistent or DM2 Addtl Attending Provider Instructions: Home health services will visit to assist with dressing changes. Metoprolol is new for blood pressure control. Continue magnesium. Use tramadol as needed for pain Pending Studies at Discharge: No Stand-Alone Forms: [employer], Smoking Cessation Medications and DC Order Prescriptions: New tramadol 50 mg Tablet 50 mg PO Q4H PRN (Reason: pain) Qty: 20 0RF magnesium oxide 400 mg (241.3 mg magnesium) Tablet 400 mg PO BID Qty: 60 0RF metoprolol tartrate 25 mg Tablet 25 mg PO BID Qty: 60 0RF Continued metformin 1,000 mg tablet 1,000 mg PO BID Qty: 180 3RF pantoprazole 40 mg tablet,delayed release (DR/EC) 40 mg PO QAM Qty: 180 2RF meclizine 25 mg tablet 25 mg PO TID PRN (Reason: Dizziness) Qty: 90 1RF zafirlukast 20 mg tablet 20 mg PO Q12H Qty: 180 1RF albuterol sulfate 2.5 mg /3 mL (0.083 %) solution for nebulization 5 mg inhalation Q6H PRN (Reason: Shortness Of Breath Or Wheezing) acyclovir 400 mg tablet 400 mg PO BID sumatriptan 5 mg/actuation spray,non-aerosol 10 mg intranasal Q2H PRN (Reason: migraine headache) Qty: 6 1RF Rx Instructions: May repeat the dose once after 2 hour. Maximum dose: 30 mg per 24 hours. alendronate [Fosamax] 70 mg tablet 70 mg PO WEEKLY Qty: 12 3RF Rx Instructions: TAKE THIS MED EVERY THURSDAY MORNING levofloxacin 500 mg tablet 500 mg PO DAILY Rx Instructions: Start Date 12/27/22 - End Date 01/24/23 prednisone 5 mg tablet 15 mg PO DAILY fluconazole [Diflucan] 100 mg Tablet 200 mg PO QAM Qty: 30 3RF Rx Instructions: Start Date 01/13/23 - End Date 01/28/23 sertraline 50 mg tablet 50 mg PO QAM mirabegron 50 mg tablet extended release 24 hr 50 mg PO QAM tramadol 50 mg Tablet 50 mg PO Q6H PRN (Reason: Pain) Discharge Orders: Discharge Order (Routine); Ordered 01/27/23 Ordered By: Anurag Arita Admission Data Admit Date/Time: 01/17/23 15:57 Attending Provider: Anurag Arita Admit Provider: Thiago Cohen Primary Care Provider: Agueda Fowler Other Providers: Thiago Cohen ; Vesta Greenwood ; Dontae Araujo ; Lisa Alva Coding Level of Care Code 52600 INP/OBS DISCH >30 MIN Diagnoses Post-operative complication T81.9XXA Anemia D64.9 Anemia type: bone marrow failure Neutropenic fever D70.9; R50.81 Acute myeloblastic leukemia C92.00 Anxiety and depression F41.9; F32.9 GERD (gastroesophageal reflux disease) K21.9 Diabetes E11.9 Rheumatoid arthritis M06.9 Thrombocytopenia D69.6 Bacteremia R78.81
== END 2023-01-27 16:00 | disposition home health service (06) | DRG 920 ==
LOC: ED 10:22 → 2W 15:57 → SUATTDRO 15:57 → 2W 18:24

== ENCOUNTER 2023-01-31 12:40 | Inpatient (IN) ==
[2023-01-31] MEDS ORDERED: SODIUM CHLORIDE 0.9% 250 ML IV PRN ×2 (13:13→13:48)
--- NOTE | 2023-01-31 13:20 | Emergency Department Note ---
History of Present Illness General Chief complaint: Weakness Stated complaint: WEAKNESS, DIARRHEA X3 DAYS Time Seen by Provider: 01/31/23 13:04 Source: patient, RN notes reviewed and old records reviewed (I did review a note from palliative care as well as hematology/oncology) Mode of arrival: ambulatory Limitations: no limitations History of Present Illness This patient is a 82-year-old female who comes in after feeling generally weak a nd having diarrhea for about the last 3 days. She was just discharged in the hospital about 2 days ago. 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 She may have had a low-grade fever as well. She had a port placed about 10 days ago that is swollen in her chest and continues to bleed and ooze she says. The dressing was changed today. They have been unable to use it because of this. No shortness of breath or chest pain. She had a long discussion with Dr. Anne it was deemed that further chemo would be more detrimental than beneficial and she is presently just on blood product trans fusions ask her about CODE STATUS and she tells me she is DO NOT RESUSCITATE. Home Medications Medication Instructions Recorded Confirmed Type metformin 1,000 mg tablet 1,000 mg PO BID #180 tabs 04/24/22 01/31/23 Rx pantoprazole 40 mg tablet,delayed 40 mg PO QAM #180 tabs 06/06/22 01/31/23 Rx release meclizine 25 mg tablet 25 mg PO TID PRN Dizziness #90 tabs 06/13/22 01/31/23 Rx alendronate 70 mg tablet (Fosamax) 70 mg PO WEEKLY #12 tabs 06/17/22 01/31/23 Rx sumatriptan 5 mg/actuation nasal 10 mg intranasal Q2H PRN migraine 06/17/22 01/31/23 Rx spray headache #6 ea zafirlukast 20 mg tablet 20 mg PO Q12H #180 tabs 07/25/22 01/31/23 Rx acyclovir 400 mg tablet 400 mg PO BID 09/17/22 01/31/23 History albuterol sulfate 2.5 mg/3 mL 5 mg inhalation Q6H PRN Shortness 09/17/22 01/31/23 History (0.083 %) solution for nebulization Of Breath Or Wheezing mirabegron 50 mg tablet,extended 50 mg PO QAM 01/12/23 01/31/23 History release 24 hr sertraline 50 mg tablet 50 mg PO QAM 01/12/23 01/31/23 History prednisone 5 mg tablet 15 mg PO DAILY 01/17/23 01/31/23 History magnesium oxide 400 mg (241.3 mg 400 mg PO BID #60 tabs 01/27/23 01/31/23 Rx magnesium) tablet metoprolol tartrate 25 mg tablet 25 mg PO BID #60 tabs 01/27/23 01/31/23 Rx tramadol 50 mg tablet 50 mg PO Q4H PRN pain #20 tabs 01/27/23 01/31/23 Rx Allergies Allergy/AdvReac Type Severity Reaction Status Date / Time codeine Allergy Severe Vomiting, Verified 01/31/23 15:01 drop in BP meperidine Allergy Severe Vomiting Verified 01/31/23 15:01 morphine Allergy Severe "Drop in Verified 01/31/23 15:01 vital signs", tremors, vomiting oxycodone Allergy Severe "Drop in Verified 01/31/23 15:01 vital signs", tremors, vomiting adhesive Allergy Intermediate "Pulls off Verified 01/31/23 15:01 skin" hydrocodone [From Vicodin] Allergy Intermediate Vomiting, Verified 01/31/23 15:01 tremors nickel Allergy Intermediate Rash Verified 01/31/23 15:01 pravastatin AdvReac Intermediate Arm/leg Verified 01/31/23 15:01 pain simvastatin AdvReac Intermediate Arm/leg Verified 01/31/23 15:01 pain cephalexin [From Keflex] AdvReac Mild Nausea Verified 01/31/23 15:01 aspirin [From Percodan] AdvReac Unknown Unknown Verified 01/31/23 15:01 montelukast [From Singulair] AdvReac Unknown Unknown Verified 01/31/23 15:01 Past Med/Surg History Medical History Allergic rhinitis Anxiety and depression Asthma Chronic sinusitis COVID-19 05/2022 (not hospitalized) Diabetes NIDDM DVT (deep venous thrombosis) LLE (1971), post-op hysterectomy Dyslipidemia GERD (gastroesophageal reflux disease) Hypertension Insomnia Leukemia Dx 03/2022, had 8 months chemo (stopped 11/2022) Migraine No recent issues Nontoxic multinodular goiter Osteopenia Poor venous access Rheumatoid arthritis Sensorineural hearing loss (SNHL) of both ears Urge and stress incontinence Surgical History History of colonoscopy History of esophagogastroduodenoscopy (EGD) History of mandibular surgery to get set for denture placement History of tooth extraction Hx of resection of rib 1989 (just for being too large and causing arm problems, "top two ribs, one on each side") Port-A-Cath in place (01/15/23) Insertion of Access Port with Fluoroscopy(Left) - Barney Hernandez, S/P adenoidectomy S/P carpal tunnel release b/l wrists S/P cataract extraction b/l eyes S/P cholecystectomy S/P foot surgery L foot hammertoe repair S/P hysterectomy S/P medial meniscal repair L knee S/P tonsillectomy S/P trigger finger release R hand Family History Brother Myocardial infarction Heart disease Hypertension Father , age 81 of heart disease Arthritis Heart disease Mother , age 41 Of leukemia Leukemia Breast cancer Ovarian cancer Sister , age 64 Diabetes Brother Throat cancer Liver cirrhosis Denies family history of Prostate cancer Colorectal cancer Social History Smoking Status: Never smoker Age Started Using Tobacco: 21; Age Quit Using Tobacco: 31; Second Hand Exposure: Yes ( smoked, he passed 2009); Do You Dip or Chew Tobacco: No; Hx Alcohol Use: No Hx Substance Use: No Preferred Language: Polish Communication Ability: Effective Visual Impairment: Limited Hearing Ability: Normal [employer] Required: No Beliefs That Will Affect Care: None marital status: / Current Living Situation: Family Current Living Situation Comment: Granddaughter and family is always visiting 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63, 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 [employer] Feels Safe at Home: Yes Childhood Exposure to Second-Hand Smoke: Yes Diet: regular Diet Comment: regular caffeine: Yes (6 -8 cups coffee a day half caffeine ) during the past year weight has: remained stable Dental Care, Regularly: No Physical Activity Frequency: Daily Seatbelt Use: always Sunscreen Use: Yes Assistive Devices: Cane and Walker Review of Systems A total of 10 systems reviewed and were otherwise negative Physical Exam Vital Signs Vital Signs - 24 hr 01/31/23 12:50 01/31/23 12:57 01/31/23 13:30 Temperature 37 C Temperature Source Oral Pulse Rate 109 H 109 H 107 H Respiratory Rate 15 18 Respiratory Effort / Characteristics Non-Labored Respiratory Depth Normal Blood Pressure 129/71 138/82 Blood Pressure Mean 90 100 Pulse Oximetry 95 94 Oxygen Delivery Method Room Air Room Air Oxygen Flow Rate Sepsis Recent Fever Within 48 Hours No Sepsis New/Unexplained Change in Mental Status N/A Sepsis Action Taken by Nursing No Action Required 01/31/23 14:00 01/31/23 14:30 01/31/23 15:02 Temperature 37.1 C Temperature Source Oral Pulse Rate 106 H 103 H 97 H Respiratory Rate 20 20 22 Respiratory Effort / Characteristics Respiratory Depth Blood Pressure 118/70 138/64 135/61 Blood Pressure Mean 86 88 85 Pulse Oximetry 94 96 96 Oxygen Delivery Method Room Air Room Air Oxygen Flow Rate 0 Sepsis Recent Fever Within 48 Hours Sepsis New/Unexplained Change in Mental Status Sepsis Action Taken by Nursing 01/31/23 15:00 01/31/23 15:29 Temperature 37.2 C Temperature Source Oral Pulse Rate 100 H 103 H Respiratory Rate 20 24 Respiratory Effort / Characteristics Respiratory Depth Blood Pressure 138/64 136/71 Blood Pressure Mean 88 92 Pulse Oximetry 96 96 Oxygen Delivery Method Room Air Oxygen Flow Rate Sepsis Recent Fever Within 48 Hours Sepsis New/Unexplained Change in Mental Status Sepsis Action Taken by Nursing General: Well developed well nourished older female who appears in no acute distress, breathing comfortably on room air. Normal speech HEENT: Normal cephalic atraumatic. Pupils are equal round and reactive to light. Sclera anicteric. Extraocular movements are intact. Oropharynx is pink with moist mucous membranes. No swelling of the mouth lips or tongue. Neck: Supple with a midline trachea. No meningeal signs or stiffness, no JVD or bruits. No Stridor. Chest: Clear to auscultation bilaterally. No wheezes or rhonchi. No increased work of breathing. She has a large hematoma in the left chest which has a fresh dressing on it and was changed this morning and observed by home nursing Heart: Regular rate and rhythm without murmurs or gallops. Abdomen: Soft nontender, nondistended without rebound guarding or rigidity. Extremities: No cyanosis clubbing or edema. No calf tenderness or assymetry Spine/Back. Non tender to palpation. No CVA tenderness Skin: Good turgor without rashes. Multiple bruises Neurologic exam: Cranial nerves two through 12 are intact. Motor and sensation are intact and symmetrical throughout. Course Administered Medications Discontinued Medications Diphenhydramine HCl (Diphenhydramine 50 Mg/Ml Vial) 12.5 mg IV NOW STA Stop: 01/31/23 14:07 Last Admin: 01/31/23 14:13 Dose: 12.5 mg Documented By: MARCUS Sodium Chloride (Nss) 1,000 mls @ 999 mls/hr IV .Q1H1M ONE Stop: 01/31/23 15:01 Last Infusion: 01/31/23 15:05 Dose: 0 mls/hr Documented By: Admin: 01/31/23 14:05 Dose: 999 mls/hr Documented By: MARCUS Ondansetron HCl (Ondansetron Inj 2 Mg/Ml 2 Ml Vial) 4 mg IV NOW STA Stop: 01/31/23 14:07 Last Admin: 01/31/23 14:14 Dose: 4 mg Documented By: JULIA Medical Decision Making Differential Diagnosis Anemia, thrombocytopenia, sepsis, dehydration, C. difficile, electrolyte or metabolic abnormality, leukemia complication Medical Records Attestation: I reviewed the patient's medical records. Home Medications Current Medication List: was personally reviewed by me Laboratory Data Attestation: I reviewed the patient's lab results. 01/31/23 13:19 01/31/23 13:19 Lab Results 01/31/23 01/31/23 01/31/23 Range/Units 13:17 13:19 13:19 WBC 84.72 H* (4.8-10.8) K/ul RBC 2.83 L (4.20-5.40) M/uL Hgb 7.9 L (12.0-16.0) g/dl POC Hgb (12.0-16.0) g/dl Hct 23.9 L (37.0-47.0) % POC Hct (37-47) % MCV 84.5 (80.0-100.0) fL MCH 27.9 (25.0-34.0) pg MCHC 33.1 (32.0-36.0) g/dL RDW Std Deviation 49.7 H (36.4-46.3) fL RDW Coeff of [place] 16.1 H (11.5-14.5) % Plt Count 12 L* (130-400) K/uL MPV 8.6 L (9.4-12.4) fL Absolute Nucleated RBC 0.87 H (0.00-0.12) K/uL Nucleated RBC % (auto) 1.0 % Neutrophils % (Manual) 0 % Lymphocytes % (Manual) 1 % Myelocytes % (Man) 1 % Blast Cells % (Manual) 98 % Neutrophils # (Manual) 0.00 L (1.40-6.50) K/uL Total Absolute Neuts 0.00 L* (1.4-6.5) K/uL Lymphocytes # (Manual) 0.85 L (1.2-3.4) K/uL Total Abs Lymphocytes 0.85 L (1.2-3.4) K/uL Myelocytes # (Manual) 0.85 H (0-0) K/uL Blast Cells # (Man) 83.03 H (0-0) K/uL POC Sodium (135-144) mmol/L Sodium 135 L (136-145) mmol/L POC Potassium (3.3-5.0) mmol/L Potassium 3.4 L (3.5-5.1) mmol/L POC Chloride (101-112) mmol/L Chloride 103 (98-107) mmol/L Carbon Dioxide 24 (21-32) mmol/L POC Total CO2 (24-31) mmol/L Anion Gap 8 (3-11) POC Anion Gap (16-25) mmol/L POC BUN (7-18) mg/dl BUN 10 (6-23) mg/dl Creatinine 0.48 L (0.6-1.2) mg/dl POC Creatinine (0.6-1.3) mg/dl Est Cr Clr Drug Dosing 83.9 ml/min Est GFR ( Amer) 106.6 ml/min Est GFR (Non-Af Amer) 92.0 ml/min BUN/Creatinine Ratio 20.8 H (10-20) Glucose 123 H (70-99(Fasting)) mg/dl POC Glucose (other) (70-99) mg/dl Lactate (0.4-2.0) mmol/L Calcium 8.6 (8.6-10.3) mg/dl POC Ioniz Calcium Elana (1.12-1.32) mmol/l Magnesium 1.9 (1.7-2.4) mg/dl Total Bilirubin 1.2 H (0.2-1.0) mg/dl Direct Bilirubin 0.3 H (0-0.2) mg/dl AST 17 (13-39) U/L ALT 13 (7-52) U/L Alkaline Phosphatase 95 (34-104) U/L Total Protein 6.2 (6.0-8.3) gm/dl Albumin 3.5 (3.4-5.0) gm/dl Procalcitonin (0-0.5) ng/ml Urine Color Urine Appearance (Clear) Urine pH (4.5-7.5) Ur Specific [place] (1.000-1.030) Urine Protein (Negative) Urine Glucose (UA) (Negative) Urine Ketones (Negative) Urine Blood (Negative) Urine Nitrite (Negative) Urine Bilirubin (Negative) Urine Urobilinogen (Negative) Ur Leukocyte Esterase (Negative) Urine WBC (Auto) (0-5) /hpf Urine RBC (Auto) (0-4) /hpf U Hyaline Cast (Auto) (0-5) /lpf U Epithel Cells (Auto) (0-5) /lpf Urine Bacteria (Auto) (Negative) Blood Type O Negative Antibody Screen NEGATIVE Crossmatch See Detail 01/31/23 01/31/23 01/31/23 Range/Units 13:19 13:19 13:27 WBC (4.8-10.8) K/ul RBC (4.20-5.40) M/uL Hgb (12.0-16.0) g/dl POC Hgb 9.2 L (12.0-16.0) g/dl Hct (37.0-47.0) % POC Hct 27 L (37-47) % MCV (80.0-100.0) fL MCH (25.0-34.0) pg MCHC (32.0-36.0) g/dL RDW Std Deviation (36.4-46.3) fL RDW Coeff of [place] (11.5-14.5) % Plt Count (130-400) K/uL MPV (9.4-12.4) fL Absolute Nucleated RBC (0.00-0.12) K/uL Nucleated RBC % (auto) % Neutrophils % (Manual) % Lymphocytes % (Manual) % Myelocytes % (Man) % Blast Cells % (Manual) % Neutrophils # (Manual) (1.40-6.50) K/uL Total Absolute Neuts (1.4-6.5) K/uL Lymphocytes # (Manual) (1.2-3.4) K/uL Total Abs Lymphocytes (1.2-3.4) K/uL Myelocytes # (Manual) (0-0) K/uL Blast Cells # (Man) (0-0) K/uL POC Sodium 136 (135-144) mmol/L Sodium (136-145) mmol/L POC Potassium 3.4 (3.3-5.0) mmol/L Potassium (3.5-5.1) mmol/L POC Chloride 102 (101-112) mmol/L Chloride (98-107) mmol/L Carbon Dioxide (21-32) mmol/L POC Total CO2 22 L (24-31) mmol/L Anion Gap (3-11) POC Anion Gap 16.0 (16-25) mmol/L POC BUN 7 (7-18) mg/dl BUN (6-23) mg/dl Creatinine (0.6-1.2) mg/dl POC Creatinine 0.4 L (0.6-1.3) mg/dl Est Cr Clr Drug Dosing ml/min Est GFR ( Amer) ml/min Est GFR (Non-Af Amer) ml/min BUN/Creatinine Ratio (10-20) Glucose (70-99(Fasting)) mg/dl POC Glucose (other) 122 H (70-99) mg/dl Lactate 0.8 (0.4-2.0) mmol/L Calcium (8.6-10.3) mg/dl POC Ioniz Calcium Elana 1.13 (1.12-1.32) mmol/l Magnesium (1.7-2.4) mg/dl Total Bilirubin (0.2-1.0) mg/dl Direct Bilirubin (0-0.2) mg/dl AST (13-39) U/L ALT (7-52) U/L Alkaline Phosphatase (34-104) U/L Total Protein (6.0-8.3) gm/dl Albumin (3.4-5.0) gm/dl Procalcitonin 0.29 (0-0.5) ng/ml Urine Color Urine Appearance (Clear) Urine pH (4.5-7.5) Ur Specific [place] (1.000-1.030) Urine Protein (Negative) Urine Glucose (UA) (Negative) Urine Ketones (Negative) Urine Blood (Negative) Urine Nitrite (Negative) Urine Bilirubin (Negative) Urine Urobilinogen (Negative) Ur Leukocyte Esterase (Negative) Urine WBC (Auto) (0-5) /hpf Urine RBC (Auto) (0-4) /hpf U Hyaline Cast (Auto) (0-5) /lpf U Epithel Cells (Auto) (0-5) /lpf Urine Bacteria (Auto) (Negative) Blood Type Antibody Screen Crossmatch 01/31/23 Range/Units 14:03 WBC (4.8-10.8) K/ul RBC (4.20-5.40) M/uL Hgb (12.0-16.0) g/dl POC Hgb (12.0-16.0) g/dl Hct (37.0-47.0) % POC Hct (37-47) % MCV (80.0-100.0) fL MCH (25.0-34.0) pg MCHC (32.0-36.0) g/dL RDW Std Deviation (36.4-46.3) fL RDW Coeff of [place] (11.5-14.5) % Plt Count (130-400) K/uL MPV (9.4-12.4) fL Absolute Nucleated RBC (0.00-0.12) K/uL Nucleated RBC % (auto) % Neutrophils % (Manual) % Lymphocytes % (Manual) % Myelocytes % (Man) % Blast Cells % (Manual) % Neutrophils # (Manual) (1.40-6.50) K/uL Total Absolute Neuts (1.4-6.5) K/uL Lymphocytes # (Manual) (1.2-3.4) K/uL Total Abs Lymphocytes (1.2-3.4) K/uL Myelocytes # (Manual) (0-0) K/uL Blast Cells # (Man) (0-0) K/uL POC Sodium (135-144) mmol/L Sodium (136-145) mmol/L POC Potassium (3.3-5.0) mmol/L Potassium (3.5-5.1) mmol/L POC Chloride (101-112) mmol/L Chloride (98-107) mmol/L Carbon Dioxide (21-32) mmol/L POC Total CO2 (24-31) mmol/L Anion Gap (3-11) POC Anion Gap (16-25) mmol/L POC BUN (7-18) mg/dl BUN (6-23) mg/dl Creatinine (0.6-1.2) mg/dl POC Creatinine (0.6-1.3) mg/dl Est Cr Clr Drug Dosing ml/min Est GFR ( Amer) ml/min Est GFR (Non-Af Amer) ml/min BUN/Creatinine Ratio (10-20) Glucose (70-99(Fasting)) mg/dl POC Glucose (other) (70-99) mg/dl Lactate (0.4-2.0) mmol/L Calcium (8.6-10.3) mg/dl POC Ioniz Calcium [place] (1.12-1.32) mmol/l Magnesium (1.7-2.4) mg/dl Total Bilirubin (0.2-1.0) mg/dl Direct Bilirubin (0-0.2) mg/dl AST (13-39) U/L ALT (7-52) U/L Alkaline Phosphatase (34-104) U/L Total Protein (6.0-8.3) gm/dl Albumin (3.4-5.0) gm/dl Procalcitonin (0-0.5) ng/ml Urine Color Yellow Urine Appearance Clear (Clear) Urine pH 6.5 (4.5-7.5) Ur Specific [place] 1.009 (1.000-1.030) Urine Protein Negative (Negative) Urine Glucose (UA) Negative (Negative) Urine Ketones Negative (Negative) Urine Blood 3+ H (Negative) Urine Nitrite Negative (Negative) Urine Bilirubin Negative (Negative) Urine Urobilinogen Negative (Negative) Ur Leukocyte Esterase Negative (Negative) Urine WBC (Auto) 1-5 (0-5) /hpf Urine RBC (Auto) 10-30 H (0-4) /hpf U Hyaline Cast (Auto) 0 (0-5) /lpf U Epithel Cells (Auto) 5-10 H (0-5) /lpf Urine Bacteria (Auto) Negative (Negative) Blood Type Antibody Screen Crossmatch Imaging Data Attestation: I personally reviewed and interpreted this imaging study as follows: My Impression: Chest x-rayno acute infiltrate, failure, pneumothorax seen Radiologist's Impression: Chest X-Ray 01/31/23 13:14 SINGLE VIEW CHEST CLINICAL HISTORY: Sepsis. FINDINGS: An AP, portable, upright chest radiograph is compared to chest x-ray and chest CT dated 01/17/2023. A left subclavian central venous infusion port is unchanged in position. The cardiomediastinal silhouette is unremarkable noting atherosclerotic calcification of the thoracic aorta. There is chronic elevation of the left hemidiaphragm with bibasilar scarring/atelectasis. No airspace consolidation or large pleural effusion is identified. No pneumothorax is seen. The skeletal structures are osteopenic. The bony thorax is grossly intact. IMPRESSION: No active disease in the chest. ACT 112: Negative or not required by law. Electronically signed by: Saji Kennedy M.D. 01/31/2023 2:06 PM ECG Data Attestation: I personally reviewed and interpreted this ECG as follows: Indication: + weakness Rate (beats per minute): 108 Rhythm: + sinus tachycardia ECG Intervals/blocks: + Normal QRS, + Normal QT and + Normal TN ECG [place]: + Normal ECG ST segments: + Normal ST segments ECG Findings: no PACs or no PVCs Comparison ECG Date: from (01/17/23) Change: no significant change MDM Narrative This patient comes in as described above. She was placed on a cafeteria monitor in room C10. She is here for treatment and evaluation of weakness and diarrhea she also has an ongoing issue with hematoma in her chest and AML which is being treated with transfusions. We did order peripheral access as well as multiple blood testing including blood cultures and lactic acid. She was noted to be mildly tachycardic but normotensive. She is afebrile here. I did a full sepsis type work-up. she was also typed and crossed in the event that she would need blood which I thought was likely. Her hemoglobin came back 7.9 which is about where she typically runs. Her platelets came back low at 14 and she has ongoing bleeding with her the large hematoma around port she says in light of this I did order for platelet transfusion. The patient was consented and freely consented after explained the risk and benefits. Her white count continues to be elevated which is most likely related to leukemia however it could also be related to infection. Her lactic acid is normal. She was given IV fluid bolus 1 L. She was also given Zofran 4 mg IV and this was given for nausea. She complained that she was itching and was given Benadryl 12.5 mg IV. She will be admitted for further treatment and evaluation and blood products. I did not give her antibiotics at this point as she is afebrile and has a normal lactic acid add itionally she has diarrhea may be more of a C. difficile picture. She has been cultured. I did consult Dr. Cohen and he saw her in the ER for these measures. I also discussed CODE STATUS with the patient and she confirms that she is a DO NOT RESUSCITATE. Continuous cardiac monitoring: Orders placed in EMR for continuous cardiac monitoring: Upon my evaluation patient to be in sinus tachycardia with rate of 100 Impression & Plan Weakness, Anemia, Thrombocytopenia, Acute myeloblastic leukemia, Port-A-Cath in place, Post-operative complication Discharge Plan Visit Data Chief Complaint: Weakness Stated Complaint: WEAKNESS, DIARRHEA X3 DAYS ED Provider: Srinivas Garzon Discharge Problem: Weakness, Anemia, Thrombocytopenia, Acute myeloblastic leukemia, Port-A-Cath in place, Post-operative complication Forms Stand Alone Forms: My [facility] Prescriptions Prescriptions: No Action metformin 1,000 mg tablet 1,000 mg PO BID Qty: 180 3RF pantoprazole 40 mg tablet,delayed release (DR/EC) 40 mg PO QAM Qty: 180 2RF meclizine 25 mg tablet 25 mg PO TID PRN (Reason: Dizziness) Qty: 90 1RF zafirlukast 20 mg tablet 20 mg PO Q12H Qty: 180 1RF albuterol sulfate 2.5 mg /3 mL (0.083 %) solution for nebulization 5 mg inhalation Q6H PRN (Reason: Shortness Of Breath Or Wheezing) acyclovir 400 mg tablet 400 mg PO BID sumatriptan 5 mg/actuation spray,non-aerosol 10 mg intranasal Q2H PRN (Reason: migraine headache) Qty: 6 1RF Rx Instructions: May repeat the dose once after 2 hour. Maximum dose: 30 mg per 24 hours. alendronate [Fosamax] 70 mg tablet 70 mg PO WEEKLY Qty: 12 3RF Rx Instructions: TAKE THIS MED EVERY THURSDAY MORNING prednisone 5 mg tablet 15 mg PO DAILY tramadol 50 mg Tablet 50 mg PO Q4H PRN (Reason: pain) Qty: 20 0RF magnesium oxide 400 mg (241.3 mg magnesium) Tablet 400 mg PO BID Qty: 60 0RF metoprolol tartrate 25 mg Tablet 25 mg PO BID Qty: 60 0RF sertraline 50 mg tablet 50 mg PO QAM mirabegron 50 mg tablet extended release 24 hr 50 mg PO QAM Referrals Referrals: Agueda Fowler DO [Primary Care Provider] -
[2023-01-31 13:41] LABS: iSTAT Creatinine 0.4 mg/dl (0.6-1.3); iSTAT Hemoglobin 9.2 g/dl (12.0-16.0); iSTAT Ionized Calcium 1.13 mmol/l (1.12-1.32); iSTAT Potassium 3.4 mmol/L (3.3-5.0)
[2023-01-31] MEDS ORDERED: SODIUM CHLORIDE 0.9% 1,000 ML IV ONE (14:01)
[2023-01-31 14:04] LABS: Albumin Level 3.5 gm/dl (3.4-5.0); BUN Creatinine Ratio 20.8 (10-20); Bilirubin Direct 0.3 mg/dl (0-0.2); Bilirubin,Total 1.2 mg/dl (0.2-1.0); Calcium 8.6 mg/dl (8.6-10.3); Creatinine Clr Calc Pharmacy 83.9 ml/min; Est GFR (African American) 106.6 ml/min; Magnesium 1.9 mg/dl (1.7-2.4); Potassium 3.4 mmol/L (3.5-5.1); Total Protein 6.2 gm/dl (6.0-8.3)
[2023-01-31] MEDS ORDERED: diphenhydrAMINE 50 MG/ML VIAL IV STA (14:06)
[2023-01-31] MEDS ORDERED: ONDANSETRON INJ 2 MG/ML 2 ML VIAL IV STA (14:06)
--- NOTE | 2023-01-31 14:08 | XRay Report ---
SINGLE VIEW CHEST CLINICAL HISTORY: Sepsis. FINDINGS: An AP, portable, upright chest radiograph is compared to chest x-ray and chest CT dated 12/24. A left subclavian central venous infusion port is unchanged in position. The cardiomediastina l silhouette is unremarkable noting atherosclerotic calcification of the thoracic aorta. There is chr onic elevation of the left hemidiaphragm with bibasilar scarring/atelectasis. No airspace consolidati on or large pleural effusion is identified. No pneumothorax is seen. The skeletal structures are oste openic. The bony thorax is grossly intact. IMPRESSION: No active disease in the chest. ACT 112: Negative or not required by law. Electronically signed by: Saji Kennedy M.D. 01/31/2023 2:06 PM
[2023-01-31 14:14] LABS: Hematocrit (blood only) 23.9 % (37.0-47.0); Hemoglobin 7.9 g/dl (12.0-16.0); Mean Corpuscular Hemoglobin 27.9 pg (25.0-34.0); Mean Corpuscular Hgb Conc 33.1 g/dL (32.0-36.0); Mean Corpuscular Volume 84.5 fL (80.0-100.0); Nucleated RBC # (auto) 0.87 K/uL (0.00-0.12); RDW Coefficient of Variation 16.1 % (11.5-14.5); RDW Standard Deviation 49.7 fL (36.4-46.3); Red Blood Count 2.83 M/uL (4.20-5.40)
[2023-01-31 14:22] LABS: ALC (manual) 0.85 K/uL (1.2-3.4); Blast # (manual) 83.03 K/uL (0-0); Blast Cells % (manual) 98 %; Lymphocytes # (manual) 0.85 K/uL (1.2-3.4); Lymphocytes % (manual) 1 %; Mean Platelet Volume 8.6 fL (9.4-12.4); Myelocytes # (manual) 0.85 K/uL (0-0); Myelocytes % (manual) 1 %; Neutrophils % (manual) 0 %; Platelet Count 12 K/uL (130-400); White Blood Count 84.72 K/ul (4.8-10.8)
[2023-01-31 14:49] LABS: Appearance Urine Clear (Clear); Bacteria Urine Automated Negative (Negative); Bilirubin Urine Negative (Negative); Blood Urine 3+ (Negative); Cast Urine Automated 0 /lpf (0-5); Color Urine Yellow; Glucose Urine UA Negative (Negative); Ketones Urine Negative (Negative); Leukocyte Esterase Urine Negative (Negative); Nitrite Urine Negative (Negative); Protein Urine Negative (Negative); Specific Gravity Urine 1.009 (1.000-1.030); Urobilinogen Urine Negative (Negative); pH Urine 6.5 (4.5-7.5)
--- NOTE | 2023-01-31 15:09 | History & Physical Report ---
Date of Service January 31, 2023 Assessment & Plan (1) Diarrhea: Plan: Main new symptom although no increase in frequency having loose mucus stool is new. Will get CT A/P to assess for Typhilitis given 0 neutrophils however no abdominal pain on exam. Stool and c. diff PCR (2) Thrombocytopenia: Plan: Transfusion threshold < 30 unless, if Hgb dropping transfuse < 50 (3) Anemia requiring transfusions: Plan: Transfuse for Hgb < 7 (4) Neutropenia: Plan: Neutropenic isolation precautions (5) Acute myeloblastic leukemia: Plan: Untreated per oncology recommendations (6) Chest wall hematoma: Plan: She reports stable since last discharge although enlarged since I last admitted her Will consult surgery for ongoing management (7) Anxiety and depression: Plan: Continue sertraline 50mg PO daily (8) GERD (gastroesophageal reflux disease): Plan: Continue pantoprazole (9) Generalized weakness: Plan: PT/OT (10) Diabetes: Plan: Hold metformin given diarrhea Plan VTE Prophylaxis - chemical contraindicated Diet - regular Disposition - admit to med/surg Admission and Anticipated Discharge Date Admission Date: January 31, 2023 History of Present Illness Chief Complaint: Diarrhea, generalized weakness Primary Care Provider: Agueda Fowler DO Pam Mai is an 82 year old female with untreated and progressive acute myeloid leukemia with recent chest wall hematoma following port placement who presents to the ER via EMS with generalized weakness and diarrhea for the last three days. She reports having three bowel movements in the morning which is not unusual for her however they have been more mucous. No watery stool, hematochezia, melena, abdominal pain, nausea or vomiting. She notes associated generalized weakness. No change in vision, hearing or speech. No one sided weakness or loss of sensation. Allergies Allergy/AdvReac Type Severity Reaction Status Date / Time codeine Allergy Severe Vomiting, Verified 01/31/23 15:01 drop in BP meperidine Allergy Severe Vomiting Verified 01/31/23 15:01 morphine Allergy Severe "Drop in Verified 01/31/23 15:01 vital signs", tremors, vomiting oxycodone Allergy Severe "Drop in Verified 01/31/23 15:01 vital signs", tremors, vomiting adhesive Allergy Intermediate "Pulls off Verified 01/31/23 15:01 skin" hydrocodone [From Vicodin] Allergy Intermediate Vomiting, Verified 01/31/23 15:01 tremors nickel Allergy Intermediate Rash Verified 01/31/23 15:01 pravastatin AdvReac Intermediate Arm/leg Verified 01/31/23 15:01 pain simvastatin AdvReac Intermediate Arm/leg Verified 01/31/23 15:01 pain cephalexin [From Keflex] AdvReac Mild Nausea Verified 01/31/23 15:01 aspirin [From Percodan] AdvReac Unknown Unknown Verified 01/31/23 15:01 montelukast [From Singulair] AdvReac Unknown Unknown Verified 01/31/23 15:01 Home Medications Medication Instructions Recorded Confirmed Type metformin 1,000 mg tablet 1,000 mg PO BID #180 tabs 04/24/22 01/31/23 Rx pantoprazole 40 mg tablet,delayed 40 mg PO QAM #180 tabs 06/06/22 01/31/23 Rx release meclizine 25 mg tablet 25 mg PO TID PRN Dizziness #90 tabs 06/13/22 01/31/23 Rx alendronate 70 mg tablet (Fosamax) 70 mg PO WEEKLY #12 tabs 06/17/22 01/31/23 Rx sumatriptan 5 mg/actuation nasal 10 mg intranasal Q2H PRN migraine 06/17/22 01/31/23 Rx spray headache #6 ea zafirlukast 20 mg tablet 20 mg PO Q12H #180 tabs 07/25/22 01/31/23 Rx acyclovir 400 mg tablet 400 mg PO BID 09/17/22 01/31/23 History albuterol sulfate 2.5 mg/3 mL 5 mg inhalation Q6H PRN Shortness 09/17/22 01/31/23 History (0.083 %) solution for nebulization Of Breath Or Wheezing mirabegron 50 mg tablet,extended 50 mg PO QAM 01/12/23 01/31/23 History release 24 hr sertraline 50 mg tablet 50 mg PO QAM 01/12/23 01/31/23 History prednisone 5 mg tablet 15 mg PO DAILY 01/17/23 01/31/23 History magnesium oxide 400 mg (241.3 mg 400 mg PO BID #60 tabs 01/27/23 01/31/23 Rx magnesium) tablet metoprolol tartrate 25 mg tablet 25 mg PO BID #60 tabs 01/27/23 01/31/23 Rx tramadol 50 mg tablet 50 mg PO Q4H PRN pain #20 tabs 01/27/23 01/31/23 Rx Past Med/Surg History Medical History Allergic rhinitis Anxiety and depression Asthma Chronic sinusitis COVID-19 05/2022 (not hospitalized) Diabetes NIDDM DVT (deep venous thrombosis) LLE (1971), post-op hysterectomy Dyslipidemia GERD (gastroesophageal reflux disease) Hypertension Insomnia Leukemia Dx 03/2022, had 8 months chemo (stopped 11/2022) Migraine No recent issues Nontoxic multinodular goiter Osteopenia Poor venous access Rheumatoid arthritis Sensorineural hearing loss (SNHL) of both ears Urge and stress incontinence Surgical History History of colonoscopy History of esophagogastroduodenoscopy (EGD) History of mandibular surgery to get set for denture placement History of tooth extraction Hx of resection of rib 1989 (just for being too large and causing arm problems, "top two ribs, one on each side") Port-A-Cath in place (01/15/23) Insertion of Access Port with Fluoroscopy(Left) - Barney Hernandez, S/P adenoidectomy S/P carpal tunnel release b/l wrists S/P cataract extraction b/l eyes S/P cholecystectomy S/P foot surgery L foot hammertoe repair S/P hysterectomy S/P medial meniscal repair L knee S/P tonsillectomy S/P trigger finger release R hand Family History Brother Myocardial infarction Heart disease Hypertension Father , age 81 of heart disease Arthritis Heart disease Mother , age 41 Of leukemia Leukemia Breast cancer Ovarian cancer Sister , age 64 Diabetes Brother Throat cancer Liver cirrhosis Denies family history of Prostate cancer Colorectal cancer Social History Smoking Status: Never smoker Age Started Using Tobacco: 21; Age Quit Using Tobacco: 31; Second Hand Exposure: Yes ( smoked, he passed 2009); Do You Dip or Chew Tobacco: No; Hx Alcohol Use: No Hx Substance Use: No Preferred Language: Nicaraguan Communication Ability: Effective Visual Impairment: Limited Hearing Ability: Normal Sales Counselor Required: No Beliefs That Will Affect Care: None marital status: / Current Living Situation: Family Current Living Situation Comment: Granddaughter and family is always visiting 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63, [employer] Feels Safe at Home: Yes Childhood Exposure to Second-Hand Smoke: Yes Diet: regular Diet Comment: regular caffeine: Yes (6 -8 cups coffee a day half caffeine ) during the past year weight has: remained stable Dental Care, Regularly: No Physical Activity Frequency: Daily Seatbelt Use: always Sunscreen Use: Yes Assistive Devices: Cane and Walker Review of Systems Review of Systems: All systems reviewed & are unremarkable except as noted in HPI & below Physical Exam Constitutional: well developed; + not well nourished and no acute distress Eyes: PERRL, conjunctivae normal, anicteric sclerae Respiratory: normal respiratory effort, lungs clear to auscultation Cardiovascular: RRR, no murmur, no edema Gastrointestinal (Abdomen): normal bowel sounds, soft, nontender, no hepatosplenomegaly Skin: Petechiae on legs Pressure dressing clean/dry/intact over left chest wall Psychiatric: A+Ox3, euthymic affect Results & Data Results & Data Vital Signs (Past 12 Hours) Vital Signs Temp Pulse Resp BP Pulse Ox O2 Del Method 01/31/23 14:30 103 H 20 138/64 96 Room Air 01/31/23 14:00 106 H 20 118/70 94 Room Air 01/31/23 13:30 107 H 18 138/82 94 Room Air 01/31/23 12:57 37 C 109 H 15 129/71 95 Room Air 01/31/23 12:50 109 H Laboratory Results Abnormal lab results 01/31/23 01/31/23 01/31/23 Range/Units 13:17 13:19 13:19 WBC 84.72 H* (4.8-10.8) K/ul RBC 2.83 L (4.20-5.40) M/uL Hgb 7.9 L (12.0-16.0) g/dl POC Hgb (12.0-16.0) g/dl Hct 23.9 L (37.0-47.0) % POC Hct (37-47) % RDW Std Deviation 49.7 H (36.4-46.3) fL RDW Coeff of [place] 16.1 H (11.5-14.5) % Plt Count 12 L* (130-400) K/uL MPV 8.6 L (9.4-12.4) fL Absolute Nucleated RBC 0.87 H (0.00-0.12) K/uL Neutrophils # (Manual) 0.00 L (1.40-6.50) K/uL Total Absolute Neuts 0.00 L* (1.4-6.5) K/uL Lymphocytes # (Manual) 0.85 L (1.2-3.4) K/uL Total Abs Lymphocytes 0.85 L (1.2-3.4) K/uL Myelocytes # (Manual) 0.85 H (0-0) K/uL Blast Cells # (Man) 83.03 H (0-0) K/uL Sodium 135 L (136-145) mmol/L Potassium 3.4 L (3.5-5.1) mmol/L POC Total CO2 (24-31) mmol/L Creatinine 0.48 L (0.6-1.2) mg/dl POC Creatinine (0.6-1.3) mg/dl BUN/Creatinine Ratio 20.8 H (10-20) Glucose 123 H (70-99(Fasting)) mg/dl POC Glucose (other) (70-99) mg/dl Total Bilirubin 1.2 H (0.2-1.0) mg/dl Direct Bilirubin 0.3 H (0-0.2) mg/dl Urine Blood (Negative) Urine RBC (Auto) (0-4) /hpf U Epithel Cells (Auto) (0-5) /lpf Crossmatch See Detail 01/31/23 01/31/23 Range/Units 13:27 14:03 WBC (4.8-10.8) K/ul RBC (4.20-5.40) M/uL Hgb (12.0-16.0) g/dl POC Hgb 9.2 L (12.0-16.0) g/dl Hct (37.0-47.0) % POC Hct 27 L (37-47) % RDW Std Deviation (36.4-46.3) fL RDW Coeff of [place] (11.5-14.5) % Plt Count (130-400) K/uL MPV (9.4-12.4) fL Absolute Nucleated RBC (0.00-0.12) K/uL Neutrophils # (Manual) (1.40-6.50) K/uL Total Absolute Neuts (1.4-6.5) K/uL Lymphocytes # (Manual) (1.2-3.4) K/uL Total Abs Lymphocytes (1.2-3.4) K/uL Myelocytes # (Manual) (0-0) K/uL Blast Cells # (Man) (0-0) K/uL Sodium (136-145) mmol/L Potassium (3.5-5.1) mmol/L POC Total CO2 22 L (24-31) mmol/L Creatinine (0.6-1.2) mg/dl POC Creatinine 0.4 L (0.6-1.3) mg/dl BUN/Creatinine Ratio (10-20) Glucose (70-99(Fasting)) mg/dl POC Glucose (other) 122 H (70-99) mg/dl Total Bilirubin (0.2-1.0) mg/dl Direct Bilirubin (0-0.2) mg/dl Urine Blood 3+ H (Negative) Urine RBC (Auto) 10-30 H (0-4) /hpf U Epithel Cells (Auto) 5-10 H (0-5) /lpf Crossmatch Diagnostic Findings SINGLE VIEW CHEST CLINICAL HISTORY: Sepsis. FINDINGS: An AP, portable, upright chest radiograph is compared to chest x-ray and chest CT dated 01/17/2023. A left subclavian central venous infusion port is unchanged in position. The cardiomediastinal silhouette is unremarkable noting atherosclerotic calcification of the thoracic aorta. There is chronic elevation of the left hemidiaphragm with bibasilar scarring/atelectasis. No airspace consolidation or large pleural effusion is identified. No pneumothorax is seen. The skeletal structures are osteopenic. The bony thorax is grossly intact. IMPRESSION: No active disease in the chest. Medications Administered ER Medications Given: Normal saline 1000ml bolus Ondansetron 4mg IV Diphenhydramine 12.5mg IV ECG Rate (beats per minute): 108 Rhythm: sinus tachycardia Findings: no acute ischemic change Comparison ECG Date: from (January 17, 2023) Change: no significant change Code Status & VTE Plan Code Status DNR/DNI VTE Prophylaxis Plan VTE Prophylaxis will be ordered: No Reason for no VTE drug order: Contraindicated PG Care Time/CCT Total # of Minutes Spent Total Time Spent with Patient: Total time spent is greater than 50% in coordination of care (as documented) at patient's floor/unit and/or counseling patient: Coding Level of Care Code 87390 INT INP/OBS CARE 2/55MIN Diagnoses Diarrhea R19.7 Thrombocytopenia D69.6 Anemia requiring transfusions D64.9 Neutropenia D70.9 Acute myeloblastic leukemia C92.00 Chest wall hematoma S20.219A Anxiety and depression F41.9; F32.9 GERD (gastroesophageal reflux disease) K21.9 Generalized weakness R53.1 Diabetes E11.9
[2023-01-31] MEDS ORDERED: OPTIRAY 320 100ml IV ONE (16:04)
--- NOTE | 2023-01-31 16:38 | CT Scan Report ---
CT SCAN OF THE ABDOMEN AND PELVIS WITH IV CONTRAST CLINICAL HISTORY: Diarrhea. Neutropenia. Leukemia. COMPARISON STUDY: Abdominal CT dated 06/08/2022. TECHNIQUE: Following the IV administration of 93 cc of Optiray 350, CT scan of the abdomen and pelvi s is performed from the lung bases to the proximal femora. Images are reviewed in the axial, sagittal , and coronal planes. IV contrast was administered without complication. A dose lowering technique wa s utilized adhering to the principles of ALARA. CT DOSE: 1262.15 mGy.cm FINDINGS: Lung bases: The heart is top normal in size and without pericardial effusion. The coronary arteries a re densely calcified. There is elevation of the left hemidiaphragm with associated basilar atelectasi s. Mild patchy groundglass consolidation is seen throughout the right lower lobe. No pleural effusion is identified. A fat-containing Bochdalek hernia is seen on the right. There is a tiny hiatal hernia . Liver: The contrast-enhanced liver is normal in size, contour, and attenuation. There is mild intrahe patic biliary ductal dilatation. The hepatic veins and portal veins are patent. Gallbladder: Surgically absent noting clips in the gallbladder fossa. Spleen: Normal in size and attenuation, measuring 12.4 cm in length. Pancreas: Unremarkable. Adrenal glands: Unremarkable. Kidneys: The contrast enhanced kidneys demonstrate cortical atrophy and are without hydronephrosis. T he kidneys enhance symmetrically. There are bilateral renal cysts. The largest arises from the left u pper pole and measures 6.8 cm. Additional subcentimeter cortical hypodensities also likely represent cysts but are too small for definitive characterization. A 6 mm nonobstructing calculus is noted in t he left kidney. Abdominal vasculature: The abdominal aorta is normal in course and caliber noting moderate atheroscle rotic calcification. Bowel: There is no bowel obstruction. Mild fecal retention is seen throughout the colon. There is mod erate colonic diverticulosis without CT evidence of acute diverticulitis. The appendix is well-visua lized and normal. Peritoneum: There is no intraperitoneal free air or abdominal ascites. Lymphadenopathy: None. Pelvic viscera: The bladder is normal as visualized. The uterus is surgically absent. No adnexal lesi on is seen. Skeletal structures: The skeletal structures are heterogeneously osteopenic. There is moderate lumbos acral spondylosis as well as mild scoliosis. No lytic or blastic lesions are seen. Soft tissues: There is asymmetric soft tissue edema identified in the left breast as compared to the right. IMPRESSION: 1. No acute infectious or inflammatory findings are identified in the abdomen or pelvis. 2. Patchy groundglass consolidation is seen at the right lung base, typical for a mild infectious/inf lammatory pneumonitis. Correlate clinically. 3. Colonic diverticulosis without CT evidence of acute diverticulosis. 4. Left-sided nephrolithiasis. 5. There is asymmetric soft tissue edema identified in the left breast as compared to the right. Cor relate clinically. 6. Additional findings as above. ACT 112: Negative or not required by law. Electronically signed by: Saji Kennedy M.D. 01/31/2023 4:36 PM
[2023-01-31 18:20] LABS: Hematocrit (blood only) 21.6 % (37.0-47.0); Hemoglobin 7.1 g/dl (12.0-16.0); Mean Corpuscular Hemoglobin 28.3 pg (25.0-34.0); Mean Corpuscular Hgb Conc 32.9 g/dL (32.0-36.0); Mean Corpuscular Volume 86.1 fL (80.0-100.0); Nucleated RBC # (auto) 0.84 K/uL (0.00-0.12); Nucleated RBC % (auto) 1.1 %; RDW Coefficient of Variation 16.1 % (11.5-14.5); RDW Standard Deviation 50.6 fL (36.4-46.3); Red Blood Count 2.51 M/uL (4.20-5.40); White Blood Count 77.73 K/ul (4.8-10.8)
[2023-01-31 18:41] LABS: Platelet Count 65 K/uL (130-400)
[2023-01-31] MEDS ORDERED: ONDANSETRON INJ 2 MG/ML 2 ML VIAL IV PRN (20:35)
[2023-01-31] MEDS: traMADol HCL 50 MG TABLET PO PRN (21:13)
[2023-01-31] MEDS: ACYCLOVIR 400 MG TAB PO SCH (21:14)
[2023-01-31] MEDS: MAGNESIUM OXIDE 400 MG TAB PO SCH (21:15)
[2023-01-31] MEDS: METOPROLOL TARTRATE 25 MG TAB PO SCH (21:15)
[2023-01-31] MEDS ORDERED: diphenhydrAMINE 50 MG/ML VIAL IV ONE (23:53)
[2023-01-31] MEDS ORDERED: MoRPHine SULFATE 2 MG/ML CARP IV ONE (23:54)
[2023-02-01 00:40] LABS: Hematocrit (blood only) 21.4 % (37.0-47.0); Hemoglobin 7.1 g/dl (12.0-16.0); Mean Corpuscular Hemoglobin 28.5 pg (25.0-34.0); Mean Corpuscular Hgb Conc 33.2 g/dL (32.0-36.0); Mean Corpuscular Volume 85.9 fL (80.0-100.0); Mean Platelet Volume 8.9 fL (9.4-12.4); Nucleated RBC # (auto) 0.79 K/uL (0.00-0.12); Platelet Count 55 K/uL (130-400); RDW Coefficient of Variation 16.3 % (11.5-14.5); RDW Standard Deviation 50.9 fL (36.4-46.3); Red Blood Count 2.49 M/uL (4.20-5.40); White Blood Count 75.92 K/ul (4.8-10.8)
[2023-02-01 08:28] LABS: Albumin Globulin Ratio 1.2 (0.9-2); BUN Creatinine Ratio 15.9 (10-20); Bilirubin,Total 0.8 mg/dl (0.2-1.0); Calcium 7.8 mg/dl (8.6-10.3); Creatinine Clr Calc Pharmacy 91.9 ml/min; Est GFR (African American) 109.7 ml/min; Est GFR (Non-African American) 94.7 ml/min; Globulin 2.5 gm/dl (2.5-4.0); Potassium 3.3 mmol/L (3.5-5.1); Total Protein 5.5 gm/dl (6.0-8.3)
[2023-02-01 08:38] LABS: Hematocrit (blood only) 21.1 % (37.0-47.0); Hemoglobin 6.8 g/dl (12.0-16.0); Mean Corpuscular Hgb Conc 32.2 g/dL (32.0-36.0); Mean Corpuscular Volume 86.8 fL (80.0-100.0); RDW Coefficient of Variation 16.3 % (11.5-14.5); RDW Standard Deviation 51.8 fL (36.4-46.3); Red Blood Count 2.43 M/uL (4.20-5.40); White Blood Count 69.07 K/ul (4.8-10.8)
[2023-02-01] MEDS: METOPROLOL TARTRATE 25 MG TAB PO SCH ×2 (08:45→21:07)
[2023-02-01] MEDS: MAGNESIUM OXIDE 400 MG TAB PO SCH ×2 (08:45→21:07)
[2023-02-01] MEDS: PANTOprazole 40 MG TAB PO SCH (08:46)
[2023-02-01] MEDS: ACYCLOVIR 400 MG TAB PO SCH ×2 (08:46→21:08)
[2023-02-01] MEDS: VIBEGRON 75 MG TAB PO SCH (08:46)
[2023-02-01] MEDS: SERTRALINE HCL 50 MG TABLET PO SCH (08:46)
[2023-02-01] MEDS: predniSONE 5 MG TAB PO SCH (08:46)
[2023-02-01 08:53] LABS: Mean Platelet Volume 9.2 fL (9.4-12.4); Nucleated RBC # (auto) 0.69 K/uL (0.00-0.12); Platelet Count 43 K/uL (130-400)
[2023-02-01 08:57] LABS: ALC (manual) 1.38 K/uL (1.2-3.4); Blast # (manual) 65.62 K/uL (0-0); Blast Cells % (manual) 95 %; Eosinophils # (manual) 1.38 K/uL (0-0.50); Eosinophils % (manual) 2 %; Lymphocytes # (manual) 1.38 K/uL (1.2-3.4); Lymphocytes % (manual) 2 %; Myelocytes # (manual) 0.69 K/uL (0-0); Myelocytes % (manual) 1 %; Neutrophils % (manual) 0 %
--- NOTE | 2023-02-01 09:14 | Electrocardiogram Report ---
Test Reason : Blood Pressure : / mmHG Vent. Rate : 108 BPM Atrial Rate : 108 BPM P-R Int : 158 ms QRS Dur : 074 ms QT Int : 338 ms P-R-T Axes : 032 -11 071 degrees QTc Int : 452 ms Sinus tachycardia Otherwise normal ECG When compared with ECG of 17-JAN-2023 11:26, No significant change was found Confirmed by Dennys Alston ([id number]) on 02/01/2023 9:13:56 AM Referred By: Confirmed By:Dennys Alston
[2023-02-01] MEDS: diphenhydrAMINE Capsule 25 MG CAP PO PRN ×3 (10:19→21:12)
[2023-02-01] MEDS ORDERED: SODIUM CHLORIDE 0.9% 250 ML IV PRN (11:12)
[2023-02-01] MEDS ORDERED: POTASSIUM CHLORIDE CRTAB 20 MEQ TABCR PO STA (11:15)
[2023-02-01] MEDS: levoFLOXacin 500 MG TAB PO SCH (12:32)
--- NOTE | 2023-02-01 12:36 | Hospitalist Progress Note ---
Date of Service February 01, 2023 Assessment & Plan (1) Diarrhea: Plan: No abdominal discomfort on examination C. difficile toxin assay is pending. Supportive care (2) Thrombocytopenia: Plan: Transfusion threshold < 30 . Serial labs (3) Anemia requiring transfusions: Plan: Hemoglobin 6.8 this morning, January. 2 units packed red blood cells ordered. We will ask general surgery to reevaluate venous access port placement and hematoma tomorrow, February 02 (4) Neutropenia: Plan: Neutropenic isolation precautions. 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 General surgery consultation pending (7) Anxiety and depression: Plan: Stable. Continue sertraline (8) GERD (gastroesophageal reflux disease): Plan: Stable. Continue pantoprazole (9) Generalized weakness: Plan: PT/OT assessments requested (10) Diabetes: Plan: ADA diet. Sliding scale coverage. Hold metformin given diarrhea Plan To be determined Admission and Anticipated Discharge Date Admission Date: January 31, 2023 Subjective Alert and oriented. Pleasant. Hemoglobin is 6.8. 2 units packed red blood cells ordered to be given today, February 01. She continues to ooze from the venous access port insertion site. It is difficult to determine if this is continued bleeding from the surgical procedure or whether this is hematoma that is self evacuating through the incision site. We will ask surgery tomorrow to reevaluate. Oral potassium therapy ordered. Platelet count 43,000 but acceptable. White blood cell count 69,000 consistent with AML. Serial labs ordered. Review of Systems Review of Systems: Constitutional-no fever or chills. Weak ENT-no blurred vision, no double vision, no epistaxis, no sore throat Respiratory-no cough, no wheezing, no shortness of breath Cardiac-no palpitations, no chest pain, no syncope GI-no nausea, vomiting, diarrhea, melena, hematochezia -no urinary retention, no urinary incontinence, no dysuria, no hematuria Musculoskeletal-no joint pain, no muscle tenderness Skin-large hematoma surrounding the recently placed left upper anterior chest wall venous access port with some drainage of blood noted through the incision site. Benadryl ordered for pruritus Neuro-no isolated weakness, no paresthesia, no weakness Psych-no depression, no anxiety Physical Exam Physical Exam: General-alert and oriented x3, no fevers, no chills HEENT-head atraumatic and normocephalic, pupils equal and reactive to light, extraocular muscles intact Neck-no lymphadenopathy or thyromegaly, trachea midline Chest-clear to auscultation percussion. No rales wheezing or rhonchi Cardiac-regular rate and rhythm, normal S1 and S2 Abdomen-normal bowel sounds, nontender, no hepatosplenomegaly Skinlarge hematoma around the left anterior upper chest wall venous access port Extremities-no cyanosis, clubbing, or edema Neuro-cranial nerves II through XII intact, motor and sensory function within normal limits, strength symmetrical with generalized weakness , no focal deficits Psych-normal affect, normal mood Results & Data Results & Data Vital Signs (Past 12 Hours) Vital Signs Temp Pulse Pulse Resp BP BP Pulse Ox 02/01/23 12:11 37.3 C 99 H 18 113/66 93 02/01/23 11:56 37.1 C 99 H 18 114/65 92 02/01/23 11:37 36.9 C 97 H 18 117/68 94 02/01/23 07:40 37.2 C 88 18 101/62 92 O2 Del Method 02/01/23 12:11 02/01/23 11:56 02/01/23 11:37 02/01/23 07:40 Room Air Laboratory Results 02/01/23 07:46 02/01/23 07:46 PG Care Time/CCT Total # of Minutes Spent Total Time Spent with Patient: Total time spent is greater than 50% in coordination of care (as documented) at patient's floor/unit and/or counseling patient: Coding Level of Care Code 95412 SUB INP/OBS CARE 3/50MIN Diagnoses Diarrhea R19.7 Thrombocytopenia D69.6 Anemia requiring transfusions D64.9 Neutropenia D70.9 Acute myeloblastic leukemia C92.00 Leukemia Active/Remission status: without remission Chest wall hematoma S20.219A Anxiety and depression F41.9; F32.9 GERD (gastroesophageal reflux disease) K21.9 Generalized weakness R53.1 Diabetes E11.9 (5) Acute myeloblastic leukemia Leukemia Active/Remission status: without remission Qualified Code(s): C92.00 - Acute myeloblastic leukemia, not having achieved remission
[2023-02-01 20:36] LABS: Hematocrit (blood only) 29.1 % (37.0-47.0); Hemoglobin 9.7 g/dl (12.0-16.0)
[2023-02-01] MEDS: traMADol HCL 50 MG TABLET PO PRN (21:10)
[2023-02-02] MEDS: diphenhydrAMINE Capsule 25 MG CAP PO PRN ×3 (06:09→20:49)
[2023-02-02 06:29] LABS: BUN Creatinine Ratio 20.4 (10-20); Calcium 8.2 mg/dl (8.6-10.3); Creatinine Clr Calc Pharmacy 74.9 ml/min; Est GFR (African American) 102.6 ml/min; Est GFR (Non-African American) 88.5 ml/min; Potassium 3.8 mmol/L (3.5-5.1)
[2023-02-02 06:48] LABS: Hematocrit (blood only) 28.1 % (37.0-47.0); Hemoglobin 9.3 g/dl (12.0-16.0); Mean Corpuscular Hemoglobin 28.5 pg (25.0-34.0); Mean Corpuscular Hgb Conc 33.1 g/dL (32.0-36.0); Mean Corpuscular Volume 86.2 fL (80.0-100.0); RDW Standard Deviation 50.4 fL (36.4-46.3); Red Blood Count 3.26 M/uL (4.20-5.40)
[2023-02-02 07:21] LABS: White Blood Count 71.65 K/ul (4.8-10.8)
[2023-02-02 07:25] LABS: Mean Platelet Volume 10.9 fL (9.4-12.4); Platelet Count 27 K/uL (130-400)
[2023-02-02] MEDS: MAGNESIUM OXIDE 400 MG TAB PO SCH ×2 (08:17→20:50)
[2023-02-02] MEDS: ACYCLOVIR 400 MG TAB PO SCH ×2 (08:17→20:49)
[2023-02-02] MEDS: METOPROLOL TARTRATE 25 MG TAB PO SCH ×2 (08:18→20:49)
[2023-02-02] MEDS: PANTOprazole 40 MG TAB PO SCH (08:18)
[2023-02-02] MEDS: VIBEGRON 75 MG TAB PO SCH (08:18)
[2023-02-02] MEDS: SERTRALINE HCL 50 MG TABLET PO SCH (08:19)
[2023-02-02] MEDS: predniSONE 5 MG TAB PO SCH (08:19)
[2023-02-02 08:25] LABS: Nucleated RBC # (auto) 1.05 K/uL (0.00-0.12); Nucleated RBC % (auto) 1.5 %
[2023-02-02 08:27] LABS: ALC (manual) 1.43 K/uL (1.2-3.4); ANC (manual) 0.72 K/uL (1.4-6.5); Blast Cells % (manual) 97 %; Lymphocytes # (manual) 1.43 K/uL (1.2-3.4); Lymphocytes % (manual) 2 %; Monocytes % (manual) 0 %; Myelocytes % (manual) 0 %; Neutrophils # (manual) 0.72 K/uL (1.40-6.50); Neutrophils % (manual) 1 %; Schistocytes 1+
[2023-02-02] MEDS: levoFLOXacin 500 MG TAB PO SCH (10:30)
--- NOTE | 2023-02-02 11:00 | Surgery Progress Note ---
I saw this patient and agree with the plan Date of Service February 02, 2023 Assessment & Plan (1) Port-A-Cath in place: Plan: Patient is status post left sided mediport placement on 01/15/[address] Hernandez for acute myeloblastic leukemia. Came to ER 01/17/23 after patient developed a post operative hematoma and had significant left sided chest, ecchymosis that extended up around shoulder and down arm. Patient has neutropenia ( 0.72) and thrombocytopenia (plt 27), WBC 71.65. Left chest less ecchymotic than previously noted on 01/17/23. area now localized to left chest only, two open areas noted. Keep Port site covered with dry gauze dressing and Medipore tape. No acute surgical intervention indicated Dr. Garcia covering for Dr. Hernandez today and will be in to patient later this afternoon. Admission and Anticipated Discharge Date Admission Date: January 31, 2023 Subjective Patient resting in bed Surgery was asked to come and look at patients port site, reports Thursday it started bleeding and dripping down her arm pit. Review of Systems Integumentary: + problem reported post operative mediport placement on 01/15/23 Physical Exam Constitutional: cooperative and comfortable; no acute distress Respiratory: normal respiratory effort; no respiratory distress Skin: Left chest wall with residual hematoma with ecchymosis around Mediport area, two open areas visualized under dressing Results & Data Vital Signs (Past 12 Hours) Vital Signs Temp Pulse Resp BP Pulse Ox O2 Del Method 02/02/23 07:20 98.1 F 86 16 112/69 93 Room Air PG Care Time/CCT Total # of Minutes Spent Total Time Spent with Patient: Total time spent is greater than 50% in coordination of care (as documented) at patient's floor/unit and/or counseling patient: Coding Level of Care Code None Diagnoses Port-A-Cath in place Z95.828
--- NOTE | 2023-02-02 14:10 | Hospitalist Progress Note ---
Date of Service February 02, 2023 Assessment & Plan (1) Diarrhea: Plan: No abdominal discomfort on examination. C. difficile toxin assay is negative. Supportive care (2) Thrombocytopenia: Plan: Platelet count 27,000 today, February 02. Platelet transfusion ordered. Transfusion threshold < 30 . Serial labs (3) Anemia requiring transfusions: Plan: Hemoglobin improved to 9.7 after 2 units packed red blood cells given yesterday, February 01. Hemoglobin 9.3 this morning. Continue serial labs (4) Neutropenia: Plan: Neutropenic isolation precautions. 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 General surgery consultation appreciated. No intervention necessary at this time. (7) Anxiety and depression: Plan: Stable. Continue sertraline (8) GERD (gastroesophageal reflux disease): Plan: Stable. Continue pantoprazole (9) Generalized weakness: Plan: PT/OT assessments requested (10) Diabetes: Plan: ADA diet. Sliding scale coverage. Hold metformin given diarrhea Plan Hopeful discharge to home soon Admission and Anticipated Discharge Date Admission Date: January 31, 2023 Subjective Alert and oriented. She is complaining of pruritus due to the bandages on the left chest venous access port surgical site. Surgery has seen the patient and no intervention currently needed. Wound care management requested. Platelet count is low at 27,000 and transfusion ordered. Hemoglobin improved to 9.7 after 2 units packed red blood cells yesterday and most recent hemoglobin 9.3. Mild hypokalemia has been corrected. Blood cultures are negative. Review of Systems Review of Systems: Constitutional-no fever or chills. Weak ENT-no blurred vision, no double vision, no epistaxis, no sore throat Respiratory-no cough, no wheezing, no shortness of breath Cardiac-no palpitations, no chest pain, no syncope GI-no nausea, vomiting, diarrhea, melena, hematochezia -no urinary retention, no urinary incontinence, no dysuria, no hematuria Musculoskeletal-no joint pain, no muscle tenderness Skin-large hematoma surrounding the recently placed left upper anterior chest wall venous access port with some drainage of blood noted through the incision site. Benadryl ordered for pruritus Neuro-no isolated weakness, no paresthesia, no weakness Psych-no depression, no anxiety Physical Exam Physical Exam: General-alert and oriented x3, no fevers, no chills HEENT-head atraumatic and normocephalic, pupils equal and reactive to light, extraocular muscles intact Neck-no lymphadenopathy or thyromegaly, trachea midline Chest-clear to auscultation percussion. No rales wheezing or rhonchi Cardiac-regular rate and rhythm, normal S1 and S2 Abdomen-normal bowel sounds, nontender, no hepatosplenomegaly Skinlarge hematoma around the left anterior upper chest wall venous access port Extremities-no cyanosis, clubbing, or edema Neuro-cranial nerves II through XII intact, motor and sensory function within normal limits, strength symmetrical with generalized weakness , no focal deficits Psych-normal affect, normal mood Results & Data Results & Data Vital Signs (Past 12 Hours) Vital Signs Temp Pulse Pulse Resp BP BP Pulse Ox 02/02/23 13:45 36.6 C 91 H 16 122/72 95 02/02/23 13:00 37.1 C 85 16 114/71 96 02/02/23 12:28 36.8 C 84 16 129/79 95 02/02/23 12:00 37 C 86 16 129/76 95 02/02/23 11:45 36.9 C 84 16 112/72 95 02/02/23 11:27 36.8 C 80 16 117/72 98 02/02/23 07:20 36.7 C 86 16 112/69 93 O2 Del Method 02/02/23 13:45 02/02/23 13:00 02/02/23 12:28 02/02/23 12:00 02/02/23 11:45 02/02/23 11:27 02/02/23 07:20 Room Air Laboratory Results 02/02/23 05:43 02/02/23 05:43 PG Care Time/CCT Total # of Minutes Spent Total Time Spent with Patient: Total time spent is greater than 50% in coordination of care (as documented) at patient's floor/unit and/or counseling patient: Coding Level of Care Code 26191 SUB INP/OBS CARE 3/50MIN Diagnoses Diarrhea R19.7 Thrombocytopenia D69.6 Anemia requiring transfusions D64.9 Neutropenia D70.9 Acute myeloblastic leukemia C92.00 Leukemia Active/Remission status: without remission Chest wall hematoma S20.219A Anxiety and depression F41.9; F32.9 GERD (gastroesophageal reflux disease) K21.9 Generalized weakness R53.1 Diabetes E11.9 (5) Acute myeloblastic leukemia Leukemia Active/Remission status: without remission Qualified Code(s): C92.00 - Acute myeloblastic leukemia, not having achieved remission
[2023-02-02] MEDS: traMADol HCL 50 MG TABLET PO PRN (20:48)
[2023-02-02 21:50] LABS: Adenovirus F 40/41 PCR Not Detected (NotDetected); Astrovirus PCR Not Detected (NotDetected); Campylobacter PCR Not Detected (NotDetected); Cryptosporidium PCR Not Detected (NotDetected); Cyclospora cayetanensis PCR Not Detected (NotDetected); Entamoeba histolytica PCR Not Detected (NotDetected); Enteroaggregative E.coli(EAEC) Not Detected (NotDetected); Enteropathogenic E.coli (EPEC) Not Detected (NotDetected); Enterotoxigenic E.coli (ETEC) Not Detected (NotDetected); Giardia lamblia PCR Not Detected (NotDetected); Norovirus GI/GII PCR Not Detected (NotDetected); Plesiomonas shigelloides PCR Not Detected (NotDetected); Rotavirus A PCR Not Detected (NotDetected); Salmonella PCR Not Detected (NotDetected); Sapovirus PCR Not Detected (NotDetected); Shiga-like Toxin E.coli (STEC) Not Detected (NotDetected); Shigella/Enteroinvasive E.coli Not Detected (NotDetected); Vibrio cholerae PCR Not Detected (NotDetected); Vibrio species PCR Not Detected (NotDetected); Yersinia enterocolitica PCR Not Detected (NotDetected)
[2023-02-03 06:30] LABS: BUN Creatinine Ratio 25.9 (10-20); Calcium 8.3 mg/dl (8.6-10.3); Creatinine Clr Calc Pharmacy 74.9 ml/min; Est GFR (African American) 102.6 ml/min; Est GFR (Non-African American) 88.5 ml/min; Potassium 3.4 mmol/L (3.5-5.1)
[2023-02-03 06:53] LABS: Hematocrit (blood only) 27.6 % (37.0-47.0); Hemoglobin 9.1 g/dl (12.0-16.0); Mean Corpuscular Hemoglobin 28.3 pg (25.0-34.0); Mean Platelet Volume 9.5 fL (9.4-12.4); Nucleated RBC # (auto) 1.16 K/uL (0.00-0.12); Nucleated RBC % (auto) 1.5 %; Platelet Count 35 K/uL (130-400); RDW Coefficient of Variation 16.1 % (11.5-14.5); RDW Standard Deviation 50.2 fL (36.4-46.3); Red Blood Count 3.21 M/uL (4.20-5.40); White Blood Count 77.24 K/ul (4.8-10.8)
[2023-02-03] MEDS: traMADol HCL 50 MG TABLET PO PRN ×2 (08:28→21:21)
[2023-02-03] MEDS: diphenhydrAMINE Capsule 25 MG CAP PO PRN ×2 (08:29→17:53)
[2023-02-03] MEDS: predniSONE 5 MG TAB PO SCH (08:41)
[2023-02-03] MEDS: MAGNESIUM OXIDE 400 MG TAB PO SCH ×2 (08:41→21:23)
[2023-02-03] MEDS: ACYCLOVIR 400 MG TAB PO SCH ×2 (08:41→21:23)
--- NOTE | 2023-02-03 08:41 | Surgery Progress Note ---
Date of Service February 03, 2023 Assessment & Plan (1) Port-A-Cath in place: Plan: Patient is status post left sided mediport placement on 01/15/[address] Hernandez for acute myeloblastic leukemia. Came to ER 01/17/23 after patient developed a post operative hematoma and had significant left sided chest, ecchymosis that extended up around shoulder and down arm Here with weakness, diarrhea, and bloody drainage from port site Today WBC 77, Hbg 9.1, Plt 35. received 2 units pRBC on 02/01 Keep Port site covered with dry gauze dressing and Medipore tape for now, we will take this down with surgeon later today for further evaluation As above. Incision uncovered and evaluated with the wound nurse. There is some skin and eschar from pressure of the hematoma. The port itself is not exposed. currently no active bleeding. Unfortunate there is not much we can do surgically because of her risk of bleeding. We are going to try and place a non-stick but of absorptive dressing. Her home nursing can continue this dressing change at home. I am recommending she remain on antibiotics until the surgical site looks better and the hematoma resolves. (2) Chest wall hematoma: Admission and Anticipated Discharge Date Admission Date: January 31, 2023 Subjective patient sitting up in bed eating breakfast. says port area is about the same. residual but resolving ecchymosis noted. some dried drainage at port site and on dressing. Physical Exam Physical Exam: awake/alert, no distress Skin: patient with L chest ecchymosis that is improved since last admission. + dried blood/hematoma on dressing Results & Data Vital Signs (Past 12 Hours) Vital Signs Temp Pulse Resp BP Pulse Ox O2 Del Method 02/03/23 07:46 36.6 C 89 16 103/62 94 Room Air 02/02/23 20:29 36.9 C 94 H 16 119/71 94 Room Air PG Care Time/CCT Total # of Minutes Spent Total Time Spent with Patient: Total time spent is greater than 50% in coordination of care (as documented) at patient's floor/unit and/or counseling patient: Coding Level of Care Code None Diagnoses Port-A-Cath in place Z95.828 Chest wall hematoma S20.219A
[2023-02-03] MEDS: VIBEGRON 75 MG TAB PO SCH (08:42)
[2023-02-03] MEDS: SERTRALINE HCL 50 MG TABLET PO SCH (08:42)
[2023-02-03] MEDS: PANTOprazole 40 MG TAB PO SCH (08:42)
[2023-02-03] MEDS: METOPROLOL TARTRATE 25 MG TAB PO SCH ×2 (08:44→21:24)
[2023-02-03 09:37] LABS: ALC (manual) 1.54 K/uL (1.2-3.4); ANC (manual) 0.77 K/uL (1.4-6.5); Blast # (manual) 74.92 K/uL (0-0); Blast Cells % (manual) 97 %; Lymphocytes # (manual) 1.54 K/uL (1.2-3.4); Lymphocytes % (manual) 2 %; Neutrophils # (manual) 0.77 K/uL (1.40-6.50); Neutrophils % (manual) 1 %; Schistocytes 1+
--- NOTE | 2023-02-03 10:53 | Hospitalist Progress Note ---
Date of Service February 03, 2023 Assessment & Plan (1) Diarrhea: Plan: Volume depleted on admission. Corrected with IV fluids. Abdominal discomfort has resolved. Diarrhea has resolved. C. difficile toxin assay is negative. Supportive care (2) Thrombocytopenia: Plan: Platelet count improved to 35,000 after transfusion yesterday, February 02. Transfusion threshold < 30 . Serial labs (3) Anemia requiring transfusions: Plan: Hemoglobin improved to 9.7 after 2 units packed red blood cells given yesterday, February 01. Hemoglobin drifting down to 9.1 this morning. Continue serial labs (4) Neutropenia: Plan: Neutropenic isolation precautions. 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 She is asking for tr ansfusions however (6) Chest wall hematoma: Plan: At left upper chest venous access port insertion site. General surgery consultation appreciated. Wound care is also involved. General surgery is evaluating the incision site again later today, February 03 (7) Anxiety and depression: Plan: Stable. Continue sertraline (8) GERD (gastroesophageal reflux disease): Plan: Stable. Continue pantoprazole (9) Generalized weakness: Plan: Improved. Continue PT/OT (10) Diabetes: Plan: ADA diet. Sliding scale coverage. Metformin is temporarily on hold. This can be restarted at discharge Plan Hopeful discharge to home tomorrow, February 04 Admission and Anticipated Discharge Date Admission Date: January 31, 2023 Subjective Alert and oriented. Stable overall. Platelet count improved to 35,000 after transfusion. Hemoglobin slowly drifting down to 9.1. Potassium slightly low again. Oral potassium replacement ordered. General surgery entry noted. Further attention to the incision site left upper anterior chest later today. Hopefully she can go home tomorrow, February 04, with home health services Review of Systems Review of Systems: Constitutional-no fever or chills. Weak ENT-no blurred vision, no double vision, no epistaxis, no sore throat Respiratory-no cough, no wheezing, no shortness of breath Cardiac-no palpitations, no chest pain, no syncope GI-no nausea, vomiting, diarrhea, melena, hematochezia -no urinary retention, no urinary incontinence, no dysuria, no hematuria Musculoskeletal-no joint pain, no muscle tenderness Skin-large hematoma surrounding the recently placed left upper anterior chest wall venous access port with some drainage of blood noted through the incision site. Benadryl ordered for pruritus Neuro-no isolated weakness, no paresthesia, no weakness Psych-no depression, no anxiety Physical Exam Physical Exam: General-alert and oriented x3, no fevers, no chills HEENT-head atraumatic and normocephalic, pupils equal and reactive to light, extraocular muscles intact Neck-no lymphadenopathy or thyromegaly, trachea midline Chest-clear to auscultation percussion. No rales wheezing or rhonchi Cardiac-regular rate and rhythm, normal S1 and S2 Abdomen-normal bowel sounds, nontender, no hepatosplenomegaly Skinlarge hematoma around the left anterior upper chest wall venous access port Extremities-no cyanosis, clubbing, or edema Neuro-cranial nerves II through XII intact, motor and sensory function within normal limits, strength symmetrical with generalized weakness , no focal deficits Psych-normal affect, normal mood Results & Data Results & Data Vital Signs (Past 12 Hours) Vital Signs Temp Pulse Resp BP Pulse Ox O2 Del Method 02/03/23 07:46 36.6 C 89 16 103/62 94 Room Air Laboratory Results 02/03/23 05:36 02/03/23 05:36 PG Care Time/CCT Total # of Minutes Spent Total Time Spent with Patient: Total time spent is greater than 50% in coordination of care (as documented) at patient's floor/unit and/or counseling patient: Coding Level of Care Code 29734 SUB INP/OBS CARE 2/35MIN Diagnoses Diarrhea R19.7 Thrombocytopenia D69.6 Anemia requiring transfusions D64.9 Neutropenia D70.9 Acute myeloblastic leukemia C92.00 Leukemia Active/Remission status: without remission Chest wall hematoma S20.219A Anxiety and depression F41.9; F32.9 GERD (gastroesophageal reflux disease) K21.9 Generalized weakness R53.1 Diabetes E11.9 (5) Acute myeloblastic leukemia Leukemia Active/Remission status: without remission Qualified Code(s): C92.00 - Acute myeloblastic leukemia, not having achieved remission
[2023-02-03] MEDS: POTASSIUM CHLORIDE 10 MEQ TABCR PO SCH (10:56)
[2023-02-03] MEDS: levoFLOXacin 500 MG TAB PO SCH (11:39)
[2023-02-04 06:59] LABS: BUN Creatinine Ratio 27.4 (10-20); Calcium 8.6 mg/dl (8.6-10.3); Creatinine Clr Calc Pharmacy 65.2 ml/min; Est GFR (Non-African American) 84.6 ml/min; Potassium 3.6 mmol/L (3.5-5.1)
[2023-02-04 07:20] LABS: Hematocrit (blood only) 28.3 % (37.0-47.0); Hemoglobin 9.1 g/dl (12.0-16.0); Mean Corpuscular Hemoglobin 27.8 pg (25.0-34.0); Mean Corpuscular Hgb Conc 32.2 g/dL (32.0-36.0); Mean Corpuscular Volume 86.5 fL (80.0-100.0); RDW Standard Deviation 50.4 fL (36.4-46.3); Red Blood Count 3.27 M/uL (4.20-5.40)
[2023-02-04 08:02] LABS: Nucleated RBC # (auto) 1.59 K/uL (0.00-0.12); Nucleated RBC % (auto) 1.9 %
[2023-02-04 08:05] LABS: ALC (manual) 1.66 K/uL (1.2-3.4); Blast # (manual) 81.34 K/uL (0-0); Blast Cells % (manual) 98 %; Lymphocytes # (manual) 1.66 K/uL (1.2-3.4); Lymphocytes % (manual) 2 %; Mean Platelet Volume 9.6 fL (9.4-12.4); Monocytes % (manual) 0 %; Neutrophils % (manual) 0 %; Platelet Count 26 K/uL (130-400); Platelet Estimate Decreased (Normal)
[2023-02-04] MEDS: ACYCLOVIR 400 MG TAB PO SCH (08:32)
[2023-02-04] MEDS: PANTOprazole 40 MG TAB PO SCH (08:32)
[2023-02-04] MEDS: SERTRALINE HCL 50 MG TABLET PO SCH (08:32)
[2023-02-04] MEDS: MAGNESIUM OXIDE 400 MG TAB PO SCH (08:32)
[2023-02-04] MEDS: predniSONE 5 MG TAB PO SCH (08:32)
[2023-02-04] MEDS: VIBEGRON 75 MG TAB PO SCH (08:32)
[2023-02-04] MEDS: METOPROLOL TARTRATE 25 MG TAB PO SCH (08:33)
[2023-02-04] MEDS: POTASSIUM CHLORIDE 10 MEQ TABCR PO SCH (08:33)
[2023-02-04] MEDS: diphenhydrAMINE Capsule 25 MG CAP PO PRN (10:53)
[2023-02-04] MEDS: levoFLOXacin 500 MG TAB PO SCH (11:09)
--- NOTE | 2023-02-04 14:43 | Discharge Summary ---
Date of Service February 04, 2023 Admission HPI Per Admitting Provider Pam Mai is an 82 year old female with untreated and progressive acute myeloid leukemia with recent chest wall hematoma following port placement who presents to the ER via EMS with generalized weakness and diarrhea for the last three days. She reports having three bowel movements in the morning which is not unusual for her however they have been more mucous. No watery stool, hematochezia, melena, abdominal pain, nausea or vomiting. She notes associated generalized weakness. No change in vision, hearing or speech. No one sided weakness or loss of sensation. Principal Diagnosis AML, diarrhea Discharge Exam The patient is awake, alert and oriented 3, well developed and well nourished, normocephalic and atraumatic, lying in bed and in no acute distress. HEENT--PERRL, EOMI, mucous membranes and oropharynx mildly dry Neck--supple. No JVD. No bruits. Thyroid normal, trachea midline, no adenopathy. Chest: right chest hematoma Heart--normal S1 and S2. No murmurs, rubs or gallops. Lungs--clear bilaterally, no respiratory distress, no accessory muscle use. Abdomen--normal bowel sounds and soft. Mild epigastric and left sided abdominal pain Extremities--no cyanosis or clubbing. No edema. Dermatologic--normal skin turgor, normal color, no abnormal lymph nodes, no rash. Neurologic--cranial nerves II through XII grossly intact. Rheumatologic--normal range of motion. Psychiatric--normal affect. Discharge Data Allergies Allergy/AdvReac Type Severity Reaction Status Date / Time codeine Allergy Severe Vomiting, Verified 01/31/23 15:01 drop in BP meperidine Allergy Severe Vomiting Verified 01/31/23 15:01 morphine Allergy Severe "Drop in Verified 01/31/23 15:01 vital signs", tremors, vomiting oxycodone Allergy Severe "Drop in Verified 01/31/23 15:01 vital signs", tremors, vomiting adhesive Allergy Intermediate "Pulls off Verified 01/31/23 15:01 skin" hydrocodone [From Vicodin] Allergy Intermediate Vomiting, Verified 01/31/23 15: 01 tremors nickel Allergy Intermediate Rash Verified 01/31/23 15:01 pravastatin AdvReac Intermediate Arm/leg Verified 01/31/23 15:01 pain simvastatin AdvReac Intermediate Arm/leg Verified 01/31/23 15:01 pain cephalexin [From Keflex] AdvReac Mild Nausea Verified 01/31/23 15:01 aspirin [From Percodan] AdvReac Unknown Unknown Verified 01/31/23 15:01 montelukast [From Singulair] AdvReac Unknown Unknown Verified 01/31/23 15:01 Consultations 01/31/23 14:43 ED Decision to Admit Stat 02/02/23 10:07 Consult General Surgery Routine Ordered Studies 01/31/23 15:09 CT abd pelvis IV con only Stat Hospital Course (1) Diarrhea: Volume depleted on admission. Corrected with IV fluids. Abdominal discomfort has resolved. Diarrhea has resolved. C. difficile toxin assay is negative. Supportive care (2) Thrombocytopenia: Platelet count improved to 35,000 after transfusion yesterday, February 02. Transfusion threshold < 30 . Serial labs (3) Anemia requiring transfusions: Hemoglobin improved to 9.7 after 2 units packed red blood cells given yesterday, February 01. Hemoglobin drifting down to 9.1 this morning. Continue serial labs (4) Neutropenia: Neutropenic isolation precautions. Serial lab (5) Acute myeloblastic leukemia: Untreated per oncology recommendations and patient wishes. She is asking for transfusions however (6) Chest wall hematoma: At left upper chest venous access port insertion site. General surgery consultation appreciated. Wound care is also involved. General surgery is evaluating the incision site again later today, February 03 (7) Anxiety and depression: Stable. Continue sertraline (8) GERD (gastroesophageal reflux disease): Stable. Continue pantoprazole (9) Generalized weakness: Improved. Continue PT/OT (10) Diabetes: ADA diet. Sliding scale coverage. Metformin is temporarily on hold. This can be restarted at discharge Plan Hopeful discharge to home tomorrow, February 04 Total Time Total Time Spent Total Time Spent (In Minutes): 35 Discharge Plan Discharge Items Patient Disposition: Home - Home Health Services Reason For Visit: AML, THROMBOCYTOPENIA, DIARRHEA, GENERALIZED WEAK Discharge Diagnosis: AML Activity: Resume your previous activity Non-emergency contact: Primary Care Provider and Oncologist Call non-emergency contact if: you have any medication questions and your symptoms worsen Follow-up/Referrals: Agueda Fowler DO [Primary Care Provider] - 02/18/23 10:20 am (Appointment will be with Wanda Russell) Diet: Regular Addtl Attending Provider Instructions: please follow up with your regular Oncologist Pending Studies at Discharge: No Stand-Alone Forms: [facility], Smoking Cessation Medications and DC Order Prescriptions: New levofloxacin 500 mg Tablet 500 mg PO DAILY@1100 5 Days Qty: 5 0RF Continued metformin 1,000 mg tablet 1,000 mg PO BID Qty: 180 3RF pantoprazole 40 mg tablet,delayed release (DR/EC) 40 mg PO QAM Qty: 180 2RF meclizine 25 mg tablet 25 mg PO TID PRN (Reason: Dizziness) Qty: 90 1RF zafirlukast 20 mg tablet 20 mg PO Q12H Qty: 180 1RF albuterol sulfate 2.5 mg /3 mL (0.083 %) solution for nebulization 5 mg inhalation Q6H PRN (Reason: Shortness Of Breath Or Wheezing) acyclovir 400 mg tablet 400 mg PO BID sumatriptan 5 mg/actuation spray,non-aerosol 10 mg intranasal Q2H PRN (Reason: migraine headache) Qty: 6 1RF Rx Instructions: May repeat the dose once after 2 hour. Maximum dose: 30 mg per 24 hours. alendronate [Fosamax] 70 mg tablet 70 mg PO WEEKLY Qty: 12 3RF Rx Instructions: TAKE THIS MED EVERY THURSDAY MORNING prednisone 5 mg tablet 15 mg PO DAILY tramadol 50 mg Tablet 50 mg PO Q4H PRN (Reason: pain) Qty: 20 0RF magnesium oxide 400 mg (241.3 mg magnesium) Tablet 400 mg PO BID Qty: 60 0RF metoprolol tartrate 25 mg Tablet 25 mg PO BID Qty: 60 0RF sertraline 50 mg tablet 50 mg PO QAM mirabegron 50 mg tablet extended release 24 hr 50 mg PO QAM Discharge Orders: Discharge Order (Routine); Ordered 02/04/23 Ordered By: Graciela Herbert Admission Data Admit Date/Time: 01/31/23 16:40 Attending Provider: Graciela Herbert Admit Provider: Thiago Cohen Primary Care Provider: Agueda Fowler Other Providers: Thiago Cohen ; Barney Hernandez Coding Level of Care Code 77553 INP/OBS DISCH >30 MIN Diagnoses Diarrhea R19.7 Thrombocytopenia D69.6 Anemia requiring transfusions D64.9 Neutropenia D70.9 Acute myeloblastic leukemia C92.00 Leukemia Active/Remission status: without remission Chest wall hematoma S20.219A Anxiety and depression F41.9; F32.9 GERD (gastroesophageal reflux disease) K21.9 Generalized weakness R53.1 Diabetes E11.9 Time Spent (min) 35
[2023-02-04 15:52] LABS: Hemoglobin 10.9 g/dl (12.0-16.0); Mean Corpuscular Hemoglobin 28.3 pg (25.0-34.0); Mean Corpuscular Hgb Conc 32.1 g/dL (32.0-36.0); Mean Corpuscular Volume 88.3 fL (80.0-100.0); Mean Platelet Volume 8.9 fL (9.4-12.4); Nucleated RBC # (auto) 1.83 K/uL (0.00-0.12); Nucleated RBC % (auto) 2.2 %; Platelet Count 45 K/uL (130-400); RDW Coefficient of Variation 16.3 % (11.5-14.5); RDW Standard Deviation 52.3 fL (36.4-46.3); Red Blood Count 3.85 M/uL (4.20-5.40); White Blood Count 84.48 K/ul (4.8-10.8)
[2023-02-04 16:43] LABS: ALC (manual) 2.53 K/uL (1.2-3.4); ANC (manual) 0.84 K/uL (1.4-6.5); Blast # (manual) 79.41 K/uL (0-0); Blast Cells % (manual) 94 %; Lymphocytes # (manual) 2.53 K/uL (1.2-3.4); Lymphocytes % (manual) 3 %; Monocytes # (manual) 1.69 K/uL (0.11-0.59); Monocytes % (manual) 2 %; Neutrophils # (manual) 0.84 K/uL (1.40-6.50); Neutrophils % (manual) 1 %
== END 2023-02-04 16:34 | disposition home health service (06) | DRG 392 ==
LOC: ED 12:40 → 3E 16:40 → SUATTDRO 16:40 → 3E 19:58